=== PATIENT | female | born 1940 | race Caucasian/White ===

== ENCOUNTER 2016-11-25 20:07 | Inpatient (IN) ==
[2016-11-25 21:51] LABS: Eosinophils % 1.1 %; Hemoglobin 13.1 g/dL (11.5-15.4); Immature Granulocytes % 0.7 % (0-4); Lymphocytes % 12.1 %; Mean Corpuscular HGB Conc 33.6 g/dL (31.6-35.5); Mean Corpuscular Hemoglobin 29.4 pg (28.0-33.3); Mean Corpuscular Volume 87.4 fL (83.0-100.0); Mean Platelet Volume 9.1 fL (9.4-12.4); Monocytes % 9.8 %; Platelet Count 233 K/mcL (140-400); Red Blood Count 4.46 M/mcL (3.82-4.97); Red Cell Distribution Width 12.8 % (11.5-14.5); Segmented Neutrophils % 76.2 %
[2016-11-25 21:52] LABS: Basophils % 0.1 %; Eosinophils # 0.2 K/mcL (0.0-0.6); Lymphocytes # 1.7 K/mcL (0.6-4.6); Monocytes # 1.3 K/mcL (0.0-1.3); Neutrophils # 10.4 K/mcL (1.6-8.9)
[2016-11-25 22:08] LABS: Alanine Aminotransferase 9 Units/L (0-55); Albumin 3.2 g/dL (3.5-5.0); Albumin/Globulin Ratio 0.9 (1.1-2.2); Alkaline Phosphatase 96 Units/L (38-126); Aspartate Amino Transferase 18 Units/L (5-34); BUN/Creatinine Ratio 18 (6-26); Bilirubin,Total 0.4 mg/dL (0.2-1.2); Blood Urea Nitrogen 16 mg/dL (7-20); Calcium 10.3 mg/dL (8.6-10.8); Carbon Dioxide 27 mEq/L (19-29); Chloride 107 mEq/L (98-109); Globulin 3.6 g/dL (2.4-3.5); Glucose 58 mg/dL (70-99); Osmolality,Calculated 291 (280-300); Potassium 4.3 mEq/L (3.5-4.5); Sodium 141 mEq/L (136-145); Total Protein 6.8 g/dL (6.0-8.3); eGFR For African Americans > 60 (> 60); eGFR For Non-African Americans > 60 (> 60)
--- NOTE | 2016-11-25 22:39 | Emergency Department Note ---
Disposition Clinical Impression: Atypical chest pain, Hypoglycemia Disposition: Admitted As Inpatient Condition: Good General Adult HPI - General Chief complaint: ED Altered Mental Status Stated complaint: LOW GLUCOSE Time Seen by Provider: 11/25/16 20:11 Source: patient, EMS Mode of arrival: ambulatory Limitations: no limitations Nursing Notes Reviewed: Yes Vital Signs Reviewed: Yes - History of Present Illness HPI Narrative: 76-year-old female presents with concerns of low glucose. Patient states she took her insulin today but did not eat secondary to abdominal pain. Patient reports she has been evaluated multiple times in the past few months for abdominal pain with CTs that did not show surgical pathology. Patient denies associated fever, chills, palpitations, diarrhea, vomiting. Patient does report having chest pain earlier today however it is unclear whether this was associated with her hypoglycemia. Patient states she did become diaphoretic with her chest pain as well. Patient has a history of previous myocardial infarction however she had a negative stress test one year ago. Pain Scale: 0 - Related Data Home Medications Medication Instructions Recorded Confirmed Albuterol Neb [Proventil Neb] 2.5 mg IH TID 03/23/15 11/25/16 Donepezil [Aricept] 10 mg PO HS 03/23/15 11/25/16 Furosemide [Lasix] 40 mg PO DAILY 03/23/15 11/25/16 Levothyroxine [Synthroid] 75 mcg PO 0630 03/23/15 11/25/16 Potassium Chloride 20 meq PO BID 03/23/15 11/25/16 Pregabalin [Lyrica] 75 mg PO DAILY 03/23/15 11/25/16 Insulin Glargine [Lantus] 65 unit SQ HS 01/04/16 11/25/16 Insulin Regular, Human [Novolin R] 15 unit SQ TIDWM #0 01/04/16 11/25/16 Albuterol Sulfate [Ventolin Hfa] 2 puff IH Q4H PRN 11/25/16 11/25/16 Allopurinol [Zyloprim 100 MG] 100 mg PO DAILY 11/25/16 11/25/16 Colestipol HCl [Colestid] 1 gm PO BID 11/25/16 11/25/16 Dicyclomine [Bentyl] 20 mg PO QID PRN 11/25/16 11/25/16 Fluticasone Propionate Nasal 50 mcg NS DAILY PRN 11/25/16 11/25/16 [Flonase] Metoprolol [Lopressor] 50 mg PO BID 11/25/16 11/25/16 Omeprazole [PriLOSEC] 20 mg PO BIDAC 11/25/16 11/25/16 Ondansetron HCl [Zofran] 4 mg PO BID PRN 11/25/16 11/25/16 Oxycodone HCl/Acetaminophen 1 each PO Q8H PRN 11/25/16 11/25/16 [Percocet 5-325 mg Tablet] Sertraline [Zoloft] 100 mg PO DAILY 11/25/16 11/25/16 Valsartan [Diovan] 20 mg PO DAILY 11/25/16 11/25/16 Venlafaxine [Effexor] 75 mg PO DAILY 11/25/16 11/25/16 traZODone [TraZODone] 25 - 100 mg PO HS PRN 11/25/16 11/25/16 Allergies Allergy/AdvReac Type Severity Reaction Status Date / Time lisinopril Allergy Gastrointestinal Verified 10/28/16 10:34 Upset All systems ED: reviewed and negative except as stated. Review of Systems: As Per HPI Past Medical History - Past Medical History Attestation: Yes The following information was validated with the patient. Source: patient Medical history: Reports: asthma, CHF, coronary artery disease, diabetes, hyperlipidemia, hypertension, myocardial infarction, thyroid disease Surgical history: Reports: cholecystectomy Psychiatric history: Reports: no psych history - Social History Smoking Status: Never smoker Smokeless Tobacco Status: No Alcohol use: Reports: none Drug use: Reports: none Physical Exam General: Alert and in no acute distress Skin: Warm, dry, intact Head: Normocephalic and atraumatic Neck: Supple, trachea midline and no tenderness Cardiovascular: RRR, no murmur, normal perfusion Respiratory: CTAB, no wheezing, cough, or respiratory distress Musculoskeletal: Normal strength, no tenderness, swelling or deformity GI: Soft, tenderness to palpation of the epigastrium and left lower quadrant without evidence of rigidity, guarding, rebound. nondistended. Bowel sounds present Neuro: A&O to person, place, time and situation. No focal deficits noted on exam Psychiatric: cooperative and appropriate mood and affect. - General Limitations: no limitations General appearance: alert Course Vital Signs Temperature 99.1 F 11/25/16 20:10 Pulse Rate 70 11/25/16 20:10 Respiratory Rate 22 11/25/16 20:10 Blood Pressure 117/56 11/25/16 20:10 O2 Sat by Pulse Oximetry 95 11/25/16 20:10 Temperature 99.1 F 11/25/16 20:10 Pulse Rate 67 11/25/16 23:50 Respiratory Rate 18 11/25/16 23:55 Blood Pressure 124/58 11/25/16 23:55 O2 Sat by Pulse Oximetry 97 11/25/16 23:50 Oxygen Delivery Oxygen Delivery Room Air Medical Decision Making - MDM Narrative Medical decision making narrative: Patient has multiple risk factors for cardiac disease. Patient has initial negative troponin and EKG showed normal sinus rhythm with a rate of 68 without evidence of STEMI. Patient will be admitted to the hospital for further care and evaluation of her chest pain. - Medical Records Medical records reviewed: Yes I reviewed the patient's medical records. - Lab Data Lab results reviewed: Yes I reviewed the patient's lab results. Result diagrams: 11/25/16 21:42 11/25/16 21:42 Lab Results 11/25/16 11/25/16 11/25/16 Range/Units 21:42 21:42 21:42 WBC 13.6 H (4.3-11.1) K/mcL RBC 4.46 (3.82-4.97) M/mcL Hgb 13.1 (11.5-15.4) g/dL Hct 39.0 (35.3-44.9) % MCV 87.4 (83.0-100.0) fL MCH 29.4 (28.0-33.3) pg MCHC 33.6 (31.6-35.5) g/dL RDW 12.8 (11.5-14.5) % Plt Count 233 (140-400) K/mcL MPV 9.1 L (9.4-12.4) fL Immature Gran % 0.7 (0-4) % Seg Neutrophils % 76.2 % Lymphocytes % 12.1 % Monocytes % 9.8 % Eosinophils % 1.1 % Basophils % 0.1 % Neutrophils # 10.4 H (1.6-8.9) K/mcL Lymphocytes # 1.7 (0.6-4.6) K/mcL Monocytes # 1.3 (0.0-1.3) K/mcL Eosinophils # 0.2 (0.0-0.6) K/mcL Basophils # 0.0 (0.0-0.2) K/mcL Sodium 141 (136-145) mEq/L Potassium 4.3 (3.5-4.5) mEq/L Chloride 107 (98-109) mEq/L Carbon Dioxide 27 (19-29) mEq/L BUN 16 (7-20) mg/dL Creatinine 0.87 (0.57-1.11) mg/dL Est GFR ( Amer) > 60 (> 60) Est GFR (Non-Af Amer) > 60 (> 60) BUN/Creatinine Ratio 18 (6-26) Glucose 58 L (70-99) mg/dL Calculated Osmolality 291 (280-300) Calcium 10.3 (8.6-10.8) mg/dL Total Bilirubin 0.4 (0.2-1.2) mg/dL AST 18 (5-34) Units/L ALT 9 (0-55) Units/L Alkaline Phosphatase 96 (38-126) Units/L Troponin I 0.00 (0-0.03) ng/mL Serum Total Protein 6.8 (6.0-8.3) g/dL Albumin 3.2 L (3.5-5.0) g/dL Globulin 3.6 H (2.4-3.5) g/dL Albumin/Globulin Ratio 0.9 L (1.1-2.2) - Radiology Data Radiology results reviewed: Yes I reviewed the patient's radiology results. - EKG Data EKG #1 EKG attestation: Yes I reviewed and interpreted this EKG. EKG results narrative: ECG - interpreted by ED physician. Rate 68, normal sinus rhythm, no STEMI, MS, QT intervals, and QRS within normal limits
[2016-11-26] MEDS ORDERED: Naloxone 0.4 MG/ML INJ IVP PRN ×2 (01:14→01:21)
[2016-11-26] MEDS ORDERED: Ondansetron 4 MG/2 ML VIAL IVP PRN (01:14)
[2016-11-26 01:42] LABS: Basophils % 0.2 %; Eosinophils # 0.1 K/mcL (0.0-0.6); Hematocrit 39.2 % (35.3-44.9); Hemoglobin 12.9 g/dL (11.5-15.4); Immature Granulocytes % 0.5 % (0-4); Lymphocytes # 1.2 K/mcL (0.6-4.6); Lymphocytes % 13.7 %; Mean Corpuscular HGB Conc 32.9 g/dL (31.6-35.5); Mean Corpuscular Hemoglobin 29.2 pg (28.0-33.3); Mean Corpuscular Volume 88.7 fL (83.0-100.0); Mean Platelet Volume 9.1 fL (9.4-12.4); Monocytes # 0.8 K/mcL (0.0-1.3); Monocytes % 8.8 %; Neutrophils # 6.7 K/mcL (1.6-8.9); Platelet Count 239 K/mcL (140-400); Red Blood Count 4.42 M/mcL (3.82-4.97); Red Cell Distribution Width 12.7 % (11.5-14.5); Segmented Neutrophils % 75.8 %
[2016-11-26 01:55] LABS: BUN/Creatinine Ratio 17 (6-26); Blood Urea Nitrogen 16 mg/dL (7-20); Calcium 9.7 mg/dL (8.6-10.8); Carbon Dioxide 30 mEq/L (19-29); Chloride 104 mEq/L (98-109); Glucose 218 mg/dL (70-99); Osmolality,Calculated 296 (280-300); Potassium 4.3 mEq/L (3.5-4.5); Sodium 139 mEq/L (136-145); eGFR For African Americans > 60 (> 60); eGFR For Non-African Americans 59 (> 60)
--- NOTE | 2016-11-26 02:29 | Internal Med History&Physical ---
Date of Encounter: 11/26/16 Time of Encounter: 02:15 Assessment and Plan (1) Chest pain Current visit: No Status: Acute Acute atypical chest pain - rule out ACS Continue aspirin and statin EKG - normal sinus rhythm with no acute ST-T changes Troponin - negative Chest x-ray - no acute abnormality Trend troponin Stress test done in January 2016 - EF 70% and negative for ischemia or infarct Cardiac telemetry, labs in a.m. Qualifiers: Chest pain type: unspecified Qualified Code(s): R07.9 - Chest pain, unspecified (2) Diverticulitis large intestine Current visit: No Status: Chronic Patient does have history of diverticulosis of large intestine - status post partial colectomy as per patient She does have abdominal pain and left lower quadrant tenderness - possible mild flare of diverticulitis Qualifiers: Diverticulitis bleeding: without bleeding Diverticulitis complication: without perforation or abscess Qualified Code(s): K57.32 - Diverticulitis of large intestine without perforation or abscess without bleeding (3) Diabetes mellitus Current visit: No Status: Chronic Diabetes mellitus type 2, hyperglycemia, insulin-dependent Continue insulin sliding scale, Levemir, glucose checks Qualifiers: Diabetes mellitus type: type 2 Diabetes mellitus complication status: with kidney complications Diabetes mellitus complication detail: with chronic kidney disease Diabetes mellitus fci insulin use: with fci use Chronic kidney disease stage: stage 3 (moderate) Qualified Code(s): E11.22 - Type 2 diabetes mellitus with diabetic chronic kidney disease; N18.3 - Chronic kidney disease, stage 3 (moderate); Z79.4 - terminal gauger (current) use of insulin (4) Hypertension Current visit: No Status: Chronic Essential hypertension, controlled, continue home meds, monitor Qualifiers: Hypertension type: essential hypertension Qualified Code(s): I10 - Essential (primary) hypertension (5) Chronic kidney disease, stage III (moderate) Current visit: No Status: Chronic Creatinine and BUN and GFR at baseline (6) DVT prophylaxis Current visit: No Status: Acute Continue heparin subcutaneous Internal Medicine - H&P: HPI Chief complaint: Chest pain Admitted From: Emergency Dept Plans for Post Hospital Care: Home History of present illness: Ms. Ferro is a 76 year old female with past medical history of diabetes, hyperlipidemia, hypertension, hypothyroidism, asthma and chronic kidney disease stage III. Patient presents to the ED with complaints of chest pain and low blood glucose. On examination patient is awake and alert. Not in any distress. Able to provide history. Daughter is at bedside. Patient states she developed left- sided chest pain earlier today and became diaphoretic. Pain was radiating to her left arm. It was intermittent and felt like it was a chest pressure. Rates it 4 out of 10. Symptoms seem to have now resolved. Denies shortness of breath or palpitations or headache or dizziness. Patient did have a stress test about 1 year ago which was negative. Patient also complains of pain which she says is chronic. She also has chronic diarrhea apparently. Patient has been admitted in the past for chest pain and also for acute diverticulitis. EKG shows a normal sinus rhythm with no acute ST-T changes. Chest x-ray does not show any acute abnormality. Troponin is negative. CT of the abdomen and pelvis done about 4 weeks ago revealed colonic diverticulosis with no other acute findings. Patient and daughter are concerned about patient's chronic abdominal pain which is been going on for almost one year. Patient is being admitted for chest pain, rule out ACS. We will trend troponins. Patient will be on aspirin and statin. Patient and daughter explained about the condition and plan of care. Understood and agreed. No unanswered questions. CODE STATUS full code. Past Med Surg Social Fam HX - Past Medical History Medical history: asthma, CHF, coronary artery disease, diabetes, hyperlipidemia , hypertension, myocardial infarction, thyroid disease Psychiatric history: no psych history - Past Surgical History Surgical History: cholecystectomy, colectomy, other - Social History Smoking Status: Never smoker Smokeless Tobacco Status: No Alcohol use: none Drug use: none - Family History Mother Adopted: No Family Member Ethnicity: Non- Living Status: Hx Family Cardiac Disorders: Yes Hx Family Respiratory Disorders: No Hx Family Cancer: Yes Hx Family GI Disorders: No Hx Family Endocrine Disorder: No Hx Family Neuromuscular Disorders: No Hx Family Neurologic Disorders: No Hx Family HEENT Disorders: No Hx Family Autoimmune Disorders: No Father Living Status: Hx Family Cardiac Disorders: Yes Internal Medicine - H&P: Meds Albuterol Neb [Proventil Neb] 2.5 mg IH TID 03/23/15 [History] Donepezil [Aricept] 10 mg PO HS 03/23/15 [History] Furosemide [Lasix] 40 mg PO DAILY 03/23/15 [History] Levothyroxine [Synthroid] 75 mcg PO 0630 03/23/15 [History] Potassium Chloride 20 meq PO BID 03/23/15 [History] Pregabalin [Lyrica] 75 mg PO DAILY 03/23/15 [History] Insulin Glargine [Lantus] 65 unit SQ HS 01/04/16 [History] Insulin Regular, Human [Novolin R] 15 unit SQ TIDWM #0 01/04/16 [History] Albuterol Sulfate [Ventolin Hfa] 2 puff IH Q4H PRN 11/25/16 [History] Allopurinol [Zyloprim 100 MG] 100 mg PO DAILY 11/25/16 [History] Colestipol HCl [Colestid] 1 gm PO BID 11/25/16 [History] Dicyclomine [Bentyl] 20 mg PO QID PRN 11/25/16 [History] Fluticasone Propionate Nasal [Flonase] 50 mcg NS DAILY PRN 11/25/16 [History] Metoprolol [Lopressor] 50 mg PO BID 11/25/16 [History] Omeprazole [PriLOSEC] 20 mg PO BIDAC 11/25/16 [History] Ondansetron HCl [Zofran] 4 mg PO BID PRN 11/25/16 [History] Oxycodone HCl/Acetaminophen [Percocet 5-325 mg Tablet] 1 each PO Q8H PRN [History] Sertraline [Zoloft] 100 mg PO DAILY 11/25/16 [History] Valsartan [Diovan] 20 mg PO DAILY 11/25/16 [History] Venlafaxine [Effexor] 75 mg PO DAILY 11/25/16 [History] traZODone [TraZODone] 25 - 100 mg PO HS PRN 11/25/16 [History] Allergies lisinopril Allergy (Verified 10/28/16 10:34) Gastrointestinal Upset All Systems PM: A 10-system review of systems was performed and is negative for pertinent findings except as documented above in the HPI. - Constitutional Constitutional: fatigue, weakness, no fever(s) - EENT Eyes: no blurry vision - Cardiovascular Cardiovascular ROS IM: chest pain, no dyspnea, no dyspnea on exertion, no edema , no lightheadedness, no orthopnea, no syncope - Respiratory Respiratory: no cough, no dyspnea, no dyspnea on exertion, no wheezing, no chest congestion - Gastrointestinal Gastrointestinal: abdominal pain, bloating, diarrhea, no cramping, no hematochezia, no melena, no nausea, no vomiting - Genitourinary Genitourinary: no dysuria - Musculoskeletal Musculoskeletal ROS IM: back pain - Neurological Neurological ROS: no abnormal gait, no abnormal speech, no dizziness, no numbness, no tingling - Constitutional Vitals: Temp Pulse Resp BP Pulse Ox 98.0 F 71 16 118/59 94 11/26/16 01:13 11/26/16 01:13 11/26/16 01:13 11/26/16 01:13 11/26/16 01:13 General appearance: Present: A&O X 3, pleasant, no acute distress, answers questions appropriately - Head Head exam: Present: atraumatic - ENT ENT exam: Present: mucous membranes moist - Neck Neck exam general surgery: Present: supple - Respiratory Respiratory exam: Present: CTAB. Absent: rales, rhonchi, wheezes, tachypnea - Cardiovascular Cardiovascular exam: Present: RRR, +S1, +S2 - GI/Abdominal GI/Abdominal exam: Present: soft, tenderness (LLQ tenderness+). Absent: distended, firm, guarding, rigid - Extremities Exam Extremities exam: Present: radial pulses palpable and symetrical. Absent: cyanotic, pedal edema, tenderness - Neurological Exam Neurological exam: Present: alert, oriented X3, no focal deficits. Absent: facial droop, speech deficit Internal Med - H&P Results - Labs CBC & Chem 7: 11/26/16 01:30 11/26/16 01:30 Labs: Short CBC 11/26/16 Range/Units 01:30 WBC 8.9 (4.3-11.1) K/mcL Hgb 12.9 (11.5-15.4) g/dL Hct 39.2 (35.3-44.9) % Plt Count 239 (140-400) K/mcL Neutrophils # 6.7 (1.6-8.9) K/mcL BMP 11/26/16 01:30 Sodium 139 Potassium 4.3 Chloride 104 Carbon Dioxide 30 H BUN 16 Creatinine 0.93 Glucose 218 H Calcium 9.7 Cardiac Enzymes 11/26/16 Range/Units 01:30 Troponin I 0.00 (0-0.03) ng/mL
[2016-11-26] MEDS: Aspirin 81 MG TAB.CHEW PO SCH ×2 (03:20→08:34)
[2016-11-26] MEDS: *HR* Morphine 2 MG/ML SYRINGE IVP PRN ×2 (03:20→22:22)
[2016-11-26] MEDS: Albuterol 2.5 MG/3 ML NEBULIZER IH SCH ×3 (04:05→16:44)
[2016-11-26] MEDS: *HR* Heparin 5,000 UNIT/ML VIAL SQ SCH ×2 (04:50→17:54)
[2016-11-26] MEDS ORDERED: Famotidine 20 MG/2 ML VIAL IVP SCH (06:00)
[2016-11-26] MEDS: Insulin LISPRO 300 UNITS/3 ML VIAL SQ SCH ×4 (08:34→21:48)
[2016-11-26] MEDS: Furosemide 20 MG TABLET PO SCH (08:34)
[2016-11-26] MEDS: (Colestipol Hcl [Colestid] 1 GM) PO SCH ×2 (08:34→21:48)
[2016-11-26] MEDS: VALSARTAN 20 MG PO SCH (08:35)
[2016-11-26] MEDS ORDERED: Dextrose Gel 15 GM PO ONE (16:29)
[2016-11-26] MEDS ORDERED: D5% in Water 1,000 ML IVC PRN (16:31)
[2016-11-26] MEDS ORDERED: Dextrose Gel 15 GM PO PRN ×2 (16:31)
[2016-11-26] MEDS ORDERED: *HR* Dextrose 50 % in Water (Syg) 50 ML SYRINGE IVP PRN (16:31)
--- NOTE | 2016-11-26 18:57 | Event Note ---
Date of Encounter: 11/26/16 Time of Encounter: 13:30 Patient was seen and assessed about 1:30 PM. She currently denies chest pain. She states that the chest pain resolved spontaneously in the emergency department. Patient states she did not feel well when she woke up yesterday. Said she awakened with left chest pain that was sharp and constant without radiation. She had associated shortness of breath and diaphoresis, dizziness and nausea. It lasted approximately 3 hours. She denies any cardiac history in the past and does not have a pattern filer. She also reports constant abdominal pain, anorexia due to pain, and 3 admissions to the emergency department for the abdominal pain. Daughter verbalizes frustration over the fact that her mother cannot eat and it appears that no one is trying to help her. I explained to her that we do not have GI on the weekend and that he has been out of the country and will be back log when he gets back on Monday. I explained to her that someone is [employer] consultant but will only come in for acute GI bleed, which patient does not have. Daughter verbalized understanding and requested that another CAT scan be done. Patient is also waiting on an echocardiogram that has not been done yet today.Patient had a prior stress test in January, was negative for ischemia or infarct. Gated EF was greater than 70%. Prior echocardiogram from March,, showed LVEF of 60-65% with normal LV structure and function, mild diastolic dysfunction, normal RV structure and function no evidence of pulmonary hypertension, no significant valvular dysfunction, all wall segments showed normal motion. Patient's chest x -ray from this visit shows no acute abnormality. Troponins were negative 3. BNP is 25. Echocardiogram is still pending. CT abdomen and pelvis showed no acute abnormality with extensive diverticulosis , but without convincing CT evidence of diverticulitis. We will continue to treat her pain, since she also at times complains of epigastric pain and some reflux symptoms, I will add omeprazole. Patient denies nausea, vomiting, dizziness, blurred vision, diarrhea, chest pain , or shortness of breath. She does report left lower quadrant pain almost constant 8/10 and decreased appetite due to pain. He denies change in bowel movements and denies urinary symptoms. She denies weakness or extreme weight loss. Physical exam was unremarkable. Patient did seem a little slow to respond, but responded appropriately. She is alert and oriented 3, engaging, speech is clear. She has no anterior posterior cervical adenopathy. Lungs are clear anteriorly and posteriorly without rhonchi, wheezing, rales, respiratory distress. S1-S2 are heard with regular rate and rhythm. There are no murmurs, gallops, clicks. Her abdomen is soft and tender in left lower quadrant. Bowel sounds are present. Abdomen is rounded. Patient has +1 peripheral edema bilaterally lower extremities that is normal for her. Again, she denies chest pain. We will keep patient on telemetry tonight. We will continue her home medications. Will continue to monitor labs in the morning. We will continue sliding scale insulin, Accu-Cheks before meals and at bedtime for diabetes. We will draw an A1c in the morning. Will continue to monitor her vital signs. Heparin subcutaneously 3 times daily for DVT prophylaxis.
[2016-11-26 20:56] LABS: Bilirubin,Urine Negative (Negative); Blood,Urine Negative (Negative); Color,Urine Yellow (Yellow); Glucose,Urine (UA) 250 mg/dL (Normal); Ketones,Urine Negative (Negative); Leukocyte Esterase,Urine Moderate (Negative); Nitrite,Urine Negative (Negative); PH,Urine 5.5 pH Units (5.0-8.0); Protein,Urine Negative (Neg-Trace); Specific Gravity,Urine 1.023 (1.010-1.025); Urobilinogen,Urine Normal (Normal)
[2016-11-26 20:58] LABS: Hyaline Casts,Urine None Seen per lpf (None-Few); Squamous Epithelial Cell,Urine Many per lpf (None-Few); WBC,Urine 15-30 per hpf (0-3)
[2016-11-26] MEDS ORDERED: INSULIN GLARGINE SQ SCH (21:00)
[2016-11-26] MEDS ORDERED: Insulin DETEMIR 100 UNIT/ML X5UNITS SQ SCH (21:00)
[2016-11-26 21:01] LABS: Clarity,Urine Slightly Hazy (Clear)
[2016-11-26 21:17] LABS: Bacteria,Urine Few per hpf (None-Few)
[2016-11-26] MEDS: Insulin DETEMIR 100 UNIT/ML X5UNITS SQ SCH (23:21)
[2016-11-27] MEDS: Albuterol 2.5 MG/3 ML NEBULIZER IH SCH ×3 (03:45→16:53)
[2016-11-27 05:09] LABS: Basophils % 0.1 %; Eosinophils # 0.3 K/mcL (0.0-0.6); Eosinophils % 3.5 %; Hematocrit 39.8 % (35.3-44.9); Hemoglobin 12.8 g/dL (11.5-15.4); Immature Granulocytes % 0.6 % (0-4); Lymphocytes % 24.9 %; Mean Corpuscular HGB Conc 32.2 g/dL (31.6-35.5); Mean Corpuscular Hemoglobin 29.1 pg (28.0-33.3); Mean Corpuscular Volume 90.5 fL (83.0-100.0); Mean Platelet Volume 9.1 fL (9.4-12.4); Monocytes # 0.9 K/mcL (0.0-1.3); Monocytes % 11.3 %; Neutrophils # 4.9 K/mcL (1.6-8.9); Platelet Count 243 K/mcL (140-400); Segmented Neutrophils % 59.6 %
[2016-11-27 05:22] LABS: Hemoglobin A1C 7.4 %
[2016-11-27 05:30] LABS: BUN/Creatinine Ratio 16 (6-26); Blood Urea Nitrogen 16 mg/dL (7-20); Calcium 9.9 mg/dL (8.6-10.8); Carbon Dioxide 26 mEq/L (19-29); Chloride 104 mEq/L (98-109); Chol/HDL Ratio 8.7 (0-4.9); Cholesterol 305 mg/dL (< 200); Glucose 154 mg/dL (70-99); HDL Cholesterol 35 mg/dL (40-59); LDL Cholesterol,Calculated 226 mg/dL (0-99); Osmolality,Calculated 294 (280-300); Potassium 4.4 mEq/L (3.5-4.5); Sodium 140 mEq/L (136-145); Triglycerides 219 mg/dL (< 150); eGFR For African Americans > 60 (> 60); eGFR For Non-African Americans 52 (> 60)
[2016-11-27] MEDS: *HR* Heparin 5,000 UNIT/ML VIAL SQ SCH ×2 (06:15→17:40)
[2016-11-27] MEDS: Insulin LISPRO 300 UNITS/3 ML VIAL SQ SCH ×4 (09:43→22:09)
[2016-11-27] MEDS: VALSARTAN 20 MG PO SCH (09:44)
[2016-11-27] MEDS: (Colestipol Hcl [Colestid] 1 GM) PO SCH ×2 (09:44→22:09)
[2016-11-27] MEDS ORDERED: Perflutren Lipid Microsphere 1.3 ML in 0.9 % Sodium Chloride 8.7 ML IVP ONE (09:56)
[2016-11-27] MEDS: Furosemide 20 MG TABLET PO SCH (10:35)
[2016-11-27] MEDS: Aspirin 81 MG TAB.CHEW PO SCH (10:36)
[2016-11-27] MEDS: Famotidine 20 MG/2 ML VIAL IVP SCH (10:36)
--- NOTE | 2016-11-27 14:53 | Internal Med Progress Note ---
Date of Encounter: 11/27/16 Time of Encounter: 13:10 - Assessment and plan (1) Chest pain Current Visit: No Status: Acute Assessment and plan: Patient denies chest pain today. She says she has had none since yesterday. Echocardiogram was technically suboptimal and contrast was used. Normal LV systolic function with LVEF of 70%, mild diastolic dysfunction. Normal RV size and function all wall segments showed normal motion. Chest x-ray was negative. Troponins are negative 3. Lipids are elevated, patient takes Zocor daily. Continue aspirin, statin, beta abdoul. Continue tower cleaner labs and patient condition, vital signs. Qualifiers: Chest pain type: unspecified Qualified Code(s): R07.9 - Chest pain, unspecified (2) Hypertension Current Visit: Yes Status: Chronic Assessment and plan: Well-controlled. Chronic. Continue home medication. Qualifiers: Hypertension type: essential hypertension Qualified Code(s): I10 - Essential (primary) hypertension (3) Diabetes mellitus Current Visit: No Status: Chronic Assessment and plan: A1c is 7.4. Continue Accu-Cheks before meals at bedtime, diabetic diet, sliding scale insulin. Qualifiers: Diabetes mellitus type: type 2 Diabetes mellitus complication status: with kidney complications Diabetes mellitus complication detail: with chronic kidney disease Diabetes mellitus long term care administrator insulin use: with long term care administrator use Chronic kidney disease stage: stage 3 (moderate) Qualified Code(s): E11.22 - Type 2 diabetes mellitus with diabetic chronic kidney disease; N18.3 - Chronic kidney disease, stage 3 (moderate); Z79.4 - skilled nursing (current) use of insulin (4) Diverticulitis large intestine Current Visit: No Status: Chronic Assessment and plan: Per patient history. Patient was treated with antibiotics 6 months ago. She also reports that she finished antibiotics yesterday for abdominal pain. CAT scan done yesterday showed no acute abnormality and extensive diverticulosis but no convincing CT evidence of diverticulitis. Control pain. If no better consider GI consult tomorrow. Qualifiers: Diverticulitis bleeding: without bleeding Diverticulitis complication: without perforation or abscess Qualified Code(s): K57.32 - Diverticulitis of large intestine without perforation or abscess without bleeding (5) Chronic kidney disease, stage III (moderate) Current Visit: Yes Status: Chronic Assessment and plan: Creatinine is 1.03 within normal limits. GFR is 52. We will continue to monitor and avoid nephrotoxins. (6) DVT prophylaxis Current Visit: Yes Status: Acute Assessment and plan: Heparin subcutaneous daily. - Time Spent With Patient less than 15 minutes - Subjective Interval history: Patient is resting quietly in her bed. She is alert and oriented 3, sometimes slow to respond. He does seem to answer questions appropriately. She still complaining of intermittent sharp, stabbing right lower quadrant pain and umbilical pain. She states that she is able to ease small amounts of food. She denies nausea, vomiting, diarrhea. She reports anorexia due to pain, however denies any significant weight loss. She is able to keep fluids down. She has not had a colonoscopy or EGD. She says the pain gets worse with any eating or drinking. Onset one and half months ago. She also reports that about 6 months ago she was treated for diverticulitis with antibiotics and also states again she was treated with antibiotics for abdominal pain that she finished the day that she was admitted. Abdomen is very tender to palpation in left lower quadrant as well as periumbilical area. Patient has vertical incision from umbilicus to pubic bone , she states that she had a cholecystectomy. There are no palpable masses in the abdomen, no visible hernias. There is a fat-containing umbilical hernia, however is not evident with exam. - Constitutional Vitals: Temp Pulse Resp BP Pulse Ox 98.2 F 73 15 125/71 95 11/27/16 11:00 11/27/16 11:00 11/27/16 11:15 11/27/16 11:00 11/27/16 11:15 General appearance: Present: A&O X 3, pleasant, no acute distress, answers questions appropriately - Head Head exam: Present: normal inspection - Eye Eye exam: Present: normal appearance, conjuntiva pink. Absent: nystagmus - ENT ENT exam: Present: mucous membranes moist, normal exam, normal external ear exam - Respiratory Respiratory exam: Absent: chest wall tenderness, decreased breath sounds, rales , respiratory distress, rhonchi, wheezes - Cardiovascular Cardiovascular exam: Present: RRR, +S1, +S2. Absent: diastolic murmur, systolic murmur - GI/Abdominal GI/Abdominal exam: Present: distended, guarding, mass, normal bowel sounds, soft. Absent: hepatomegaly, tenderness - Extremities Exam Extremities exam: Present: warm, radial pulses palpable and symetrical. Absent : pedal edema, tenderness - Neurological Exam Neurological exam: Present: alert, oriented X3. Absent: facial droop, speech deficit Internal Medicine: Result - Labs CBC & Chem 7: 11/27/16 04:48 11/27/16 04:48 Labs: Short CBC 11/27/16 Range/Units 04:48 WBC 8.2 (4.3-11.1) K/mcL Hgb 12.8 (11.5-15.4) g/dL Hct 39.8 (35.3-44.9) % Plt Count 243 (140-400) K/mcL Neutrophils # 4.9 (1.6-8.9) K/mcL BMP 11/27/16 04:48 Sodium 140 Potassium 4.4 Chloride 104 Carbon Dioxide 26 BUN 16 Creatinine 1.03 Glucose 154 H Calcium 9.9 Urine 11/26/16 Range/Units 20:48 Urine Color Yellow (Yellow) Urine Clarity Slightly Hazy (Clear) Urine pH 5.5 (5.0-8.0) pH Units Ur Specific [place] 1.023 (1.010-1.025) Urine Protein Negative (Neg-Trace) mg/dL Urine Glucose (UA) 250 H (Normal) mg/dL - Impressions Impressions Abdomen/Pelvis CT 11/26/16 15:48 IMPRESSION: 1. No acute abnormality detected. 2. Extensive diverticulosis, but without convincing CT evidence of diverticulitis. D/ / Chris Perdomo MD / Chris Perdomo MD Interpreting Provider: Chris Perdomo MD Consult Discharge Plan - Plan Referrals: NO,PCP [Primary Care Provider] -
[2016-11-27] MEDS: *HR* Morphine 2 MG/ML SYRINGE IVP PRN (22:08)
[2016-11-27] MEDS: Insulin DETEMIR 100 UNIT/ML X5UNITS SQ SCH (22:08)
[2016-11-28] MEDS: Albuterol 2.5 MG/3 ML NEBULIZER IH SCH ×3 (03:08→16:29)
[2016-11-28] MEDS: *HR* Heparin 5,000 UNIT/ML VIAL SQ SCH ×2 (05:52→16:41)
[2016-11-28 05:57] LABS: Basophils % 0.4 %; Eosinophils # 0.3 K/mcL (0.0-0.6); Eosinophils % 4.1 %; Hematocrit 42.8 % (35.3-44.9); Hemoglobin 13.7 g/dL (11.5-15.4); Immature Granulocytes % 0.6 % (0-4); Lymphocytes # 1.6 K/mcL (0.6-4.6); Lymphocytes % 20.4 %; Mean Corpuscular Hemoglobin 29.1 pg (28.0-33.3); Mean Corpuscular Volume 90.9 fL (83.0-100.0); Mean Platelet Volume 9.5 fL (9.4-12.4); Monocytes # 1.1 K/mcL (0.0-1.3); Monocytes % 13.6 %; Neutrophils # 4.9 K/mcL (1.6-8.9); Platelet Count 270 K/mcL (140-400); Red Blood Count 4.71 M/mcL (3.82-4.97); Red Cell Distribution Width 13.1 % (11.5-14.5); Segmented Neutrophils % 60.9 %
[2016-11-28 06:18] LABS: BUN/Creatinine Ratio 17 (6-26); Blood Urea Nitrogen 18 mg/dL (7-20); Calcium 10.1 mg/dL (8.6-10.8); Carbon Dioxide 31 mEq/L (19-29); Chloride 103 mEq/L (98-109); Glucose 146 mg/dL (70-99); Osmolality,Calculated 297 (280-300); Potassium 4.2 mEq/L (3.5-4.5); Sodium 141 mEq/L (136-145); eGFR For African Americans > 60 (> 60); eGFR For Non-African Americans 50 (> 60)
[2016-11-28] MEDS: Insulin LISPRO 300 UNITS/3 ML VIAL SQ SCH ×4 (07:50→21:20)
[2016-11-28] MEDS: Furosemide 20 MG TABLET PO SCH (07:51)
[2016-11-28] MEDS: (Colestipol Hcl [Colestid] 1 GM) PO SCH ×2 (07:52→21:20)
[2016-11-28] MEDS: VALSARTAN 20 MG PO SCH (07:52)
[2016-11-28] MEDS: Famotidine 20 MG/2 ML VIAL IVP SCH (07:52)
[2016-11-28] MEDS: Aspirin 81 MG TAB.CHEW PO SCH (07:52)
--- NOTE | 2016-11-28 08:29 | Gastroenterology Consult Note ---
<Christine Mejia - Last Filed: 11/28/16 10:14> Date of Encounter: 11/28/16 Time of Encounter: 09:20 - Assessment and plan (1) Chronic abdominal pain Current Visit: Yes Status: Chronic (2) Anorexia Current Visit: Yes Status: Chronic (3) Diverticulosis Current Visit: Yes Status: Chronic Qualifiers: Diverticulosis site: diverticulosis of large intestine Qualified Code(s): K57.30 - Diverticulosis of large intestine without perforation or abscess without bleeding (4) History of colon resection Current Visit: Yes Status: Chronic - Time Spent With Patient Total time spent is greater than 50% in coordination of care (as documented) at patient's floor/unit and/or counseling patient: less than 15 minutes GI History of Present Illness - Data of Consult Patient: known to practice within the last 3 years Consult date: 11/28/16 Requesting Physician: Nidhi Fonseca CNP - Consult Narrative Reason for consult: chronic abd pain, anorexia History of present illness: Ms. Ferro is a 76 year old female with past medical history of diabetes, hyperlipidemia, hypertension, hypothyroidism, asthma and chronic kidney disease stage III. Patient presents to the ED with complaints of chest pain and low blood glucose. Patient states she developed left-sided chest pain earlier on the day of admission, she became diaphoretic per the medical chart. Pain was radiating to her left arm. It was intermittent and felt like it was a chest pressure. Rates it 4 out of 10. Symptoms seem to have resolved on presentation to ED. Patient did have a stress test in January, which was negative, EF wnl. Patient also complains of abdominal pain and diarrhea which she says is chronic. Patient has been admitted in the past for chest pain and also for acute diverticulitis. Chest x-ray did not show any acute abnormality. Troponin was negative. CT of the abdomen and pelvis done about 4 weeks ago revealed colonic diverticulosis with no other acute findings, CT was repeated during this admission with similar findings. Patient and daughter are concerned about patient's chronic abdominal pain which was reported as going on for almost one year. Patient was initially admitted for chest pain, rule out ACS. During her inpatient stay, daughter verbalized frustration over the fact that her mother cannot eat and it appears that no one was trying to help her. Patient was seen recently (11/14/16) in the GI clinic by Federico Jimenez CNP at which time he ordered EGD/Colonoscopy for evaluation of chronic abdominal pain, nausea without vomiting and diarrhea. Stool w/u was unremarkable. Her weight appears relatively stable from her clinic visit and current hospital admission. Patient states she moves bowel up to 4x daily, stools are loose, but almost as if she 'doesn't finish' during initial movements as they are close together. Nausea and abdominal pain with food ingestion. She has both epigastric abdominal pain and LLQ abdominal pain. Previous colon resection about 3-4 years ago for severe diverticulosis. Patient daughter has had colon cancer. Colonoscopy: [facility] 1 yr - 1 polyp per patient EGD: None Past Med Surg Social Fam HX - Past Medical History Medical history: asthma, CHF, coronary artery disease, diabetes, hyperlipidemia , hypertension, myocardial infarction, thyroid disease Psychiatric history: no psych history - Past Surgical History Surgical History: cholecystectomy, colectomy, other - Social History Smoking Status: Never smoker Smokeless Tobacco Status: No Alcohol use: none Drug use: none - Family History Mother Adopted: No Family Member Ethnicity: Non- Living Status: Hx Family Cardiac Disorders: Yes Hx Family Respiratory Disorders: No Hx Family Cancer: Yes Hx Family GI Disorders: No Hx Family Endocrine Disorder: No Hx Family Neuromuscular Disorders: No Hx Family Neurologic Disorders: No Hx Family HEENT Disorders: No Hx Family Autoimmune Disorders: No Father Living Status: Hx Family Cardiac Disorders: Yes - Gastrointestinal NSAID use: low dose asa Anticoagulation Use: Heparin during admit Number of BM Per Day: 4 Gastrointestinal: Present: abdominal pain, dyspepsia, nausea - Constitutional Constitutional: anorexia - EENT Eyes: as per HPI Ears: Present: as per HPI Nose, mouth and throat: Present: as per HPI - Cardiovascular Cardiovascular ROS: Present: chest pain - Respiratory Respiratory IM: Present: as per HPI - Neurological ROS Neurological GI: Present: as per HPI - Hematologic/Lymphatic Hematologic/Lymphatic pediatric: Present: as per HPI - Musculoskeletal Musculoskeletal ROS GI: Present: as per HPI - Integumentary Integumentary GI: Present: as per HPI - Psychiatric ROS Psychiatric GI: Present: as per HPI - Endocrine Endocrine IM: Present: as per HPI - Constitutional Vitals: Temp Pulse Resp BP Pulse Ox 98.0 F 67 14 126/83 94 11/28/16 06:56 11/28/16 06:56 11/28/16 06:56 11/28/16 06:56 11/28/16 06:56 General appearance: Present: cooperative, A&O X 3, no acute distress, answers questions appropriately - Head Head exam: Present: atraumatic, normocephalic - Eye Eye exam: Present: normal appearance, sclera anicteric - ENT ENT exam: Present: mucous membranes moist - Neck Neck exam general surgery: Present: normal inspection, trachea midline - Respiratory Respiratory exam: Present: CTAB - Cardiovascular Cardiovascular exam: Present: RRR, +S1, +S2 - GI/Abdominal GI/Abdominal exam: Present: normal bowel sounds, soft, tenderness, no peritoneal signs - Rectal Rectal exam: Present: deferred - Extremities Exam Extremities exam: Present: warm - Neurological Exam Neurological exam: Present: no focal deficits - Psychiatric Psychiatric exam: Present: normal affect, normal mood - Skin Skin exam: Present: dry, intact, normal color, warm Results - Labs CBC & Chem 7: 11/28/16 04:45 11/28/16 04:45 Labs: Last Result Calcium 10.1 mg/dL (8.6-10.8) 11/28/16 04:45 Troponin I 0.00 ng/mL (0-0.03) 11/26/16 13:55 Triglycerides 219 mg/dL (< 150) H 11/27/16 04:48 Entire Visit Hgb 13.7 g/dL (11.5-15.4) 11/28/16 04:45 Hct 42.8 % (35.3-44.9) 11/28/16 04:45 Total Bilirubin 0.4 mg/dL (0.2-1.2) 11/25/16 21:42 AST 18 Units/L (5-34) 11/25/16 21:42 ALT 9 Units/L (0-55) 11/25/16 21:42 Consult Discharge Plan - Plan Referrals: NO,PCP [Primary Care Provider] - <Hoa Duenas - Last Filed: 11/28/16 18:01> Date of Encounter: 11/28/16 Time of Encounter: 17:30 - Time Spent With Patient Total time spent is greater than 50% in coordination of care (as documented) at patient's floor/unit and/or counseling patient: GI History of Present Illness - Data of Consult Requesting Physician: Nidhi Fonseca CNP - Consult Narrative History of present illness: Ms. Ferro is a 76 year old female - Constitutional Vitals: Temp Pulse Resp BP Pulse Ox 98.2 F 67 14 130/67 94 11/28/16 15:43 11/28/16 15:43 11/28/16 15:43 11/28/16 15:43 11/28/16 15:43 Results - Labs CBC & Chem 7: 11/28/16 04:45 11/28/16 04:45 Labs: Last Result Calcium 10.1 mg/dL (8.6-10.8) 11/28/16 04:45 Troponin I 0.00 ng/mL (0-0.03) 11/26/16 13:55 Triglycerides 219 mg/dL (< 150) H 11/27/16 04:48 Entire Visit Hgb 13.7 g/dL (11.5-15.4) 11/28/16 04:45 Hct 42.8 % (35.3-44.9) 11/28/16 04:45 Total Bilirubin 0.4 mg/dL (0.2-1.2) 11/25/16 21:42 AST 18 Units/L (5-34) 11/25/16 21:42 ALT 9 Units/L (0-55) 11/25/16 21:42 - Impressions Impressions Abdomen/Pelvis CT 11/28/16 11:30 IMPRESSION: 1. Status post cholecystectomy with intrahepatic and extrahepatic biliary dilatation. The common bile duct measures 17 mm maximally. This compares to approximately 10 mm on 10/19/2016. Correlation with liver enzymes. Follow-up MRCP or ERCP recommended as indicated. 2. Otherwise stable CT of the abdomen and pelvis. Asymmetric left renal atrophy. Colonic diverticulosis with no acute features. D/ / 11/28/2016 12:18:01 Lucas Quiñones MD / toi Interpreting Provider: Lucas Quiñones MD - Attending Attestation I examined this patient and my medical decision-making was reviewed with the Resident Physician. I agree with the documented findings, disposition and treatment plan as described except to the extent set forth below. Patient with left lower quadrant pain for the last 6-8 week. Outpatient. Antibiotic with no relief of the pain. Since being in the hospital per patient' s and lower improvement her pain symptoms. CT scan negative for any acute diverticulitis. Does has increase in size of her CBD from 10-15 mm but the patient do not have any right upper quadrant pain. Recommendation: Patient to have an EGD and colonoscopy tomorrow and if negative then she will need an ERCP because of dilated CBD especially with increase in the size of recent origin.
[2016-11-28] MEDS: *HR* Morphine 2 MG/ML SYRINGE IVP PRN ×2 (08:38→15:20)
--- NOTE | 2016-11-28 09:44 | Internal Med Progress Note ---
<Lucas Bowden - Last Filed: 11/28/16 13:08> Date of Encounter: 11/28/16 Time of Encounter: 09:44 - Assessment and plan (1) Diverticulosis Current Visit: Yes Status: Chronic Assessment and plan: Diverticulosis and prior colon resection seen on CT abdomen and pelvis without contrast. Repeat CT abdomen and pelvis with contrast shows intrahepatic and extrahepatic biliary dilatation. The common bile duct measures 17 mm maximally. This compares to approximately 10 mm on 10/19/2016. No elevation in liver function enzymes. Elevated triglyceride and cholesterol levels. Follow-up MRCP or ERCP recommended if EGD/colonoscopy unremarkable. We will discontinue morphine if MRCP is indictated. GI following, anticipate EGD/colonoscopy tomorrow Qualifiers: Diverticulosis site: diverticulosis of large intestine Qualified Code(s): K57.30 - Diverticulosis of large intestine without perforation or abscess without bleeding (2) History of colon resection Current Visit: Yes Status: Chronic Assessment and plan: See above. (3) Diabetes mellitus type 2 in obese Current Visit: Yes Status: Acute Assessment and plan: Continue insulin regimen and blood glucose monitoring (4) Hyperlipidemia Current Visit: No Status: Chronic Assessment and plan: Elevated triglyceride and cholesterol levels. Zocor dose increased to 40 mg daily at bedtime Qualifiers: Hyperlipidemia type: unspecified Qualified Code(s): E78.5 - Hyperlipidemia , unspecified (5) Hypertension Current Visit: Yes Status: Chronic Assessment and plan: Well-controlled. Chronic. Continue home medication. Qualifiers: Hypertension type: essential hypertension Qualified Code(s): I10 - Essential (primary) hypertension (6) Chronic kidney disease, stage III (moderate) Current Visit: Yes Status: Chronic Assessment and plan: Creatinine is within normal limits. GFR is 50. We will continue to monitor and avoid nephrotoxins. (7) DVT prophylaxis Current Visit: Yes Status: Acute Assessment and plan: Heparin subcutaneous daily. Patient seen and examined, plan discussed with patient agreed upon with Dr. Middleton - Subjective Interval history: Patient resting comfortably in bed. She reports ongoing left upper quadrant abdominal pain. Patient denies vomiting. Last bowel movement was earlier this morning. Patient is scheduled for EGD/colonoscopy tomorrow - Constitutional Vitals: Temp Pulse Resp BP Pulse Ox 98.0 F 67 14 126/83 94 11/28/16 06:56 11/28/16 06:56 11/28/16 06:56 11/28/16 06:56 11/28/16 06:56 General appearance: Present: A&O X 3, pleasant, no acute distress, answers questions appropriately - Head Head exam: Present: atraumatic, normocephalic - Eye Eye exam: Present: PERRL, conjuntiva pink, sclera anicteric Pupils: Present: PERRL - ENT ENT exam: Present: mucous membranes moist, normal oropharynx - Neck Neck exam general surgery: Present: supple, trachea midline. Absent: lymphadenopathy - Respiratory Respiratory exam: Present: CTAB. Absent: accessory muscle use, rales, rhonchi, wheezes - Cardiovascular Cardiovascular exam: Present: RRR, +S1, +S2. Absent: diastolic murmur, gallop, rubs, systolic murmur - GI/Abdominal GI/Abdominal exam: Present: normal bowel sounds, soft, tenderness (Epigastric, left upper quadrant, left lower quadrant), no peritoneal signs. Absent: diminished bowel sounds, distended, guarding - Extremities Exam Extremities exam: Present: warm, radial pulses palpable and symetrical. Absent : calf tenderness, cyanotic, pedal edema - Neurological Exam Neurological exam: Present: CN II-XII intact, oriented X3, no focal deficits. Absent: pronater drift, facial droop, speech deficit - Skin Skin exam: Present: dry, intact, warm. Absent: pallor Internal Medicine: Result - Labs CBC & Chem 7: 11/28/16 04:45 11/28/16 04:45 Labs: Short CBC 11/28/16 Range/Units 04:45 WBC 8.0 (4.3-11.1) K/mcL Hgb 13.7 (11.5-15.4) g/dL Hct 42.8 (35.3-44.9) % Plt Count 270 (140-400) K/mcL Neutrophils # 4.9 (1.6-8.9) K/mcL BMP 11/28/16 04:45 Sodium 141 Potassium 4.2 Chloride 103 Carbon Dioxide 31 H BUN 18 Creatinine 1.07 Glucose 146 H Calcium 10.1 - Impressions Abdomen/Pelvis CT 11/26/16 15:48 IMPRESSION: 1. No acute abnormality detected. 2. Extensive diverticulosis, but without convincing CT evidence of diverticulitis. D/ / Chris Perdomo MD / Chris Perdomo MD Interpreting Provider: Chris Perdomo MD Abdomen/Pelvis CT 11/28/16 11:30 IMPRESSION: 1. Status post cholecystectomy with intrahepatic and extrahepatic biliary dilatation. The common bile duct measures 17 mm maximally. This compares to approximately 10 mm on 10/19/2016. Correlation with liver enzymes. Follow-up MRCP or ERCP recommended as indicated. 2. Otherwise stable CT of the abdomen and pelvis. Asymmetric left renal atrophy. Colonic diverticulosis with no acute features. D/ / 11/28/2016 12:18:01 Lucas Quiñones MD / toi Interpreting Provider: Lucas Quiñones MD Consult Discharge Plan - Plan Referrals: NO,PCP [Primary Care Provider] - <Hussain Middleton P - Last Filed: 11/28/16 17:53> Date of Encounter: 11/28/16 - Constitutional Vitals: Temp Pulse Resp BP Pulse Ox 98.2 F 67 14 130/67 94 11/28/16 15:43 11/28/16 15:43 11/28/16 15:43 11/28/16 15:43 11/28/16 15:43 Internal Medicine: Result - Labs CBC & Chem 7: 11/28/16 04:45 11/28/16 04:45 Labs: Short CBC 11/28/16 Range/Units 04:45 WBC 8.0 (4.3-11.1) K/mcL Hgb 13.7 (11.5-15.4) g/dL Hct 42.8 (35.3-44.9) % Plt Count 270 (140-400) K/mcL Neutrophils # 4.9 (1.6-8.9) K/mcL BMP 11/28/16 04:45 Sodium 141 Potassium 4.2 Chloride 103 Carbon Dioxide 31 H BUN 18 Creatinine 1.07 Glucose 146 H Calcium 10.1 - Impressions Impressions Abdomen/Pelvis CT 11/28/16 11:30 IMPRESSION: 1. Status post cholecystectomy with intrahepatic and extrahepatic biliary dilatation. The common bile duct measures 17 mm maximally. This compares to approximately 10 mm on 10/19/2016. Correlation with liver enzymes. Follow-up MRCP or ERCP recommended as indicated. 2. Otherwise stable CT of the abdomen and pelvis. Asymmetric left renal atrophy. Colonic diverticulosis with no acute features. D/ / 11/28/2016 12:18:01 Lucas Quiñones MD / toi Interpreting Provider: Lucas Quiñones MD - Attending Attestation I examined this patient and my medical decision-making was reviewed with the Resident Physician. I agree with the documented findings, disposition and treatment plan as described except to the extent set forth below.
--- NOTE | 2016-11-28 12:56 | Electrocardiograph Report ---
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
--- NOTE | 2016-11-28 13:01 | Electrocardiograph Report ---
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
[2016-11-28] MEDS ORDERED: Polyethylene Glycol 3350 255 GM POWDER PO ONE (17:00)
[2016-11-28] MEDS ORDERED: *HR* HYDROmorphone (PF) 1 MG/ML SYRINGE IVP PRN (18:18)
[2016-11-28] MEDS: Insulin DETEMIR 100 UNIT/ML X5UNITS SQ SCH (21:38)
[2016-11-28] MEDS: Acetaminophen 325 MG TABLET PO PRN (21:38)
[2016-11-29] MEDS: Albuterol 2.5 MG/3 ML NEBULIZER IH SCH ×3 (02:32→16:01)
--- NOTE | 2016-11-29 06:30 | Internal Med Progress Note ---
<Lucas Bowden - Last Filed: 11/29/16 17:46> Date of Encounter: 11/29/16 Time of Encounter: 06:28 - Assessment and plan (1) Common bile duct dilation Current Visit: Yes Status: Acute Assessment and plan: CT abdomen and pelvis with contrast shows intrahepatic and extrahepatic biliary dilatation. The common bile duct measures 17 mm maximally. This compares to approximately 10 mm on 10/19/2016. No elevation in liver function enzymes. Elevated triglyceride and cholesterol levels. In view after midnight GI will perform an ERCP tomorrow morning because of dilated CBD especially with increase in the size of recent origin. (2) Chronic abdominal pain Current Visit: Yes Status: Chronic Assessment and plan: See above. EEG biopsy results pending (3) Diverticulosis Current Visit: Yes Status: Chronic Assessment and plan: GI following, colonoscopy today revealed diverticulosis large intestine without perforation or abscess without bleedingPatient with left lower quadrant pain for the last 6-8 weeks EGD today reveal diaphragmatic hernia without obstruction or gangrene. Pathology: biopsy results pending . Qualifiers: Diverticulosis site: diverticulosis of large intestine Diverticulosis bleeding: diverticulosis without bleeding Qualified Code(s): K57.30 - Diverticulosis of large intestine without perforation or abscess without bleeding (4) History of colon resection Current Visit: Yes Status: Chronic Assessment and plan: Prior history of colon resection. See above. (5) Diabetes mellitus type 2 in obese Current Visit: Yes Status: Acute Assessment and plan: Continue insulin regimen and blood glucose monitoring (6) Hyperlipidemia Current Visit: No Status: Chronic Assessment and plan: Elevated triglyceride and cholesterol levels. Zocor 40 mg at bedtime Qualifiers: Hyperlipidemia type: unspecified Qualified Code(s): E78.5 - Hyperlipidemia , unspecified (7) Hypertension Current Visit: Yes Status: Chronic Assessment and plan: Well-controlled. Chronic. Continue home medication. Qualifiers: Hypertension type: essential hypertension Qualified Code(s): I10 - Essential (primary) hypertension (8) Chronic kidney disease, stage III (moderate) Current Visit: Yes Status: Chronic Assessment and plan: Creatinine is within normal limits. We will continue to monitor and avoid nephrotoxins. (9) DVT prophylaxis Current Visit: Yes Status: Acute Assessment and plan: Heparin subcutaneous daily. Patient seen and examined, plan discussed with patient agreed upon with Dr. Middleton - Subjective Interval history: Patient resting comfortably in bed. She is scheduled for EGD/colonoscopy today. Patient has been drinking bowel prep solution and denies any new c/o. Family is at bedside - Constitutional Vitals: Temp Pulse Resp BP Pulse Ox 98.0 F 58 12 125/74 93 11/29/16 03:08 11/29/16 03:08 11/29/16 03:08 11/29/16 03:08 11/29/16 03:08 General appearance: Present: cooperative, A&O X 3, pleasant, no acute distress, obese, answers questions appropriately - Head Head exam: Present: atraumatic, normocephalic - Eye Eye exam: Present: PERRL, conjuntiva pink, sclera anicteric Pupils: Present: PERRL - ENT ENT exam: Present: mucous membranes moist, normal oropharynx - Neck Neck exam general surgery: Present: supple, trachea midline. Absent: lymphadenopathy - Respiratory Respiratory exam: Present: CTAB. Absent: accessory muscle use, rales, rhonchi, wheezes - Cardiovascular Cardiovascular exam: Present: RRR, +S1, +S2. Absent: diastolic murmur, gallop, rubs, systolic murmur - GI/Abdominal GI/Abdominal exam: Present: hyperactive bowel sounds, soft, tenderness, no peritoneal signs. Absent: distended, guarding (LUQ, LLQ) - Extremities Exam Extremities exam: Present: warm, radial pulses palpable and symetrical. Absent : calf tenderness, cyanotic, pedal edema - Neurological Exam Neurological exam: Present: CN II-XII intact, oriented X3, no focal deficits. Absent: pronater drift, facial droop, speech deficit - Psychiatric Psychiatric exam: Present: normal affect, normal mood - Skin Skin exam: Present: dry, intact Internal Medicine: Result - Labs CBC & Chem 7: 11/29/16 06:52 11/29/16 06:52 Consult Discharge Plan - Plan Referrals: NO,PCP [Primary Care Provider] - <Hussain Middleton - Last Filed: 11/29/16 18:27> Date of Encounter: 11/29/16 - Constitutional Vitals: Temp Pulse Resp BP Pulse Ox 97.8 F 77 17 144/80 92 11/29/16 11:09 11/29/16 14:45 11/29/16 16:02 11/29/16 15:40 11/29/16 16:02 Internal Medicine: Result - Labs CBC & Chem 7: 11/29/16 06:52 11/29/16 06:52 Labs: Short CBC 11/29/16 Range/Units 06:52 WBC 7.6 (4.3-11.1) K/mcL Hgb 13.9 (11.5-15.4) g/dL Hct 42.7 (35.3-44.9) % Plt Count 261 (140-400) K/mcL Neutrophils # 5.0 (1.6-8.9) K/mcL BMP 11/29/16 06:52 Sodium 137 Potassium 4.0 Chloride 100 Carbon Dioxide 30 H BUN 15 Creatinine 0.99 Glucose 130 H Calcium 9.8 Liver Function 11/29/16 Range/Units 06:52 Total Bilirubin 0.5 (0.2-1.2) mg/dL AST 36 H (5-34) Units/L ALT 26 (0-55) Units/L Alkaline Phosphatase 138 H (38-126) Units/L Albumin 3.3 L (3.5-5.0) g/dL - ABG Interpretation ABG results: PT/INR, D-dimer PT 12.4 Seconds (9.4-12.1) H 11/29/16 06:52 - Attending Attestation I examined this patient and my medical decision-making was reviewed with the Resident Physician. I agree with the documented findings, disposition and treatment plan as described except to the extent set forth below. ERCP tomorrow NPO mid night and no Sub cut heparin
[2016-11-29 07:29] LABS: Basophils % 0.1 %; Eosinophils # 0.4 K/mcL (0.0-0.6); Eosinophils % 4.7 %; Hematocrit 42.7 % (35.3-44.9); Hemoglobin 13.9 g/dL (11.5-15.4); Immature Granulocytes % 0.5 % (0-4); Lymphocytes # 1.3 K/mcL (0.6-4.6); Lymphocytes % 17.4 %; Mean Corpuscular HGB Conc 32.6 g/dL (31.6-35.5); Mean Corpuscular Hemoglobin 29.1 pg (28.0-33.3); Mean Corpuscular Volume 89.3 fL (83.0-100.0); Mean Platelet Volume 9.1 fL (9.4-12.4); Monocytes # 0.9 K/mcL (0.0-1.3); Platelet Count 261 K/mcL (140-400); Red Blood Count 4.78 M/mcL (3.82-4.97); Segmented Neutrophils % 65.3 %
[2016-11-29 07:58] LABS: INR 1.1; Prothrombin Time 12.4 Seconds (9.4-12.1)
[2016-11-29] MEDS: Insulin LISPRO 300 UNITS/3 ML VIAL SQ SCH ×4 (07:58→21:50)
[2016-11-29 08:36] LABS: Alanine Aminotransferase 26 Units/L (0-55); Albumin 3.3 g/dL (3.5-5.0); Albumin/Globulin Ratio 0.9 (1.1-2.2); Alkaline Phosphatase 138 Units/L (38-126); Aspartate Amino Transferase 36 Units/L (5-34); BUN/Creatinine Ratio 15 (6-26); Blood Urea Nitrogen 15 mg/dL (7-20); Calcium 9.8 mg/dL (8.6-10.8); Carbon Dioxide 30 mEq/L (19-29); Chloride 100 mEq/L (98-109); Globulin 3.7 g/dL (2.4-3.5); Glucose 130 mg/dL (70-99); Osmolality,Calculated 287 (280-300); Sodium 137 mEq/L (136-145); eGFR For African Americans > 60 (> 60); eGFR For Non-African Americans 55 (> 60)
[2016-11-29 09:29] LABS: Bilirubin,Total 0.5 mg/dL (0.2-1.2)
[2016-11-29] MEDS: VALSARTAN 20 MG PO SCH (11:16)
[2016-11-29] MEDS: (Colestipol Hcl [Colestid] 1 GM) PO SCH ×2 (11:16→21:49)
--- NOTE | 2016-11-29 13:04 | Anesthesia Evaluation PreOp ---
Date of Encounter: 11/29/16 Time of Encounter: 13:02 - Past History Planned Operation: EGD/Colonoscopy Cardiac History: VT (medically managed - years ago; admitted for chest pain and VT was ruled out this admission), HTN, Hyperlipidemia Pulmonary History: Smoker, COPD, CHLOE Dx (uses CPAP) CUSTOMER SUCCESS SPECIALIST History: Denies Any Significant HX Other Medical History: Renal (stage 3 ckd), Bleeding (currently with GI bleed), Diabetes Type II (insulin dependent), Thyroid, Other (hx diverticulitis) Anesthesia History: No Prior Anesthetic Complications Alcohol Use: none Drug use: none Medications and Allergies Albuterol Neb [Proventil Neb] 2.5 mg IH TID 03/23/15 [History] Donepezil [Aricept] 10 mg PO HS 03/23/15 [History] Furosemide [Lasix] 40 mg PO DAILY 03/23/15 [History] Levothyroxine [Synthroid] 75 mcg PO 0630 03/23/15 [History] Potassium Chloride 20 meq PO BID 03/23/15 [History] Pregabalin [Lyrica] 75 mg PO DAILY 03/23/15 [History] Insulin Glargine [Lantus] 65 unit SQ HS 01/04/16 [History] Insulin Regular, Human [Novolin R] 15 unit SQ TIDWM #0 01/04/16 [History] Albuterol Sulfate [Ventolin Hfa] 2 puff IH Q4H PRN 11/25/16 [History] Allopurinol [Zyloprim 100 MG] 100 mg PO DAILY 11/25/16 [History] Colestipol HCl [Colestid] 1 gm PO BID 11/25/16 [History] Dicyclomine [Bentyl] 20 mg PO QID PRN 11/25/16 [History] Fluticasone Propionate Nasal [Flonase] 50 mcg NS DAILY PRN 11/25/16 [History] Metoprolol [Lopressor] 50 mg PO BID 11/25/16 [History] Omeprazole [PriLOSEC] 20 mg PO BIDAC 11/25/16 [History] Ondansetron HCl [Zofran] 4 mg PO BID PRN 11/25/16 [History] Oxycodone HCl/Acetaminophen [Percocet 5-325 mg Tablet] 1 each PO Q8H PRN [History] Sertraline [Zoloft] 100 mg PO DAILY 11/25/16 [History] Valsartan [Diovan] 20 mg PO DAILY 11/25/16 [History] Venlafaxine [Effexor] 75 mg PO DAILY 11/25/16 [History] traZODone [TraZODone] 25 - 100 mg PO HS PRN 11/25/16 [History] Allergies lisinopril Allergy (Verified 10/28/16 10:34) Gastrointestinal Upset - Meds/Allergy Pre-op Review Medications Reviewed: Yes Allergies Reviewed: Yes Beta Blockers on Current Med List: Yes If Beta Blockers taken, Date/Time (Last Dose taken): 11-28-16 metoprolol 21:20 Anesthesia Results - Labs 11/29/16 06:52 11/29/16 06:52 - Imaging EKG: report reviewed, image reviewed (SR) Additional studies: 11-27-16 TTE: LVEF 70% mild LV diastolic dysfunction no sign valvular dysfunction no evidence of pulm htn Anesthesia Exam Last Vital Signs Temp 97.8 F 11/29/16 11:09 Pulse 85 11/29/16 11:09 Resp 16 11/29/16 11:09 BP 134/80 11/29/16 11:09 Pulse Ox 95 11/29/16 11:09 Weight: 72 kg NPO (# of Hours): >> 8 hrs - HEENT Pupil (Motor): Pupils equal, EOMI Mallampati: III Teeth: Edentulous Denture Type: Upper: Complete Oral Opening: Greater than 3 - CUSTOMER SUCCESS SPECIALIST LOC: Oriented CUSTOMER SUCCESS SPECIALIST Motor: Normal RUE, Normal LUE, Normal RLE, Normal LLE, Normal Face - Cardiac Rhythm: Regular Murmur: None - Pulmonary Breath Sounds: bilateral Clear Respiratory Effort: Symmetrical Anesthesia Assess/Plan ASA Score: 3 Modified Glen Scale for Level of Consciousness: Cooperative, oriented, and tranquil Anesthetic Plan: MAC Monitoring Plan: Standard Monitors Recovery Plan: PACU
--- NOTE | 2016-11-29 13:56 | Anesthesia Evaluation Post Op ---
Date of Encounter: 11/29/16 Time of Encounter: 13:54 - Vital Signs Vital Signs: 3 Vital Signs Time 1354 BP 127/66 Pulse 86 Resp 13 O2 Sat 99 - Lungs Lungs: Clear Ascult./Percussion - Airway Airway: Non-obstructed - Cardiovascular Regular Rate - Mental Status Mental Status: Alert & Oriented, Answers Appropriately - Nausea Vomiting Nausea Vomiting: Not Present - Hydration Hydration: NPO, Has not voided - Discharge PostOp Status: Transfer Patient to floor
[2016-11-29] MEDS: Famotidine 20 MG/2 ML VIAL IVP SCH (16:25)
[2016-11-29] MEDS: Aspirin 81 MG TAB.CHEW PO SCH (16:25)
[2016-11-29] MEDS: Furosemide 20 MG TABLET PO SCH (16:25)
[2016-11-29] MEDS: *HR* Heparin 5,000 UNIT/ML VIAL SQ SCH (18:58)
[2016-11-29] MEDS: Insulin DETEMIR 100 UNIT/ML X5UNITS SQ SCH (21:50)
[2016-11-30] MEDS: Albuterol 2.5 MG/3 ML NEBULIZER IH SCH ×4 (02:41→23:31)
[2016-11-30 04:29] LABS: Basophils % 0.1 %; Eosinophils # 0.3 K/mcL (0.0-0.6); Eosinophils % 3.3 %; Hematocrit 42.3 % (35.3-44.9); Hemoglobin 14.1 g/dL (11.5-15.4); Lymphocytes # 1.3 K/mcL (0.6-4.6); Lymphocytes % 16.5 %; Mean Corpuscular HGB Conc 33.3 g/dL (31.6-35.5); Mean Corpuscular Hemoglobin 29.8 pg (28.0-33.3); Mean Corpuscular Volume 89.4 fL (83.0-100.0); Mean Platelet Volume 9.5 fL (9.4-12.4); Monocytes % 12.9 %; Neutrophils # 5.4 K/mcL (1.6-8.9); Platelet Count 247 K/mcL (140-400); Red Blood Count 4.73 M/mcL (3.82-4.97); Red Cell Distribution Width 13.1 % (11.5-14.5); Segmented Neutrophils % 66.2 %
[2016-11-30 04:44] LABS: Alanine Aminotransferase 20 Units/L (0-55); Albumin 3.3 g/dL (3.5-5.0); Albumin/Globulin Ratio 0.9 (1.1-2.2); Alkaline Phosphatase 137 Units/L (38-126); Aspartate Amino Transferase 23 Units/L (5-34); BUN/Creatinine Ratio 13 (6-26); Bilirubin,Total 0.5 mg/dL (0.2-1.2); Blood Urea Nitrogen 12 mg/dL (7-20); Calcium 9.9 mg/dL (8.6-10.8); Carbon Dioxide 30 mEq/L (19-29); Chloride 102 mEq/L (98-109); Globulin 3.8 g/dL (2.4-3.5); Glucose 174 mg/dL (70-99); Osmolality,Calculated 294 (280-300); Sodium 140 mEq/L (136-145); Total Protein 7.1 g/dL (6.0-8.3); eGFR For African Americans > 60 (> 60); eGFR For Non-African Americans 58 (> 60)
[2016-11-30] MEDS: *HR* Heparin 5,000 UNIT/ML VIAL SQ SCH (05:30)
[2016-11-30] MEDS: Insulin LISPRO 300 UNITS/3 ML VIAL SQ SCH ×4 (08:11→21:46)
--- NOTE | 2016-11-30 09:00 | Internal Med Progress Note ---
<Lucas Bowden - Last Filed: 11/30/16 08:58> Date of Encounter: 11/30/16 Time of Encounter: 08:58 - Assessment and plan (1) Common bile duct dilation Current Visit: Yes Status: Acute Assessment and plan: CT abdomen and pelvis with contrast shows intrahepatic and extrahepatic biliary dilatation. The common bile duct measures 17 mm maximally. This compares to approximately 10 mm on 10/19/2016. Nothing by mouth, hold subcutaneous heparin GI will perform an ERCP this afternoon because of dilated CBD especially with increase in the size of recent origin. (2) Chronic abdominal pain Current Visit: Yes Status: Chronic Assessment and plan: See above. Continue current pain regimen. EGD revealed diaphragmatic hernia without obstruction or gangrene. Pathology: Gastric biopsy results pending (3) Diverticulosis Current Visit: Yes Status: Chronic Assessment and plan: Patient with left lower quadrant pain for the last 6-8 weeks GI following, colonoscopy revealed diverticulosis of large intestine without perforation or abscess without bleeding. . Qualifiers: Diverticulosis site: diverticulosis of large intestine Diverticulosis bleeding: diverticulosis without bleeding Qualified Code(s): K57.30 - Diverticulosis of large intestine without perforation or abscess without bleeding (4) History of colon resection Current Visit: Yes Status: Chronic Assessment and plan: Prior history of colon resection. See above. (5) Diabetes mellitus type 2 in obese Current Visit: Yes Status: Acute Assessment and plan: Continue insulin regimen and blood glucose monitoring (6) Hyperlipidemia Current Visit: No Status: Chronic Assessment and plan: Elevated triglyceride and cholesterol levels. Zocor 40 mg at bedtime Qualifiers: Hyperlipidemia type: unspecified Qualified Code(s): E78.5 - Hyperlipidemia , unspecified (7) Hypertension Current Visit: Yes Status: Chronic Assessment and plan: Well-controlled. Chronic. Continue home medication. Qualifiers: Hypertension type: essential hypertension Qualified Code(s): I10 - Essential (primary) hypertension (8) Chronic kidney disease, stage III (moderate) Current Visit: Yes Status: Chronic Assessment and plan: Creatinine is within normal limits. We will continue to monitor and avoid nephrotoxins. (9) DVT prophylaxis Current Visit: Yes Status: Acute Assessment and plan: Hold Heparin , anticipate ERCP today. Patient seen and examined, plan discussed with patient agreed upon with Dr. Middleton - Subjective Interval history: Patient resting comfortably in bed. She is scheduled for ERCP this afternoon. Patient reports sharp LLQ abd pain this AM that is controlled on current pain regimen. - Constitutional Vitals: Temp Pulse Resp BP Pulse Ox 97.6 F 70 17 146/65 98 11/30/16 08:02 11/30/16 08:02 11/30/16 08:02 11/30/16 08:02 11/30/16 08:02 General appearance: Present: cooperative, A&O X 3, pleasant, no acute distress, obese, answers questions appropriately - Head Head exam: Present: atraumatic, normocephalic - Eye Eye exam: Present: PERRL, conjuntiva pink, sclera anicteric Pupils: Present: PERRL - ENT ENT exam: Present: mucous membranes dry, normal oropharynx - Neck Neck exam general surgery: Present: supple, trachea midline. Absent: lymphadenopathy - Respiratory Respiratory exam: Present: CTAB. Absent: accessory muscle use, rales, rhonchi, wheezes - Cardiovascular Cardiovascular exam: Present: RRR, +S1, +S2. Absent: diastolic murmur, gallop, rubs, systolic murmur - GI/Abdominal GI/Abdominal exam: Present: guarding (Voluntary), normal bowel sounds, soft, tenderness (Left lower quadrant tenderness to light and deep palpation), no peritoneal signs. Absent: distended - Extremities Exam Extremities exam: Present: warm, radial pulses palpable and symetrical. Absent : calf tenderness, cyanotic, pedal edema - Neurological Exam Neurological exam: Present: CN II-XII intact, oriented X3, no focal deficits. Absent: pronater drift, facial droop, speech deficit - Psychiatric Psychiatric exam: Present: normal affect, normal mood - Skin Skin exam: Present: dry, intact, warm. Absent: rash Internal Medicine: Result - Labs CBC & Chem 7: 11/30/16 04:00 11/30/16 04:00 Labs: Short CBC 11/30/16 Range/Units 04:00 WBC 8.1 (4.3-11.1) K/mcL Hgb 14.1 (11.5-15.4) g/dL Hct 42.3 (35.3-44.9) % Plt Count 247 (140-400) K/mcL Neutrophils # 5.4 (1.6-8.9) K/mcL BMP 11/30/16 04:00 Sodium 140 Potassium 4.0 Chloride 102 Carbon Dioxide 30 H BUN 12 Creatinine 0.94 Glucose 174 H Calcium 9.9 Liver Function 11/29/16 11/30/16 Range/Units 06:52 04:00 Total Bilirubin 0.5 0.5 (0.2-1.2) mg/dL AST 23 (5-34) Units/L ALT 20 (0-55) Units/L Alkaline Phosphatase 137 H (38-126) Units/L Albumin 3.3 L (3.5-5.0) g/dL - ABG Interpretation ABG results: PT/INR, D-dimer PT 12.4 Seconds (9.4-12.1) H 11/29/16 06:52 Consult Discharge Plan - Plan Referrals: NO,PCP [Primary Care Provider] - <Hussain Middleton - Last Filed: 11/30/16 18:51> Date of Encounter: 11/30/16 - Constitutional Vitals: Temp Pulse Resp BP Pulse Ox 97.7 F 72 16 146/80 96 11/30/16 16:26 11/30/16 17:59 11/30/16 17:59 11/30/16 17:59 11/30/16 17:59 Internal Medicine: Result - Labs CBC & Chem 7: 11/30/16 04:00 11/30/16 04:00 Labs: Short CBC 11/30/16 Range/Units 04:00 WBC 8.1 (4.3-11.1) K/mcL Hgb 14.1 (11.5-15.4) g/dL Hct 42.3 (35.3-44.9) % Plt Count 247 (140-400) K/mcL Neutrophils # 5.4 (1.6-8.9) K/mcL BMP 11/30/16 04:00 Sodium 140 Potassium 4.0 Chloride 102 Carbon Dioxide 30 H BUN 12 Creatinine 0.94 Glucose 174 H Calcium 9.9 Liver Function 11/30/16 Range/Units 04:00 Total Bilirubin 0.5 (0.2-1.2) mg/dL AST 23 (5-34) Units/L ALT 20 (0-55) Units/L Alkaline Phosphatase 137 H (38-126) Units/L Albumin 3.3 L (3.5-5.0) g/dL - ABG Interpretation ABG results: PT/INR, D-dimer PT 12.4 Seconds (9.4-12.1) H 11/29/16 06:52 - Attending Attestation I examined this patient and my medical decision-making was reviewed with the Resident Physician. I agree with the documented findings, disposition and treatment plan as described except to the extent set forth below. Dr Duenas called and informed that patient needs outpatient ERCP at tertiary care. His office will arrange the procedure. Home tomorrow
[2016-11-30] MEDS: VALSARTAN 20 MG PO SCH (09:35)
[2016-11-30] MEDS: (Colestipol Hcl [Colestid] 1 GM) PO SCH ×2 (09:35→21:47)
[2016-11-30] MEDS: Famotidine 20 MG/2 ML VIAL IVP SCH (09:43)
[2016-11-30] MEDS: Acetaminophen 325 MG TABLET PO PRN (10:31)
--- NOTE | 2016-11-30 11:24 | Anesthesia Evaluation PreOp ---
Date of Encounter: 11/30/16 Time of Encounter: 11:22 - Past History Planned Operation: ERCP Cardiac History: NM (Remote), HTN, Hyperlipidemia Pulmonary History: Smoker, COPD, CHLOE Dx (uses CPAP), Other (GI bleed) Other Medical History: Renal (Stage III), Diabetes Type II (Insulin Dependent), Thyroid (Hypothyroid) Anesthesia History: No Prior Anesthetic Complications Alcohol Use: none Drug use: none Medications and Allergies Albuterol Neb [Proventil Neb] 2.5 mg IH TID 03/23/15 [History] Donepezil [Aricept] 10 mg PO HS 03/23/15 [History] Furosemide [Lasix] 40 mg PO DAILY 03/23/15 [History] Levothyroxine [Synthroid] 75 mcg PO 0630 03/23/15 [History] Potassium Chloride 20 meq PO BID 03/23/15 [History] Pregabalin [Lyrica] 75 mg PO DAILY 03/23/15 [History] Insulin Glargine [Lantus] 65 unit SQ HS 01/04/16 [History] Insulin Regular, Human [Novolin R] 15 unit SQ TIDWM #0 01/04/16 [History] Albuterol Sulfate [Ventolin Hfa] 2 puff IH Q4H PRN 11/25/16 [History] Allopurinol [Zyloprim 100 MG] 100 mg PO DAILY 11/25/16 [History] Colestipol HCl [Colestid] 1 gm PO BID 11/25/16 [History] Dicyclomine [Bentyl] 20 mg PO QID PRN 11/25/16 [History] Fluticasone Propionate Nasal [Flonase] 50 mcg NS DAILY PRN 11/25/16 [History] Metoprolol [Lopressor] 50 mg PO BID 11/25/16 [History] Omeprazole [PriLOSEC] 20 mg PO BIDAC 11/25/16 [History] Ondansetron HCl [Zofran] 4 mg PO BID PRN 11/25/16 [History] Oxycodone HCl/Acetaminophen [Percocet 5-325 mg Tablet] 1 each PO Q8H PRN [History] Sertraline [Zoloft] 100 mg PO DAILY 11/25/16 [History] Valsartan [Diovan] 20 mg PO DAILY 11/25/16 [History] Venlafaxine [Effexor] 75 mg PO DAILY 11/25/16 [History] traZODone [TraZODone] 25 - 100 mg PO HS PRN 11/25/16 [History] Allergies lisinopril Allergy (Verified 10/28/16 10:34) Gastrointestinal Upset - Meds/Allergy Pre-op Review Medications Reviewed: Yes Allergies Reviewed: Yes Beta Blockers on Current Med List: Yes If Beta Blockers taken, Date/Time (Last Dose taken): 09:34 11/30/2016 Anesthesia Results - Labs 11/30/16 04:00 11/30/16 04:00 11-27-16 TTE: LVEF 70% mild LV diastolic dysfunction no sign valvular dysfunction no evidence of pulm htn - Imaging EKG: image reviewed (SR) Anesthesia Exam O2 Sat Weight 70.806 kg O2 Sat by Pulse Oximetry 98 O2 Sat by Pulse Oximetry 98 O2 Sat by Pulse Oximetry 93 O2 Sat by Pulse Oximetry 96 O2 Sat by Pulse Oximetry 92 O2 Sat by Pulse Oximetry 97 O2 Sat by Pulse Oximetry 92 O2 Sat by Pulse Oximetry 93 O2 Sat by Pulse Oximetry 91 O2 Sat by Pulse Oximetry 93 O2 Sat by Pulse Oximetry 96 Vital Signs Temp Pulse Resp BP Pulse Ox 99.1 F 70 22 117/56 95 11/25/16 20:10 11/25/16 20:10 11/25/16 20:10 11/25/16 20:10 11/25/16 20:10 Vital Signs/O2 Sat, Most Current Temp Pulse Resp BP Pulse Ox 97.6 F 70 17 146/65 98 11/30/16 08:02 11/30/16 08:02 11/30/16 08:02 11/30/16 08:02 11/30/16 08:02 Height: 4'11'' Weight: 156# NPO (# of Hours): > 8 hrs Pain Scale: 0 Pain Scale Used: Numeric (1 - 10) - HEENT Pupil (Motor): Pupils equal, EOMI Mallampati: III Teeth: Edentulous Denture Type: Upper: Complete, Lower: Complete Oral Opening: Greater than 3 - PRODUCT ARCHITECT LOC: Oriented PRODUCT ARCHITECT Motor: Normal RUE, Normal LUE, Normal RLE, Normal LLE, Normal Face PRODUCT ARCHITECT Sensory: Normal: RUE, LUE, RLE, LLE, Face - Cardiac Rhythm: Regular Murmur: None JVD: No Carotid Bruit: No - Pulmonary Breath Sounds: bilateral Clear Respiratory Effort: Symmetrical Anesthesia Assess/Plan ASA Score: 3 Modified Glen Scale for Level of Consciousness: Cooperative, oriented, and tranquil Anesthetic Plan: General Autologous Blood: Yes Monitoring Plan: Standard Monitors Recovery Plan: PACU
[2016-11-30] MEDS ORDERED: Indomethacin 50 MG SUPP.RECT RC ONE (13:49)
[2016-11-30] MEDS: Ringers Solution, Lactated 1,000 ML IVC SCH (13:51)
[2016-11-30] MEDS ORDERED: *HR* FentaNYL (PF) 100 MCG/2 ML VIAL ONE (14:06)
[2016-11-30] MEDS ORDERED: *HR* Morphine 2 MG/ML SYRINGE IVP PRN (15:47)
[2016-11-30] MEDS ORDERED: *HR* Labetalol 20 MG/4 ML SYRINGE IVP PRN (15:47)
[2016-11-30] MEDS ORDERED: Ondansetron 4 MG/2 ML VIAL IVP ONE (15:47)
[2016-11-30] MEDS ORDERED: *HR* Promethazine 25 MG/ML VIAL IVP PRN (15:47)
[2016-11-30] MEDS ORDERED: Ringers Solution, Lactated 1,000 ML IVC SCH (16:00)
--- NOTE | 2016-11-30 16:24 | Anesthesia Evaluation Post Op ---
Date of Encounter: 11/30/16 Time of Encounter: 16:21 - Vital Signs Vital Signs: Vital Signs/O2 Sat, Most Current Temp Pulse Resp BP Pulse Ox 97.8 F 68 12 144/66 95 11/30/16 15:56 11/30/16 16:16 11/30/16 16:16 11/30/16 16:16 11/30/16 16:16 - Lungs Lungs: Clear Ascult./Percussion - Airway Airway: Non-obstructed - Cardiovascular Regular Rate - Mental Status Mental Status: Alert & Oriented, Answers Appropriately - Pain Pain Scale: 0 Pain Scale used: Numeric (1 - 10) - Nausea Vomiting Nausea Vomiting: Not Present - Hydration Hydration: NPO, Has not voided - Discharge PostOp Status: Transfer Patient to floor
[2016-11-30] MEDS: Furosemide 20 MG TABLET PO SCH (17:21)
[2016-11-30] MEDS: Aspirin 81 MG TAB.CHEW PO SCH (17:21)
[2016-11-30] MEDS ORDERED: Benzonatate 100 MG CAPSULE PO PRN (21:31)
[2016-11-30] MEDS: Insulin DETEMIR 100 UNIT/ML X5UNITS SQ SCH (21:45)
[2016-12-01 05:51] LABS: Basophils % 0.2 %; Eosinophils # 0.2 K/mcL (0.0-0.6); Eosinophils % 2.4 %; Hematocrit 40.2 % (35.3-44.9); Hemoglobin 13.3 g/dL (11.5-15.4); Immature Granulocytes % 0.7 % (0-4); Lymphocytes # 1.4 K/mcL (0.6-4.6); Mean Corpuscular HGB Conc 33.1 g/dL (31.6-35.5); Mean Corpuscular Volume 90.5 fL (83.0-100.0); Mean Platelet Volume 9.7 fL (9.4-12.4); Monocytes # 1.2 K/mcL (0.0-1.3); Monocytes % 11.7 %; Neutrophils # 7.1 K/mcL (1.6-8.9); Platelet Count 270 K/mcL (140-400); Red Blood Count 4.44 M/mcL (3.82-4.97)
[2016-12-01 06:06] LABS: Albumin 3.2 g/dL (3.5-5.0); Albumin/Globulin Ratio 0.9 (1.1-2.2); Bilirubin,Total 0.4 mg/dL (0.2-1.2); Calcium 10.1 mg/dL (8.6-10.8); Globulin 3.7 g/dL (2.4-3.5); Potassium 3.8 mEq/L (3.5-4.5); Total Protein 6.9 g/dL (6.0-8.3)
[2016-12-01] MEDS ORDERED: Lidocaine -MPF 2% 5 ML VIAL INFILT ONE ×2 (07:15→13:55)
[2016-12-01] MEDS ORDERED: *HR* Propofol 500 MG/50 ML BOTTLE IVC ONE (07:15)
[2016-12-01] MEDS: Aspirin 81 MG TAB.CHEW PO SCH (08:04)
[2016-12-01] MEDS: Furosemide 20 MG TABLET PO SCH (08:04)
[2016-12-01] MEDS: VALSARTAN 20 MG PO SCH (08:05)
[2016-12-01] MEDS: Famotidine 20 MG/2 ML VIAL IVP SCH (08:05)
[2016-12-01] MEDS: (Colestipol Hcl [Colestid] 1 GM) PO SCH (08:05)
[2016-12-01] MEDS: Insulin LISPRO 300 UNITS/3 ML VIAL SQ SCH ×2 (08:06→12:13)
--- NOTE | 2016-12-01 09:16 | Discharge Summary ---
<Lucas Bowden - Last Filed: 12/01/16 13:42> Date of Encounter: 12/01/16 Time of Encounter: 09:15 - Discharge Diagnosis (1) Common bile duct dilation Priority: Primary Status: Acute (2) Chronic abdominal pain Priority: Primary Status: Chronic (3) Diverticulosis Priority: Secondary Status: Chronic Qualifiers: Diverticulosis site: diverticulosis of large intestine Diverticulosis bleeding: diverticulosis without bleeding Qualified Code(s): K57.30 - Diverticulosis of large intestine without perforation or abscess without bleeding (4) History of colon resection Priority: Secondary Status: Chronic (5) Diabetes mellitus type 2 in obese Priority: Secondary Status: Acute (6) Hyperlipidemia Priority: Primary Status: Chronic Qualifiers: Hyperlipidemia type: unspecified Qualified Code(s): E78.5 - Hyperlipidemia , unspecified (7) Hypertension Priority: Secondary Status: Chronic Qualifiers: Hypertension type: essential hypertension Qualified Code(s): I10 - Essential (primary) hypertension (8) Chronic kidney disease, stage III (moderate) Priority: Secondary Status: Chronic (9) DVT prophylaxis Priority: Primary Status: Acute - Discharge Medications Home Medications: Albuterol Neb [Proventil Neb] 2.5 mg IH TID 03/23/15 [History] Donepezil [Aricept] 10 mg PO HS 03/23/15 [History] Furosemide [Lasix] 40 mg PO DAILY 03/23/15 [History] Levothyroxine [Synthroid] 75 mcg PO 0630 03/23/15 [History] Potassium Chloride 20 meq PO BID 03/23/15 [History] Pregabalin [Lyrica] 75 mg PO DAILY 03/23/15 [History] Insulin Glargine [Lantus] 65 unit SQ HS 01/04/16 [History] Insulin Regular, Human [Novolin R] 15 unit SQ TIDWM #0 01/04/16 [History] Albuterol Sulfate [Ventolin Hfa] 2 puff IH Q4H PRN 11/25/16 [History] Allopurinol [Zyloprim 100 MG] 100 mg PO DAILY 11/25/16 [History] Colestipol HCl [Colestid] 1 gm PO BID 11/25/16 [History] Dicyclomine [Bentyl] 20 mg PO QID PRN 11/25/16 [History] Fluticasone Propionate Nasal [Flonase] 50 mcg NS DAILY PRN 11/25/16 [History] Metoprolol [Lopressor] 50 mg PO BID 11/25/16 [History] Omeprazole [PriLOSEC] 20 mg PO BIDAC 11/25/16 [History] Ondansetron HCl [Zofran] 4 mg PO BID PRN 11/25/16 [History] Oxycodone HCl/Acetaminophen [Percocet 5-325 mg Tablet] 1 each PO Q8H PRN [History] Sertraline [Zoloft] 100 mg PO DAILY 11/25/16 [History] Valsartan [Diovan] 20 mg PO DAILY 11/25/16 [History] Venlafaxine [Effexor] 75 mg PO DAILY 11/25/16 [History] traZODone [TraZODone] 25 - 100 mg PO HS PRN 11/25/16 [History] Acetaminophen [Tylenol] 650 mg PO Q6HR PRN tab 12/01/16 [Rx] Aspirin 81 mg PO DAILY 12/01/16 [Rx] Simvastatin [Zocor] 40 mg PO HS tab 12/01/16 [Rx] Allergies/Adverse Reactions: Allergies lisinopril Allergy (Verified 10/28/16 10:34) Gastrointestinal Upset Date of admission: 11/28/16 18:28 Primary care physician: PCP TIMOTHY Consults: Gastroenterology/ Dr. Duenas Discharging clinician: Hussain Middleton Anticipated date of discharge: 12/01/16 - Patient Status Disposition: Home, Self-Care Condition: Good Functional capacity at discharge: independent ambulation Overall status at discharge: patient is progressing back to baseline - Discharge Instructions Instructions: Diabetic Hypoglycemia (DC) Follow Up With: NO,PCP [Primary Care Provider] - Additional Instructions: Call Dr. Duenas's office to schedule outpatient ERCP at tertiary care Center in [place] Follow up with PCP in 1-2 weeks Repeat cholesterol panel in 1-2 months. - Diet and Activity Activity: increase activity as tolerated Diet: diabetic diet Hospital course: Ms. Ferro is a 76 year old female with past medical history of diverticulitis, diabetes, hyperlipidemia, hypertension, hypothyroidism, asthma and chronic kidney disease stage III that presented complaining of chest pain, abdominal pain and low blood glucose. Patient was initially admitted for chest pain, rule out ACS. Patient states she developed left-sided chest pain and became diaphoretic. Pain was radiating to her left arm. It was intermittent and felt like it was a chest pressure. She denied shortness of breath or palpitations or headache or dizziness. EKG shows a normal sinus rhythm with no acute ST-T changes. Chest x-ray did not show any acute abnormality. Serial Troponin were negative. Patient had a stress test about 1 year ago which was negative. During her inpatient stay, daughter verbalized frustration over the fact that her mother cannot eat and it appears that no one was trying to help her. Patient had colon resection about 3-4 years ago for severe diverticulosis. Patient and daughter were concerned about patient's chronic abdominal pain which is been going on for almost one year. She also reported chronic diarrhea. CT of the abdomen and pelvis done without contrast revealed colonic diverticulosis with no other acute findings. Repeat CT abdomen and pelvis with contrast shows intrahepatic and extrahepatic biliary dilatation. The common bile duct measures 17 mm maximally. This compares to approximately 10 mm on 10/19/2016. Labs revealed mild elevation in liver function enzymes, Elevated triglyceride and cholesterol levels. Gastroenterology was consulted performed EGD/colonoscopy/ERCP. EGD revealed diaphragmatic hernia without obstruction or gangrene and colonoscopy revealed diverticulosis of large intestine without perforation or abscess without bleeding. ERCP was aborted due to difficulty cannulating the common bile duct. Patient instructed to follow up with Dr. Duenas's office to schedule outpatient ERCP at tertiary care Center in [place]. Follow up with PCP in 1-2 weeks and repeat cholesterol panel in 1-2 months. - Time Spent with Patient Total time spent providing and/or coordinating discharge services: - Constitutional Vitals: Temp Pulse Resp BP Pulse Ox 98.2 F 66 16 116/66 91 12/01/16 07:08 12/01/16 07:08 12/01/16 07:08 12/01/16 07:08 12/01/16 07:08 General appearance: Present: cooperative, A&O X 3, pleasant, no acute distress, obese, answers questions appropriately - Head Head exam: Present: atraumatic, normocephalic - Eye Eye exam: Present: PERRL, conjuntiva pink, sclera anicteric Pupils: Present: PERRL - ENT ENT exam: Present: mucous membranes moist, normal oropharynx - Neck Neck exam general surgery: Present: supple, trachea midline. Absent: lymphadenopathy - Respiratory Respiratory exam: Present: CTAB. Absent: accessory muscle use, rales, rhonchi, wheezes - Cardiovascular Cardiovascular exam: Present: RRR, +S1, +S2. Absent: diastolic murmur, gallop, rubs, systolic murmur - GI/Abdominal GI/Abdominal exam: Present: normal bowel sounds, soft, tenderness (Diffuse), no peritoneal signs. Absent: distended, guarding - Extremities Exam Extremities exam: Present: warm, radial pulses palpable and symetrical. Absent : calf tenderness, cyanotic, pedal edema - Neurological Exam Neurological exam: Present: CN II-XII intact, oriented X3, no focal deficits. Absent: pronater drift, facial droop, speech deficit - Psychiatric Psychiatric exam: Present: normal affect, normal mood - Skin Skin exam: Present: dry, intact, warm <Emi,Hussain P - Last Filed: 12/01/16 18:41> Date of Encounter: 12/01/16 Date of admission: 11/28/16 18:28 Primary care physician: PCP NO Hospital course: Ms. Ferro is a 76 year old female - Time Spent with Patient Total time spent providing and/or coordinating discharge services: - Constitutional Vitals: Temp Pulse Resp BP Pulse Ox 98.1 F 66 18 116/74 92 12/01/16 11:28 12/01/16 11:28 12/01/16 11:28 12/01/16 11:28 12/01/16 11:28 - Attending Attestation I examined this patient and my medical decision-making was reviewed with the Resident Physician. I agree with the documented findings, disposition and treatment plan as described except to the extent set forth below.
[2016-12-01] MEDS: Albuterol 2.5 MG/3 ML NEBULIZER IH SCH (10:47)
[2016-12-01 11:33] VITALS: BP 116/74
[2016-12-01] MEDS: Ringers Solution, Lactated 1,000 ML IVC SCH (12:16)
[2016-12-01] MEDS ORDERED: *HR* Propofol 200 MG/20 ML VIAL IVP ONE (13:55)
[2016-12-01] MEDS ORDERED: *HR* Succinylcholine 200 MG/10 ML VIAL IVP ONE (13:55)
[2016-12-01] MEDS ORDERED: Ondansetron 4 MG/2 ML VIAL IVP ONE (13:55)
--- NOTE | 2016-12-01 15:14 | Physician Discharge Referral ---
<Lucas Bowden - Last Filed: 12/01/16 15:12> Home Health/Hosp Referral Info Transfer to: Home Health Attending Provider: jody middleton Provider in Charge Post Discharge: PCP - Diagnosis (1) Common bile duct dilation Priority: Primary Status: Acute (2) Chronic abdominal pain Priority: Primary Status: Chronic (3) Diverticulosis Priority: Primary Status: Chronic (4) History of colon resection Priority: Primary Status: Chronic (5) Diabetes mellitus type 2 in obese Priority: Primary Status: Acute (6) Hyperlipidemia Priority: Primary Status: Chronic (7) Hypertension Priority: Primary Status: Chronic (8) Chronic kidney disease, stage III (moderate) Priority: Primary Status: Chronic (9) DVT prophylaxis Priority: Primary Status: Acute - Respiratory Orders Smoking Cessation: Smoking cessation has been advised. For more information, call the [employer] Tobacco Quit Line at 0-830-ZBQT-NOW. - Diet/Nutrition Diet/Nutrition: List: Diabetic - Activity Activity Orders: Ambulate (Snf assessment) - Services Needed Following services are medically necessary services: Nursing - Transfer Medications Home Medications: Albuterol Neb [Proventil Neb] 2.5 mg IH TID 03/23/15 [History] Donepezil [Aricept] 10 mg PO HS 03/23/15 [History] Furosemide [Lasix] 40 mg PO DAILY 03/23/15 [History] Levothyroxine [Synthroid] 75 mcg PO 0630 03/23/15 [History] Potassium Chloride 20 meq PO BID 03/23/15 [History] Pregabalin [Lyrica] 75 mg PO DAILY 03/23/15 [History] Insulin Glargine [Lantus] 65 unit SQ HS 01/04/16 [History] Insulin Regular, Human [Novolin R] 15 unit SQ TIDWM #0 01/04/16 [History] Albuterol Sulfate [Ventolin Hfa] 2 puff IH Q4H PRN 11/25/16 [History] Allopurinol [Zyloprim 100 MG] 100 mg PO DAILY 11/25/16 [History] Colestipol HCl [Colestid] 1 gm PO BID 11/25/16 [History] Dicyclomine [Bentyl] 20 mg PO QID PRN 11/25/16 [History] Fluticasone Propionate Nasal [Flonase] 50 mcg NS DAILY PRN 11/25/16 [History] Metoprolol [Lopressor] 50 mg PO BID 11/25/16 [History] Omeprazole [PriLOSEC] 20 mg PO BIDAC 11/25/16 [History] Ondansetron HCl [Zofran] 4 mg PO BID PRN 11/25/16 [History] Oxycodone HCl/Acetaminophen [Percocet 5-325 mg Tablet] 1 each PO Q8H PRN [History] Sertraline [Zoloft] 100 mg PO DAILY 11/25/16 [History] Valsartan [Diovan] 20 mg PO DAILY 11/25/16 [History] Venlafaxine [Effexor] 75 mg PO DAILY 11/25/16 [History] traZODone [TraZODone] 25 - 100 mg PO HS PRN 11/25/16 [History] Acetaminophen [Tylenol] 650 mg PO Q6HR PRN tab 12/01/16 [Rx] Aspirin 81 mg PO DAILY 12/01/16 [Rx] Simvastatin [Zocor] 40 mg PO HS tab 12/01/16 [Rx] Allergies/Adverse Reactions: Allergies lisinopril Allergy (Verified 10/28/16 10:34) Gastrointestinal Upset Certification: Further, I certify that my clinical findings support that this patient is homebound (i.e. absences from home require considerable and taxing effort and are for medical reasons or faith services or infrequently or short duration when for other reasons) because: Homebound Reason: Leaving home requires considerable and taxing effort due to condition Attestation: My signature below is to certify that this patient is under my care and that I, or nurse practitioner, or a physician's occupational therapy assistant working with me, has a face-to -face encounter with this patient. <Jody Middleton - Last Filed: 12/01/16 18:41> - Respiratory Orders Smoking Cessation: Smoking cessation has been advised. For more information, call the [place] Tobacco Quit Line at 5-521-YEUQ-NOW. Certification: Further, I certify that my clinical findings support that this patient is homebound (i.e. absences from home require considerable and taxing effort and are for medical reasons or faith services or infrequently or short duration when for other reasons) because: Attestation: My signature below is to certify that this patient is under my care and that I, or nurse practitioner, or a physician's occupational therapy assistant working with me, has a face-to -face encounter with this patient.
== END 2016-12-01 13:56 | disposition home or self-care (01) | DRG 392 ==
LOC: EMEROO 20:07 → 3BNU 20:07 → SUATTDRO 11-28 18:28
PROVIDERS: ADMIT Family Medicine; ATTEND Internal Medicine
PROC: ENDOEBX (2016-11-29 13:00)

== ENCOUNTER 2017-05-07 15:31 | Inpatient (IN) ==
[2017-05-07 16:41] LABS: Bilirubin,Urine Negative (Negative); Blood,Urine Negative (Negative); Clarity,Urine Cloudy (Clear); Color,Urine Yellow (Yellow); Glucose,Urine (UA) Normal (Normal); Ketones,Urine Negative (Negative); Leukocyte Esterase,Urine Large (Negative); Nitrite,Urine Negative (Negative); Protein,Urine 30 mg/dL (Neg-Trace); Specific Gravity,Urine 1.022 (1.010-1.025); Urobilinogen,Urine Normal (Normal)
[2017-05-07 16:42] LABS: Bacteria,Urine Few per hpf (None-Few); Hyaline Casts,Urine None Seen per lpf (None-Few); Squamous Epithelial Cell,Urine Many per lpf (None-Few); WBC,Urine TNTC per hpf (0-3)
[2017-05-07 16:42] LABS: Basophils % 0.2 %; Eosinophils # 0.2 K/mcL (0.0-0.6); Hematocrit 42.1 % (35.3-44.9); Hemoglobin 14.3 g/dL (11.5-15.4); Immature Granulocytes % 0.6 % (0-4); Lymphocytes # 1.9 K/mcL (0.6-4.6); Lymphocytes % 16.1 %; Mean Corpuscular Hemoglobin 29.7 pg (28.0-33.3); Mean Corpuscular Volume 87.3 fL (83.0-100.0); Mean Platelet Volume 9.3 fL (9.4-12.4); Monocytes # 1.2 K/mcL (0.0-1.3); Monocytes % 9.9 %; Neutrophils # 8.4 K/mcL (1.6-8.9); Platelet Count 243 K/mcL (140-400); Red Blood Count 4.82 M/mcL (3.82-4.97); Red Cell Distribution Width 12.8 % (11.5-14.5); Segmented Neutrophils % 71.2 %
[2017-05-07 17:00] LABS: Alanine Aminotransferase 14 Units/L (7-52); Albumin 3.9 g/dL (3.5-5.7); Albumin/Globulin Ratio 1.1 (1.1-2.2); Alkaline Phosphatase 111 Units/L (34-104); Aspartate Amino Transferase 21 Units/L (13-39); BUN/Creatinine Ratio 17 (6-26); Bilirubin,Direct 0.1 mg/dL (0.0-0.2); Bilirubin,Indirect 0.2 mg/dL (0.0-1.2); Bilirubin,Total 0.3 mg/dL (0.3-1.0); Blood Urea Nitrogen 16 mg/dL (8-23); Calcium 9.9 mg/dL (8.6-10.3); Carbon Dioxide 25 mEq/L (23-29); Chloride 101 mEq/L (98-107); Globulin 3.4 g/dL (2.4-3.5); Glucose 199 mg/dL (70-105); Osmolality,Calculated 289 (280-300); Potassium 4.2 mEq/L (3.5-5.1); Sodium 136 mEq/L (136-145); Total Protein 7.3 g/dL (6.4-8.9); eGFR For African Americans > 60 (> 60); eGFR For Non-African Americans 58 (> 60)
[2017-05-07] MEDS ORDERED: 0.9 % Sodium Chloride 1,000 ML IVC ONE (17:37)
[2017-05-07] MEDS ORDERED: *HR* HYDROmorphone (PF) 1 MG/ML SYRINGE IVP ONE (17:38)
[2017-05-07] MEDS ORDERED: Ondansetron 4 MG/2 ML VIAL IVP ONE (17:38)
--- NOTE | 2017-05-07 17:58 | Emergency Department Note ---
Disposition Clinical Impression: UTI (urinary tract infection) Abdominal pain Qualifiers: Abdominal location: left lower quadrant Qualified Code(s): R10.32 - Left lower quadrant pain Disposition: Admitted As Inpatient Condition: Fair Abdominal Pain HPI - General Chief Complaint: ED Abdominal Pain Stated Complaint: Abd pain Time Seen by Provider: 05/07/17 15:49 Source: patient Mode of arrival: ambulatory Limitations: no limitations Nursing Notes Reviewed: Yes Vital Signs Reviewed: Yes - History of Present Illness HPI Narrative: Patient presents for evaluation of abdominal pain. Patient states that she has had abdominal pain for approximately 4 days. Patient describes it as left- sided abdominal pain that is similar to her diverticulitis in the past. Patient has had nausea and several episodes of loose stool. The patient has had chills but no fevers. The patient states that she has had burning with urination that has become worse in intensity. Patient has left-sided abdominal tenderness as well as mild right-sided abdominal tenderness. No specific Hill sign. No rebound tenderness at any site. No psoas sign. Pain Scale: 7 - Related Data Home Medications Medication Instructions Recorded Confirmed Albuterol Neb [Proventil Neb] 2.5 mg IH TID 03/23/15 11/25/16 Donepezil [Aricept] 10 mg PO HS 03/23/15 11/25/16 Furosemide [Lasix] 40 mg PO DAILY 03/23/15 11/25/16 Levothyroxine [Synthroid] 75 mcg PO 0630 03/23/15 11/25/16 Potassium Chloride 20 meq PO BID 03/23/15 11/25/16 Pregabalin [Lyrica] 75 mg PO DAILY 03/23/15 11/25/16 Insulin Glargine [Lantus] 65 unit SQ HS 01/04/16 11/25/16 Insulin Regular, Human [Novolin R] 15 unit SQ TIDWM #0 01/04/16 11/25/16 Albuterol Sulfate [Ventolin Hfa] 2 puff IH Q4H PRN 11/25/16 11/25/16 Allopurinol [Zyloprim 100 MG] 100 mg PO DAILY 11/25/16 11/25/16 Colestipol HCl [Colestid] 1 gm PO BID 11/25/16 11/25/16 Dicyclomine [Bentyl] 20 mg PO QID PRN 11/25/16 11/25/16 Fluticasone Propionate Nasal 50 mcg NS DAILY PRN 11/25/16 11/25/16 [Flonase] Metoprolol [Lopressor] 50 mg PO BID 11/25/16 11/25/16 Omeprazole [PriLOSEC] 20 mg PO BIDAC 11/25/16 11/25/16 Ondansetron HCl [Zofran] 4 mg PO BID PRN 11/25/16 11/25/16 Oxycodone HCl/Acetaminophen 1 each PO Q8H PRN 11/25/16 11/25/16 [Percocet 5-325 mg Tablet] Sertraline [Zoloft] 100 mg PO DAILY 11/25/16 11/25/16 Valsartan [Diovan] 20 mg PO DAILY 11/25/16 11/25/16 Venlafaxine [Effexor] 75 mg PO DAILY 11/25/16 11/25/16 traZODone [TraZODone] 25 - 100 mg PO HS PRN 11/25/16 11/25/16 Previous Rx's Medication Instructions Recorded Acetaminophen [Tylenol] 650 mg PO Q6HR PRN tab 12/01/16 Simvastatin [Zocor] 40 mg PO HS tab 12/01/16 Allergies Allergy/AdvReac Type Severity Reaction Status Date / Time lisinopril Allergy Gastrointestinal Verified 05/07/17 15:36 Upset All systems ED: reviewed and negative except as stated. Constitutional: Reports: chills. Denies: fever Cardiovascular: Denies: chest pain, palpitations, dyspnea on exertion Respiratory: Denies: cough, dyspnea Gastrointestinal: Reports: abdominal pain, nausea, vomiting, diarrhea Genitourinary: Reports: urgency, dysuria, frequency Musculoskeletal: Reports: back pain (Left flank) Integumentary: Denies: rash, abrasion Neurological: Denies: headache Endocrine: Reports: fatigue Abdominal Pain PMH - Past Medical History Medical history: Reports: asthma, CHF, coronary artery disease, diabetes, hyperlipidemia, hypertension, myocardial infarction, thyroid disease Female Surgical History: Reports: other DIRECTOR BUSINESS MANAGEMENT history: Reports: no DIRECTOR BUSINESS MANAGEMENT history Psychiatric history: Reports: no psych history - Social History Smoking status: Never smoker Alcohol use: Reports: none Drug use: Reports: none Physical Exam General: Well appearing, nontoxic, no acute distress Head: Normocephalic Atraumatic Eyes: PERRL, EOMI ENT: Airway patent, no stridor Neck: supple, no meningismus Chest: Lungs clear to auscultation bilateral Cardiac: Regular rate and rhythm, no murmurs, rubs or gallops Abdomen: Left mid umbilical tenderness without rebound or guarding. Mild right upper quadrant abdominal tenderness with negative Hill sign. No rebound or guarding. No CVA tenderness. Musculoskeletal: Calves symmetric, nontender, no palpable cord Skin: No rash, normal skin tone Neuro: Alert and Oriented to person, place, and time; No focal deficit, CN 2-12 symmetric and intact - General Limitations: no limitations General appearance: alert Course - Reevaluation(s) Reevaluation #1: Radiology is pending. Patient signed out to Dr. Ovalles. Vital Signs Temperature 98.7 F 05/07/17 15:36 Pulse Rate 115 05/07/17 15:36 Respiratory Rate 20 05/07/17 15:36 Blood Pressure 144/72 05/07/17 15:36 O2 Sat by Pulse Oximetry 95 05/07/17 15:36 Temperature 98.1 F 05/08/17 10:22 Pulse Rate 69 05/08/17 10:22 Respiratory Rate 16 05/08/17 10:22 Blood Pressure 131/89 05/08/17 10:22 O2 Sat by Pulse Oximetry 97 05/08/17 10:22 Oxygen Delivery Oxygen Delivery Nasal Cannula Abdominal Pain - Medical Records Medical records reviewed: Yes I reviewed the patient's medical records. - Lab Data Lab results reviewed: Yes I reviewed the patient's lab results. Result diagrams: 05/08/17 05:54 05/08/17 05:54 Lab Results 05/07/17 05/07/17 05/07/17 Range/Units 16:09 16:23 16:23 WBC 11.8 H (4.3-11.1) K/mcL RBC 4.82 (3.82-4.97) M/mcL Hgb 14.3 (11.5-15.4) g/dL Hct 42.1 (35.3-44.9) % MCV 87.3 (83.0-100.0) fL MCH 29.7 (28.0-33.3) pg MCHC 34.0 (31.6-35.5) g/dL RDW 12.8 (11.5-14.5) % Plt Count 243 (140-400) K/mcL MPV 9.3 L (9.4-12.4) fL Immature Gran % 0.6 (0-4) % Seg Neutrophils % 71.2 % Lymphocytes % 16.1 % Monocytes % 9.9 % Eosinophils % 2.0 % Basophils % 0.2 % Neutrophils # 8.4 (1.6-8.9) K/mcL Lymphocytes # 1.9 (0.6-4.6) K/mcL Monocytes # 1.2 (0.0-1.3) K/mcL Eosinophils # 0.2 (0.0-0.6) K/mcL Basophils # 0.0 (0.0-0.2) K/mcL Sodium 136 (136-145) mEq/L Potassium 4.2 (3.5-5.1) mEq/L Chloride 101 (98-107) mEq/L Carbon Dioxide 25 (23-29) mEq/L BUN 16 (8-23) mg/dL Creatinine 0.95 (0.60-1.20) mg/dL Est GFR ( Amer) > 60 (> 60) Est GFR (Non-Af Amer) 58 L (> 60) BUN/Creatinine Ratio 17 (6-26) Glucose 199 H (70-105) mg/dL Calculated Osmolality 289 (280-300) Lactic Acid (0.5-2.2) mmol/L Calcium 9.9 (8.6-10.3) mg/dL Total Bilirubin 0.3 (0.3-1.0) mg/dL Direct Bilirubin 0.1 (0.0-0.2) mg/dL Indirect Bilirubin 0.2 (0.0-1.2) mg/dL AST 21 (13-39) Units/L ALT 14 (7-52) Units/L Alkaline Phosphatase 111 H (34-104) Units/L Troponin I (< 0.04) ng/mL Serum Total Protein 7.3 (6.4-8.9) g/dL Albumin 3.9 (3.5-5.7) g/dL Globulin 3.4 (2.4-3.5) g/dL Albumin/Globulin Ratio 1.1 (1.1-2.2) Ur Specimen Adequacy See below A Urine Color Yellow (Yellow) Urine Clarity Cloudy A (Clear) Urine pH 7.0 (5.0-8.0) pH Units Ur Specific [place] 1.022 (1.010-1.025) Urine Protein 30 H (Neg-Trace) mg/dL Urine Glucose (UA) Normal (Normal) mg/dL Urine Ketones Negative (Negative) mg/dL Urine Blood Negative (Negative) Urine Nitrite Negative (Negative) Urine Bilirubin Negative (Negative) Urine Urobilinogen Normal (Normal) mg/dL Ur Leukocyte Esterase Large H (Negative) Urine Microscopic RBC 3-5 H (0-3) per hpf Urine Microscopic WBC TNTC H (0-3) per hpf Ur Squamous Epith Cells Many H (None-Few) per lpf Urine Bacteria Few (None-Few) per hpf Hyaline Casts None Seen (None-Few) per lpf Ur Culture Indicated? NO. (NO) 05/07/17 05/07/17 Range/Units 18:11 18:11 WBC (4.3-11.1) K/mcL RBC (3.82-4.97) M/mcL Hgb (11.5-15.4) g/dL Hct (35.3-44.9) % MCV (83.0-100.0) fL MCH (28.0-33.3) pg MCHC (31.6-35.5) g/dL RDW (11.5-14.5) % Plt Count (140-400) K/mcL MPV (9.4-12.4) fL Immature Gran % (0-4) % Seg Neutrophils % % Lymphocytes % % Monocytes % % Eosinophils % % Basophils % % Neutrophils # (1.6-8.9) K/mcL Lymphocytes # (0.6-4.6) K/mcL Monocytes # (0.0-1.3) K/mcL Eosinophils # (0.0-0.6) K/mcL Basophils # (0.0-0.2) K/mcL Sodium (136-145) mEq/L Potassium (3.5-5.1) mEq/L Chloride (98-107) mEq/L Carbon Dioxide (23-29) mEq/L BUN (8-23) mg/dL Creatinine (0.60-1.20) mg/dL Est GFR ( Amer) (> 60) Est GFR (Non-Af Amer) (> 60) BUN/Creatinine Ratio (6-26) Glucose (70-105) mg/dL Calculated Osmolality (280-300) Lactic Acid 1.7 (0.5-2.2) mmol/L Calcium (8.6-10.3) mg/dL Total Bilirubin (0.3-1.0) mg/dL Direct Bilirubin (0.0-0.2) mg/dL Indirect Bilirubin (0.0-1.2) mg/dL AST (13-39) Units/L ALT (7-52) Units/L Alkaline Phosphatase (34-104) Units/L Troponin I < 0.03 (< 0.04) ng/mL Serum Total Protein (6.4-8.9) g/dL Albumin (3.5-5.7) g/dL Globulin (2.4-3.5) g/dL Albumin/Globulin Ratio (1.1-2.2) Ur Specimen Adequacy Urine Color (Yellow) Urine Clarity (Clear) Urine pH (5.0-8.0) pH Units Ur Specific [place] (1.010-1.025) Urine Protein (Neg-Trace) mg/dL Urine Glucose (UA) (Normal) mg/dL Urine Ketones (Negative) mg/dL Urine Blood (Negative) Urine Nitrite (Negative) Urine Bilirubin (Negative) Urine Urobilinogen (Normal) mg/dL Ur Leukocyte Esterase (Negative) Urine Microscopic RBC (0-3) per hpf Urine Microscopic WBC (0-3) per hpf Ur Squamous Epith Cells (None-Few) per lpf Urine Bacteria (None-Few) per hpf Hyaline Casts (None-Few) per lpf Ur Culture Indicated? (NO) - EKG Data EKG attestation: Yes I reviewed and interpreted this EKG. EKG results narrative: EKG shows sinus rhythm with ventricular rate of 93. CT 160. QRS 98. QTC were 36. Patient has no significant ST elevations or depressions. Patient has no changes from previous EKG of 11/26/16. Attestation Statement - Attestation Attestation: I examined this patient and my medical decision-making was reviewed with the Resident Physician, Dr. Damon. I agree with the documented findings, disposition and treatment plan as described except to the extent set forth below. Patient is a 76-year-old white female who presents to the emergency department with a 4 day history of gradually worsening left-sided abdominal pain. This is been associated with some nausea and loose bowel movements with no blood. Patient also is complaining of some mild dysuria and urinary frequency but denies any hematuria and no flank pain. Patient has not had any fevers but has been complaining of some chills. Patient denies any chest pain pressure or heaviness, no shortness of breath, no diaphoresis, and no other associated symptoms. I agree with patient's physical exam findings as documented. Patient was tachycardic on arrival but blood pressure stable. Patient is improved following pain medicine administration vital signs have remained stable. Her lab evaluation shows just a very mild leukocytosis with a white count of 11, large leuks in her urine but otherwise no nitrates or blood. Lactate is normal. At this time we are awaiting CT results and final disposition of the patient. We are signing the patient out to Dr. Johnston and the banking supervisor team to follow up on CT findings and final disposition of patient.
--- NOTE | 2017-05-07 19:40 | Emergency Department Note ---
START Narrative - START START: I examined this patient and my medical decision-making was reviewed with the emergency medicine resident. I agree with the documented findings, disposition and treatment plan as described except to the extent set forth below. Patient seen with emergency medicine resident Dr. Yfn Ovalles, Please see a copy of his note for details of the H&P, ED evaluation, management and disposition. I have independently evaluated the patient and confirmed appropriate portions of the history and physical exam. Briefly: A 76-year-old diabetic presents with dysuria and abdominal discomfort. History of diverticulitis. ED workup shows a negative CT urinalysis too numerous to count WBCs. Patient and her daughter at bedside feel that she is really too ill and in too much pain and discomfort to go home. Awaiting callback for admission from hospitalist. Orders place. Patient disposition pending.
--- NOTE | 2017-05-07 20:02 | Emergency Department Note ---
Disposition Clinical Impression: Abdominal pain Qualifiers: Abdominal location: left lower quadrant Qualified Code(s): R10.32 - Left lower quadrant pain UTI (urinary tract infection) Qualifiers: Urinary tract infection type: acute cystitis Hematuria presence: without hematuria Qualified Code(s): N30.00 - Acute cystitis without hematuria Disposition: Admitted As Inpatient Condition: Fair Referrals: Shaji Vick DO [Primary Care Provider] - Forms: ED Satisfaction Letter, Work/School Release Time of Disposition: 20:02 Abdominal Pain HPI - General Chief Complaint: ED Abdominal Pain Stated Complaint: Abd pain Time Seen by Provider: 05/07/17 15:49 Source: patient Mode of arrival: ambulatory - History of Present Illness Pain Scale: 7 - Related Data Home Medications Medication Instructions Recorded Confirmed Albuterol Neb [Proventil Neb] 2.5 mg IH TID 03/23/15 11/25/16 Donepezil [Aricept] 10 mg PO HS 03/23/15 11/25/16 Furosemide [Lasix] 40 mg PO DAILY 03/23/15 11/25/16 Levothyroxine [Synthroid] 75 mcg PO 0630 03/23/15 11/25/16 Potassium Chloride 20 meq PO BID 03/23/15 11/25/16 Pregabalin [Lyrica] 75 mg PO DAILY 03/23/15 11/25/16 Insulin Glargine [Lantus] 65 unit SQ HS 01/04/16 11/25/16 Insulin Regular, Human [Novolin R] 15 unit SQ TIDWM #0 01/04/16 11/25/16 Albuterol Sulfate [Ventolin Hfa] 2 puff IH Q4H PRN 11/25/16 11/25/16 Allopurinol [Zyloprim 100 MG] 100 mg PO DAILY 11/25/16 11/25/16 Colestipol HCl [Colestid] 1 gm PO BID 11/25/16 11/25/16 Dicyclomine [Bentyl] 20 mg PO QID PRN 11/25/16 11/25/16 Fluticasone Propionate Nasal 50 mcg NS DAILY PRN 11/25/16 11/25/16 [Flonase] Metoprolol [Lopressor] 50 mg PO BID 11/25/16 11/25/16 Omeprazole [PriLOSEC] 20 mg PO BIDAC 11/25/16 11/25/16 Ondansetron HCl [Zofran] 4 mg PO BID PRN 11/25/16 11/25/16 Oxycodone HCl/Acetaminophen 1 each PO Q8H PRN 11/25/16 11/25/16 [Percocet 5-325 mg Tablet] Sertraline [Zoloft] 100 mg PO DAILY 11/25/16 11/25/16 Valsartan [Diovan] 20 mg PO DAILY 11/25/16 11/25/16 Venlafaxine [Effexor] 75 mg PO DAILY 11/25/16 11/25/16 traZODone [TraZODone] 25 - 100 mg PO HS PRN 11/25/16 11/25/16 Previous Rx's Medication Instructions Recorded Acetaminophen [Tylenol] 650 mg PO Q6HR PRN tab 12/01/16 Aspirin 81 mg PO DAILY 12/01/16 Simvastatin [Zocor] 40 mg PO HS tab 12/01/16 Allergies Allergy/AdvReac Type Severity Reaction Status Date / Time lisinopril Allergy Gastrointestinal Verified 05/07/17 15:36 Upset Constitutional: Reports: chills. Denies: fever Cardiovascular: Denies: chest pain, palpitations, dyspnea on exertion Respiratory: Denies: cough, dyspnea Gastrointestinal: Reports: abdominal pain, nausea, vomiting, diarrhea Genitourinary: Reports: urgency, dysuria, frequency Musculoskeletal: Reports: back pain (Left flank) Integumentary: Denies: rash, abrasion Neurological: Denies: headache Endocrine: Reports: fatigue Abdominal Pain PMH - Past Medical History Medical history: Reports: asthma, CHF, coronary artery disease, diabetes, hyperlipidemia, hypertension, myocardial infarction, thyroid disease Female Surgical History: Reports: 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 Damon see their documenttions, the patient 76-year-old female with multiple comorbidities including diabetes hypertension hypothyroidism electrolyte abnormalities presents complaining of left lower quadrant pain CT scan shows evidence of cystitis, urine shows too numerous to count white cells and is purulent quality we will treat with ceftriaxone IV plan is for admission inpatient doctor [facility] accepting for admission Time: 20:02 Vital Signs Temperature 98.7 F 05/07/17 15:36 Pulse Rate 115 05/07/17 15:36 Respiratory Rate 20 05/07/17 15:36 Blood Pressure 144/72 05/07/17 15:36 O2 Sat by Pulse Oximetry 95 05/07/17 15:36 Temperature 98.7 F 05/07/17 15:36 Pulse Rate 96 05/07/17 18:48 Respiratory Rate 14 05/07/17 18:48 Blood Pressure 184/88 05/07/17 18:48 O2 Sat by Pulse Oximetry 95 05/07/17 18:48 Oxygen Delivery Oxygen Delivery Nasal Cannula Abdominal Pain - Lab Data Lab results reviewed: Yes I reviewed the patient's lab results. Result diagrams: 05/07/17 16:23 05/07/17 16:23 Lab Results 05/07/17 05/07/17 05/07/17 Range/Units 16:09 16:23 16:23 WBC 11.8 H (4.3-11.1) K/mcL RBC 4.82 (3.82-4.97) M/mcL Hgb 14.3 (11.5-15.4) g/dL Hct 42.1 (35.3-44.9) % MCV 87.3 (83.0-100.0) fL MCH 29.7 (28.0-33.3) pg MCHC 34.0 (31.6-35.5) g/dL RDW 12.8 (11.5-14.5) % Plt Count 243 (140-400) K/mcL MPV 9.3 L (9.4-12.4) fL Immature Gran % 0.6 (0-4) % Seg Neutrophils % 71.2 % Lymphocytes % 16.1 % Monocytes % 9.9 % Eosinophils % 2.0 % Basophils % 0.2 % Neutrophils # 8.4 (1.6-8.9) K/mcL Lymphocytes # 1.9 (0.6-4.6) K/mcL Monocytes # 1.2 (0.0-1.3) K/mcL Eosinophils # 0.2 (0.0-0.6) K/mcL Basophils # 0.0 (0.0-0.2) K/mcL Sodium 136 (136-145) mEq/L Potassium 4.2 (3.5-5.1) mEq/L Chloride 101 (98-107) mEq/L Carbon Dioxide 25 (23-29) mEq/L BUN 16 (8-23) mg/dL Creatinine 0.95 (0.60-1.20) mg/dL Est GFR ( Amer) > 60 (> 60) Est GFR (Non-Af Amer) 58 L (> 60) BUN/Creatinine Ratio 17 (6-26) Glucose 199 H (70-105) mg/dL Calculated Osmolality 289 (280-300) Lactic Acid (0.5-2.2) mmol/L Calcium 9.9 (8.6-10.3) mg/dL Total Bilirubin 0.3 (0.3-1.0) mg/dL Direct Bilirubin 0.1 (0.0-0.2) mg/dL Indirect Bilirubin 0.2 (0.0-1.2) mg/dL AST 21 (13-39) Units/L ALT 14 (7-52) Units/L Alkaline Phosphatase 111 H (34-104) Units/L Troponin I (< 0.04) ng/mL Serum Total Protein 7.3 (6.4-8.9) g/dL Albumin 3.9 (3.5-5.7) g/dL Globulin 3.4 (2.4-3.5) g/dL Albumin/Globulin Ratio 1.1 (1.1-2.2) Ur Specimen Adequacy See below A Urine Color Yellow (Yellow) Urine Clarity Cloudy A (Clear) Urine pH 7.0 (5.0-8.0) pH Units Ur Specific [place] 1.022 (1.010-1.025) Urine Protein 30 H (Neg-Trace) mg/dL Urine Glucose (UA) Normal (Normal) mg/dL Urine Ketones Negative (Negative) mg/dL Urine Blood Negative (Negative) Urine Nitrite Negative (Negative) Urine Bilirubin Negative (Negative) Urine Urobilinogen Normal (Normal) mg/dL Ur Leukocyte Esterase Large H (Negative) Urine Microscopic RBC 3-5 H (0-3) per hpf Urine Microscopic WBC TNTC H (0-3) per hpf Ur Squamous Epith Cells Many H (None-Few) per lpf Urine Bacteria Few (None-Few) per hpf Hyaline Casts None Seen (None-Few) per lpf Ur Culture Indicated? NO. (NO) 05/07/17 05/07/17 Range/Units 18:11 18:11 WBC (4.3-11.1) K/mcL RBC (3.82-4.97) M/mcL Hgb (11.5-15.4) g/dL Hct (35.3-44.9) % MCV (83.0-100.0) fL MCH (28.0-33.3) pg MCHC (31.6-35.5) g/dL RDW (11.5-14.5) % Plt Count (140-400) K/mcL MPV (9.4-12.4) fL Immature Gran % (0-4) % Seg Neutrophils % % Lymphocytes % % Monocytes % % Eosinophils % % Basophils % % Neutrophils # (1.6-8.9) K/mcL Lymphocytes # (0.6-4.6) K/mcL Monocytes # (0.0-1.3) K/mcL Eosinophils # (0.0-0.6) K/mcL Basophils # (0.0-0.2) K/mcL Sodium (136-145) mEq/L Potassium (3.5-5.1) mEq/L Chloride (98-107) mEq/L Carbon Dioxide (23-29) mEq/L BUN (8-23) mg/dL Creatinine (0.60-1.20) mg/dL Est GFR ( Amer) (> 60) Est GFR (Non-Af Amer) (> 60) BUN/Creatinine Ratio (6-26) Glucose (70-105) mg/dL Calculated Osmolality (280-300) Lactic Acid 1.7 (0.5-2.2) mmol/L Calcium (8.6-10.3) mg/dL Total Bilirubin (0.3-1.0) mg/dL Direct Bilirubin (0.0-0.2) mg/dL Indirect Bilirubin (0.0-1.2) mg/dL AST (13-39) Units/L ALT (7-52) Units/L Alkaline Phosphatase (34-104) Units/L Troponin I < 0.03 (< 0.04) ng/mL Serum Total Protein (6.4-8.9) g/dL Albumin (3.5-5.7) g/dL Globulin (2.4-3.5) g/dL Albumin/Globulin Ratio (1.1-2.2) Ur Specimen Adequacy Urine Color (Yellow) Urine Clarity (Clear) Urine pH (5.0-8.0) pH Units Ur Specific [place] (1.010-1.025) Urine Protein (Neg-Trace) mg/dL Urine Glucose (UA) (Normal) mg/dL Urine Ketones (Negative) mg/dL Urine Blood (Negative) Urine Nitrite (Negative) Urine Bilirubin (Negative) Urine Urobilinogen (Normal) mg/dL Ur Leukocyte Esterase (Negative) Urine Microscopic RBC (0-3) per hpf Urine Microscopic WBC (0-3) per hpf Ur Squamous Epith Cells (None-Few) per lpf Urine Bacteria (None-Few) per hpf Hyaline Casts (None-Few) per lpf Ur Culture Indicated? (NO) - Radiology Data Radiology results reviewed: Yes I reviewed the patient's radiology results. Abdomen/Pelvis CT 05/07/17 17:36 IMPRESSION: Bladder wall appears mildly inflamed. Correlate with urinalysis to assess for cystitis. [place] colonic diverticulosis. No evidence of acute diverticulitis. 5.3 x 4.9 cm fatty lesion within the proximal right iliopsoas. This is incompletely evaluated but appears slightly increased since the previous exam. 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 Recommend follow-up with orthopedic surgical oncologist. D/ / Tiffany Estrella MD / Tiffany Estrella MD Interpreting Provider: Tiffany Estrella MD
[2017-05-07] MEDS ORDERED: cefTRIAXone 1,000 MG in Water for inj. (sterile) 10 ML IVP ONE (20:15)
[2017-05-07] MEDS ORDERED: Naloxone 0.4 MG/ML INJ IVP PRN (21:01)
[2017-05-07] MEDS ORDERED: Acetaminophen 325 MG TABLET PO PRN (21:07)
[2017-05-07] MEDS ORDERED: *HR* HYDROcodone/Acet 5/325 mg TABLET PO PRN (21:07)
--- NOTE | 2017-05-07 21:09 | Internal Med History&Physical ---
<Larry Mehta - Last Filed: 05/07/17 22:11> Date of Encounter: 05/07/17 Time of Encounter: 20:30 Assessment and Plan (1) UTI (urinary tract infection) Current visit: Yes Status: Acute 4 days of lower abdominal pain with burning on urination, subjective chills, loose stool, no fever. Suprapubic and R flank pain on exam. CT abd shows bladder wall inflammation, diverticulosis without diverticulitis. Rocephin 1g daily. Urine cultures pending. Qualifiers: Urinary tract infection type: acute cystitis Hematuria presence: without hematuria Qualified Code(s): N30.00 - Acute cystitis without hematuria (2) Intramuscular lipoma Current visit: Yes Status: Acute CT abdomen finding of 5.3 x 4.9 cm fatty lesion within the proximal right iliopsoas, having slightly increased since the previous exam. (3) Diabetes mellitus Current visit: No Status: Chronic On sliding scale insulin. Diabetic diet. 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 Qualifiers: Hyperlipidemia type: unspecified Qualified Code(s): E78.5 - Hyperlipidemia , unspecified (5) Hypothyroidism Current visit: No Status: Chronic Pt has taken her Synthroid today, will continue tomorrow. Will do a thyroid panel. Qualifiers: Hypothyroidism type: acquired Qualified Code(s): E03.9 - Hypothyroidism, unspecified (6) Hypertension Current visit: No Status: Chronic Continue home metoprolol 50mg BID. Mildly elevated bp w/o chest pain at admission. Qualifiers: Hypertension type: essential hypertension Qualified Code(s): I10 - Essential (primary) hypertension (7) Chronic kidney disease, stage III (moderate) Current visit: No Status: Chronic Continuing home valsartan. Managing blood pressure. (8) CAD (coronary artery disease) Current visit: Yes Status: Acute Reports PR without stenting over 10 years ago. Continue statin, bb, ASA. Qualifiers: Coronary Disease-Associated Artery/Lesion type: [place] artery [place] vs. transplanted heart: [place] heart Associated angina: without angina Qualified Code(s): I25.10 - Atherosclerotic heart disease of [place] coronary artery without angina pectoris (9) DVT prophylaxis Current visit: No Status: Acute SQ heparin 5000U q12h. Internal Medicine - H&P: HPI Admitted From: Emergency Dept Plans for Post Hospital Care: Home History of present illness: Ms. Ferro is a 76 year old female who presented to the ED with 4 days of lower abdominal pain, burning on urination, with PMH of diverticulitis, DM@, HLD, HN, hypothyroidsm, mild dementia on Aricept, and CKD-stage 3a. Pt also reports nausea, loose stool, chills. Denies fever, dyspnea, chest pain, or bloodly stool. CT abdomen shows bladder wall inflammation, diverticulosis in absence of diverticulitis, and an incidental 5.3x4.9 cm fatty lesion within the R iliopsoas. Past Med Surg Social Fam HX - Past Medical History Medical history: asthma, CHF, coronary artery disease, diabetes, hyperlipidemia , hypertension, myocardial infarction, thyroid disease Psychiatric history: no psych history - Past Surgical History Surgical History: cholecystectomy, colectomy, other - Social History Smoking Status: Never smoker Smokeless Tobacco Status: No Alcohol use: none Drug use: none - Family History Mother Adopted: No Family Member Ethnicity: Non- Living Status: Hx Family Cardiac Disorders: Yes Hx Family Respiratory Disorders: No Hx Family Cancer: Yes Hx Family GI Disorders: No Hx Family Endocrine Disorder: No Hx Family Neuromuscular Disorders: No Hx Family Neurologic Disorders: No Hx Family HEENT Disorders: No Hx Family Autoimmune Disorders: No Father Living Status: Hx Family Cardiac Disorders: Yes Internal Medicine - H&P: Meds Albuterol Neb [Proventil Neb] 2.5 mg IH TID 03/23/15 [History] Donepezil [Aricept] 10 mg PO HS 03/23/15 [History] Furosemide [Lasix] 40 mg PO DAILY 03/23/15 [History] Levothyroxine [Synthroid] 75 mcg PO 0630 03/23/15 [History] Potassium Chloride 20 meq PO BID 03/23/15 [History] Pregabalin [Lyrica] 75 mg PO DAILY 03/23/15 [History] Insulin Glargine [Lantus] 65 unit SQ HS 01/04/16 [History] Insulin Regular, Human [Novolin R] 15 unit SQ TIDWM #0 01/04/16 [History] Albuterol Sulfate [Ventolin Hfa] 2 puff IH Q4H PRN 11/25/16 [History] Allopurinol [Zyloprim 100 MG] 100 mg PO DAILY 11/25/16 [History] Colestipol HCl [Colestid] 1 gm PO BID 11/25/16 [History] Dicyclomine [Bentyl] 20 mg PO QID PRN 11/25/16 [History] Fluticasone Propionate Nasal [Flonase] 50 mcg NS DAILY PRN 11/25/16 [History] Metoprolol [Lopressor] 50 mg PO BID 11/25/16 [History] Omeprazole [PriLOSEC] 20 mg PO BIDAC 11/25/16 [History] Ondansetron HCl [Zofran] 4 mg PO BID PRN 11/25/16 [History] Oxycodone HCl/Acetaminophen [Percocet 5-325 mg Tablet] 1 each PO Q8H PRN [History] Sertraline [Zoloft] 100 mg PO DAILY 11/25/16 [History] Valsartan [Diovan] 20 mg PO DAILY 11/25/16 [History] Venlafaxine [Effexor] 75 mg PO DAILY 11/25/16 [History] traZODone [TraZODone] 25 - 100 mg PO HS PRN 11/25/16 [History] Acetaminophen [Tylenol] 650 mg PO Q6HR PRN tab 12/01/16 [Rx] Simvastatin [Zocor] 40 mg PO HS tab 12/01/16 [Rx] 3 Allergy/AdvReac Type Severity Reaction Status Date / Time lisinopril Allergy Gastrointestinal Verified 05/07/17 15:36 Upset All Systems PM: A 10-system review of systems was performed and is negative for pertinent findings except as documented above in the HPI. - Constitutional Vitals: Temp Pulse Resp BP Pulse Ox 98.7 F 96 14 184/88 95 05/07/17 15:36 05/07/17 18:48 05/07/17 18:48 05/07/17 18:48 05/07/17 18:48 General appearance: Present: A&O X 3, answers questions appropriately - Head Head exam: Present: atraumatic - Eye Eye exam: Present: EOMI. Absent: scleral icterus - Neck Neck exam general surgery: Present: full ROM - Respiratory Respiratory exam: Present: CTAB. Absent: wheezes, tachypnea - Cardiovascular Cardiovascular exam: Present: RRR, +S1, +S2. Absent: JVD, systolic murmur - Extremities Exam Extremities exam: Present: normal capillary refill, pedal edema (trace edema). Absent: calf tenderness - Skin Skin exam: Present: normal color Internal Med - H&P Results - Labs CBC & Chem 7: 05/07/17 16:23 05/07/17 16:23 <Jay Coe - Last Filed: 05/07/17 23:24> Date of Encounter: 05/07/17 Time of Encounter: 21:50 Internal Medicine - H&P: HPI History of present illness: Ms. Ferro is a 76 year old female All Systems PM: A 10-system review of systems was performed and is negative for pertinent findings except as documented above in the HPI. - Constitutional Vitals: Temp Pulse Resp BP Pulse Ox 98.4 F 118 14 142/74 96 05/07/17 23:08 05/07/17 23:08 05/07/17 23:08 05/07/17 23:08 05/07/17 23:08 Internal Med - H&P Results - Labs CBC & Chem 7: 05/07/17 16:23 05/07/17 16:23 - Attending Attestation I examined this patient and my medical decision-making was reviewed with the Resident Physician, Larry Mehta. I agree with the documented findings, disposition and treatment plan as described except to the extent set forth below. 76-year-old female patient with history of asthma, coronary artery disease, CHF , chronic kidney disease stage III, hypertension and hyperlipidemia presented to the ER with complaints of abdominal pain along with burning micturition. Patient describes the pain as in the mid to lower abdomen region that gets worse after she eats. She does not have constipation. She has been taking Advil for her pain for the past week. She says her pain has been going on for about 1 week now. She also has chronic back pain. On exam, patient has mild left-sided abdominal tenderness in the epigastric, umbilical and left lower quadrants. S1 and S2 are normal. Patient does have trace bilateral pitting edema. Breath sounds are normal. Labs show mild leukocytosis. Urinalysis shows large leukocyte esterase with numerous WBC. CT scan of the abdomen and pelvis shows diverticulosis, bladder wall thickening. There is also a fatty lesion within the right iliopsoas that has increased in size compared to her prior exam concerning for intramuscular lipoma or atypical lipomatous tumor. Acute cystitis: We will treat with IV antibiotics. Follow culture results. Abdominal pain: Could be related to gastritis as patient does have abdominal epigastric tenderness and has been taking Advil recently. Continue omeprazole. Possible intramuscular lipoma or lipomatous tumor in the right iliopsoas: Will discuss findings at surgery. Patient will need outpatient follow-up for further evaluation and management. Diabetes mellitus type 2: Monitor blood sugars. Sliding scale insulin. Chronic kidney disease stage III: Patient reports a history of chronic kidney disease likely related to diabetes. Her creatinine is normal. We will monitor renal function closely. Coronary artery disease: Continue home medications. No chest pain at this time. Impressions Abdomen/Pelvis CT 05/07/17 17:36 IMPRESSION: Bladder wall appears mildly inflamed. Correlate with urinalysis to assess for cystitis. [place] colonic diverticulosis. No evidence of acute diverticulitis. 5.3 x 4.9 cm fatty lesion within the proximal right iliopsoas. This is incompletely evaluated but appears slightly increased since the previous exam. 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 Recommend follow-up with orthopedic surgical oncologist. D/ / Tiffany Estrella MD / Tiffany Estrella MD Interpreting Provider: Tiffany Estrella MD
[2017-05-07] MEDS ORDERED: D5% in Water 1,000 ML IVC PRN (21:21)
[2017-05-07] MEDS ORDERED: Dextrose Gel 15 GM/37.5 ML TUBE PO PRN ×2 (21:21)
[2017-05-07] MEDS ORDERED: *HR* Dextrose 50 % in Water (Syg) 50 ML SYRINGE IVP PRN (21:21)
[2017-05-07] MEDS ORDERED: traZODone 50 MG TABLET PO PRN (21:40)
[2017-05-07] MEDS: Insulin LISPRO 300 UNITS/3 ML VIAL SQ SCH (21:47)
[2017-05-07] MEDS: 0.9 % Sodium Chloride 1,000 ML IVC SCH (23:59)
[2017-05-08] MEDS: *HR* Heparin 5,000 UNIT/ML VIAL SQ SCH ×3 (05:34→18:21)
[2017-05-08 06:11] LABS: Basophils % 0.1 %; Eosinophils # 0.3 K/mcL (0.0-0.6); Eosinophils % 3.6 %; Hematocrit 39.5 % (35.3-44.9); Hemoglobin 12.8 g/dL (11.5-15.4); Immature Granulocytes % 0.7 % (0-4); Lymphocytes # 1.7 K/mcL (0.6-4.6); Lymphocytes % 20.4 %; Mean Corpuscular HGB Conc 32.4 g/dL (31.6-35.5); Mean Corpuscular Hemoglobin 29.4 pg (28.0-33.3); Mean Corpuscular Volume 90.6 fL (83.0-100.0); Mean Platelet Volume 9.3 fL (9.4-12.4); Monocytes # 1.1 K/mcL (0.0-1.3); Monocytes % 12.7 %; Neutrophils # 5.3 K/mcL (1.6-8.9); Platelet Count 230 K/mcL (140-400); Red Blood Count 4.36 M/mcL (3.82-4.97); Red Cell Distribution Width 13.1 % (11.5-14.5); Segmented Neutrophils % 62.5 %
[2017-05-08 06:26] LABS: BUN/Creatinine Ratio 11 (6-26); Blood Urea Nitrogen 10 mg/dL (8-23); Calcium 8.8 mg/dL (8.6-10.3); Carbon Dioxide 30 mEq/L (23-29); Chloride 106 mEq/L (98-107); Glucose 84 mg/dL (70-105); Osmolality,Calculated 288 (280-300); Potassium 4.2 mEq/L (3.5-5.1); Sodium 140 mEq/L (136-145); eGFR For African Americans > 60 (> 60); eGFR For Non-African Americans > 60 (> 60)
[2017-05-08 06:36] LABS: Thyroid Stimulating Hormone 3.135 mcIU/mL (0.340-5.600)
[2017-05-08 06:38] LABS: Triiodothyronine (T3) Free 3.15 pg/mL (2.50-3.90)
[2017-05-08] MEDS: cefTRIAXone 1,000 MG in Water for inj. (sterile) 20 ML 10 ML IVP SCH (09:00)
[2017-05-08] MEDS: Valsartan 80 MG TABLET PO SCH (09:01)
[2017-05-08] MEDS: Pregabalin 75 MG CAPSULE PO SCH (09:01)
[2017-05-08] MEDS: *HR* OxyCODONE/APAP 5/325 TABLET PO PRN ×2 (09:02)
[2017-05-08] MEDS: Colestipol Hcl [Colestid] 1 GM PO SCH ×2 (09:16→21:40)
[2017-05-08] MEDS: 0.9 % Sodium Chloride 1,000 ML IVC SCH ×2 (10:39→20:20)
[2017-05-08] MEDS ORDERED: GI Cocktail 40 ML EACH PO ONE (12:27)
--- NOTE | 2017-05-08 12:32 | Internal Med Progress Note ---
Date of Encounter: 05/08/17 Time of Encounter: 12:28 - Assessment and plan (1) Acute cystitis Current Visit: Yes Status: Acute Assessment and plan: Treating with Rocephin, follow-up cultures. Will try pyridium and monitor for symptom relief, note this will change color of urine and may mimic appearance of hematuria. Qualifiers: Hematuria presence: without hematuria Qualified Code(s): N30.00 - Acute cystitis without hematuria (2) Abdominal pain Current Visit: Yes Status: Acute Assessment and plan: Ms. Ferro is a 76 year old female who presented to the ED with 4 days of lower abdominal pain, burning on urination, with PMH of diverticulitis, DM@, HLD, HN, hypothyroidsm, mild dementia on Aricept, and CKD-stage 3a. Pt also reports nausea, loose stool, chills. Denies fever, dyspnea, chest pain, or bloodly stool. CT abdomen shows bladder wall inflammation, diverticulosis in absence of diverticulitis, and an incidental 5.3x4.9 cm fatty lesion within the R iliopsoas. 4 days of lower abdominal pain with burning on urination, subjective chills, loose stool, no fever. Suprapubic and R flank pain on exam. CT abd shows bladder wall inflammation, diverticulosis without diverticulitis. Started on Rocephin 1g daily. Urine cultures pending. Could be cystitis vs gastritis vs fatty lesion though that is located in the iliopsoal region. Patient in distress from pain this AM. She is non-rigid, abdomen soft, but does have some voluntary guarding. If this is cystitis related, treatment of UTI will provide most pain control. Will try Pyridium and GI cocktail as well and monitor for improvement. Qualifiers: Abdominal location: left lower quadrant Qualified Code(s): R10.32 - Left lower quadrant pain (3) CAD (coronary artery disease) Current Visit: Yes Status: Acute Assessment and plan: Continue home medications Qualifiers: Coronary Disease-Associated Artery/Lesion type: [place] artery [place] vs. transplanted heart: [place] heart Associated angina: without angina Qualified Code(s): I25.10 - Atherosclerotic heart disease of [place] coronary artery without angina pectoris (4) Chronic kidney disease, stage III (moderate) Current Visit: No Status: Chronic Assessment and plan: Medications will be renally dosed. Patient did receive CT contrast Yesterday and may have some change in renal function. Pyridium will be dosed based on creatinine clearance of 64. 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 Patient will need outpatient follow-up for further evaluation and management. (7) UTI (urinary tract infection) Current Visit: Yes Status: Acute Qualifiers: Urinary tract infection type: acute cystitis Hematuria presence: without hematuria Qualified Code(s): N30.00 - Acute cystitis without hematuria - Subjective Interval history: Patient in distress from pain this AM. She is non-rigid, abdomen soft, but does have some voluntary guarding. If this is cystitis related, treatment of UTI will provide most pain control. Will try Pyridium and GI cocktail as well and monitor for improvement, follow-up Surgery consult recommendations are appreciated. - Constitutional Vitals: Temp Pulse Resp BP Pulse Ox 98.1 F 69 16 131/89 97 05/08/17 10:22 05/08/17 10:22 05/08/17 10:22 05/08/17 10:22 05/08/17 10:22 General appearance: Present: A&O X 3, answers questions appropriately Internal Medicine: Result - Labs CBC & Chem 7: 05/08/17 05:54 05/08/17 05:54 Labs: Short CBC 05/08/17 Range/Units 05:54 WBC 8.4 (4.3-11.1) K/mcL Hgb 12.8 D (11.5-15.4) g/dL Hct 39.5 (35.3-44.9) % Plt Count 230 (140-400) K/mcL Neutrophils # 5.3 (1.6-8.9) K/mcL BMP 05/08/17 05:54 Sodium 140 Potassium 4.2 Chloride 106 Carbon Dioxide 30 H BUN 10 Creatinine 0.88 Glucose 84 Calcium 8.8 Consult Discharge Plan - Plan Referrals: Shaji Vick DO [Primary Care Provider] -
[2017-05-08] MEDS: Insulin LISPRO 300 UNITS/3 ML VIAL SQ SCH ×4 (13:59→21:02)
[2017-05-08] MEDS: *HR* Morphine 2 MG/ML SYRINGE IVP PRN (18:06)
[2017-05-09] MEDS: *HR* OxyCODONE/APAP 5/325 TABLET PO PRN ×2 (03:42→15:17)
[2017-05-09 05:32] LABS: BUN/Creatinine Ratio 12 (6-26); Blood Urea Nitrogen 9 mg/dL (8-23); Calcium 8.5 mg/dL (8.6-10.3); Carbon Dioxide 24 mEq/L (23-29); Chloride 111 mEq/L (98-107); Glucose 237 mg/dL (70-105); Osmolality,Calculated 294 (280-300); Potassium 4.9 mEq/L (3.5-5.1); Sodium 139 mEq/L (136-145); eGFR For African Americans > 60 (> 60); eGFR For Non-African Americans > 60 (> 60)
[2017-05-09 05:40] LABS: Basophils % 0.1 %; Eosinophils # 0.3 K/mcL (0.0-0.6); Eosinophils % 4.5 %; Hemoglobin 11.3 g/dL (11.5-15.4); Immature Granulocytes % 0.5 % (0-4); Lymphocytes # 1.6 K/mcL (0.6-4.6); Lymphocytes % 20.5 %; Mean Corpuscular HGB Conc 32.3 g/dL (31.6-35.5); Mean Corpuscular Hemoglobin 29.4 pg (28.0-33.3); Mean Corpuscular Volume 91.1 fL (83.0-100.0); Mean Platelet Volume 9.7 fL (9.4-12.4); Monocytes # 0.7 K/mcL (0.0-1.3); Monocytes % 9.4 %; Neutrophils # 4.9 K/mcL (1.6-8.9); Platelet Count 181 K/mcL (140-400); Red Blood Count 3.84 M/mcL (3.82-4.97); Red Cell Distribution Width 13.2 % (11.5-14.5)
[2017-05-09] MEDS: 0.9 % Sodium Chloride 1,000 ML IVC SCH (06:19)
[2017-05-09] MEDS: *HR* Heparin 5,000 UNIT/ML VIAL SQ SCH ×2 (06:19→16:48)
[2017-05-09] MEDS: Valsartan 80 MG TABLET PO SCH (09:05)
[2017-05-09] MEDS: Pregabalin 75 MG CAPSULE PO SCH (09:05)
[2017-05-09] MEDS: Colestipol Hcl [Colestid] 1 GM PO SCH (09:06)
[2017-05-09] MEDS: cefTRIAXone 1,000 MG in Water for inj. (sterile) 20 ML 10 ML IVP SCH (09:06)
[2017-05-09] MEDS: Insulin LISPRO 300 UNITS/3 ML VIAL SQ SCH ×4 (09:10→22:01)
[2017-05-09] MEDS: *HR* Morphine 2 MG/ML SYRINGE IVP PRN (09:16)
--- NOTE | 2017-05-09 16:30 | Electrocardiograph Report ---
[address] [address] Test Date: 2017-05-07 Pat Name: Radha Ferro Department: 102 Room: 3A42 Gender: F Web Programmer: : 1940 Requested By: Lucas Damon Order Number: [id number] Reading MD: Mirza Holt Measurements Intervals [place] Rate: 93 P: 34 MO: 160 QRS: 11 QRSD: 98 T: 19 QT: 386 QTc: 436 Interpretive Statements SINUS RHYTHM Electronically Signed On 05-09-2017 16:28:29 EST by Mirza Holt
[2017-05-09] MEDS ORDERED: Insulin DETEMIR 100 UNIT/ML X5UNITS SQ SCH (21:00)
--- NOTE | 2017-05-09 22:42 | Internal Med Progress Note ---
Date of Encounter: 05/09/17 Time of Encounter: 13:40 - Assessment and plan (1) Acute cystitis Current Visit: Yes Status: Acute Assessment and plan: Treating with Rocephin, follow-up cultures. She is complaining of abdominal pain. If this is cystitis related, treatment of UTI will provide most pain control. She stated Pyridium helped some. Unsure if this is cystitis related pain her pain is localized to left side, also not tender in suprapubic region. Will consult Urology in the AM, recommendations on this appreciated.. Qualifiers: Hematuria presence: without hematuria Qualified Code(s): N30.00 - Acute cystitis without hematuria (2) Abdominal pain Current Visit: Yes Status: Acute Assessment and plan: Ms. Ferro is a 76 year old female who presented to the ED with 4 days of lower abdominal pain, burning on urination, with PMH of diverticulitis, DM@, HLD, HN, hypothyroidsm, mild dementia on Aricept, and CKD-stage 3a. Pt also reports nausea, loose stool, chills. Denies fever, dyspnea, chest pain, or bloodly stool. CT abdomen shows bladder wall inflammation, diverticulosis in absence of diverticulitis, and an incidental 5.3x4.9 cm fatty lesion within the R iliopsoas. 4 days of lower abdominal pain with burning on urination, subjective chills, loose stool, no fever. Suprapubic and R flank pain on exam. CT abd shows bladder wall inflammation, diverticulosis without diverticulitis. Started on Rocephin 1g daily. Urine cultures pending. Could be cystitis vs gastritis vs fatty lesion though that is located in the iliopsoal region. Patient in distress from pain this AM. She is non-rigid, abdomen soft, but does have some voluntary guarding. If this is cystitis related, treatment of UTI will provide most pain control. She stated Pyridium helped some. Unsure if this is cystitis related pain her pain is localized to left side, also not tender in suprapubic region. Will consult Urology in the AM, recommendations on this appreciated.. Qualifiers: Abdominal location: left lower quadrant Qualified Code(s): R10.32 - Left lower quadrant pain (3) CAD (coronary artery disease) Current Visit: Yes Status: Acute Assessment and plan: Continue home medications Qualifiers: Coronary Disease-Associated Artery/Lesion type: [place] artery [place] vs. transplanted heart: [place] heart Associated angina: without angina Qualified Code(s): I25.10 - Atherosclerotic heart disease of [place] coronary artery without angina pectoris (4) Chronic kidney disease, stage III (moderate) Current Visit: No Status: Chronic Assessment and plan: Medications will be renally dosed. Patient did receive CT contrast Yesterday and may have some change in renal function. Pyridium will be dosed based on creatinine clearance of 64. 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 (7) UTI (urinary tract infection) Current Visit: Yes Status: Acute Qualifiers: Urinary tract infection type: acute cystitis Hematuria presence: without hematuria Qualified Code(s): N30.00 - Acute cystitis without hematuria - Subjective Interval history: Patient in distress from pain this AM. She is non-rigid, abdomen soft, but does have some voluntary guarding. If this is cystitis related, treatment of UTI will provide most pain control. 05/08/17 Pyridium was tried and patient stated that it helped a little but pain still present, she rates 8/10. - Constitutional Vitals: Temp Pulse Resp BP Pulse Ox 100.3 F H 90 15 133/65 96 05/09/17 19:08 05/09/17 19:08 05/09/17 19:08 05/09/17 19:08 05/09/17 19:08 General appearance: Present: A&O X 3, answers questions appropriately - Head Head exam: Present: atraumatic, normocephalic - Eye Eye exam: Present: PERRL, conjuntiva pink, sclera anicteric Pupils: Present: PERRL - Neck Neck exam general surgery: Present: supple, trachea midline. Absent: lymphadenopathy - Respiratory Respiratory exam: Present: CTAB. Absent: accessory muscle use, rales, rhonchi, wheezes - Cardiovascular Cardiovascular exam: Present: RRR, +S1, +S2. Absent: diastolic murmur, gallop, rubs, systolic murmur - GI/Abdominal GI/Abdominal exam: Present: normal bowel sounds, soft, tenderness, no peritoneal signs. Absent: distended Additional comments: left lower quadrant and left upper quadrant. - Extremities Exam Extremities exam: Present: warm, radial pulses palpable and symmetrical. Absent : calf tenderness, cyanotic, pedal edema - Neurological Exam Neurological exam: Present: CN II-XII intact, oriented X3, no focal deficits. Absent: pronater drift, facial droop, speech deficit - Skin Skin exam: Present: dry, intact Internal Medicine: Result - Labs CBC & Chem 7: 05/09/17 05:06 05/09/17 05:06 Labs: Short CBC 05/09/17 Range/Units 05:06 WBC 7.6 (4.3-11.1) K/mcL Hgb 11.3 L D (11.5-15.4) g/dL Hct 35.0 L (35.3-44.9) % Plt Count 181 (140-400) K/mcL Neutrophils # 4.9 (1.6-8.9) K/mcL BMP 05/09/17 05:06 Sodium 139 Potassium 4.9 Chloride 111 H Carbon Dioxide 24 BUN 9 Creatinine 0.74 Glucose 237 H Calcium 8.5 L Consult Discharge Plan - Plan Referrals: Shaji Vick DO [Primary Care Provider] -
[2017-05-10] MEDS: *HR* OxyCODONE/APAP 5/325 TABLET PO PRN ×2 (00:25→08:12)
[2017-05-10] MEDS: *HR* Heparin 5,000 UNIT/ML VIAL SQ SCH (05:52)
[2017-05-10 07:30] LABS: Basophils % 0.2 %; Eosinophils # 0.3 K/mcL (0.0-0.6); Eosinophils % 4.2 %; Hematocrit 34.5 % (35.3-44.9); Hemoglobin 11.3 g/dL (11.5-15.4); Immature Granulocytes % 0.6 % (0-4); Lymphocytes # 1.4 K/mcL (0.6-4.6); Mean Corpuscular HGB Conc 32.8 g/dL (31.6-35.5); Mean Corpuscular Hemoglobin 29.8 pg (28.0-33.3); Mean Platelet Volume 9.5 fL (9.4-12.4); Monocytes # 0.7 K/mcL (0.0-1.3); Monocytes % 10.1 %; Neutrophils # 4.2 K/mcL (1.6-8.9); Platelet Count 180 K/mcL (140-400); Red Blood Count 3.79 M/mcL (3.82-4.97); Red Cell Distribution Width 13.1 % (11.5-14.5); Segmented Neutrophils % 63.9 %
[2017-05-10] MEDS: Insulin LISPRO 300 UNITS/3 ML VIAL SQ SCH ×2 (07:48→12:35)
[2017-05-10] MEDS: Pregabalin 75 MG CAPSULE PO SCH (08:07)
[2017-05-10] MEDS: Valsartan 80 MG TABLET PO SCH (08:07)
[2017-05-10 08:09] LABS: BUN/Creatinine Ratio 12 (6-26); Blood Urea Nitrogen 8 mg/dL (8-23); Calcium 8.9 mg/dL (8.6-10.3); Carbon Dioxide 27 mEq/L (23-29); Chloride 107 mEq/L (98-107); Glucose 155 mg/dL (70-105); Osmolality,Calculated 285 (280-300); Potassium 3.8 mEq/L (3.5-5.1); Sodium 137 mEq/L (136-145); eGFR For African Americans > 60 (> 60); eGFR For Non-African Americans > 60 (> 60)
[2017-05-10] MEDS: cefTRIAXone 1,000 MG in Water for inj. (sterile) 20 ML 10 ML IVP SCH (08:09)
[2017-05-10] MEDS ORDERED: *HR* Morphine 2 MG/ML SYRINGE IVP PRN (09:05)
--- NOTE | 2017-05-10 10:50 | Urology - Consult Note ---
Date of Encounter: 05/10/17 Time of Encounter: 10:48 - Assessment and Plan (1) Left lower quadrant pain Current Visit: Yes Status: Acute Assessment and plan: I do not believe that the patients pain is related to her bladder. Her urine culture was negative. Patient has had prior surgery in this area. (2) Acute cystitis Current Visit: Yes Status: Acute Assessment and plan: Very mild on CT scan on personal review. Do not believe the patient has bladder infection. No urologic reason for pain. Call with questions. Qualifiers: Hematuria presence: without hematuria Qualified Code(s): N30.00 - Acute cystitis without hematuria Urology CN:HPI Consult date: 05/10/17 Reason for consult Urology: Other (cystitis) Requesting physician: Daisy Garrison History of present illness: Radha is a 76-year-old female who was admitted to the hospital secondary to left lower quadrant abdominal pain. CT scan was done which showed possible mild cystitis. Patient's urine culture was negative from this admission. She denies any voiding problems. Her pain is mostly located in her left lower quadrant which is an 8 out of 10 sharp in nature. No radiation. Past Med Surg Social Fam HX - Past Medical History Medical history: asthma, CHF, coronary artery disease, diabetes, hyperlipidemia , hypertension, myocardial infarction, thyroid disease Psychiatric history: no psych history - Past Surgical History Surgical History: cholecystectomy, colectomy, other - Social History Smoking Status: Never smoker Smokeless Tobacco Status: No Alcohol use: none Drug use: none - Family History Mother Adopted: No Family Member Ethnicity: Non- Living Status: Hx Family Cardiac Disorders: Yes Hx Family Respiratory Disorders: No Hx Family Cancer: Yes Hx Family GI Disorders: No Hx Family Endocrine Disorder: No Hx Family Neuromuscular Disorders: No Hx Family Neurologic Disorders: No Hx Family HEENT Disorders: No Hx Family Autoimmune Disorders: No Father Living Status: Hx Family Cardiac Disorders: Yes Medications and Allergies Albuterol Neb [Proventil Neb] 2.5 mg IH TID 03/23/15 [History] Donepezil [Aricept] 10 mg PO HS 03/23/15 [History] Furosemide [Lasix] 40 mg PO DAILY 03/23/15 [History] Levothyroxine [Synthroid] 75 mcg PO DAILY 03/23/15 [History] Potassium Chloride 20 meq PO BID 03/23/15 [History] Pregabalin [Lyrica] 75 mg PO DAILY 03/23/15 [History] Insulin Glargine [Lantus] 65 unit SQ HS 01/04/16 [History] Insulin Regular, Human [Novolin R] 15 unit SQ TIDWM #0 01/04/16 [History] Albuterol Sulfate [Ventolin Hfa] 2 puff IH Q4H PRN 11/25/16 [History] Allopurinol [Zyloprim 100 MG] 100 mg PO DAILY 11/25/16 [History] Dicyclomine [Bentyl] 20 mg PO QID PRN 11/25/16 [History] Fluticasone Propionate Nasal [Flonase] 50 mcg NS DAILY PRN 11/25/16 [History] Metoprolol [Lopressor] 50 mg PO BID 11/25/16 [History] Omeprazole [PriLOSEC] 20 mg PO BIDAC 11/25/16 [History] Ondansetron HCl [Zofran] 4 mg PO BID PRN 11/25/16 [History] Oxycodone HCl/Acetaminophen [Percocet 5-325 mg Tablet] 1 tab PO Q8H PRN [History] Sertraline [Zoloft] 100 mg PO DAILY 11/25/16 [History] Valsartan [Diovan] 20 mg PO DAILY 11/25/16 [History] Venlafaxine [Effexor] 75 mg PO DAILY 11/25/16 [History] traZODone [TraZODone] 100 mg PO HS PRN 11/25/16 [History] Acetaminophen [Tylenol] 650 mg PO Q6HR PRN tab 12/01/16 [Rx] Simvastatin [Zocor] 40 mg PO HS tab 12/01/16 [Rx] 3 Allergy/AdvReac Type Severity Reaction Status Date / Time lisinopril Allergy Gastrointestinal Verified 05/07/17 15:36 Upset Review of Systems - Constitutional no chills - EENT Nose, mouth and throat: no dizziness - Cardiovascular no chest pain - Respiratory no cough - Gastrointestinal abdominal pain - Genitourinary Genitourinary: as per HPI - Musculoskeletal no back pain - Integumentary no erythema - Neurological no confusion Exam Initial Vital Signs Temp Pulse Resp BP Pulse Ox 98.7 F 115 20 144/72 95 05/07/17 15:36 05/07/17 15:36 05/07/17 15:36 05/07/17 15:36 05/07/17 15:36 - General physical appearance Present: well developed - Eyes Present: PERRL - Respiratory Present: normal respiratory effort - Cardiovascular Cardiovascular exam IM: RRR - Abdomen Abdomen: Present: soft (Pain on deep palpation of left lower quadrant) Urology Results - Labs 05/10/17 06:50 05/10/17 06:50 Abnormal lab results RBC 3.79 M/mcL (3.82-4.97) L 05/10/17 06:50 Hgb 11.3 g/dL (11.5-15.4) L 05/10/17 06:50 Hct 34.5 % (35.3-44.9) L 05/10/17 06:50 Glucose 155 mg/dL (70-105) H 05/10/17 06:50 POC Glucose 126 (58-89) H 05/10/17 07:29 Alkaline Phosphatase 111 Units/L (34-104) H 05/07/17 16:23 Ur Specimen Adequacy See below A 05/07/17 16:09 Urine Clarity Cloudy (Clear) A 05/07/17 16:09 Urine Protein 30 mg/dL (Neg-Trace) H 05/07/17 16:09 Ur Leukocyte Esterase Large (Negative) H 05/07/17 16:09 Urine Microscopic RBC 3-5 per hpf (0-3) H 05/07/17 16:09 Urine Microscopic WBC TNTC per hpf (0-3) H 05/07/17 16:09 Ur Squamous Epith Cells Many per lpf (None-Few) H 05/07/17 16:09 Diabetes panel 05/10/17 Range/Units 06:50 Sodium 137 (136-145) mEq/L Potassium 3.8 (3.5-5.1) mEq/L Chloride 107 (98-107) mEq/L Carbon Dioxide 27 (23-29) mEq/L BUN 8 (8-23) mg/dL Creatinine 0.69 (0.60-1.20) mg/dL Glucose 155 H (70-105) mg/dL Calcium 8.9 (8.6-10.3) mg/dL Calcium panel 05/10/17 Range/Units 06:50 Calcium 8.9 (8.6-10.3) mg/dL Pituitary panel 05/10/17 Range/Units 06:50 Sodium 137 (136-145) mEq/L Potassium 3.8 (3.5-5.1) mEq/L Chloride 107 (98-107) mEq/L Carbon Dioxide 27 (23-29) mEq/L BUN 8 (8-23) mg/dL Creatinine 0.69 (0.60-1.20) mg/dL Glucose 155 H (70-105) mg/dL Calcium 8.9 (8.6-10.3) mg/dL Adrenal panel 05/10/17 Range/Units 06:50 Sodium 137 (136-145) mEq/L Potassium 3.8 (3.5-5.1) mEq/L Chloride 107 (98-107) mEq/L Carbon Dioxide 27 (23-29) mEq/L BUN 8 (8-23) mg/dL Creatinine 0.69 (0.60-1.20) mg/dL Glucose 155 H (70-105) mg/dL Calcium 8.9 (8.6-10.3) mg/dL All other labs normal. - Imaging CT scan - abdomen: image reviewed CT scan - pelvis: image reviewed Consult Discharge Plan - Plan Referrals: Shaji Vick DO [Primary Care Provider] -
[2017-05-10 11:26] VITALS: BP 129/71
--- NOTE | 2017-05-10 12:40 | Discharge Summary ---
Date of Encounter: 05/10/17 Time of Encounter: 12:38 - Discharge Diagnosis (1) Abdominal pain Priority: Primary Status: Resolved Qualifiers: Abdominal location: left lower quadrant Qualified Code(s): R10.32 - Left lower quadrant pain (2) Acute cystitis Priority: Secondary Status: Acute Qualifiers: Hematuria presence: without hematuria Qualified Code(s): N30.00 - Acute cystitis without hematuria (3) CAD (coronary artery disease) Priority: Secondary Status: Acute Qualifiers: Coronary Disease-Associated Artery/Lesion type: [place] artery [place] vs. 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 Qualified Code(s): E11.9 - Type 2 diabetes mellitus without complications ; Z79.4 - equipment operator intermodal yard (current) use of insulin (6) Intramuscular lipoma Priority: Secondary Status: Acute (7) UTI (urinary tract infection) Priority: Secondary Status: Acute Qualifiers: Urinary tract infection type: acute cystitis Hematuria presence: without hematuria Qualified Code(s): N30.00 - Acute cystitis without hematuria - Discharge Medications Prescriptions: Phenazopyridine [Pyridium] 100 mg PO TID PRN #12 tablet PRN Reason: Mild To Moderate Pain Home Medications: Albuterol Neb [Proventil Neb] 2.5 mg IH TID 03/23/15 [History] Donepezil [Aricept] 10 mg PO HS 03/23/15 [History] Furosemide [Lasix] 40 mg PO DAILY 03/23/15 [History] Levothyroxine [Synthroid] 75 mcg PO DAILY 03/23/15 [History] Potassium Chloride 20 meq PO BID 03/23/15 [History] Pregabalin [Lyrica] 75 mg PO DAILY 03/23/15 [History] Insulin Glargine [Lantus] 65 unit SQ HS 01/04/16 [History] Insulin Regular, Human [Novolin R] 15 unit SQ TIDWM #0 01/04/16 [History] Albuterol Sulfate [Ventolin Hfa] 2 puff IH Q4H PRN 11/25/16 [History] Allopurinol [Zyloprim 100 MG] 100 mg PO DAILY 11/25/16 [History] Dicyclomine [Bentyl] 20 mg PO QID PRN 11/25/16 [History] Fluticasone Propionate Nasal [Flonase] 50 mcg NS DAILY PRN 11/25/16 [History] Metoprolol [Lopressor] 50 mg PO BID 11/25/16 [History] Omeprazole [PriLOSEC] 20 mg PO BIDAC 11/25/16 [History] Ondansetron HCl [Zofran] 4 mg PO BID PRN 11/25/16 [History] Oxycodone HCl/Acetaminophen [Percocet 5-325 mg Tablet] 1 tab PO Q8H PRN [History] Sertraline [Zoloft] 100 mg PO DAILY 11/25/16 [History] Valsartan [Diovan] 20 mg PO DAILY 11/25/16 [History] Venlafaxine [Effexor] 75 mg PO DAILY 11/25/16 [History] traZODone [TraZODone] 100 mg PO HS PRN 11/25/16 [History] Acetaminophen [Tylenol] 650 mg PO Q6HR PRN tab 12/01/16 [Rx] Simvastatin [Zocor] 40 mg PO HS tab 12/01/16 [Rx] Cephalexin [Keflex] 500 mg PO TID #15 capsule 05/10/17 [Rx] Phenazopyridine [Pyridium] 100 mg PO TID PRN #12 tablet 05/10/17 [Rx] Allergies/Adverse Reactions: 3 Allergy/AdvReac Type Severity Reaction Status Date / Time lisinopril Allergy Gastrointestinal Verified 05/07/17 15:36 Upset Date of admission: 05/07/17 21:06 Primary care physician: Chris Ling Consults: 05/10/17 09:01 Consult to Urology [CONS] Routine Consulting Provider: Jaimey Marilin Reason for Consult: Cystitis seen on CT Call Completed: Yes 05/07/17 22:10 Consult to Pastoral Services [CONS] Routine Comment: Discharging clinician: Daisy Garrison - Patient Status Disposition: Home, Self-Care Condition: Fair Functional capacity at discharge: independent ambulation Overall status at discharge: patient is back to baseline - Discharge Instructions Follow Up With: Shaji Vick DO [Primary Care Provider] - - Diet and Activity Activity: increase activity as tolerated (d) Hospital course: Ms. Ferro is a 76 year old female who presented to the ED with 4 days of lower abdominal pain, burning on urination, with PMH of diverticulitis, DM, HLD, HN, hypothyroidsm, mild dementia on Aricept, and CKD. Pt also reports nausea, loose stool, chills. Denies fever, dyspnea, chest pain, or bloodly stool. CT abdomen shows bladder wall inflammation, negative for diverticulitis, and an incidental 5.3x4.9 cm fatty lesion within the R iliopsoas. Urinalysis showed WBCs too numerous to count however did have epithelial cells present. She was admitted for further observation. She was tried on pyridium which provided mild relief. She was started on Rocephin. Her pain did gradually resolve. Urology was consulted in case cystitis was cause of abdominal pain but it did seem less likely. Patient did have prior surgery in the left quadrant region, but there were no abnormal findings on CT, negative for diverticulitis or SBO. Pain resolved, she was discharged home in stable condition with prescription for pyridium and keflex. Patient was scheduled for an outpatient follow-up for an iliopsoal lesion that is slightly increased since a previous exam. She agrees to this follow-up appointment. - Time Spent with Patient Total time spent providing and/or coordinating discharge services: - Constitutional Vitals: Temp Pulse Resp BP Pulse Ox 98.2 F 60 18 129/71 96 05/10/17 11:20 05/10/17 11:20 05/10/17 11:20 05/10/17 11:20 05/10/17 11:20 General appearance: Present: A&O X 3, answers questions appropriately - Head Head exam: Present: atraumatic, normocephalic - Eye Eye exam: Present: PERRL, conjuntiva pink, sclera anicteric Pupils: Present: PERRL - Neck Neck exam general surgery: Present: supple, trachea midline. Absent: lymphadenopathy - Respiratory Respiratory exam: Present: CTAB. Absent: accessory muscle use, rales, rhonchi, wheezes - Cardiovascular Cardiovascular exam: Present: RRR, +S1, +S2. Absent: diastolic murmur, gallop, rubs, systolic murmur - GI/Abdominal GI/Abdominal exam: Present: normal bowel sounds, soft, no peritoneal signs. Absent: distended, tenderness Additional comments: No longer guarding, non-tender. - Extremities Exam Extremities exam: Present: warm, radial pulses palpable and symmetrical. Absent : calf tenderness, cyanotic, pedal edema - Neurological Exam Neurological exam: Present: CN II-XII intact, oriented X3, no focal deficits. Absent: pronater drift, facial droop, speech deficit - Skin Skin exam: Present: dry, intact
== END 2017-05-10 14:42 | disposition home or self-care (01) | DRG 392 ==
LOC: 3ANU 15:31 → EMEROO 15:31 → 3ANU 21:20
PROVIDERS: ADMIT Internal Medicine; ATTEND Student in an Organized Health Care Education/Training Program

== ENCOUNTER 2017-06-17 13:50 | Inpatient (IN) ==
[2017-06-17] MEDS ORDERED: 0.9 % Sodium Chloride 1,000 ML IVC ONE (14:15)
[2017-06-17] MEDS ORDERED: Ipratropium/Albuterol Neb 3 ML IH ONE (14:16)
[2017-06-17] MEDS ORDERED: Hyoscyamine 0.5 MG/ML MLS IVP ONE (14:18)
--- NOTE | 2017-06-17 14:19 | Emergency Department Note ---
Disposition Clinical Impression: ESAU (acute kidney injury), Pulmonary nodule Diarrhea Qualifiers: Diarrhea type: unspecified type Qualified Code(s): R19.7 - Diarrhea, unspecified Diverticulosis Qualifiers: Diverticulosis site: unspecified location Diverticulosis bleeding: diverticulosis without bleeding Qualified Code(s): K57.90 - Diverticulosis of intestine, part unspecified, without perforation or abscess without bleeding Disposition: Admitted As Inpatient Condition: Fair Referrals: Shaji Vick DO [Primary Care Provider] - Forms: ED Satisfaction Letter, Work/School Release Time of Disposition: 16:03 General Adult HPI - General Chief complaint: ED General Medical Stated complaint: diarrhea,burning with urination Time Seen by Provider: 06/17/17 14:00 Source: patient, family Mode of arrival: ambulatory Limitations: no limitations Nursing Notes Reviewed: Yes Vital Signs Reviewed: Yes - History of Present Illness HPI Narrative: 76-year-old female patient for evaluation of multiple complaints. Patient states he be having a cough for the past 6 days. Noted to be nonproductive. Patient also notes secondary complaints of lower abdominal discomfort for the past 2 months with associated nonbloody diarrheal illness over the past 6 days. Patient notes a fever yesterday. Denies any episodes of emesis. States that she was recently hospitalized proximally 6 weeks ago for urinary tract infection was on several antibiotics at that time. Patient denies any current antibiotics. Patient also notes difficulty urinating and feels like she does have a UTI. Pain Scale: 0 - Related Data Home Medications Medication Instructions Recorded Confirmed Donepezil [Aricept] 10 mg PO HS 03/23/15 06/17/17 Furosemide [Lasix] 40 mg PO DAILY 03/23/15 06/17/17 Levothyroxine [Synthroid] 125 mcg PO DAILY 03/23/15 06/17/17 Potassium Chloride 20 meq PO BID 03/23/15 06/17/17 Pregabalin [Lyrica] 75 mg PO DAILY 03/23/15 06/17/17 Allopurinol [Zyloprim 100 MG] 100 mg PO DAILY 11/25/16 06/17/17 Dicyclomine [Bentyl] 20 mg PO QID PRN 11/25/16 06/17/17 Metoprolol [Lopressor] 50 mg PO BID 11/25/16 06/17/17 Omeprazole [PriLOSEC] 20 mg PO BIDAC 11/25/16 06/17/17 Oxycodone HCl/Acetaminophen 1 tab PO Q8H PRN 11/25/16 06/17/17 [Percocet 5-325 mg Tablet] Sertraline [Zoloft] 100 mg PO DAILY 11/25/16 06/17/17 Valsartan [Diovan] 20 mg PO DAILY 11/25/16 06/17/17 Venlafaxine [Effexor] 75 mg PO DAILY 11/25/16 06/17/17 traZODone [TraZODone] 100 mg PO HS PRN 11/25/16 06/17/17 Hyoscyamine SL [Levsin SL] 0.125 mg SL TID 06/17/17 06/17/17 Insulin ASPART [NovoLOG] 10 unit SQ TIDWM 06/17/17 06/17/17 Insulin Glargine,Hum.rec.anlog 45 unit SQ BID 06/17/17 06/17/17 [Basaglar Kwikpen U-100] Previous Rx's Medication Instructions Recorded Simvastatin [Zocor] 40 mg PO HS tab 12/01/16 Allergies Allergy/AdvReac Type Severity Reaction Status Date / Time lisinopril Allergy Gastrointestinal Verified 05/07/17 15:36 Upset All systems ED: reviewed and negative except as stated. Constitutional: Reports: fever Cardiovascular: Denies: chest pain Respiratory: Reports: cough. Denies: dyspnea Gastrointestinal: Reports: abdominal pain. Denies: vomiting, diarrhea Genitourinary: Reports: dysuria Past Medical History - Past Medical History Source: patient Medical history: Reports: asthma, CHF, coronary artery disease, diabetes, hyperlipidemia, hypertension, myocardial infarction, thyroid disease Surgical history: Reports: cholecystectomy, colectomy, other Psychiatric history: Reports: no psych history [employer] DIRECTOR history: Reports: no [employer] DIRECTOR history - Social History Smoking Status: Never smoker Smokeless Tobacco Status: No Alcohol use: Reports: none Drug use: Reports: none Physical Exam - General Limitations: no limitations General appearance: alert, in no apparent distress - Head Head exam: atraumatic, normocephalic, normal inspection - Eye Eye exam: Present: normal appearance, PERRL, EOMI - ENT ENT exam: normal exam, mucous membranes moist - Neck Neck exam: Present: normal inspection, trachea midline - Chest Chest inspection: Present: normal inspection, symmetric chest wall rise - Respiratory Respiratory exam: Present: prolonged expiratory phase. Absent: respiratory distress, wheezes - Cardiovascular Cardiovascular exam: Present: regular rate, normal rhythm - Abdominal Exam Abdominal exam: Present: soft, tenderness (Left lower quadrant). Absent: distention, guarding, rebound - Extremities Exam Extremities exam: Present: normal inspection. Absent: pedal edema - Expanded Lower Extremity Exam Neurovascular/Tendon exam: Present: normal capillary refill - Neurological Exam Neurological exam: Present: alert, oriented X3 - Skin Skin exam: Present: warm, dry, intact, normal color Course Course Narrative: Patient seen and examined. Patient appears to be in no acute distress. Patient has a nonsurgical abdomen. Given the patient's multiple complaints patient will get a chest x-ray as well as aerosols. Patient will also get basic lab work given the degree duration of diarrheal illness. Patient also get a C. difficile if she can provide a sample given her recent hospital stay she was antibiotics. Disposition pending. - Reevaluation(s) Reevaluation #1: Patient's updated on plan of care. Time: 16:37 Vital Signs Temperature 99 F 06/17/17 13:54 Pulse Rate 102 06/17/17 13:54 Respiratory Rate 18 06/17/17 13:54 Blood Pressure 103/57 06/17/17 13:54 O2 Sat by Pulse Oximetry 98 06/17/17 13:54 Temperature 99 F 06/17/17 13:54 Pulse Rate 102 06/17/17 13:54 Respiratory Rate 18 06/17/17 15:00 Blood Pressure 103/57 06/17/17 13:54 O2 Sat by Pulse Oximetry 98 06/17/17 15:00 Oxygen Delivery Oxygen Delivery Room Air Medical Decision Making - [facility] Narrative Medical decision making narrative: Patient presents with diarrhea-like illness. Patient's basic lab work reveals she does have acute kidney injury evidence from most recent labs. Patient's likely prerenal given GI losses. Patient does have a history of diverticulosis. Patient's CAT scan revealed diverticulosis. Also reviewed a pulmonary nodule. Patient's chest x-ray shows no acute abnormalities. Patient be admitted hospital for management of electrolytes and kidney function. - Lab Data Lab results reviewed: Yes I reviewed the patient's lab results. Result diagrams: 06/17/17 14:50 06/17/17 14:50 Lab Results 06/17/17 06/17/17 06/17/17 Range/Units 14:50 14:50 14:50 WBC 10.8 (4.3-11.1) K/mcL RBC 4.74 (3.82-4.97) M/mcL Hgb 13.8 (11.5-15.4) g/dL Hct 41.9 (35.3-44.9) % MCV 88.4 (83.0-100.0) fL MCH 29.1 (28.0-33.3) pg MCHC 32.9 (31.6-35.5) g/dL RDW 13.1 (11.5-14.5) % Plt Count 246 (140-400) K/mcL MPV 8.9 L (9.4-12.4) fL Immature Gran % 1.1 (0-4) % Seg Neutrophils % 63.1 % Lymphocytes % 19.0 % Monocytes % 16.2 % Eosinophils % 0.4 % Basophils % 0.2 % Neutrophils # 6.8 (1.6-8.9) K/mcL Lymphocytes # 2.1 (0.6-4.6) K/mcL Monocytes # 1.8 H (0.0-1.3) K/mcL Eosinophils # 0.0 (0.0-0.6) K/mcL Basophils # 0.0 (0.0-0.2) K/mcL Sodium 130 L (136-145) mEq/L Potassium 4.1 (3.5-5.1) mEq/L Chloride 95 L (98-107) mEq/L Carbon Dioxide 23 (23-29) mEq/L BUN 28 H (8-23) mg/dL Creatinine 1.88 H (0.60-1.20) mg/dL Est GFR ( Amer) 32 L (> 60) Est GFR (Non-Af Amer) 26 L (> 60) BUN/Creatinine Ratio 15 (6-26) Glucose 212 H (70-105) mg/dL Calculated Osmolality 282 (280-300) Calcium 9.6 (8.6-10.3) mg/dL Magnesium (1.6-2.6) mg/dL Total Bilirubin 0.5 (0.3-1.0) mg/dL Direct Bilirubin 0.1 (0.0-0.2) mg/dL Indirect Bilirubin 0.4 (0.0-1.2) mg/dL AST 37 (13-39) Units/L ALT 23 (7-52) Units/L Alkaline Phosphatase 115 H (34-104) Units/L Serum Total Protein 7.8 (6.4-8.9) g/dL Albumin 3.9 (3.5-5.7) g/dL Globulin 3.9 H (2.4-3.5) g/dL Albumin/Globulin Ratio 1.0 L (1.1-2.2) Lipase 20 (11-82) Units/L Urine Color Yellow (Yellow) Urine Clarity Clear (Clear) Urine pH 5.5 (5.0-8.0) pH Units Ur Specific [place] 1.010 (1.010-1.025) Urine Protein Negative (Neg-Trace) mg/dL Urine Glucose (UA) Normal (Normal) mg/dL Urine Ketones Negative (Negative) mg/dL Urine Blood Negative (Negative) Urine Nitrite Negative (Negative) Urine Bilirubin Negative (Negative) Urine Urobilinogen Normal (Normal) mg/dL Ur Leukocyte Esterase Negative (Negative) Ur Culture Indicated? NO (NO) 06/17/17 Range/Units 14:50 WBC (4.3-11.1) K/mcL RBC (3.82-4.97) M/mcL Hgb (11.5-15.4) g/dL Hct (35.3-44.9) % MCV (83.0-100.0) fL MCH (28.0-33.3) pg MCHC (31.6-35.5) g/dL RDW (11.5-14.5) % Plt Count (140-400) K/mcL MPV (9.4-12.4) fL Immature Gran % (0-4) % Seg Neutrophils % % Lymphocytes % % Monocytes % % Eosinophils % % Basophils % % Neutrophils # (1.6-8.9) K/mcL Lymphocytes # (0.6-4.6) K/mcL Monocytes # (0.0-1.3) K/mcL Eosinophils # (0.0-0.6) K/mcL Basophils # (0.0-0.2) K/mcL Sodium (136-145) mEq/L Potassium (3.5-5.1) mEq/L Chloride (98-107) mEq/L Carbon Dioxide (23-29) mEq/L BUN (8-23) mg/dL Creatinine (0.60-1.20) mg/dL Est GFR ( Amer) (> 60) Est GFR (Non-Af Amer) (> 60) BUN/Creatinine Ratio (6-26) Glucose (70-105) mg/dL Calculated Osmolality (280-300) Calcium (8.6-10.3) mg/dL Magnesium 1.8 (1.6-2.6) mg/dL Total Bilirubin (0.3-1.0) mg/dL Direct Bilirubin (0.0-0.2) mg/dL Indirect Bilirubin (0.0-1.2) mg/dL AST (13-39) Units/L ALT (7-52) Units/L Alkaline Phosphatase (34-104) Units/L Serum Total Protein (6.4-8.9) g/dL Albumin (3.5-5.7) g/dL Globulin (2.4-3.5) g/dL Albumin/Globulin Ratio (1.1-2.2) Lipase (11-82) Units/L Urine Color (Yellow) Urine Clarity (Clear) Urine pH (5.0-8.0) pH Units Ur Specific [place] (1.010-1.025) Urine Protein (Neg-Trace) mg/dL Urine Glucose (UA) (Normal) mg/dL Urine Ketones (Negative) mg/dL Urine Blood (Negative) Urine Nitrite (Negative) Urine Bilirubin (Negative) Urine Urobilinogen (Normal) mg/dL Ur Leukocyte Esterase (Negative) Ur Culture Indicated? (NO) - Radiology Data Radiology results reviewed: Yes I reviewed the patient's radiology results. Abdomen/Pelvis CT 06/17/17 14:15 IMPRESSION: 1. No acute intra- abdominal or intrapelvic process. 2. Colonic diverticulosis, though no evidence of diverticulitis. 3. Stable small fat containing periumbilical hernia. 4. Patient status post cholecystectomy. 5. New nonspecific 8 mm ground-glass nodular opacity within the right lower lobe. While this likely reflects either a small focus of atelectasis or infectious or inflammatory nodule, given patient's history of lung cancer, suggest a short-term follow-up chest CT after an appropriate clinical course of therapy to evaluate for resolution of this nodule. D/ / Negrito Saab MD / Negrtio Saab MD Interpreting Provider: Negrito Saab MD Chest X-Ray 06/17/17 14:16 IMPRESSION: No acute cardiopulmonary process D/ / Lucas Mckinney MD / Lucas Mckinney MD Interpreting Provider: Lucas Mckinney MD - EKG Data EKG #1 EKG attestation: Yes I reviewed and interpreted this EKG. EKG shows normal: sinus rhythm Rate: normal Rhythm: NSR Isabella/QRS: normal Q waves: III When compared to previous EKG there are: no significant changes Interpretation: unchanged when compared to prior tracing (date) [place] Situation: Demographics Background: Presenting Complaint Assessment: Vital Signs, Course and respsone to treatment, Patient/Family Expectation Recommendation: Barrier(s) to disposition, Recommendation based on pending studies, treatments, or consults S.B.Elke Report Given to: Dr. Ray Gracia Repor Time: 16:14 Attestation Statement - Attestation Attestation: I examined this patient and my medical decision-making was reviewed with the Resident Physician. I agree with the documented findings, disposition and treatment plan as described except to the extent set forth below. Diarrhea, acute kidney injury, IV fluids, Will admit for further management of dehydration and ongoing fluid resuc.
[2017-06-17 14:57] LABS: Basophils % 0.2 %; Eosinophils % 0.4 %; Hematocrit 41.9 % (35.3-44.9); Hemoglobin 13.8 g/dL (11.5-15.4); Immature Granulocytes % 1.1 % (0-4); Lymphocytes # 2.1 K/mcL (0.6-4.6); Mean Corpuscular HGB Conc 32.9 g/dL (31.6-35.5); Mean Corpuscular Hemoglobin 29.1 pg (28.0-33.3); Mean Corpuscular Volume 88.4 fL (83.0-100.0); Mean Platelet Volume 8.9 fL (9.4-12.4); Monocytes # 1.8 K/mcL (0.0-1.3); Monocytes % 16.2 %; Neutrophils # 6.8 K/mcL (1.6-8.9); Platelet Count 246 K/mcL (140-400); Red Blood Count 4.74 M/mcL (3.82-4.97); Red Cell Distribution Width 13.1 % (11.5-14.5); Segmented Neutrophils % 63.1 %
[2017-06-17 15:12] LABS: Bilirubin,Urine Negative (Negative); Blood,Urine Negative (Negative); Clarity,Urine Clear (Clear); Color,Urine Yellow (Yellow); Glucose,Urine (UA) Normal (Normal); Ketones,Urine Negative (Negative); Leukocyte Esterase,Urine Negative (Negative); Nitrite,Urine Negative (Negative); PH,Urine 5.5 pH Units (5.0-8.0); Protein,Urine Negative (Neg-Trace); Urobilinogen,Urine Normal (Normal)
[2017-06-17 15:13] LABS: Albumin 3.9 g/dL (3.5-5.7); Bilirubin,Direct 0.1 mg/dL (0.0-0.2); Bilirubin,Indirect 0.4 mg/dL (0.0-1.2); Bilirubin,Total 0.5 mg/dL (0.3-1.0); Calcium 9.6 mg/dL (8.6-10.3); Globulin 3.9 g/dL (2.4-3.5); Potassium 4.1 mEq/L (3.5-5.1); Total Protein 7.8 g/dL (6.4-8.9)
--- NOTE | 2017-06-17 17:16 | Internal Med History&Physical ---
Date of Encounter: 06/17/17 Time of Encounter: 17:13 Assessment and Plan (1) ESAU (acute kidney injury) Current visit: Yes Status: Acute Acute kidney injury probably due to diarrhea patient also on Lasix 40 Lasix and start IV hydration (2) Diarrhea Current visit: Yes Status: Acute diarrhea CT of the abdomen is unremarkable was sent for C. difficile no diverticulitis Qualifiers: Diarrhea type: presumed infectious Qualified Code(s): R19.7 - Diarrhea, unspecified (3) Hyperlipidemia Current visit: No Status: Chronic Chronic recheck in a.m. Qualifiers: Hyperlipidemia type: pure hypercholesterolemia Qualified Code(s): E78.00 - Pure hypercholesterolemia, unspecified; E78.0 - Pure hypercholesterolemia (4) Hypothyroidism Current visit: No Status: Chronic Chronic continue home medication Qualifiers: Hypothyroidism type: acquired Qualified Code(s): E03.9 - Hypothyroidism, unspecified (5) Hypertension Current visit: No Status: Chronic Chronic and well controlled Qualifiers: Hypertension type: essential hypertension Qualified Code(s): I10 - Essential (primary) hypertension (6) Diabetes mellitus Current visit: No Status: Chronic Chronic resume home medication and place on sliding scale Qualifiers: Diabetes mellitus type: type 2 Diabetes mellitus complication status: with kidney complications Diabetes mellitus complication detail: with chronic kidney disease Diabetes mellitus shelter insulin use: with termite control service representative use Chronic kidney disease stage: stage 3 (moderate) Qualified Code(s): E11.22 - Type 2 diabetes mellitus with diabetic chronic kidney disease; N18.3 - Chronic kidney disease, stage 3 (moderate); N18.3 - Chronic kidney disease, stage 3 ( moderate); Z79.4 - prison (current) use of insulin; Z79.4 - assistant terminal manager ( current) use of insulin; Z79.4 - prison (current) use of insulin; Z79.4 - assistant terminal manager (current) use of insulin (7) Chronic abdominal pain Current visit: No Status: Chronic Chronic abdominal pain CT of the abdomen is unremarkable no acute process exam is benign (8) CAD (coronary artery disease) Current visit: No Status: Chronic Chronic no chest pain Qualifiers: Coronary Disease-Associated Artery/Lesion type: [place] artery [place] vs. transplanted heart: [place] heart Associated angina: without angina Qualified Code(s): I25.10 - Atherosclerotic heart disease of [place] coronary artery without angina pectoris Internal Medicine - H&P: HPI Chief complaint: diarrhea abd pain Admitted From: Emergency Dept Plans for Post Hospital Care: Home History of present illness: Ms. Ferro is a 76 year old female Patient with history of diverticulosis, diabetes, obesity, high cholesterol, hypothyroidism, hypertension, Ckd, CAD, mild dementia and asthma patient presents to emergency room with multiple complaints she had cough which is nonproductive for about 6 days also lower abdominal pain for several weeks especially with diarrhea for the last 6 days some subjective fever. Emergency room CT of of the abdomen showed diverticulosis but no diverticulitis. Of concern creatinine is 1.8 which is significantly increased from baseline. C. difficile is pending which will resent again on the admission orders denies any nausea or vomiting exam is unremarkable abdomen is benign Past Med Surg Social Fam HX - Past Medical History Medical history: asthma, CHF, coronary artery disease, diabetes, hyperlipidemia , hypertension, myocardial infarction, thyroid disease Psychiatric history: no psych history - Past Surgical History Surgical History: cholecystectomy, colectomy, other - Social History Smoking Status: Never smoker Smokeless Tobacco Status: No Alcohol use: none Drug use: none - Family History Mother Adopted: No Family Member Ethnicity: Non- Living Status: Hx Family Cardiac Disorders: Yes Hx Family Respiratory Disorders: No Hx Family Cancer: Yes Hx Family GI Disorders: No Hx Family Endocrine Disorder: No Hx Family Neuromuscular Disorders: No Hx Family Neurologic Disorders: No Hx Family HEENT Disorders: No Hx Family Autoimmune Disorders: No Father Living Status: Hx Family Cardiac Disorders: Yes Internal Medicine - H&P: Meds Donepezil [Aricept] 10 mg PO HS 03/23/15 [History] Furosemide [Lasix] 40 mg PO DAILY 03/23/15 [History] Levothyroxine [Synthroid] 125 mcg PO DAILY 03/23/15 [History] Potassium Chloride 20 meq PO BID 03/23/15 [History] Pregabalin [Lyrica] 75 mg PO DAILY 03/23/15 [History] Allopurinol [Zyloprim 100 MG] 100 mg PO DAILY 11/25/16 [History] Dicyclomine [Bentyl] 20 mg PO QID PRN 11/25/16 [History] Metoprolol [Lopressor] 50 mg PO BID 11/25/16 [History] Omeprazole [PriLOSEC] 20 mg PO BIDAC 11/25/16 [History] Oxycodone HCl/Acetaminophen [Percocet 5-325 mg Tablet] 1 tab PO Q8H PRN [History] Sertraline [Zoloft] 100 mg PO DAILY 11/25/16 [History] Valsartan [Diovan] 20 mg PO DAILY 11/25/16 [History] Venlafaxine [Effexor] 75 mg PO DAILY 11/25/16 [History] traZODone [TraZODone] 100 mg PO HS PRN 11/25/16 [History] Simvastatin [Zocor] 40 mg PO HS tab 12/01/16 [Rx] Hyoscyamine SL [Levsin SL] 0.125 mg SL TID 06/17/17 [History] Insulin ASPART [NovoLOG] 10 unit SQ TIDWM 06/17/17 [History] Insulin Glargine,Hum.rec.anlog [Basaglar Kwikpen U-100] 45 unit SQ BID 06/17/17 [History] 3 Allergy/AdvReac Type Severity Reaction Status Date / Time lisinopril Allergy Gastrointestinal Verified 05/07/17 15:36 Upset All Systems PM: A 10-system review of systems was performed and is negative for pertinent findings except as documented above in the HPI. - Constitutional Constitutional: fatigue - EENT Eyes: no change in vision, no discharge, no pain, no photophobia Ears: no ear discharge, no ear pain, no tinnitus Nose, mouth and throat: no dysphagia, no nasal discharge, no neck pain, no sore throat - Cardiovascular Cardiovascular ROS IM: no chest pain, no diaphoresis, no dyspnea, no lightheadedness, no palpitations, no syncope - Respiratory Respiratory: cough - Gastrointestinal Gastrointestinal: abdominal pain, diarrhea - Genitourinary Genitourinary: no change in urinary stream, no dysuria, no flank pain, no hematuria - Musculoskeletal Musculoskeletal ROS IM: no numbness, no tingling - Integumentary Integumentary IM: no rash, no unusual bruising - Constitutional Vitals: Temp Pulse Resp BP Pulse Ox 99 F 102 18 103/57 98 06/17/17 13:54 06/17/17 13:54 06/17/17 15:00 06/17/17 13:54 06/17/17 15:00 General appearance: Present: A&O X 3 - Eye Eye exam: Present: PERRL, conjuntiva pink, sclera anicteric Pupils: Present: PERRL - Neck Neck exam general surgery: Present: supple, trachea midline. Absent: lymphadenopathy - Respiratory Respiratory exam: Present: CTAB. Absent: accessory muscle use, rales, rhonchi, wheezes - Cardiovascular Cardiovascular exam: Present: RRR, +S1, +S2. Absent: diastolic murmur, gallop, rubs, systolic murmur - GI/Abdominal GI/Abdominal exam: Present: normal bowel sounds, soft, no peritoneal signs. Absent: distended, tenderness Internal Med - H&P Results - Labs CBC & Chem 7: 06/17/17 14:50 06/17/17 14:50
[2017-06-17] MEDS ORDERED: Ondansetron 4 MG/2 ML VIAL IVP PRN (17:25)
[2017-06-17] MEDS ORDERED: MOM Conc 10 ML UD.LIQ PO PRN (17:25)
[2017-06-17] MEDS ORDERED: Naloxone 0.4 MG/ML INJ IVP PRN (17:25)
[2017-06-17] MEDS ORDERED: *HR* Dextrose 50 % in Water (Syg) 50 ML SYRINGE IVP PRN (17:27)
[2017-06-17] MEDS ORDERED: D5% in Water 1,000 ML IVC PRN (17:27)
[2017-06-17] MEDS ORDERED: Dextrose Gel 15 GM/37.5 ML TUBE PO PRN ×2 (17:27)
[2017-06-17] MEDS ORDERED: traZODone 50 MG TABLET PO PRN (17:28)
[2017-06-17] MEDS: 0.9 % Sodium Chloride 1,000 ML IVC SCH (18:42)
[2017-06-17] MEDS: Insulin DETEMIR 100 UNIT/ML X5UNITS SQ SCH (21:15)
[2017-06-17] MEDS: Insulin LISPRO 300 UNITS/3 ML VIAL SQ SCH (21:15)
[2017-06-17] MEDS: Hyoscyamine SL 0.125 MG TAB.SUBL SL SCH (21:16)
[2017-06-17] MEDS: cefTRIAXone 1,000 MG in Water for inj. (sterile) 20 ML 10 ML IVP SCH (22:31)
[2017-06-18 02:03] LABS: Calcium 8.7 mg/dL (8.6-10.3); Potassium 4.3 mEq/L (3.5-5.1)
[2017-06-18] MEDS: *HR* Enoxaparin 30 MG/0.3 ML SYRINGE SQ SCH (05:43)
[2017-06-18] MEDS ORDERED: metroNIDAZOLE 500 MG TABLET PO SCH (06:00)
[2017-06-18] MEDS: Insulin LISPRO 300 UNITS/3 ML VIAL SQ SCH ×4 (09:52→20:47)
[2017-06-18] MEDS: 0.9 % Sodium Chloride 1,000 ML IVC SCH (09:59)
[2017-06-18] MEDS: Pregabalin 75 MG CAPSULE PO SCH (09:59)
[2017-06-18] MEDS: Hyoscyamine SL 0.125 MG TAB.SUBL SL SCH ×3 (09:59→20:46)
[2017-06-18] MEDS: Insulin DETEMIR 100 UNIT/ML X5UNITS SQ SCH ×2 (10:00→23:21)
[2017-06-18] MEDS ORDERED: GuaiFENesin Liq 200 MG/10 ML UDC PO PRN (14:32)
--- NOTE | 2017-06-18 14:35 | Internal Med Progress Note ---
Date of Encounter: 06/18/17 Time of Encounter: 14:33 - Assessment and plan (1) Acute kidney injury superimposed on CKD Current Visit: No Status: Acute Assessment and plan: Improving continue IV fluids continue to avoid nephrotoxic agents continue to closely monitor renal function (2) Abdominal pain Current Visit: No Status: Acute Assessment and plan: Improved from previous day tolerating more PO intake however still not at baseline CT abd negative for any acute etiology reports of diarrhea however no witnessed episodes, still awaiting stool sample for C-diff studies no clinical signs of infectious etiology present, therefore will monitor off abx at this time continue supportive care Qualifiers: Abdominal location: left lower quadrant Qualified Code(s): R10.32 - Left lower quadrant pain (3) Diarrhea Current Visit: Yes Status: Acute Assessment and plan: Pt reports of having diarrhea however no witnessed episodes since hospitalization plan as listed above Qualifiers: Diarrhea type: unspecified type Qualified Code(s): R19.7 - Diarrhea, unspecified (4) Diabetes mellitus type 2 in obese Current Visit: No Status: Chronic Assessment and plan: sliding scale insulin algorithm monitor FS and BG ADA diet (5) Hyperlipidemia Current Visit: No Status: Chronic Assessment and plan: continue statin therapy Qualifiers: Hyperlipidemia type: pure hypercholesterolemia Qualified Code(s): E78.00 - Pure hypercholesterolemia, unspecified; E78.0 - Pure hypercholesterolemia (6) Hypertension Current Visit: No Status: Chronic Assessment and plan: BP within acceptable range continue home meds Qualifiers: Hypertension type: essential hypertension Qualified Code(s): I10 - Essential (primary) hypertension (7) Hypothyroidism Current Visit: No Status: Chronic Assessment and plan: continue home dose of levothyroxine Qualifiers: Hypothyroidism type: acquired Qualified Code(s): E03.9 - Hypothyroidism, unspecified (8) DVT prophylaxis Current Visit: No Status: Acute Assessment and plan: Lovenox SQ (9) Cough Current Visit: Yes Status: Acute Assessment and plan: supportive care guaifenesin prn - Subjective Interval history: Pt seen and examined at bedside. Reports of feeling better compared to previous day. States she is still having diarrhea but improved Awaiting stool sample noted to have a wet cough, states the cough has been there for the last five days. States she does not want to eat her diet but is ok with soft consistency food at this time. - Constitutional Vitals: Temp Pulse Resp BP Pulse Ox 98.0 F 77 16 114/58 93 06/18/17 12:03 06/18/17 12:03 06/18/17 12:03 06/18/17 12:03 06/18/17 12:03 General appearance: Present: disheveled, A&O X 3, no acute distress, obese - Head Head exam: Present: atraumatic, normocephalic - Eye Eye exam: Present: conjuntiva pink, sclera anicteric - Respiratory Respiratory exam: Present: CTAB. Absent: respiratory distress, wheezes - Cardiovascular Cardiovascular exam: Present: RRR, +S1, +S2. Absent: diastolic murmur, gallop, rubs, systolic murmur - GI/Abdominal GI/Abdominal exam: Present: normal bowel sounds, soft, no peritoneal signs. Absent: distended, tenderness - Extremities Exam Extremities exam: Present: warm, radial pulses palpable and symmetrical. Absent : calf tenderness, pedal edema - Neurological Exam Neurological exam: Present: alert, oriented X3 Internal Medicine: Result - Labs CBC & Chem 7: 06/17/17 14:50 06/18/17 00:58 Labs: BMP 06/18/17 00:58 Sodium 139 D Potassium 4.3 Chloride 108 H Carbon Dioxide 23 BUN 28 H Creatinine 1.31 H Glucose 104 Calcium 8.7 Cardiac Enzymes 06/17/17 06/18/17 06/18/17 Range/Units 18:42 00:58 01:57 Troponin I < 0.03 < 0.03 < 0.03 (< 0.04) ng/mL 06/18/17 Range/Units 05:42 Troponin I < 0.03 (< 0.04) ng/mL Consult Discharge Plan - Plan Referrals: Shaji Vick DO [Primary Care Provider] -
[2017-06-18] MEDS: *HR* OxyCODONE/APAP 5/325 TABLET PO PRN (20:44)
[2017-06-18] MEDS: MetroNIDAZOLE 500 MG/100 ML 500 MG/100 ML BAG IVPB SCH (20:47)
[2017-06-18] MEDS: cefTRIAXone 1,000 MG in Water for inj. (sterile) 20 ML 10 ML IVP SCH (23:26)
[2017-06-19] MEDS ORDERED: MetroNIDAZOLE 500 MG/100 ML 500 MG/100 ML BAG IVPB SCH
[2017-06-19] MEDS: MetroNIDAZOLE 500 MG/100 ML 500 MG/100 ML BAG IVPB SCH ×3 (05:33→20:41)
[2017-06-19] MEDS: 0.9 % Sodium Chloride 1,000 ML IVC SCH (05:34)
[2017-06-19] MEDS: *HR* Enoxaparin 30 MG/0.3 ML SYRINGE SQ SCH (05:39)
[2017-06-19 07:06] LABS: Basophils % 0.5 %; Eosinophils # 0.1 K/mcL (0.0-0.6); Eosinophils % 1.4 %; Hematocrit 36.4 % (35.3-44.9); Immature Granulocytes % 1.9 % (0-4); Lymphocytes # 1.7 K/mcL (0.6-4.6); Lymphocytes % 39.7 %; Mean Corpuscular HGB Conc 32.1 g/dL (31.6-35.5); Mean Corpuscular Hemoglobin 29.3 pg (28.0-33.3); Mean Corpuscular Volume 91.2 fL (83.0-100.0); Mean Platelet Volume 9.2 fL (9.4-12.4); Monocytes # 0.7 K/mcL (0.0-1.3); Monocytes % 16.8 %; Neutrophils # 1.7 K/mcL (1.6-8.9); Platelet Count 175 K/mcL (140-400); Red Blood Count 3.99 M/mcL (3.82-4.97); Red Cell Distribution Width 13.2 % (11.5-14.5); Segmented Neutrophils % 39.7 %
[2017-06-19 07:15] LABS: Hemoglobin 11.7 g/dL (11.5-15.4)
[2017-06-19 07:22] LABS: BUN/Creatinine Ratio 21 (6-26); Blood Urea Nitrogen 15 mg/dL (8-23); Calcium 8.6 mg/dL (8.6-10.3); Carbon Dioxide 22 mEq/L (23-29); Chloride 113 mEq/L (98-107); Glucose 112 mg/dL (70-105); Magnesium 1.7 mg/dL (1.6-2.6); Osmolality,Calculated 292 (280-300); Phosphorous 2.5 mg/dL (2.7-4.5); Potassium 4.4 mEq/L (3.5-5.1); Sodium 140 mEq/L (136-145); eGFR For African Americans > 60 (> 60); eGFR For Non-African Americans > 60 (> 60)
--- NOTE | 2017-06-19 07:41 | Electrocardiograph Report ---
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
[2017-06-19] MEDS: Pregabalin 75 MG CAPSULE PO SCH (08:20)
[2017-06-19] MEDS: Hyoscyamine SL 0.125 MG TAB.SUBL SL SCH ×3 (08:20→20:41)
[2017-06-19] MEDS: Insulin DETEMIR 100 UNIT/ML X5UNITS SQ SCH ×2 (08:21→20:42)
[2017-06-19] MEDS: Insulin LISPRO 300 UNITS/3 ML VIAL SQ SCH ×4 (08:24→20:42)
--- NOTE | 2017-06-19 13:23 | Internal Med Progress Note ---
Date of Encounter: 06/19/17 Time of Encounter: 13:21 - Assessment and plan (1) Abdominal pain Current Visit: No Status: Acute Assessment and plan: Secondary to C-dff colitis Improved from previous day tolerating more PO intake however still not at baseline continue Flagyl IV CT abd negative for any acute etiology Qualifiers: Abdominal location: left lower quadrant Qualified Code(s): R10.32 - Left lower quadrant pain (2) Colitis, Clostridium difficile Current Visit: Yes Status: Acute Assessment and plan: as listed above (3) Acute kidney injury superimposed on CKD Current Visit: No Status: Acute Assessment and plan: Resolved Renal function back to baseline will d/c IV fluids continue to monitor renal function (4) Diarrhea Current Visit: Yes Status: Acute Assessment and plan: improved secondary to C-diff colitis will continue IV flagyl Qualifiers: Diarrhea type: unspecified type Qualified Code(s): R19.7 - Diarrhea, unspecified (5) Diabetes mellitus type 2 in obese Current Visit: No Status: Chronic Assessment and plan: sliding scale insulin algorithm monitor FS and BG ADA diet (6) Hyperlipidemia Current Visit: No Status: Chronic Assessment and plan: continue statin therapy (7) Hypertension Current Visit: No Status: Chronic Assessment and plan: BP within acceptable range continue home meds Qualifiers: Hypertension type: essential hypertension Qualified Code(s): I10 - Essential (primary) hypertension (8) Hypothyroidism Current Visit: No Status: Chronic Assessment and plan: continue home dose of levothyroxine Qualifiers: Hypothyroidism type: acquired Qualified Code(s): E03.9 - Hypothyroidism, unspecified (9) DVT prophylaxis Current Visit: No Status: Acute Assessment and plan: Lovenox SQ (10) Cough Current Visit: Yes Status: Acute Assessment and plan: supportive care guaifenesin prn - Subjective Interval history: Pt seen and examined at bedside. Reports of feeling better compared to previous day. States her abd pain is better and had one formed BM this morning. noted to have C-diff positive yesterday evening and was started on Flagyl IV. - Constitutional Vitals: Temp Pulse Resp BP Pulse Ox 98.1 F 80 14 126/75 95 06/19/17 11:03 06/19/17 11:03 06/19/17 11:03 06/19/17 11:03 06/19/17 11:03 General appearance: Present: disheveled, A&O X 3, no acute distress, obese - Head Head exam: Present: atraumatic, normocephalic - Eye Eye exam: Present: conjuntiva pink, sclera anicteric - Respiratory Respiratory exam: Present: CTAB. Absent: accessory muscle use, rales, rhonchi, wheezes - Cardiovascular Cardiovascular exam: Present: RRR, +S1, +S2. Absent: diastolic murmur, gallop, rubs, systolic murmur - GI/Abdominal GI/Abdominal exam: Present: normal bowel sounds, soft, no peritoneal signs. Absent: distended, tenderness - Extremities Exam Extremities exam: Present: warm, radial pulses palpable and symmetrical. Absent : calf tenderness, pedal edema - Neurological Exam Neurological exam: Present: alert, oriented X3 - Psychiatric Psychiatric exam: Present: normal affect, normal mood Internal Medicine: Result - Labs CBC & Chem 7: 06/19/17 06:52 06/19/17 06:52 Labs: Short CBC 06/19/17 Range/Units 06:52 WBC 4.2 L D (4.3-11.1) K/mcL Hgb 11.7 D (11.5-15.4) g/dL Hct 36.4 (35.3-44.9) % Plt Count 175 (140-400) K/mcL Neutrophils # 1.7 (1.6-8.9) K/mcL BMP 06/19/17 06:52 Sodium 140 Potassium 4.4 Chloride 113 H Carbon Dioxide 22 L BUN 15 Creatinine 0.70 Glucose 112 H Calcium 8.6 Consult Discharge Plan - Plan Referrals: Shaji Vick DO [Primary Care Provider] - (web request sent on 06/19/17)
[2017-06-19] MEDS: *HR* OxyCODONE/APAP 5/325 TABLET PO PRN (20:48)
[2017-06-19] MEDS: cefTRIAXone 1,000 MG in Water for inj. (sterile) 20 ML 10 ML IVP SCH (22:29)
[2017-06-20] MEDS ORDERED: 0.9 % Sodium Chloride 250 ML ONE (00:24)
[2017-06-20 03:48] LABS: Basophils % 0.2 %; Eosinophils % 0.9 %; Hematocrit 34.2 % (35.3-44.9); Hemoglobin 11.1 g/dL (11.5-15.4); Immature Granulocytes % 1.6 % (0-4); Lymphocytes # 1.8 K/mcL (0.6-4.6); Mean Corpuscular HGB Conc 32.5 g/dL (31.6-35.5); Mean Corpuscular Hemoglobin 29.2 pg (28.0-33.3); Mean Platelet Volume 9.3 fL (9.4-12.4); Monocytes # 0.7 K/mcL (0.0-1.3); Monocytes % 14.4 %; Platelet Count 162 K/mcL (140-400); Red Cell Distribution Width 13.2 % (11.5-14.5); Segmented Neutrophils % 43.9 %
[2017-06-20 04:12] LABS: BUN/Creatinine Ratio 16 (6-26); Blood Urea Nitrogen 11 mg/dL (8-23); Calcium 8.6 mg/dL (8.6-10.3); Carbon Dioxide 22 mEq/L (23-29); Chloride 115 mEq/L (98-107); Glucose 43 mg/dL (70-105); Magnesium 1.7 mg/dL (1.6-2.6); Osmolality,Calculated 292 (280-300); Phosphorous 3.3 mg/dL (2.7-4.5); Potassium 3.9 mEq/L (3.5-5.1); Sodium 143 mEq/L (136-145); eGFR For African Americans > 60 (> 60); eGFR For Non-African Americans > 60 (> 60)
[2017-06-20] MEDS: *HR* Enoxaparin 40 MG/0.4 ML SYRINGE SQ SCH (05:11)
[2017-06-20] MEDS: MetroNIDAZOLE 500 MG/100 ML 500 MG/100 ML BAG IVPB SCH ×3 (05:12→22:25)
[2017-06-20] MEDS: Insulin LISPRO 300 UNITS/3 ML VIAL SQ SCH ×4 (08:01→22:27)
[2017-06-20] MEDS: Hyoscyamine SL 0.125 MG TAB.SUBL SL SCH ×3 (08:02→22:25)
[2017-06-20] MEDS: Pregabalin 75 MG CAPSULE PO SCH (08:02)
[2017-06-20] MEDS: Insulin DETEMIR 100 UNIT/ML X5UNITS SQ SCH ×2 (08:03→22:27)
--- NOTE | 2017-06-20 14:19 | Internal Med Progress Note ---
Date of Encounter: 06/20/17 Time of Encounter: 14:17 - Assessment and plan (1) Abdominal pain Current Visit: No Status: Acute Assessment and plan: Secondary to C-dff colitis Improved from previous day tolerating more PO intake however still not at baseline continue Flagyl IV CT abd negative for any acute etiology Qualifiers: Abdominal location: left lower quadrant Qualified Code(s): R10.32 - Left lower quadrant pain (2) Colitis, Clostridium difficile Current Visit: Yes Status: Acute Assessment and plan: as listed above (3) Acute kidney injury superimposed on CKD Current Visit: No Status: Resolved Assessment and plan: Resolved Renal function back to baseline continue to monitor renal function (4) Diarrhea Current Visit: Yes Status: Acute Assessment and plan: improved secondary to C-diff colitis will continue IV flagyl Qualifiers: Diarrhea type: unspecified type Qualified Code(s): R19.7 - Diarrhea, unspecified (5) Diabetes mellitus type 2 in obese Current Visit: No Status: Chronic Assessment and plan: sliding scale insulin algorithm monitor FS and BG ADA diet (6) Hyperlipidemia Current Visit: No Status: Chronic Assessment and plan: continue statin therapy (7) Hypertension Current Visit: No Status: Chronic Assessment and plan: BP within acceptable range continue home meds Qualifiers: Hypertension type: essential hypertension Qualified Code(s): I10 - Essential (primary) hypertension (8) Hypothyroidism Current Visit: No Status: Chronic Assessment and plan: continue home dose of levothyroxine Qualifiers: Hypothyroidism type: acquired Qualified Code(s): E03.9 - Hypothyroidism, unspecified (9) DVT prophylaxis Current Visit: No Status: Acute Assessment and plan: Lovenox SQ (10) Cough Current Visit: Yes Status: Acute Assessment and plan: supportive care guaifenesin prn - Subjective Interval history: Pt seen and examined at bedside. Reports of feeling better compared to previous day. Reports of tolerating more of PO intake and is ambulating around the room. Will continue IV abx for another day and tentative d/c in am depending on clinical status - Constitutional Vitals: Temp Pulse Resp BP Pulse Ox 98 F 69 16 111/69 93 06/20/17 11:56 06/20/17 11:56 06/20/17 11:56 06/20/17 11:56 06/20/17 11:56 General appearance: Present: cooperative, A&O X 3, pleasant, no acute distress, obese - Head Head exam: Present: atraumatic, normocephalic - Eye Eye exam: Present: conjuntiva pink, sclera anicteric - Respiratory Respiratory exam: Present: CTAB. Absent: respiratory distress, wheezes - Cardiovascular Cardiovascular exam: Present: RRR, +S1, +S2. Absent: diastolic murmur, gallop, rubs, systolic murmur - GI/Abdominal GI/Abdominal exam: Present: normal bowel sounds, soft, no peritoneal signs. Absent: distended, tenderness - Extremities Exam Extremities exam: Present: warm, radial pulses palpable and symmetrical. Absent : calf tenderness - Neurological Exam Neurological exam: Present: alert, oriented X3 - Psychiatric Psychiatric exam: Present: normal affect, normal mood Internal Medicine: Result - Labs CBC & Chem 7: 06/20/17 03:20 06/20/17 03:20 Labs: Short CBC 06/20/17 Range/Units 03:20 WBC 4.5 (4.3-11.1) K/mcL Hgb 11.1 L (11.5-15.4) g/dL Hct 34.2 L (35.3-44.9) % Plt Count 162 (140-400) K/mcL Neutrophils # 2.0 (1.6-8.9) K/mcL BMP 06/20/17 03:20 Sodium 143 Potassium 3.9 Chloride 115 H Carbon Dioxide 22 L BUN 11 Creatinine 0.68 Glucose 43 L Calcium 8.6 Consult Discharge Plan - Plan Referrals: Shaji Vick DO [Primary Care Provider] - (web request sent on 06/19/17)
[2017-06-21 05:05] LABS: Basophils % 0.2 %; Eosinophils # 0.1 K/mcL (0.0-0.6); Eosinophils % 2.8 %; Immature Granulocytes % 1.2 % (0-4); Lymphocytes # 1.9 K/mcL (0.6-4.6); Lymphocytes % 44.7 %; Mean Corpuscular HGB Conc 33.3 g/dL (31.6-35.5); Mean Corpuscular Hemoglobin 29.5 pg (28.0-33.3); Mean Corpuscular Volume 88.5 fL (83.0-100.0); Mean Platelet Volume 9.4 fL (9.4-12.4); Monocytes # 0.6 K/mcL (0.0-1.3); Monocytes % 13.2 %; Neutrophils # 1.6 K/mcL (1.6-8.9); Platelet Count 169 K/mcL (140-400); Red Blood Count 3.73 M/mcL (3.82-4.97); Red Cell Distribution Width 13.2 % (11.5-14.5); Segmented Neutrophils % 37.9 %
[2017-06-21 05:18] LABS: BUN/Creatinine Ratio 12 (6-26); Blood Urea Nitrogen 7 mg/dL (8-23); Calcium 8.8 mg/dL (8.6-10.3); Carbon Dioxide 24 mEq/L (23-29); Chloride 113 mEq/L (98-107); Glucose 51 mg/dL (70-105); Magnesium 1.5 mg/dL (1.6-2.6); Osmolality,Calculated 289 (280-300); Phosphorous 2.9 mg/dL (2.7-4.5); Potassium 3.9 mEq/L (3.5-5.1); Sodium 142 mEq/L (136-145); eGFR For African Americans > 60 (> 60); eGFR For Non-African Americans > 60 (> 60)
[2017-06-21 05:39] LABS: Platelet Estimate Normal (Normal)
[2017-06-21 05:40] LABS: Reactive Lymphocytes Present (Not Present)
[2017-06-21] MEDS: *HR* Enoxaparin 40 MG/0.4 ML SYRINGE SQ SCH (05:51)
[2017-06-21] MEDS: MetroNIDAZOLE 500 MG/100 ML 500 MG/100 ML BAG IVPB SCH (05:51)
[2017-06-21] MEDS: Pregabalin 75 MG CAPSULE PO SCH (08:33)
[2017-06-21] MEDS: Hyoscyamine SL 0.125 MG TAB.SUBL SL SCH ×3 (08:33→22:20)
[2017-06-21] MEDS: Insulin LISPRO 300 UNITS/3 ML VIAL SQ SCH ×4 (08:37→23:32)
[2017-06-21] MEDS: Insulin DETEMIR 100 UNIT/ML X5UNITS SQ SCH ×2 (09:42→22:19)
[2017-06-21] MEDS ORDERED: Magnesium Sulfate 2 GM in D5% in Water 100 ML IVPB ONE (10:58)
[2017-06-21] MEDS ORDERED: metroNIDAZOLE 500 MG TABLET PO SCH (12:00)
[2017-06-21] MEDS: metroNIDAZOLE 500 MG TABLET PO SCH ×3 (13:27→22:20)
--- NOTE | 2017-06-21 14:49 | Discharge Summary ---
Date of Encounter: 06/21/17 Time of Encounter: 14:47 - Discharge Diagnosis (1) Colitis, Clostridium difficile Priority: Primary Status: Acute Comments: recurrent. Patient reports initial episode 4 years ago, had recurrence 8 months ago and now; recently treated with ATB therapy for URI. Sx's improved with PO Flagyl. Discharge home on 14 day course of flagyl (2) Diabetes mellitus Priority: Primary Status: Chronic Comments: per hx. Morning blood sugars have been in 40s-50s. Decrease home long acting insulin. Monitor blood sugar. Hgb A1c pending Qualifiers: Diabetes mellitus type: type 2 Diabetes mellitus complication status: with kidney complications Diabetes mellitus complication detail: with chronic kidney disease Diabetes mellitus music autographer insulin use: with [facility] use Chronic kidney disease stage: stage 3 (moderate) Qualified Code(s): E11.22 - Type 2 diabetes mellitus with diabetic chronic kidney disease; N18.3 - Chronic kidney disease, stage 3 (moderate); N18.3 - Chronic kidney disease, stage 3 ( moderate); Z79.4 - respiratory care assistant (current) use of insulin; Z79.4 - respiratory care assistant ( current) use of insulin; Z79.4 - respiratory care assistant (current) use of insulin; Z79.4 - respiratory care assistant (current) use of insulin (3) Hypertension Priority: Secondary Status: Chronic Comments: per hx. BP controlled. Cont home BP medications. Monitor BP and titrate PRN Qualifiers: Hypertension type: essential hypertension Qualified Code(s): I10 - Essential (primary) hypertension (4) Hypothyroidism Priority: Secondary Status: Chronic Comments: per hx. Cont home levothyroxine Qualifiers: Hypothyroidism type: acquired Qualified Code(s): E03.9 - Hypothyroidism, unspecified (5) Acute kidney injury superimposed on CKD Priority: Primary Status: Resolved Comments: secondary to excessive GI losses. Renal function normalized with IV fluids - Discharge Medications Home Medications: Donepezil [Aricept] 10 mg PO HS 03/23/15 [History] Furosemide [Lasix] 40 mg PO DAILY 03/23/15 [History] Levothyroxine [Synthroid] 125 mcg PO DAILY 03/23/15 [History] Potassium Chloride 20 meq PO BID 03/23/15 [History] Pregabalin [Lyrica] 75 mg PO DAILY 03/23/15 [History] Allopurinol [Zyloprim 100 MG] 100 mg PO DAILY 11/25/16 [History] Dicyclomine [Bentyl] 20 mg PO QID PRN 11/25/16 [History] Metoprolol [Lopressor] 50 mg PO BID 11/25/16 [History] Omeprazole [PriLOSEC] 20 mg PO BIDAC 11/25/16 [History] Oxycodone HCl/Acetaminophen [Percocet 5-325 mg Tablet] 1 tab PO Q8H PRN [History] Sertraline [Zoloft] 100 mg PO DAILY 11/25/16 [History] Valsartan [Diovan] 20 mg PO DAILY 11/25/16 [History] Venlafaxine [Effexor] 75 mg PO DAILY 11/25/16 [History] traZODone [TraZODone] 100 mg PO HS PRN 11/25/16 [History] Simvastatin [Zocor] 40 mg PO HS tab 12/01/16 [Rx] Hyoscyamine SL [Levsin SL] 0.125 mg SL TID 06/17/17 [History] Insulin ASPART [NovoLOG] 10 unit SQ TIDWM 06/17/17 [History] Insulin Glargine,Hum.rec.anlog [Basaglar Kwikpen U-100] 45 unit SQ BID 06/17/17 [History] Allergies/Adverse Reactions: 3 Allergy/AdvReac Type Severity Reaction Status Date / Time lisinopril Allergy Gastrointestinal Verified 05/07/17 15:36 Upset Date of admission: 06/17/17 17:25 Primary care physician: Chris Ling Consults: 06/18/17 15:20 Consult to Physical Therapy [CONS] Routine Comment: Evaluate, develop and implement POC Reason for Consult: evaluation for disposition Discharging clinician: Belén Bellamy Anticipated date of discharge: 06/21/17 - Patient Status Disposition: Home, Self-Care Condition: Fair - Discharge Instructions Follow Up With: Shaji Vick DO [Primary Care Provider] - (web request sent on 06/19/17) Interval History: Seen and examined at bedside; patient is new to me. Information obtained from chart review and patient report. Patient says she feels better. Number and freq of stools decreasing. No ABD pain Hospital course: See assessment and plan for hospital course - Time Spent with Patient Total time spent providing and/or coordinating discharge services: - Constitutional Vitals: Temp Pulse Resp BP Pulse Ox 97.9 F 67 16 120/76 96 06/21/17 11:44 06/21/17 11:44 06/21/17 11:44 06/21/17 11:44 06/21/17 11:44 General appearance: Present: cooperative, A&O X 3, pleasant, no acute distress, obese
[2017-06-22 04:48] LABS: Hemoglobin A1C 9.2 %
[2017-06-22] MEDS: *HR* Enoxaparin 40 MG/0.4 ML SYRINGE SQ SCH (06:27)
[2017-06-22] MEDS: Pregabalin 75 MG CAPSULE PO SCH (08:21)
[2017-06-22] MEDS: metroNIDAZOLE 500 MG TABLET PO SCH ×4 (08:21→22:01)
[2017-06-22] MEDS: Hyoscyamine SL 0.125 MG TAB.SUBL SL SCH ×3 (08:21→22:01)
[2017-06-22] MEDS: Insulin LISPRO 300 UNITS/3 ML VIAL SQ SCH ×4 (08:21→22:01)
[2017-06-22] MEDS: Insulin DETEMIR 100 UNIT/ML X5UNITS SQ SCH (08:43)
[2017-06-22 10:26] LABS: Hematocrit 36.2 % (35.3-44.9); Hemoglobin 11.4 g/dL (11.5-15.4); Mean Corpuscular HGB Conc 31.5 g/dL (31.6-35.5); Mean Corpuscular Hemoglobin 28.9 pg (28.0-33.3); Mean Corpuscular Volume 91.9 fL (83.0-100.0); Mean Platelet Volume 9.3 fL (9.4-12.4); Platelet Count 203 K/mcL (140-400); Red Blood Count 3.94 M/mcL (3.82-4.97); Red Cell Distribution Width 13.2 % (11.5-14.5)
[2017-06-22 10:37] LABS: BUN/Creatinine Ratio 12 (6-26); Blood Urea Nitrogen 8 mg/dL (8-23); Calcium 9.2 mg/dL (8.6-10.3); Carbon Dioxide 23 mEq/L (23-29); Chloride 111 mEq/L (98-107); Glucose 151 mg/dL (70-105); Osmolality,Calculated 293 (280-300); Potassium 4.2 mEq/L (3.5-5.1); Sodium 141 mEq/L (136-145); eGFR For African Americans > 60 (> 60); eGFR For Non-African Americans > 60 (> 60)
--- NOTE | 2017-06-22 15:52 | Discharge Summary ---
Date of Encounter: 06/22/17 Time of Encounter: 15:51 - Discharge Diagnosis (1) Colitis, Clostridium difficile Priority: Primary Status: Acute Comments: recurrent. Patient reports initial episode 4 years ago, had recurrence 8 months ago and now; recently treated with ATB therapy for URI. Sx's improved with PO Flagyl. Discharge home on 14 day course of flagyl (2) Diabetes mellitus Priority: Primary Status: Acute Comments: per hx. Hgb A1c 9.2%. Morning blood sugars have been in 40s-50s. Patient reports long acting insulin recently increased and morning blood sugars have been low at home. Stop evening dose of long-acting insulin and decrease a.m. dose. Defer further titration to PCP. Qualifiers: Diabetes mellitus type: type 2 Diabetes mellitus complication status: with kidney complications Diabetes mellitus complication detail: with chronic kidney disease Diabetes mellitus alf insulin use: with administrative assistant data entry use Chronic kidney disease stage: stage 3 (moderate) Qualified Code(s): E11.22 - Type 2 diabetes mellitus with diabetic chronic kidney disease; N18.3 - Chronic kidney disease, stage 3 (moderate); N18.3 - Chronic kidney disease, stage 3 ( moderate); Z79.4 - medical diagnostic radiographer (current) use of insulin; Z79.4 - medical diagnostic radiographer ( current) use of insulin; Z79.4 - medical diagnostic radiographer (current) use of insulin; Z79.4 - [facility] (current) use of insulin (3) Hypertension Priority: Primary Status: Chronic Comments: per hx. BP controlled. Cont home BP medication Qualifiers: Hypertension type: essential hypertension Qualified Code(s): I10 - Essential (primary) hypertension (4) Hypothyroidism Priority: Secondary Status: Chronic Comments: per hx. Cont home levothyroxine Qualifiers: Hypothyroidism type: acquired Qualified Code(s): E03.9 - Hypothyroidism, unspecified (5) Acute kidney injury superimposed on CKD Priority: Primary Status: Resolved Comments: secondary to excessive GI losses. Renal function normalized with IV fluids and as lose stools decreased. - Discharge Medications Prescriptions: Insulin DETEMIR [Levemir] 20 unit SQ DAILY #1 [id number] metroNIDAZOLE [Flagyl] 500 mg PO QID #56 tablet Home Medications: Donepezil [Aricept] 10 mg PO HS 03/23/15 [History] Furosemide [Lasix] 40 mg PO DAILY 03/23/15 [History] Levothyroxine [Synthroid] 125 mcg PO DAILY 03/23/15 [History] Potassium Chloride 20 meq PO BID 03/23/15 [History] Pregabalin [Lyrica] 75 mg PO DAILY 03/23/15 [History] Allopurinol [Zyloprim 100 MG] 100 mg PO DAILY 11/25/16 [History] Dicyclomine [Bentyl] 20 mg PO QID PRN 11/25/16 [History] Metoprolol [Lopressor] 50 mg PO BID 11/25/16 [History] Omeprazole [PriLOSEC] 20 mg PO BIDAC 11/25/16 [History] Oxycodone HCl/Acetaminophen [Percocet 5-325 mg Tablet] 1 tab PO Q8H PRN [History] Sertraline [Zoloft] 100 mg PO DAILY 11/25/16 [History] Valsartan [Diovan] 20 mg PO DAILY 11/25/16 [History] Venlafaxine [Effexor] 75 mg PO DAILY 11/25/16 [History] traZODone [TraZODone] 100 mg PO HS PRN 11/25/16 [History] Simvastatin [Zocor] 40 mg PO HS tab 12/01/16 [Rx] Hyoscyamine SL [Levsin Sl] 0.125 mg SL TID 06/17/17 [History] Insulin DETEMIR [Levemir] 20 unit SQ DAILY #1 [id number] 06/22/17 [Rx] metroNIDAZOLE [Flagyl] 500 mg PO QID #56 tablet 06/22/17 [Rx] Allergies/Adverse Reactions: 3 Allergy/AdvReac Type Severity Reaction Status Date / Time lisinopril Allergy Gastrointestinal Verified 05/07/17 15:36 Upset Date of admission: 06/17/17 17:25 Primary care physician: Chris Ling Consults: 06/18/17 15:20 Consult to Physical Therapy [CONS] Routine Comment: Evaluate, develop and implement POC Reason for Consult: evaluation for disposition Discharging clinician: Belén Bellamy Anticipated date of discharge: 06/22/17 - Patient Status Disposition: Home, Self-Care Condition: Good Functional capacity at discharge: independent ambulation Overall status at discharge: patient is progressing back to baseline - Discharge Instructions Instructions: Clostridium Difficile Infection (DC), Metronidazole (By mouth) Follow Up With: Shaji Vick DO [Primary Care Provider] - (web request sent on 06/19/17) - Diet and Activity Activity: increase activity as tolerated Diet: advance to your usual diet Interval History: Seen and examined at bedside, blood sugar was low again this morning. Patient reports her home long-acting insulin was recently increased per PCP and blood sugars have been low in the morning. Still with loose stool but numbers and frequency are decreasing. She would like to go home today. No CP, no SOB Hospital course: See assessment and plan for hospital course - Time Spent with Patient Total time spent providing and/or coordinating discharge services: - Constitutional Vitals: Temp Pulse Resp BP Pulse Ox 97.8 F 78 18 127/64 94 06/22/17 11:52 06/22/17 11:52 06/22/17 11:52 06/22/17 11:52 06/22/17 11:52 General appearance: Present: cooperative, A&O X 3, pleasant, no acute distress, obese - Head Head exam: Present: atraumatic, normocephalic - Eye Eye exam: Present: PERRL, conjuntiva pink, sclera anicteric Pupils: Present: PERRL - Neck Neck exam general surgery: Present: supple, trachea midline. Absent: lymphadenopathy - Respiratory Respiratory exam: Present: CTAB. Absent: accessory muscle use, rales, rhonchi, wheezes - Cardiovascular Cardiovascular exam: Present: RRR, +S1, +S2. Absent: diastolic murmur, gallop, rubs, systolic murmur - GI/Abdominal GI/Abdominal exam: Present: normal bowel sounds, soft, no peritoneal signs. Absent: distended, tenderness - Extremities Exam Extremities exam: Present: warm, radial pulses palpable and symmetrical. Absent : calf tenderness, cyanotic, pedal edema - Neurological Exam Neurological exam: Present: CN II-XII intact, oriented X3, no focal deficits. Absent: pronater drift, facial droop, speech deficit - Skin Skin exam: Present: dry, intact
[2017-06-23] MEDS: *HR* Enoxaparin 40 MG/0.4 ML SYRINGE SQ SCH (05:45)
[2017-06-23] MEDS: metroNIDAZOLE 500 MG TABLET PO SCH ×4 (08:42→21:22)
[2017-06-23] MEDS: Hyoscyamine SL 0.125 MG TAB.SUBL SL SCH ×3 (08:42→21:23)
[2017-06-23] MEDS: Pregabalin 75 MG CAPSULE PO SCH (08:43)
[2017-06-23] MEDS: Insulin LISPRO 300 UNITS/3 ML VIAL SQ SCH ×5 (08:46→16:37)
[2017-06-23] MEDS ORDERED: Insulin DETEMIR 100 UNIT/ML X5UNITS SQ SCH (09:00)
[2017-06-23] MEDS: Insulin DETEMIR 100 UNIT/ML X5UNITS SQ SCH ×2 (15:08→21:23)
--- NOTE | 2017-06-23 19:27 | Internal Med Progress Note ---
Date of Encounter: 06/24/17 Time of Encounter: 11:00 - Assessment and plan (1) Colitis, Clostridium difficile Current Visit: Yes Status: Acute Assessment and plan: Continue Flagyl (2) Diabetes mellitus type 2 in obese Current Visit: No Status: Chronic Assessment and plan: Patient has been hypoglycemic therefore will adjust dose of basal insulin and reevaluate on 06/24/17 (3) Major depressive disorder Current Visit: No Status: Acute Assessment and plan: Continue SSRI Qualifiers: Major depression recurrence: recurrent Active/Remission status: currently active Major depression episode severity: moderate Qualified Code(s): F33.1 - Major depressive disorder, recurrent, moderate (4) Hyperlipidemia Current Visit: No Status: Chronic Assessment and plan: Continue statin Qualifiers: Hyperlipidemia type: pure hypercholesterolemia Qualified Code(s): E78.00 - Pure hypercholesterolemia, unspecified; E78.0 - Pure hypercholesterolemia (5) Hypertension Current Visit: No Status: Chronic Assessment and plan: Continue beta abdoul Qualifiers: Hypertension type: essential hypertension Qualified Code(s): I10 - Essential (primary) hypertension (6) Hypothyroidism Current Visit: No Status: Chronic Assessment and plan: Continue levothyroxine Qualifiers: Hypothyroidism type: acquired Qualified Code(s): E03.9 - Hypothyroidism, unspecified - Subjective Interval history: Will monitor patient overnight due to persistent hypoglycemia on basal insulin Basal insulin dose adjusted and will reevaluate in the morning - Constitutional Vitals: Temp Pulse Resp BP Pulse Ox 98.1 F 70 16 136/68 95 06/23/17 18:45 06/23/17 18:45 06/23/17 18:45 06/23/17 18:45 06/23/17 18:45 General appearance: Present: cooperative, A&O X 3, pleasant, no acute distress, obese Internal Medicine: Result - Labs CBC & Chem 7: 06/24/17 11:09 06/24/17 11:09 Consult Discharge Plan - Plan Instructions: Metronidazole (By mouth), Insulin Detemir (Injection), Clostridium Difficile Infection (DC) Referrals: Shaji Vick DO [Primary Care Provider] - (web request sent on 06/19/17) Prescriptions: metroNIDAZOLE [Flagyl] 500 mg PO QID #56 tablet
[2017-06-23] MEDS ORDERED: Insulin LISPRO 300 UNITS/3 ML VIAL SQ SCH (21:00)
[2017-06-24] MEDS: *HR* Enoxaparin 40 MG/0.4 ML SYRINGE SQ SCH (05:20)
[2017-06-24] MEDS: Insulin LISPRO 300 UNITS/3 ML VIAL SQ SCH ×4 (08:00→12:38)
[2017-06-24 08:29] VITALS: BP 135/92
[2017-06-24] MEDS: metroNIDAZOLE 500 MG TABLET PO SCH (10:47)
[2017-06-24] MEDS: Insulin DETEMIR 100 UNIT/ML X5UNITS SQ SCH (10:47)
[2017-06-24] MEDS: Pregabalin 75 MG CAPSULE PO SCH (10:47)
[2017-06-24] MEDS: Hyoscyamine SL 0.125 MG TAB.SUBL SL SCH (10:47)
[2017-06-24 11:27] LABS: Basophils % 0.3 %; Eosinophils # 0.1 K/mcL (0.0-0.6); Eosinophils % 0.8 %; Hematocrit 34.6 % (35.3-44.9); Hemoglobin 11.4 g/dL (11.5-15.4); Immature Granulocytes % 1.4 % (0-4); Lymphocytes # 1.5 K/mcL (0.6-4.6); Mean Corpuscular HGB Conc 32.9 g/dL (31.6-35.5); Mean Corpuscular Hemoglobin 29.2 pg (28.0-33.3); Mean Corpuscular Volume 88.5 fL (83.0-100.0); Mean Platelet Volume 8.9 fL (9.4-12.4); Monocytes # 1.1 K/mcL (0.0-1.3); Monocytes % 13.3 %; Neutrophils # 5.2 K/mcL (1.6-8.9); Platelet Count 234 K/mcL (140-400); Red Blood Count 3.91 M/mcL (3.82-4.97); Red Cell Distribution Width 12.9 % (11.5-14.5); Segmented Neutrophils % 65.2 %
[2017-06-24 11:50] LABS: BUN/Creatinine Ratio 15 (6-26); Blood Urea Nitrogen 9 mg/dL (8-23); Calcium 9.1 mg/dL (8.6-10.3); Carbon Dioxide 21 mEq/L (23-29); Chloride 108 mEq/L (98-107); Glucose 277 mg/dL (70-105); Osmolality,Calculated 293 (280-300); Potassium 4.2 mEq/L (3.5-5.1); Sodium 137 mEq/L (136-145); eGFR For African Americans > 60 (> 60); eGFR For Non-African Americans > 60 (> 60)
--- NOTE | 2017-06-24 13:24 | Physician Discharge Referral ---
Home Health/Hosp Referral Info Transfer to: Home Health - Diagnosis (1) Colitis, Clostridium difficile Priority: Primary Status: Acute (2) Diabetes mellitus type 2 in obese Priority: Secondary Status: Chronic - Respiratory Orders Smoking Cessation: Smoking cessation has been advised. For more information, call the [place] Tobacco Quit Line at 8-473-RITD-NOW. - Services Needed Following services are medically necessary services: Nursing - Transfer Medications Prescriptions: metroNIDAZOLE [Flagyl] 500 mg PO QID #56 tablet Home Medications: Donepezil [Aricept] 10 mg PO HS 03/23/15 [History] Furosemide [Lasix] 40 mg PO DAILY 03/23/15 [History] Levothyroxine [Synthroid] 125 mcg PO DAILY 03/23/15 [History] Potassium Chloride 20 meq PO BID 03/23/15 [History] Pregabalin [Lyrica] 75 mg PO DAILY 03/23/15 [History] Allopurinol [Zyloprim 100 MG] 100 mg PO DAILY 11/25/16 [History] Dicyclomine [Bentyl] 20 mg PO QID PRN 11/25/16 [History] Metoprolol [Lopressor] 50 mg PO BID 11/25/16 [History] Omeprazole [PriLOSEC] 20 mg PO BIDAC 11/25/16 [History] Oxycodone HCl/Acetaminophen [Percocet 5-325 mg Tablet] 1 tab PO Q8H PRN [History] Sertraline [Zoloft] 100 mg PO DAILY 11/25/16 [History] Valsartan [Diovan] 20 mg PO DAILY 11/25/16 [History] Venlafaxine [Effexor] 75 mg PO DAILY 11/25/16 [History] traZODone [TraZODone] 100 mg PO HS PRN 11/25/16 [History] Simvastatin [Zocor] 40 mg PO HS tab 12/01/16 [Rx] Hyoscyamine SL [Levsin Sl] 0.125 mg SL TID 06/17/17 [History] metroNIDAZOLE [Flagyl] 500 mg PO QID #56 tablet 06/22/17 [Rx] Insulin DETEMIR [Levemir] 15 unit SQ BID [id number] 06/24/17 [Rx] Allergies/Adverse Reactions: 3 Allergy/AdvReac Type Severity Reaction Status Date / Time lisinopril Allergy Gastrointestinal Verified 05/07/17 15:36 Upset Certification: Further, I certify that my clinical findings support that this patient is homebound (i.e. absences from home require considerable and taxing effort and are for medical reasons or islam services or infrequently or short duration when for other reasons) because: Homebound Reason: Leaving home requires considerable and taxing effort due to condition Attestation: My signature below is to certify that this patient is under my care and that I, or nurse practitioner, or a physician's assistant head cashier working with me, has a face-to -face encounter with this patient.
--- NOTE | 2017-06-24 13:40 | Event Note ---
Date of Encounter: 06/24/17 Time of Encounter: 11:00 Patient's blood sugars have improved after adjusting Levemir dose Patient will be discharged to take Levemir 50 mg twice daily and continue her prior NovoLog regimen She is to follow-up with endocrinology Patient is also to complete her 14 day course of Flagyl for C. difficile
== END 2017-06-24 14:43 | disposition home or self-care (01) | DRG 372 ==
LOC: EMEROO 13:50 → 2ANU 13:50 → SUATTDRO 17:25 → 2ANU 17:55
PROVIDERS: ADMIT Internal Medicine Cardiovascular Disease; ATTEND Hospitalist

== ENCOUNTER 2017-10-19 19:34 | Observation (INO) ==
[2017-10-19] MEDS ORDERED: Aspirin 81 MG TAB.CHEW PO ONE (19:50)
[2017-10-19] MEDS ORDERED: *HR* LORazepam 2 MG/ML VIAL IVP ONE (19:50)
[2017-10-19] MEDS ORDERED: 0.9 % Sodium Chloride 500 ML IVC ONE (19:50)
[2017-10-19] MEDS: Nitroglycerin 0.4 MG TAB.SUBL SL ONE ×2 (20:02→20:07)
[2017-10-19 20:11] LABS: Basophils % 0.1 %; Eosinophils # 0.5 K/mcL (0.0-0.6); Eosinophils % 5.2 %; Hematocrit 40.6 % (35.3-44.9); Immature Granulocytes % 0.9 % (0-4); Lymphocytes # 1.6 K/mcL (0.6-4.6); Mean Corpuscular HGB Conc 34.5 g/dL (31.6-35.5); Mean Corpuscular Hemoglobin 29.6 pg (28.0-33.3); Mean Corpuscular Volume 85.8 fL (83.0-100.0); Mean Platelet Volume 9.1 fL (9.4-12.4); Monocytes # 0.9 K/mcL (0.0-1.3); Monocytes % 9.7 %; Neutrophils # 6.2 K/mcL (1.6-8.9); Platelet Count 223 K/mcL (140-400); Red Blood Count 4.73 M/mcL (3.82-4.97); Red Cell Distribution Width 13.4 % (11.5-14.5); Segmented Neutrophils % 67.1 %
[2017-10-19 20:18] LABS: Prothrombin Time 10.5 Seconds (9.4-12.1)
[2017-10-19] MEDS ORDERED: *HR* Morphine 2 MG/ML SYRINGE IVP ONE ×2 (20:20→21:13)
--- NOTE | 2017-10-19 20:20 | Emergency Department Note ---
Disposition Clinical Impression: Anxiety Chest pain Qualifiers: Chest pain type: unspecified Qualified Code(s): R07.9 - Chest pain, unspecified Hypothyroidism Qualifiers: Hypothyroidism type: unspecified Qualified Code(s): E03.9 - Hypothyroidism, unspecified Disposition: Admitted As Inpatient Condition: Fair Referrals: Shaji Vick DO [Primary Care Provider] - Forms: ED Satisfaction Letter Time of Disposition: 22:04 General Adult HPI - General Chief complaint: ED Chest Pain Stated complaint: "CP/Right Leg Edema" Time Seen by Provider: 10/19/17 19:39 Source: patient Mode of arrival: ambulatory Limitations: no limitations Nursing Notes Reviewed: Yes Vital Signs Reviewed: Yes - History of Present Illness HPI Narrative: Patient presents emergency room by personal vehicle for evaluation of chest tightness and discomfort. She is up visiting her daughter at a facility where she is being treated for terminal cancer. The daughter is currently dying. The patient started to have the onset of chest discomfort and pain while their family is concerned because she does have a cardiac history and brought her here for evaluation. Patient also has anxiety related issues. Currently she is denying shortness of breath headache vision changes nausea vomiting or diarrhea. Denies any recent fevers or chills. Denies any falls or injuries. Her main complaint is chest discomfort and shaking Onset (ago): Just RN PALLIATIVE Location: chest Radiation: non-radiation Pain Severity: moderate Pain Scale: 6 Quality: aching, constant Consistency: constant Improves with: nothing Worsens with: nothing Associated symptoms: Reports: chest pain Treatments Prior to Arrival: none - Related Data Home Medications Medication Instructions Recorded Confirmed Donepezil [Aricept] 10 mg PO HS 03/23/15 06/17/17 Furosemide [Lasix] 40 mg PO DAILY 03/23/15 06/17/17 Levothyroxine [Synthroid] 125 mcg PO DAILY 03/23/15 06/17/17 Potassium Chloride 20 meq PO BID 03/23/15 06/17/17 Pregabalin [Lyrica] 75 mg PO DAILY 03/23/15 06/17/17 Allopurinol [Zyloprim 100 MG] 100 mg PO DAILY 11/25/16 06/17/17 Dicyclomine [Bentyl] 20 mg PO QID PRN 11/25/16 06/17/17 Metoprolol [Lopressor] 50 mg PO BID 11/25/16 06/17/17 Omeprazole [PriLOSEC] 20 mg PO BIDAC 11/25/16 06/17/17 Oxycodone HCl/Acetaminophen 1 tab PO Q8H PRN 11/25/16 06/17/17 [Percocet 5-325 mg Tablet] Sertraline [Zoloft] 100 mg PO DAILY 11/25/16 06/17/17 Valsartan [Diovan] 20 mg PO DAILY 11/25/16 06/17/17 Venlafaxine [Effexor] 75 mg PO DAILY 11/25/16 06/17/17 traZODone [TraZODone] 100 mg PO HS PRN 11/25/16 06/17/17 Hyoscyamine SL [Levsin Sl] 0.125 mg SL TID 06/17/17 06/17/17 Previous Rx's Medication Instructions Recorded Simvastatin [Zocor] 40 mg PO HS tab 12/01/16 Insulin DETEMIR [Levemir] 15 unit SQ BID [id number] 06/24/17 Allergies Allergy/AdvReac Type Severity Reaction Status Date / Time lisinopril Allergy Gastrointestinal Verified 10/19/17 19:38 Upset All systems ED: reviewed and negative except as stated. Review of Systems: As Per HPI Constitutional: Denies: fever, chills, weakness ENT ED: Denies: throat pain, congestion Cardiovascular: Reports: chest pain, palpitations. Denies: dyspnea on exertion , orthopnea, edema Respiratory: Denies: cough, dyspnea, wheezes, hemoptysis Gastrointestinal: Denies: abdominal pain, nausea, vomiting, diarrhea, constipation Genitourinary: Denies: urgency, dysuria Musculoskeletal: Denies: back pain, neck pain Integumentary: Denies: rash Neurological: Denies: headache, weakness, numbness Psychiatric: Reports: depression. Denies: anxiety Endocrine: Denies: fatigue Past Medical History - Past Medical History Attestation: Yes The following information was validated with the patient. Source: patient Medical history: Reports: asthma, CHF, coronary artery disease, diabetes, hyperlipidemia, hypertension, myocardial infarction, thyroid disease Surgical history: Reports: cholecystectomy, colectomy, other Psychiatric history: Reports: no psych history CLOTHING CUTTER history: Reports: no CLOTHING CUTTER history - Social History Smoking Status: Never smoker Smokeless Tobacco Status: No Alcohol use: Reports: none Drug use: Reports: none Physical Exam - General Limitations: no limitations General appearance: alert, in no apparent distress - Head Head exam: atraumatic, normocephalic, normal inspection - Eye Eye exam: Present: normal appearance, PERRL, EOMI - ENT ENT exam: normal exam, normal oropharynx, mucous membranes moist - Neck Neck exam: Present: normal inspection, full ROM, trachea midline - Chest Chest inspection: Present: normal inspection, symmetric chest wall rise. Absent : tenderness - Respiratory Respiratory exam: Present: normal lung sounds bilaterally. Absent: respiratory distress, accessory muscle use - Cardiovascular Cardiovascular exam: Present: regular rate, normal rhythm, normal heart sounds - Abdominal Exam Abdominal exam: Present: soft, Non-Tender, normal bowel sounds. Absent: tenderness, distention, guarding, rebound, rigidity, trauma, Hill's sign, Rovsing's sign, tenderness at McBurney's Point - Extremities Exam Extremities exam: Present: normal inspection, full ROM, normal capillary refill , pedal edema. Absent: tenderness - Back Exam Back exam: Present: normal inspection, full ROM. Absent: tenderness - Neurological Exam Neurological exam: Present: alert, oriented X3, CN II-XII intact, normal gait - Psychiatric Psychiatric exam: Present: depressed - Skin Skin exam: Present: warm, dry, intact, normal color Course Course Narrative: Patient seen and examined the time of arrival. See history of present illness. 77-year-old is here with acute onset of chest pain that started 2 hours ago. It happened while the patient was with her daughter who is currently dying of cancer. She does have a history of anxiety and panic attacks. She does have a cardiac history in the past with no cardiac catheterization stenting. Patient did have a heart attack several years ago. It happened while she was having an endoscopy completed. Currently she is denying shortness of breath headache vision changes nausea vomiting or diarrhea. Denies any fevers or chills. She has left-sided substernal chest pain that radiates into her back. Patient describes it as being similar to the symptoms she had after she woke up from her heart attack as well as when she has anxiety attacks. Based on the presentation the symptoms are is concern for cardiac related issue considering she does have a new acute life stressor as well as anxiety and panic related illness. Patient will have EKG chest x-ray CBC chemistry troponin and BNP along with urinalysis thyroid function testing completed here at this time. Nitroglycerin fluids nausea medication is single dose of Ativan will be utilized as well. Patient is describing the symptoms as 6 out of 10 pain at this point. Disposition will be determined workup and treatment course are established. Physical exam is otherwise unremarkable. Ends are clear heart is regular abdomen is soft she has no pulsatile masses or lesions. She does have asymmetry of the lower extremity with right lower extremities being larger than the left. The leg appears to be normal in presentation with no redness swelling or irritation otherwise. Doppler study will be ordered as well. Disposition pending the full workup and treatment course. Patient shows no acute neurologic deficits she is alert she is oriented she follows commands. - Reevaluation(s) Reevaluation #1: Patient also was given nitroglycerin trial did not do anything to the pain. Patient's blood pressure continued to diminish. At that point pain medication was ordered by 4 mg of morphine. The Ativan has helped. Patient's symptoms went from a 6 to a 5 with no other significant relief. Repeat EKG was collected with no acute changes. Patient will have the completion of the workup here in the emergency room and then discuss disposition. Patient is requesting not to be admitted secondary to the daughter dying at this time and she wants to be with her. We will get the remainder of the workup completed here to discuss disposition of this time. Ativan helped with the shaking and anxiousness but did not help with the pain. Time: 20:47 Reevaluation #2: Patient's labs and repeat EKG are unremarkable. Single dose of morphine was given initially and the nurse documented the patient's pain scale is down to 3. Patient seemed to be much more comfortable in the bed at this time. When I went in to be evaluated the patient said now her pain was a 5 again. There is some discrepancy based on the patient's presentation as well as what she is responding to the nurse as well as myself. Second dose of morphine will be given with the idea anginal symptomatic treatment is best with morphine derivatives. Admission process will be completed once ultrasound of the right lower quadrant is completed and CT imaging the head is established secondary to the patient's new complaint of a headache for the last 2 days. She did not disclose an initial evaluation. Time: 21:17 Reevaluation #3: Doppler study is negative. CT of the head is pending. Patient will be admitted at this time for cardiac evaluation. Patient was discussed with the hospitalist Dr. Hester. We reviewed the presentation symptoms medical intervention and the pending CT scan. Patient will be admitted at this time for ACS rule out. No other recommendations issues noted. Aspirin was given. Patient has been down trending. CT imaging will be completed prior to the patient going to the floor. Time: 21:46 Additional Reevaluation(s): Patient has negative CT scan for acute intracranial pathology. Her pain is continuing to de-escalate during the treatment course despite not completely going away. Patient will be admitted for further cardiac evaluation and symptomatic control. Low clinical suspicion for cardiac etiology at this point because of the patient's medical history and presentation we will address it as such. Patient is otherwise clinically stable admission process to be completed patient will be continued with the narcotic pain medication of the symptom control. She had no response to the nitroglycerin trial completed here in the emergency room. Vital Signs Temperature 98 F 10/19/17 19:37 Pulse Rate 81 10/19/17 19:37 Respiratory Rate 20 10/19/17 19:37 Blood Pressure 180/87 10/19/17 19:37 O2 Sat by Pulse Oximetry 96 10/19/17 19:37 Temperature 98 F 10/19/17 21:44 Pulse Rate 72 10/19/17 21:44 Respiratory Rate 15 10/19/17 21:44 Blood Pressure 136/74 10/19/17 21:44 O2 Sat by Pulse Oximetry 97 10/19/17 21:44 Oxygen Delivery Oxygen Delivery Room Air Medical Decision Making - [facility] Narrative Medical decision making narrative: Chest pain, anxiety, significant life stressor - Medical Records Medical records reviewed: Yes I reviewed the patient's medical records. - Lab Data Lab results reviewed: Yes I reviewed the patient's lab results. Result diagrams: 10/19/17 19:57 10/19/17 19:57 Lab Results 10/19/17 10/19/17 10/19/17 Range/Units 19:57 19:57 19:57 WBC 9.3 (4.3-11.1) K/mcL RBC 4.73 (3.82-4.97) M/mcL Hgb 14.0 (11.5-15.4) g/dL Hct 40.6 (35.3-44.9) % MCV 85.8 (83.0-100.0) fL MCH 29.6 (28.0-33.3) pg MCHC 34.5 (31.6-35.5) g/dL RDW 13.4 (11.5-14.5) % Plt Count 223 (140-400) K/mcL MPV 9.1 L (9.4-12.4) fL Immature Gran % 0.9 (0-4) % Seg Neutrophils % 67.1 % Lymphocytes % 17.0 % Monocytes % 9.7 % Eosinophils % 5.2 % Basophils % 0.1 % Neutrophils # 6.2 (1.6-8.9) K/mcL Lymphocytes # 1.6 (0.6-4.6) K/mcL Monocytes # 0.9 (0.0-1.3) K/mcL Eosinophils # 0.5 (0.0-0.6) K/mcL Basophils # 0.0 (0.0-0.2) K/mcL PT 10.5 (9.4-12.1) Seconds INR 1.0 APTT 30.4 (26.0-36.0) Seconds Sodium (136-145) mEq/L Potassium (3.5-5.1) mEq/L Chloride (98-107) mEq/L Carbon Dioxide (23-29) mEq/L BUN (8-23) mg/dL Creatinine (0.60-1.20) mg/dL Est GFR ( Amer) (> 60) Est GFR (Non-Af Amer) (> 60) BUN/Creatinine Ratio (6-26) Glucose (70-105) mg/dL Calculated Osmolality (280-300) Calcium (8.6-10.3) mg/dL Total Bilirubin (0.3-1.0) mg/dL Direct Bilirubin (0.0-0.2) mg/dL Indirect Bilirubin (0.0-1.2) mg/dL AST (13-39) Units/L ALT (7-52) Units/L Alkaline Phosphatase (34-104) Units/L Troponin I (< 0.04) ng/mL B-Natriuretic Peptide 30 (Less than 100) pg/mL Serum Total Protein (6.4-8.9) g/dL Albumin (3.5-5.7) g/dL Globulin (2.4-3.5) g/dL Albumin/Globulin Ratio (1.1-2.2) Lipase (11-82) Units/L TSH (0.340-5.600) mcIU/mL Urine Color (Yellow) Urine Clarity (Clear) Urine pH (5.0-8.0) pH Units Ur Specific [place] (1.010-1.025) Urine Protein (Neg-Trace) mg/dL Urine Glucose (UA) (Normal) mg/dL Urine Ketones (Negative) mg/dL Urine Blood (Negative) Urine Nitrite (Negative) Urine Bilirubin (Negative) Urine Urobilinogen (Normal) mg/dL Ur Leukocyte Esterase (Negative) Urine Microscopic RBC (0-3) per hpf Urine Microscopic WBC (0-3) per hpf Ur Squamous Epith Cells (None-Few) per lpf Urine Bacteria (None-Few) per hpf Hyaline Casts (None-Few) per lpf Ur Culture Indicated? (NO) 10/19/17 10/19/17 Range/Units 19:57 21:00 WBC (4.3-11.1) K/mcL RBC (3.82-4.97) M/mcL Hgb (11.5-15.4) g/dL Hct (35.3-44.9) % MCV (83.0-100.0) fL MCH (28.0-33.3) pg MCHC (31.6-35.5) g/dL RDW (11.5-14.5) % Plt Count (140-400) K/mcL MPV (9.4-12.4) fL Immature Gran % (0-4) % Seg Neutrophils % % Lymphocytes % % Monocytes % % Eosinophils % % Basophils % % Neutrophils # (1.6-8.9) K/mcL Lymphocytes # (0.6-4.6) K/mcL Monocytes # (0.0-1.3) K/mcL Eosinophils # (0.0-0.6) K/mcL Basophils # (0.0-0.2) K/mcL PT (9.4-12.1) Seconds INR APTT (26.0-36.0) Seconds Sodium 136 (136-145) mEq/L Potassium 3.9 (3.5-5.1) mEq/L Chloride 103 (98-107) mEq/L Carbon Dioxide 24 (23-29) mEq/L BUN 17 (8-23) mg/dL Creatinine 0.91 (0.60-1.20) mg/dL Est GFR ( Amer) > 60 (> 60) Est GFR (Non-Af Amer) > 60 (> 60) BUN/Creatinine Ratio 19 (6-26) Glucose 306 H (70-105) mg/dL Calculated Osmolality 295 (280-300) Calcium 9.7 (8.6-10.3) mg/dL Total Bilirubin 0.4 (0.3-1.0) mg/dL Direct Bilirubin 0.1 (0.0-0.2) mg/dL Indirect Bilirubin 0.3 (0.0-1.2) mg/dL AST 18 (13-39) Units/L ALT 12 (7-52) Units/L Alkaline Phosphatase 94 (34-104) Units/L Troponin I < 0.03 (< 0.04) ng/mL B-Natriuretic Peptide (Less than 100) pg/mL Serum Total Protein 7.0 (6.4-8.9) g/dL Albumin 4.0 (3.5-5.7) g/dL Globulin 3.0 (2.4-3.5) g/dL Albumin/Globulin Ratio 1.3 (1.1-2.2) Lipase 38 (11-82) Units/L TSH 9.491 H (0.340-5.600) mcIU/mL Urine Color Yellow (Yellow) Urine Clarity Clear (Clear) Urine pH 6.0 (5.0-8.0) pH Units Ur Specific [place] 1.022 (1.010-1.025) Urine Protein Trace (Neg-Trace) mg/dL Urine Glucose (UA) 500 H (Normal) mg/dL Urine Ketones Negative (Negative) mg/dL Urine Blood Negative (Negative) Urine Nitrite Negative (Negative) Urine Bilirubin Negative (Negative) Urine Urobilinogen Normal (Normal) mg/dL Ur Leukocyte Esterase Moderate H (Negative) Urine Microscopic RBC 0-3 (0-3) per hpf Urine Microscopic WBC 5-15 H (0-3) per hpf Ur Squamous Epith Cells Many H (None-Few) per lpf Urine Bacteria None Seen (None-Few) per hpf Hyaline Casts None Seen (None-Few) per lpf Ur Culture Indicated? NO. A (NO) - Radiology Data Radiology results reviewed: Yes I reviewed the patient's radiology results. Chest x-ray and CT the head are unremarkable for acute pathology. - EKG Data EKG #1 EKG attestation: Yes I reviewed and interpreted this EKG. EKG results narrative: EKG shows sinus rhythm. Ventricular rate of 80. NM interval what appears to be 110. QRS duration 94. QTc of 427. [place] appears to be normal. No acute signs of WPW or Brugada syndrome. EKG is reviewed and compared to an EKG completed on 06/17/17 with no acute morphology changes or signs of myocardial infarction. EKG #2 EKG attestation: Yes I reviewed and interpreted this EKG. EKG results narrative: EKG April 08. Ventricular rate of 70. Sinus rhythm noted. NM interval 169. QRS duration of 90. QTC of 423. [place] is normal. No acute signs of ST segment elevation or abnormality. No acute signs of WPW or Brugada. No changes from previous EKG collected 40 minutes ago or from the previous greater than 4 months ago.
[2017-10-19 20:21] LABS: Activated Partial Thrombo Time 30.4 Seconds (26.0-36.0)
[2017-10-19 20:34] LABS: Troponin I < 0.03 ng/mL (< 0.04)
[2017-10-19 20:54] LABS: Alanine Aminotransferase 12 Units/L (7-52); Albumin/Globulin Ratio 1.3 (1.1-2.2); Alkaline Phosphatase 94 Units/L (34-104); Aspartate Amino Transferase 18 Units/L (13-39); BUN/Creatinine Ratio 19 (6-26); Bilirubin,Direct 0.1 mg/dL (0.0-0.2); Bilirubin,Indirect 0.3 mg/dL (0.0-1.2); Bilirubin,Total 0.4 mg/dL (0.3-1.0); Blood Urea Nitrogen 17 mg/dL (8-23); Calcium 9.7 mg/dL (8.6-10.3); Carbon Dioxide 24 mEq/L (23-29); Chloride 103 mEq/L (98-107); Glucose 306 mg/dL (70-105); Lipase 38 Units/L (11-82); Osmolality,Calculated 295 (280-300); Potassium 3.9 mEq/L (3.5-5.1); Sodium 136 mEq/L (136-145); eGFR For African Americans > 60 (> 60); eGFR For Non-African Americans > 60 (> 60)
[2017-10-19 21:15] LABS: Thyroid Stimulating Hormone 9.491 mcIU/mL (0.340-5.600)
[2017-10-19 21:15] LABS: Bilirubin,Urine Negative (Negative); Blood,Urine Negative (Negative); Clarity,Urine Clear (Clear); Color,Urine Yellow (Yellow); Glucose,Urine (UA) 500 mg/dL (Normal); Ketones,Urine Negative (Negative); Leukocyte Esterase,Urine Moderate (Negative); Nitrite,Urine Negative (Negative); Protein,Urine Trace mg/dL (Neg-Trace); Specific Gravity,Urine 1.022 (1.010-1.025); Urobilinogen,Urine Normal (Normal)
[2017-10-19 21:17] LABS: Bacteria,Urine None Seen per hpf (None-Few); Hyaline Casts,Urine None Seen per lpf (None-Few); RBC,Urine 0-3 per hpf (0-3); Squamous Epithelial Cell,Urine Many per lpf (None-Few)
--- NOTE | 2017-10-20 00:22 | Internal Med History&Physical ---
Date of Encounter: 10/20/17 Time of Encounter: 23:58 Internal Medicine - H&P: HPI Admitted From: Emergency Dept Plans for Post Hospital Care: Home History of present illness: Ms. Ferro is a 77 year old female ACS, HLD, Hypothyroidism, DM-II, CAD, CKD, and HTN. Pt states she was visiting with her daughter who is terminally ill. Reports that her daughter is reaching the finals stages of her illness. She developed acute subternal chest discomfort, non-radiating, associated with SOB and diaphoresis. According to ED physician, CP eased up but persisted after getting 2 nitro glycerine so morphine was given. In ED CBC reviewed and wnl normal limits. PT 10.5, INR 1.0. AST 18, ALT 12, Alk phos 94. Na 136, K 3.9, BUN 17, Cr 0.91. TSH 9.491 Urine shows moderate leuks, WBC 5-15 neg nitrite, many squamous cells. Past Med Surg Social Fam HX - Past Medical History Medical history: asthma, CHF, coronary artery disease, diabetes, hyperlipidemia , hypertension, myocardial infarction, thyroid disease Additional medical history: Stage 3 renal disease. Psychiatric history: no psych history - Past Surgical History Surgical History: cholecystectomy, colectomy, other Additional surgical history: Tubal, cyst removed from back. - Social History Smoking Status: Never smoker Smokeless Tobacco Status: No Alcohol use: none Drug use: none - Family History Mother Adopted: No Family Member Ethnicity: Non- Living Status: Hx Family Cardiac Disorders: Yes Hx Family Respiratory Disorders: No Hx Family Cancer: Yes Hx Family GI Disorders: No Hx Family Endocrine Disorder: No Hx Family Neuromuscular Disorders: No Hx Family Neurologic Disorders: No Hx Family HEENT Disorders: No Hx Family Autoimmune Disorders: No Father Living Status: Hx Family Cardiac Disorders: Yes ([place]) Internal Medicine - H&P: Meds Donepezil [Aricept] 10 mg PO HS 03/23/15 [History] Furosemide [Lasix] 40 mg PO DAILY 03/23/15 [History] Levothyroxine [Synthroid] 125 mcg PO DAILY 03/23/15 [History] Potassium Chloride 20 meq PO BID 03/23/15 [History] Pregabalin [Lyrica] 75 mg PO DAILY 03/23/15 [History] Allopurinol [Zyloprim 100 MG] 100 mg PO DAILY 11/25/16 [History] Dicyclomine [Bentyl] 20 mg PO QID PRN 11/25/16 [History] Metoprolol [Lopressor] 50 mg PO BID 11/25/16 [History] Omeprazole [PriLOSEC] 20 mg PO BIDAC 11/25/16 [History] Oxycodone HCl/Acetaminophen [Percocet 5-325 mg Tablet] 1 tab PO Q8H PRN [History] Sertraline [Zoloft] 100 mg PO DAILY 11/25/16 [History] Valsartan [Diovan] 20 mg PO DAILY 11/25/16 [History] Venlafaxine [Effexor] 75 mg PO DAILY 11/25/16 [History] traZODone [TraZODone] 100 mg PO HS PRN 11/25/16 [History] Simvastatin [Zocor] 40 mg PO HS tab 12/01/16 [Rx] Hyoscyamine SL [Levsin Sl] 0.125 mg SL TID 06/17/17 [History] Insulin DETEMIR [Levemir] 15 unit SQ BID [id number] 06/24/17 [Rx] 3 Allergy/AdvReac Type Severity Reaction Status Date / Time lisinopril Allergy Gastrointestinal Verified 10/19/17 19:38 Upset All Systems PM: A 10-system review of systems was performed and is negative for pertinent findings except as documented above in the HPI. - Constitutional Vitals: Temp Pulse Resp BP Pulse Ox 98 F 72 16 146/72 97 10/19/17 21:44 10/19/17 21:44 10/19/17 22:41 10/19/17 22:41 10/19/17 21:44 General appearance: Present: A&O X 3, no acute distress - Head Head exam: Present: atraumatic, normocephalic - Eye Eye exam: Present: PERRL, conjuntiva pink, sclera anicteric Pupils: Present: PERRL - Neck Neck exam general surgery: Present: supple, trachea midline. Absent: lymphadenopathy - Respiratory Respiratory exam: Present: CTAB. Absent: accessory muscle use, rales, rhonchi, wheezes - Cardiovascular Cardiovascular exam: Present: RRR, +S1, +S2. Absent: diastolic murmur, gallop, rubs, systolic murmur - GI/Abdominal GI/Abdominal exam: Present: normal bowel sounds, soft, no peritoneal signs. Absent: distended, tenderness - Extremities Exam Extremities exam: Present: warm, radial pulses palpable and symmetrical. Absent : calf tenderness, cyanotic, pedal edema - Neurological Exam Neurological exam: Present: CN II-XII intact, oriented X3, no focal deficits. Absent: pronater drift, facial droop, speech deficit - Psychiatric Psychiatric exam: Present: flat affect - Skin Skin exam: Present: dry, intact Internal Med - H&P Results - Labs CBC & Chem 7: 10/19/17 19:57 10/19/17 19:57 - Assessment and plan (1) Chest pain Current Visit: No Status: Acute Assessment and plan: Will give aspirin daily and nitro SL prn. Will cycle troponin. Will monitor on telemetry Qualifiers: Chest pain type: unspecified Qualified Code(s): R07.9 - Chest pain, unspecified (2) Hyperlipidemia Current Visit: No Status: Chronic Assessment and plan: Pt on zocor Qualifiers: Hyperlipidemia type: pure hypercholesterolemia Qualified Code(s): E78.00 - Pure hypercholesterolemia, unspecified; E78.0 - Pure hypercholesterolemia (3) Hypertension Current Visit: No Status: Chronic Assessment and plan: Resuming Metoprolol and Diovan (dose needs clarified), Qualifiers: Hypertension type: essential hypertension Qualified Code(s): I10 - Essential (primary) hypertension (4) Diabetes mellitus Current Visit: No Status: Acute Assessment and plan: Levemir, adding SSI, and monitoring glucose. Qualifiers: Diabetes mellitus type: type 2 Diabetes mellitus rat exterminator insulin use: with rat exterminator use Diabetes mellitus complication status: with kidney complications Diabetes mellitus complication detail: with chronic kidney disease Chronic kidney disease stage: stage 3 (moderate) Qualified Code(s): E11.22 - Type 2 diabetes mellitus with diabetic chronic kidney disease; N18.3 - Chronic kidney disease, stage 3 (moderate); Z79.4 - terminal block assembler (current) use of insulin (5) CAD (coronary artery disease) Current Visit: No Status: Chronic Assessment and plan: ASA and Zocor Qualifiers: Coronary Disease-Associated Artery/Lesion type: [place] artery [place] vs. transplanted heart: [place] heart Associated angina: without angina Qualified Code(s): I25.10 - Atherosclerotic heart disease of [place] coronary artery without angina pectoris (6) Anxiety Current Visit: Yes Status: Acute Assessment and plan: Exacerbated by daughter's recent worsening illness. Medication reconciliation showing both Zoloft and Effexor. Will need medication clarified. Zoloft. Pt states she took all her meds due 10/19/2017 - Time Spent With Patient Total time spent is greater than 50% in coordination of care (as documented) at patient's floor/unit and/or counseling patient: 25 - 35 minutes
[2017-10-20] MEDS ORDERED: Acetaminophen 325 MG TABLET PO PRN (00:52)
[2017-10-20] MEDS ORDERED: Naloxone 0.4 MG/ML INJ IVP PRN (00:52)
[2017-10-20] MEDS ORDERED: *HR* OxyCODONE/APAP 5/325 TABLET PO PRN (01:22)
[2017-10-20] MEDS ORDERED: *HR* Dextrose 50 % in Water (Syg) 50 ML SYRINGE IVP PRN (01:31)
[2017-10-20] MEDS ORDERED: Dextrose Gel 15 GM/37.5 ML TUBE PO PRN ×2 (01:31)
[2017-10-20] MEDS ORDERED: D5% in Water 1,000 ML IVC PRN (01:31)
[2017-10-20 04:29] LABS: Basophils % 0.1 %; Eosinophils # 0.5 K/mcL (0.0-0.6); Eosinophils % 6.9 %; Hematocrit 38.3 % (35.3-44.9); Hemoglobin 12.6 g/dL (11.5-15.4); Immature Granulocytes % 0.5 % (0-4); Lymphocytes # 1.6 K/mcL (0.6-4.6); Lymphocytes % 20.8 %; Mean Corpuscular HGB Conc 32.9 g/dL (31.6-35.5); Mean Platelet Volume 8.9 fL (9.4-12.4); Monocytes # 0.9 K/mcL (0.0-1.3); Monocytes % 11.8 %; Neutrophils # 4.5 K/mcL (1.6-8.9); Platelet Count 188 K/mcL (140-400); Red Blood Count 4.35 M/mcL (3.82-4.97); Red Cell Distribution Width 13.3 % (11.5-14.5); Segmented Neutrophils % 59.9 %
[2017-10-20 04:38] LABS: Prothrombin Time 11.1 Seconds (9.4-12.1)
[2017-10-20 04:43] LABS: Alanine Aminotransferase 11 Units/L (7-52); Albumin 3.4 g/dL (3.5-5.7); Albumin/Globulin Ratio 1.3 (1.1-2.2); Alkaline Phosphatase 79 Units/L (34-104); Aspartate Amino Transferase 18 Units/L (13-39); BUN/Creatinine Ratio 20 (6-26); Bilirubin,Total 0.4 mg/dL (0.3-1.0); Blood Urea Nitrogen 15 mg/dL (8-23); Carbon Dioxide 23 mEq/L (23-29); Chloride 108 mEq/L (98-107); Globulin 2.7 g/dL (2.4-3.5); Glucose 202 mg/dL (70-105); Magnesium 1.8 mg/dL (1.6-2.6); Osmolality,Calculated 295 (280-300); Potassium 3.4 mEq/L (3.5-5.1); Sodium 139 mEq/L (136-145); Total Protein 6.1 g/dL (6.4-8.9); eGFR For African Americans > 60 (> 60); eGFR For Non-African Americans > 60 (> 60)
[2017-10-20] MEDS ORDERED: *HR* Heparin 5,000 UNIT/ML VIAL SQ SCH (06:00)
[2017-10-20] MEDS ORDERED: Insulin DETEMIR 100 UNIT/ML X5UNITS SQ SCH (09:00)
[2017-10-20] MEDS ORDERED: Furosemide 40 MG TABLET PO SCH (09:00)
[2017-10-20] MEDS ORDERED: Pregabalin 75 MG CAPSULE PO SCH (09:00)
[2017-10-20] MEDS: Insulin LISPRO 300 UNITS/3 ML VIAL SQ SCH ×2 (09:13→15:02)
[2017-10-20 10:35] LABS: Troponin I < 0.03 ng/mL (< 0.04)
--- NOTE | 2017-10-20 12:21 | Internal Med Progress Note ---
Date of Encounter: 10/20/17 Time of Encounter: 12:20 - Assessment and plan (1) Chest pain Current Visit: Yes Status: Acute Assessment and plan: Atypical chest pain. History of CAD, ACS rule out workup initiated Troponins negative X3, ECG without any changes concerning for ischemia per my review Patient continued to have left-sided chest pain, worsens with palpation, and left upper extremity use. Appears to be musculoskeletal However also has a history of anxiety and is currently dealing with a terminal illness of her daughter reports she has been under a lot of stress She denies any nausea/vomiting/diaphoresis or shortness of breath at this time Has remained hemodynamically stable Patient is adamant about discharging to be with her daughter Qualifiers: Chest pain type: unspecified Qualified Code(s): R07.9 - Chest pain, unspecified (2) Anxiety Current Visit: Yes Status: Acute Assessment and plan: Resuming Celexa (3) Hypothyroidism Current Visit: Yes Status: Chronic Assessment and plan: Resume Synthroid, TSH elevated throughout the stay at 9.491 Qualifiers: Hypothyroidism type: unspecified Qualified Code(s): E03.9 - Hypothyroidism , unspecified (4) CAD (coronary artery disease) Current Visit: No Status: Chronic Assessment and plan: History of CAD. Patient on aspirin, statin, beta abdoul and arb, continue Admitted with chest pain however appears to be more of a musculoskeletal cause than cardiac causes Chest pain is atypical, left-sided and worse with palpation and movement of left upper extremity Denies any shortness of breath, diaphoresis or nausea Troponin negative 3 Qualifiers: Coronary Disease-Associated Artery/Lesion type: [place] artery [place] vs. transplanted heart: [place] heart Associated angina: without angina Qualified Code(s): I25.10 - Atherosclerotic heart disease of [place] coronary artery without angina pectoris (5) Diabetes mellitus type 2 in obese Current Visit: No Status: Chronic Assessment and plan: h/ o DM, BG stable, continue diabetic medications (6) Hyperlipidemia Current Visit: No Status: Chronic Assessment and plan: Continue statin at ar Qualifiers: Hyperlipidemia type: pure hypercholesterolemia Qualified Code(s): E78.00 - Pure hypercholesterolemia, unspecified; E78.0 - Pure hypercholesterolemia (7) Hypertension Current Visit: No Status: Chronic Assessment and plan: History of HTN, BP elevated, patients anti-HTN medications were not resumed upon admission. This is likely the cause of today's HTN. Patient advised that she would benefit from staying for further BP monitoring but reports that her daughter is terminally ill and wishes to discharge so she can see her. She has been advised to return to the ED should CP return for worsen or should HTN worsen Qualifiers: Hypertension type: essential hypertension Qualified Code(s): I10 - Essential (primary) hypertension (8) DVT prophylaxis Current Visit: No Status: Acute Assessment and plan: SQ heparin - Time Spent With Patient Total time spent is greater than 50% in coordination of care (as documented) at patient's floor/unit and/or counseling patient: 25 - 35 minutes - Subjective Interval history: Patient seen and examined at bedside today. No acute changes overnight. Continued to report left-sided chest pain, worse with palpation and movement of left upper extremity. Does not appear to be cardiac cause. Denies any shortness of breath, diaphoresis or nausea - Constitutional Vitals: Temp Pulse Resp BP Pulse Ox 99.7 F H 81 16 171/71 96 10/20/17 11:19 10/20/17 11:19 10/20/17 11:19 10/20/17 11:19 10/20/17 11:19 General appearance: Present: A&O X 3, no acute distress - Head Head exam: Present: atraumatic, normocephalic - Eye Eye exam: Present: EOMI, PERRL, conjuntiva pink, sclera anicteric Pupils: Present: PERRL - Neck Neck exam general surgery: Present: supple, trachea midline. Absent: lymphadenopathy - Respiratory Respiratory exam: Present: chest wall tenderness, CTAB. Absent: accessory muscle use, rales, respiratory distress, rhonchi, wheezes, tachypnea - Cardiovascular Cardiovascular exam: Present: RRR, +S1, +S2. Absent: diastolic murmur, gallop, rubs, systolic murmur - GI/Abdominal GI/Abdominal exam: Present: normal bowel sounds, soft, no peritoneal signs. Absent: distended, tenderness - Extremities Exam Extremities exam: Present: normal capillary refill, warm, radial pulses palpable and symmetrical. Absent: calf tenderness, cyanotic, normal inspection , pedal edema, tenderness Additional comments: RLE swelling, Doppler studies negative for DVT - Neurological Exam Neurological exam: Present: CN II-XII intact, oriented X3, no focal deficits. Absent: pronater drift, facial droop, speech deficit - Skin Skin exam: Present: dry, intact Internal Medicine: Result - Labs CBC & Chem 7: 10/20/17 04:08 10/20/17 04:08 Labs: Short CBC 10/20/17 Range/Units 04:08 WBC 7.6 (4.3-11.1) K/mcL Hgb 12.6 (11.5-15.4) g/dL Hct 38.3 (35.3-44.9) % Plt Count 188 (140-400) K/mcL Neutrophils # 4.5 (1.6-8.9) K/mcL BMP 10/20/17 04:08 Sodium 139 Potassium 3.4 L Chloride 108 H Carbon Dioxide 23 BUN 15 Creatinine 0.76 Glucose 202 H Calcium 9.0 Cardiac Enzymes 10/20/17 10/20/17 Range/Units 04:08 09:44 Troponin I < 0.03 < 0.03 (< 0.04) ng/mL Liver Function 10/20/17 Range/Units 04:08 Total Bilirubin 0.4 (0.3-1.0) mg/dL AST 18 (13-39) Units/L ALT 11 (7-52) Units/L Alkaline Phosphatase 79 (34-104) Units/L Albumin 3.4 L (3.5-5.7) g/dL - ABG Interpretation ABG results: PT/INR, D-dimer PT 11.1 Seconds (9.4-12.1) 10/20/17 04:08 Consult Discharge Plan - Plan Referrals: Shaji Vick DO [Primary Care Provider] -
[2017-10-20] MEDS ORDERED: Aspirin 81 MG TAB.CHEW PO SCH (13:30)
--- NOTE | 2017-10-20 13:42 | Discharge Summary ---
- NOTES TO OUTPATIENT PROVIDER Notes to Outpatient Provider: Admitted with chest pain atypical in nature-ACS rule out. Troponin is negative 3. Continued to have chest pain but appears mostly skeletal in origin with left-sided chest pain worse to palpation and worse with movement of left upper extremity. Patient offered further workup and evaluation was adamant about discharge to be with her ill daughter. Instructed to follow-up with PCP within 1 week of discharge for further workup and evaluation of chest pain. Orders not resulted at time of discharge: Pending orders 10/20/17 09:44 Thyroxine (T4) Free Routine Troponin I Q6H 10/20/17 11:53 EV echocardiogram Routine 10/20/17 16:00 Troponin I Q6H 10/21/17 04:00 Basic Metabolic Panel AM 0400 Complete Blood Count [HEME] AM 0400 Lipid Panel AM 0400 10/22/17 04:00 Basic Metabolic Panel AM 0400 Complete Blood Count [HEME] AM 0400 10/23/17 04:00 Basic Metabolic Panel AM 0400 Complete Blood Count [HEME] AM 0400 Date of Encounter: 10/20/17 Time of Encounter: 13:40 - Discharge Diagnosis (1) Chest pain Priority: Primary Status: Acute Assessment and Plan: Atypical chest pain. History of CAD, ACS rule out workup initiated Troponins negative X3, ECG without any changes concerning for ischemia per my review Patient continued to have left-sided chest pain, worsens with palpation, and left upper extremity use. Appears to be musculoskeletal However also has a history of anxiety and is currently dealing with a terminal illness of her daughter reports she has been under a lot of stress She denies any nausea/vomiting/diaphoresis or shortness of breath at this time Has remained hemodynamically stable Patient is adamant about discharging to be with her daughter D/W patient need for further workup and evaluation, however patient does not wish to complete at this time during an inpatient stay D/W patient need for workup and evaluation in outpatient setting. Instructed to follow-up with PCP within 1 week of discharge. Additionally, instructed to return to the ED should chest pain return and/or worsen or should hypertension worsen. Patient verbalizes understanding, denies any further questions Qualifiers: Chest pain type: unspecified Qualified Code(s): R07.9 - Chest pain, unspecified (2) Anxiety Priority: Secondary Status: Acute Assessment and Plan: Resuming Celexa (3) Hypothyroidism Priority: Secondary Status: Chronic Assessment and Plan: Resume Synthroid, TSH elevated throughout the stay at 9.491 Patient instructed to follow-up with PCP regarding thyroid function Verbalized understanding, denies any further questions Qualifiers: Hypothyroidism type: unspecified Qualified Code(s): E03.9 - Hypothyroidism , unspecified (4) CAD (coronary artery disease) Priority: Secondary Status: Chronic Assessment and Plan: History of CAD. Patient on aspirin, statin, beta abdoul and arb, continue Admitted with chest pain however appears to be more of a musculoskeletal cause than cardiac causes Chest pain is atypical, left-sided and worse with palpation and movement of left upper extremity Denies any shortness of breath, diaphoresis or nausea Troponin negative 3 Qualifiers: Coronary Disease-Associated Artery/Lesion type: [place] artery [place] vs. transplanted heart: [place] heart Associated angina: without angina Qualified Code(s): I25.10 - Atherosclerotic heart disease of [place] coronary artery without angina pectoris (5) Diabetes mellitus type 2 in obese Priority: Secondary Status: Chronic Assessment and Plan: h/ o DM, BG stable, continue diabetic medications (6) Hyperlipidemia Priority: Secondary Status: Chronic Assessment and Plan: Continue statin at dc Qualifiers: Hyperlipidemia type: pure hypercholesterolemia Qualified Code(s): E78.00 - Pure hypercholesterolemia, unspecified; E78.0 - Pure hypercholesterolemia (7) Hypertension Priority: Secondary Status: Chronic Assessment and Plan: History of HTN, BP elevated, patients anti-HTN medications were not resumed upon admission. This is likely the cause of today's HTN. Patient advised that she would benefit from staying for further BP monitoring but reports that her daughter is terminally ill and wishes to discharge so she can see her. She has been advised to return to the ED should CP return for worsen or should HTN worsen Qualifiers: Hypertension type: essential hypertension Qualified Code(s): I10 - Essential (primary) hypertension (8) DVT prophylaxis Priority: Secondary Status: Acute Assessment and Plan: SQ heparin Hospital course: Ms. Ferro is a 77 year old female Please see assessment and plan for hospital course Discharge discussed with: patient, nurse - Time Spent with Patient Total time spent providing and/or coordinating discharge services: Less than 30 minutes - Discharge Medications Home Medications: Donepezil [Aricept] 10 mg PO HS 03/23/15 [History] Furosemide [Lasix] 40 mg PO DAILY 03/23/15 [History] Levothyroxine [Synthroid] 125 mcg PO DAILY 03/23/15 [History] Potassium Chloride 20 meq PO BID 03/23/15 [History] Pregabalin [Lyrica] 75 mg PO DAILY 03/23/15 [History] Allopurinol [Zyloprim 100 MG] 100 mg PO DAILY 11/25/16 [History] Dicyclomine [Bentyl] 20 mg PO QID PRN 11/25/16 [History] Metoprolol [Lopressor] 50 mg PO BID 11/25/16 [History] Omeprazole [PriLOSEC] 20 mg PO BIDAC 11/25/16 [History] Oxycodone HCl/Acetaminophen [Percocet 5-325 mg Tablet] 1 tab PO Q8H PRN [History] Sertraline [Zoloft] 100 mg PO DAILY 11/25/16 [History] Valsartan [Diovan] 20 mg PO DAILY 11/25/16 [History] Venlafaxine [Effexor] 75 mg PO DAILY 11/25/16 [History] traZODone [TraZODone] 100 mg PO HS PRN 11/25/16 [History] Simvastatin [Zocor] 40 mg PO HS tab 12/01/16 [Rx] Hyoscyamine SL [Levsin Sl] 0.125 mg SL TID 06/17/17 [History] Insulin ASPART [NovoLOG] 0 unit SQ TIDWM PRN 10/20/17 [History] Insulin Glargine,Hum.rec.anlog [Basaglar Kwikpen U-100] 45 unit SQ BID 10/20/17 [History] Allergies/Adverse Reactions: 3 Allergy/AdvReac Type Severity Reaction Status Date / Time lisinopril Allergy Gastrointestinal Verified 10/19/17 19:38 Upset Date of admission: 10/19/17 22:15 Primary care physician: Chris Ling Discharging clinician: Jamie Rosado Anticipated date of discharge: 10/20/17 - Constitutional Vitals: Temp Pulse Resp BP Pulse Ox 99.7 F H 81 16 171/71 96 10/20/17 11:19 10/20/17 11:19 10/20/17 11:19 10/20/17 11:19 10/20/17 11:19 General appearance: Present: A&O X 3, no acute distress - Head Head exam: Present: atraumatic, normocephalic - Eye Eye exam: Present: EOMI, PERRL, conjuntiva pink, sclera anicteric Pupils: Present: PERRL - Neck Neck exam general surgery: Present: supple, trachea midline. Absent: lymphadenopathy - Respiratory Respiratory exam: Present: CTAB. Absent: accessory muscle use, rales, rhonchi, wheezes - Cardiovascular Cardiovascular exam: Present: RRR, +S1, +S2. Absent: diastolic murmur, gallop, rubs, systolic murmur - GI/Abdominal GI/Abdominal exam: Present: normal bowel sounds, soft, no peritoneal signs. Absent: distended, tenderness - Extremities Exam Extremities exam: Present: warm, radial pulses palpable and symmetrical. Absent : calf tenderness, cyanotic, pedal edema - Neurological Exam Neurological exam: Present: CN II-XII intact, oriented X3, no focal deficits. Absent: pronater drift, facial droop, speech deficit - Skin Skin exam: Present: dry, intact - Patient Status Disposition: Home, Self-Care Condition: Fair Functional capacity at discharge: independent ambulation Overall status at discharge: patient is back to baseline - Discharge Instructions Instructions: Anxiety (DC), Chest Pain (DC), Hypothyroidism (DC) Follow Up With: Shaji Vick DO [Primary Care Provider] - - Diet and Activity Activity: ambulate only with your walker, increase activity as tolerated, resume usual activities as tolerated Diet: diabetic diet, low fat, low cholesterol
[2017-10-20] MEDS ORDERED: Valsartan 80 MG TABLET PO SCH (14:35)
--- NOTE | 2017-10-20 15:40 | Physician Discharge Referral ---
Home Health/Hosp Referral Info Transfer to: Home Health Provider in Charge Post Discharge: PCP - Diagnosis (1) Chest pain Priority: Primary Status: Acute (2) Anxiety Priority: Secondary Status: Acute (3) Hypothyroidism Priority: Secondary Status: Chronic (4) CAD (coronary artery disease) Priority: Secondary Status: Chronic (5) Diabetes mellitus type 2 in obese Priority: Secondary Status: Chronic (6) Hyperlipidemia Priority: Secondary Status: Chronic (7) Hypertension Priority: Secondary Status: Chronic (8) DVT prophylaxis Priority: Secondary Status: Acute - Respiratory Orders Smoking Cessation: Smoking cessation has been advised. For more information, call the [place] Tobacco Quit Line at 2-558-ZUNJ-NOW. - Diet/Nutrition Diet/Nutrition Orders: Cardiac - Activity Activity Orders: Ambulate (with DME) - Services Needed Following services are medically necessary services: Home Health Aide - Transfer Medications Home Medications: Donepezil [Aricept] 10 mg PO HS 03/23/15 [History] Furosemide [Lasix] 40 mg PO DAILY 03/23/15 [History] Levothyroxine [Synthroid] 125 mcg PO DAILY 03/23/15 [History] Potassium Chloride 20 meq PO BID 03/23/15 [History] Pregabalin [Lyrica] 75 mg PO DAILY 03/23/15 [History] Allopurinol [Zyloprim 100 MG] 100 mg PO DAILY 11/25/16 [History] Dicyclomine [Bentyl] 20 mg PO QID PRN 11/25/16 [History] Metoprolol [Lopressor] 50 mg PO BID 11/25/16 [History] Omeprazole [PriLOSEC] 20 mg PO BIDAC 11/25/16 [History] Oxycodone HCl/Acetaminophen [Percocet 5-325 mg Tablet] 1 tab PO Q8H PRN [History] Sertraline [Zoloft] 100 mg PO DAILY 11/25/16 [History] Valsartan [Diovan] 20 mg PO DAILY 11/25/16 [History] Venlafaxine [Effexor] 75 mg PO DAILY 11/25/16 [History] traZODone [TraZODone] 100 mg PO HS PRN 11/25/16 [History] Simvastatin [Zocor] 40 mg PO HS tab 12/01/16 [Rx] Hyoscyamine SL [Levsin Sl] 0.125 mg SL TID 06/17/17 [History] Insulin ASPART [NovoLOG] 0 unit SQ TIDWM PRN 10/20/17 [History] Insulin Glargine,Hum.rec.anlog [Basaglar Kwikpen U-100] 45 unit SQ BID 10/20/17 [History] Allergies/Adverse Reactions: 3 Allergy/AdvReac Type Severity Reaction Status Date / Time lisinopril Allergy Gastrointestinal Verified 10/19/17 19:38 Upset Certification: Further, I certify that my clinical findings support that this patient is homebound (i.e. absences from home require considerable and taxing effort and are for medical reasons or [facility] or infrequently or short duration when for other reasons) because: Homebound Reason: Patient requires assistance of a person or device to safely leave home Attestation: My signature below is to certify that this patient is under my care and that I, or nurse practitioner, or a physician's events and promotions assistant working with me, has a face-to -face encounter with this patient.
[2017-10-20 16:22] VITALS: BP 145/85
[2017-10-21] MEDS ORDERED: Valsartan 80 MG TABLET PO SCH ×2 (09:00→13:55)
--- NOTE | 2017-10-23 06:38 | Electrocardiograph Report ---
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
--- NOTE | 2017-10-23 06:42 | Electrocardiograph Report ---
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
== END 2017-10-20 16:31 | disposition home or self-care (01) ==
LOC: EMEROO 19:34 → 3BNU 19:34
PROVIDERS: ADMIT Internal Medicine; ATTEND Internal Medicine

== ENCOUNTER 2018-03-25 22:44 | Inpatient (IN) ==
[2018-03-25] MEDS ORDERED: *HR* FentaNYL (PF) 100 MCG/2 ML VIAL ONE (23:00)
[2018-03-25] MEDS ORDERED: *HR* FentaNYL (PF) 100 MCG/2 ML VIAL IVP ONE (23:03)
--- NOTE | 2018-03-25 23:31 | Emergency Department Note ---
Disposition Clinical Impression: Fracture dislocation of ankle Qualifiers: Encounter type: initial encounter Fracture type: closed Laterality: left Qualified Code(s): S82.892A - Other fracture of left lower leg, initial encounter for closed fracture Ankle fracture, left Qualifiers: Encounter type: initial encounter Fracture type: closed Qualified Code(s): S82.892A - Other fracture of left lower leg, initial encounter for closed fracture Fibula fracture Qualifiers: Encounter type: initial encounter Fibula location: shaft Fracture type: closed Fracture morphology: oblique Fracture alignment: displaced Laterality: left Qualified Code(s): S82.432A - Displaced oblique fracture of shaft of left fibula, initial encounter for closed fracture Disposition: Admitted As Inpatient Condition: Good Referrals: Shaji Vick DO [Primary Care Provider] - Forms: ED Satisfaction Letter Fall HPI - General Chief Complaint: ED Extremity Injury, Lower Stated Complaint: fall Time Seen by Provider: 03/25/18 22:56 Source: patient Nursing Notes Reviewed: Yes Vital Signs Reviewed: Yes - History of Present Illness Pt Subjective Complaint: 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 Fall From: standing Fall Witnessed: no Place Fall Occurred: home Loss of Consciousness: none Prolonged Down Time?: no Symptoms Prior to Fall: lightheadedness (just got out of bed) Context: other (light headed and also cat ran in front of her) Location of injury - extremities: Left: lower leg, ankle Associated symptoms (after fall): Reports: other (LLE pain) - Related Data Home Medications Medication Instructions Recorded Confirmed Donepezil [Aricept] 10 mg PO HS 03/23/15 10/20/17 Furosemide [Lasix] 40 mg PO DAILY 03/23/15 10/20/17 Levothyroxine [Synthroid] 125 mcg PO DAILY 03/23/15 10/20/17 Potassium Chloride 20 meq PO BID 03/23/15 10/20/17 Pregabalin [Lyrica] 75 mg PO DAILY 03/23/15 10/20/17 Allopurinol [Zyloprim 100 MG] 100 mg PO DAILY 11/25/16 10/20/17 Dicyclomine [Bentyl] 20 mg PO QID PRN 11/25/16 10/20/17 Metoprolol [Lopressor] 50 mg PO BID 11/25/16 10/20/17 Omeprazole [PriLOSEC] 20 mg PO BIDAC 11/25/16 10/20/17 Oxycodone HCl/Acetaminophen 1 tab PO Q8H PRN 11/25/16 10/20/17 [Percocet 5-325 mg Tablet] Sertraline [Zoloft] 100 mg PO DAILY 11/25/16 10/20/17 Valsartan [Diovan] 20 mg PO DAILY 11/25/16 10/20/17 Venlafaxine [Effexor] 75 mg PO DAILY 11/25/16 10/20/17 traZODone [TraZODone] 100 mg PO HS PRN 11/25/16 10/20/17 Hyoscyamine SL [Levsin Sl] 0.125 mg SL TID 06/17/17 10/20/17 Insulin ASPART [NovoLOG] 0 unit SQ TIDWM PRN 10/20/17 10/20/17 Insulin Glargine,Hum.rec.anlog 45 unit SQ BID 10/20/17 10/20/17 [Basaglar Kwikpen U-100] Previous Rx's Medication Instructions Recorded Simvastatin [Zocor] 40 mg PO HS tab 12/01/16 Allergies Allergy/AdvReac Type Severity Reaction Status Date / Time lisinopril Allergy Gastrointestinal Verified 10/19/17 19:38 Upset All systems ED: reviewed and negative except as stated. Review of Systems: As Per HPI Constitutional: Denies: fever, chills, weakness Eyes: Denies: vision change ENT ED: Denies: throat pain Cardiovascular: Denies: chest pain, palpitations, dyspnea on exertion Respiratory: Reports: dyspnea (chronic). Denies: wheezes, hemoptysis Gastrointestinal: Denies: nausea, vomiting Genitourinary: Denies: dysuria Musculoskeletal: Denies: back pain, neck pain, joint swelling Integumentary: Denies: rash Neurological: Denies: headache, weakness, numbness, paresthesias Endocrine: Denies: fatigue Hematological/Lymphatic: Denies: easy bleeding Allergic/Immunologic: Denies: facial swelling Fall PMH - Past Medical History Medical history: Reports: asthma, CHF, coronary artery disease, diabetes, hyperlipidemia, hypertension, myocardial infarction, thyroid disease Surgical history: Reports: cholecystectomy, colectomy, other Psychiatric history: Reports: no psych history FISH 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 Absent: symmetric chest wall rise - Respiratory Respiratory exam: Absent: respiratory distress - Cardiovascular Cardiovascular exam: Present: regular rate, normal rhythm - Abdominal Exam Abdominal exam: Present: soft, Non-Tender, scar - Expanded Lower Extremity Exam Hip/Pelvis exam: Present: full ROM, pelvis stable. Absent: tenderness Knee exam: Present: tenderness (left) Lower leg exam: Present: tenderness Ankle exam: Present: deformity (left) Foot/toe exam: Present: tenderness Neurovascular/Tendon exam: Present: normal capillary refill. Absent: pulse deficit, motor deficit, sensory deficit, tendon deficit, extremity cold to touch - Back Exam Back exam: Present: full ROM - Neurological Exam Neurological exam: Present: alert - Psychiatric Psychiatric exam: Present: normal affect, normal mood - Skin Skin exam: Present: warm, dry, intact, normal color. Absent: rash, cyanosis, diaphoresis Course Course Narrative: 77-year-old female arrives via squad with injury to her left lower extremity after a fall in her bed room just prior to arrival. She is accompanied by family members who assist with history. Apparently patient just got out of bed and was on her way to the bathroom. She mentions that she had felt lightheaded, and also was distracted when the household cat ran in front of her, and she describes falling injuring her left ankle. She was unable to get to her feet. Family members feel that she might of hit her head on the way down. However, they do not feel there was any loc, and they describe she is acting at her baseline. Patient does mention that she has felt lightheaded like this in the past that is nothing new. She has had shortness of breath, and headaches in the past and the symptoms are similar. Otherwise pt denies recent illness. No reported loss of consciousness, vomiting, vertigo, confusion or prolonged downtime. Patient seen and examined. Vitals appeared within normal limits. Patient has a splint applied by EMS, but with apparent deformity of her left lower ankle. Dorsalis pedis pulse strong. Patient can move her toes. No noted injury to right lower extremity, upper extremities. Head appears atraumatic. No cervical tenderness. Patient alert and oriented 3. No abdominal tenderness. No acute respiratory distress. Squad reports a Accu-Chek of [phone]. Imaging ordered. Analgesics ordered. - Reevaluation(s) Reevaluation #1: X-rays reviewed. Chest x-ray AP pelvis x-ray unremarkable. There does appear to be a fracture of the lateral malleolus, as well as ankle dislocation, a f racture fragment between the lateral malleolus in the distal tibial shaft. Discussed with Dr. Damon also had face time with patient. We will plan for reduction, and likely admission for pain control, ankle fracture, and near syncope. Time: 00:28 Reevaluation #2: Patient's pain controlled with fentanyl. Discussed with Dr. Damon, we will p katt for conscious sedation, reduction, afterward CT head and CT neck, and post reduction xrays. Basics labs ordered. Troponin for pre-syncopal work up. PT/INR if possible surgery. Time: 01:09 Reevaluation #3: Post ankle reduction x-rays showed improved alignment. Radiologist reads trimethoprim fracture. CT head and neck unremarkable. Vital stable. Dr. Damon did discuss patient with oncall podiatry who agreed to see patient in the morning. We will attempt to control patient's pain, and page hospitalist for admission. Time: 02:24 Vital Signs Temperature 98.1 F 03/25/18 22:48 Pulse Rate 71 03/25/18 22:48 Respiratory Rate 16 03/25/18 22:48 Blood Pressure 148/74 03/25/18 22:48 O2 Sat by Pulse Oximetry 97 03/25/18 22:48 Temperature 98.1 F 03/25/18 22:48 Pulse Rate 77 03/26/18 01:20 Respiratory Rate 16 03/26/18 01:20 Blood Pressure 121/63 03/26/18 01:20 O2 Sat by Pulse Oximetry 97 03/26/18 01:19 Oxygen Delivery Oxygen Delivery [] Nasal Cannula Oxygen Delivery [] Nasal Cannula Oxygen Delivery [] Nasal Cannula Oxygen Delivery [] Nasal Cannula Oxygen Delivery [] Nasal Cannula Oxygen Delivery Room Air Procedures - Orthopedic Fracture Reduction Fracture #1 Consent Obtained: written consent Time Out Performed: Yes Side: left Fracture Reduction Location: tibia ASA Classification: CLASS III-Severe systemic disease Analgesia: procedural sedation Technique: direct manipulation, traction/counter-traction Post Reduction X-rays Demonstrate: anatomical reduction Post-reduction neuro exam: intact Post-reduction vascular exam: intact Splint Applied: Yes Patient Tolerated Procedure: well Additional Comments: Procedure performed by Dr. Dionisio Huynh - Procedural Sedation Indication: fracture/dislocation reduction Dietary Status: unknown H&P (including ROS) documented in medical record: Yes Previous reaction to sedatives/anesthetics: No Airway Assessment: Patient can open mouth completely, TMJ function normal Possible difficult airway: No ASA Classification: CLASS III-Severe systemic disease Plan of Care: Risks/benefits of procedure/sedation discussed w/ patient/family, If not NPO; Risk of intake outweiged by necessity to perform procedure IV Propofol Dose (mgs): 35 Patient Tolerated Procedure: well Complications: none Interventions: oxygen applied Additional Comments: Procedure performed by Dr. Damon. Fall - MDM Narrative Medical decision making narrative: Patient presented with a fall in her home and arrives via squad with an apparent injury to her left ankle. Mechanism injury included Which ran out in front of her, however patient had also mentioned that she is beginning shortness of breath and lightheadedness which also apparently contributed to the fall. Patient has told me that her shortness of breath and lightheadedness have been constant no worse tonight, and she has had this for some time and had discussions with her doctors in the past. Due to the pain and treatment of her ankle she was unable to provide much details of her previous work up for near syncope. On examination her head and face appear atraumatic, and she denied any cervical tenderness. There is no reported loss of consciousness or prolonged downtime. However family was concerned that the patient had hit her head. Head CT and cervical CT were unremarkable. Chest x-ray had no acute findings. Scarlett de leonin was added for presyncopal workup. This was unremarkable. Lab work was unremarkable. Radiographs of her lower extremity did show a dislocation and no apparent fracture of the left ankle. Patient was discussed with Dr. Damon she also takes have patient. Written Consent for procedural sedation and joint reduction was obtained. Reduction was performed by resident physician Dr. Huynh, and conscious sedation performed by Dr. Damon. Postreduction films radiologist impression included a fibular fracture as well as a dry mouth fracture with improved alignment of the reduction. He is a closed fractures. No neurovascular deficits. No concerning signs for infectious cause. Patient denies any chest pain, worsening shortness breath, recent illness. Her pain was controlled in the department. Her vitals remained stable here. She tolerated procedures well. Dr. Damon did discuss with the on-call podiatry who agreed to see patient tomorrow, as well as hospitalist Dr. Cates who had accepted patient. Patient was seen inconjunction with Dr. Damon. Please see his documentation for additional details. Foot X-Ray 03/25/18 22:56 IMPRESSION: Fracture-dislocation of the ankle joint. No acute abnormality left foot. D/ / Josef Bustos MD / Josef Bustos MD Interpreting Provider: Josef Bustos MD Knee X-Ray 03/25/18 22:56 IMPRESSION: No acute osseous abnormality identified. D/ / Amado Aragon / Amado Aragon Interpreting Provider: Amado Aragon Tibia/Fibula X-Ray 03/25/18 22:56 IMPRESSION: No additional fracture in the tibia or fibula above the ankle joint D/ / Josef Bustos MD / Josef Bustos MD Interpreting Provider: Josef Bustos MD Chest X-Ray 03/25/18 22:57 IMPRESSION: No acute findings in the chest. D/ / Su Watters MD / Su Watters MD Interpreting Provider: Su Watters MD Pelvis X-Ray 03/25/18 22:57 IMPRESSION: No acute osseous abnormality identified. If there remains concern for occult fracture, further evaluation may be warranted with CT or MRI. D/ / Amado Aragon / Amado Aragon Interpreting Provider: Amado Aragon Ankle X-Ray 03/26/18 01:34 IMPRESSION: Interval improved alignment and splinting of the trimalleolar fracture dislocation. D/ / Amado Aragon / Amado Aragon Interpreting Provider: Amado Aragon Cervical Spine CT 03/26/18 01:36 IMPRESSION: No acute abnormality of the cervical spine. D/ / Amado Aragon / Amado Aragon Interpreting Provider: Amado Aragon Head CT 03/26/18 01:36 IMPRESSION: Unchanged appearance of the brain without acute CT abnormality identified. D/ / Amado Aragon / Amado Aragon Interpreting Provider: Amado Aragon - Lab Data Lab results reviewed: Yes I reviewed the patient's lab results. Result diagrams: 03/25/18 23:00 03/25/18 23:00 Lab Results 03/25/18 03/25/18 03/25/18 Range/Units 23:00 23:00 23:00 WBC 7.9 (4.3-11.1) K/mcL RBC 3.97 (3.82-4.97) M/mcL Hgb 12.1 (11.5-15.4) g/dL Hct 35.9 (35.3-44.9) % MCV 90.4 (83.0-100.0) fL MCH 30.5 (28.0-33.3) pg MCHC 33.7 (31.6-35.5) g/dL RDW 12.8 (11.5-14.5) % Plt Count 239 (140-400) K/mcL MPV 9.7 (9.4-12.4) fL Immature Gran % 0.6 (0-4) % Seg Neutrophils % 58.1 % Lymphocytes % 25.8 % Monocytes % 11.8 % Eosinophils % 3.6 % Basophils % 0.1 % Neutrophils # 4.6 (1.6-8.9) K/mcL Lymphocytes # 2.0 (0.6-4.6) K/mcL Monocytes # 0.9 (0.0-1.3) K/mcL Eosinophils # 0.3 (0.0-0.6) K/mcL Basophils # 0.0 (0.0-0.2) K/mcL PT 11.5 (9.4-12.1) Seconds INR 1.0 APTT 26.8 (26.0-36.0) Seconds Sodium 138 (136-145) mEq/L Potassium 4.0 (3.5-5.1) mEq/L Chloride 104 (98-107) mEq/L Carbon Dioxide 24 (23-29) mEq/L BUN 23 (8-23) mg/dL Creatinine 1.29 H (0.60-1.20) mg/dL Est GFR ( Amer) 49 L (> 60) Est GFR (Non-Af Amer) 40 L (> 60) BUN/Creatinine Ratio 18 (6-26) Glucose 195 H (70-105) mg/dL Calculated Osmolality 295 (280-300) Calcium 9.4 (8.6-10.3) mg/dL Total Bilirubin 0.4 (0.3-1.0) mg/dL AST 33 (13-39) Units/L ALT 15 (7-52) Units/L Alkaline Phosphatase 86 (34-104) Units/L Troponin I < 0.03 (< 0.04) ng/mL Serum Total Protein 6.6 (6.4-8.9) g/dL Albumin 3.9 (3.5-5.7) g/dL Globulin 2.7 (2.4-3.5) g/dL Albumin/Globulin Ratio 1.4 (1.1-2.2) - Radiology Data Radiology results reviewed: Yes I reviewed the patient's radiology results. - EKG Data EKG attestation: Yes I reviewed and interpreted this EKG. EKG shows normal: sinus rhythm Rate: normal [place]/QRS: normal When compared to previous EKG there are: no significant changes Interpretation: no acute changes
[2018-03-26] MEDS ORDERED: 0.9 % Sodium Chloride 1,000 ML IVC ONE (00:32)
[2018-03-26] MEDS ORDERED: *HR* FentaNYL (PF) 100 MCG/2 ML VIAL IVP ONE ×2 (00:32→02:12)
[2018-03-26] MEDS ORDERED: *HR* Propofol 500 MG/50 ML BOTTLE IVP ONE (00:47)
[2018-03-26 01:04] LABS: Basophils % 0.1 %; Eosinophils # 0.3 K/mcL (0.0-0.6); Eosinophils % 3.6 %; Hematocrit 35.9 % (35.3-44.9); Hemoglobin 12.1 g/dL (11.5-15.4); Immature Granulocytes % 0.6 % (0-4); Lymphocytes % 25.8 %; Mean Corpuscular HGB Conc 33.7 g/dL (31.6-35.5); Mean Corpuscular Hemoglobin 30.5 pg (28.0-33.3); Mean Corpuscular Volume 90.4 fL (83.0-100.0); Mean Platelet Volume 9.7 fL (9.4-12.4); Monocytes # 0.9 K/mcL (0.0-1.3); Monocytes % 11.8 %; Neutrophils # 4.6 K/mcL (1.6-8.9); Platelet Count 239 K/mcL (140-400); Red Blood Count 3.97 M/mcL (3.82-4.97); Red Cell Distribution Width 12.8 % (11.5-14.5); Segmented Neutrophils % 58.1 %
[2018-03-26 01:12] LABS: Alanine Aminotransferase 15 Units/L (7-52); Albumin 3.9 g/dL (3.5-5.7); Albumin/Globulin Ratio 1.4 (1.1-2.2); Alkaline Phosphatase 86 Units/L (34-104); Aspartate Amino Transferase 33 Units/L (13-39); BUN/Creatinine Ratio 18 (6-26); Bilirubin,Total 0.4 mg/dL (0.3-1.0); Blood Urea Nitrogen 23 mg/dL (8-23); Calcium 9.4 mg/dL (8.6-10.3); Carbon Dioxide 24 mEq/L (23-29); Chloride 104 mEq/L (98-107); Globulin 2.7 g/dL (2.4-3.5); Glucose 195 mg/dL (70-105); Osmolality,Calculated 295 (280-300); Sodium 138 mEq/L (136-145); Total Protein 6.6 g/dL (6.4-8.9); eGFR For Non-African Americans 40 (> 60)
[2018-03-26 01:14] LABS: Troponin I < 0.03 ng/mL (< 0.04)
[2018-03-26 01:33] LABS: Prothrombin Time 11.5 Seconds (9.4-12.1)
[2018-03-26 01:35] LABS: Activated Partial Thrombo Time 26.8 Seconds (26.0-36.0)
--- NOTE | 2018-03-26 01:48 | Emergency Department Note ---
Disposition Clinical Impression: Ankle fracture, left, Fibula fracture Fracture dislocation of ankle Qualifiers: Encounter type: initial encounter Fracture type: closed Laterality: left Qualified Code(s): S82.892A - Other fracture of left lower leg, initial encounter for closed fracture Disposition: Admitted As Inpatient Condition: Good Time of Disposition: 01:54 General Adult HPI - General Chief complaint: ED Extremity Injury, Lower Stated complaint: fall Time Seen by Provider: 03/25/18 22:56 Source: patient Limitations: no limitations - History of Present Illness Pain Scale: 4 - Related Data Home Medications Medication Instructions Recorded Confirmed RX: Donepezil [Aricept] 10 mg PO HS 03/23/15 10/20/17 RX: Furosemide [Lasix] 40 mg PO DAILY 03/23/15 10/20/17 RX: Levothyroxine [Synthroid] 125 mcg PO DAILY 03/23/15 10/20/17 RX: Potassium Chloride 20 meq PO BID 03/23/15 10/20/17 RX: Pregabalin [Lyrica] 75 mg PO DAILY 03/23/15 10/20/17 RX: Allopurinol [Zyloprim 100 MG] 100 mg PO DAILY 11/25/16 10/20/17 RX: Dicyclomine [Bentyl] 20 mg PO QID PRN 11/25/16 10/20/17 RX: Metoprolol [Lopressor] 50 mg PO BID 11/25/16 10/20/17 RX: Omeprazole [PriLOSEC] 20 mg PO BIDAC 11/25/16 10/20/17 RX: Oxycodone HCl/Acetaminophen 1 tab PO Q8H PRN 11/25/16 10/20/17 [Percocet 5-325 mg Tablet] RX: Sertraline [Zoloft] 100 mg PO DAILY 11/25/16 10/20/17 RX: Valsartan [Diovan] 20 mg PO DAILY 11/25/16 10/20/17 RX: Venlafaxine [Effexor] 75 mg PO DAILY 11/25/16 10/20/17 RX: traZODone [TraZODone] 100 mg PO HS PRN 11/25/16 10/20/17 RX: Hyoscyamine SL [Levsin Sl] 0.125 mg SL TID 06/17/17 10/20/17 RX: Insulin ASPART [NovoLOG] 0 unit SQ TIDWM PRN 10/20/17 10/20/17 RX: Insulin Glargine,Hum.rec.anlog 45 unit SQ BID 10/20/17 10/20/17 [Basaglar Kwikpen U-100] Previous Rx's Medication Instructions Recorded RX: Simvastatin [Zocor] 40 mg PO HS tab 12/01/16 Allergies Allergy/AdvReac Type Severity Reaction Status Date / Time lisinopril Allergy Gastrointestinal Verified 10/19/17 19:38 Upset Constitutional: Denies: fever, chills, weakness Eyes: Denies: vision change ENT ED: Denies: throat pain Cardiovascular: Denies: chest pain, palpitations, dyspnea on exertion Respiratory: Reports: dyspnea (chronic). Denies: wheezes, hemoptysis Gastrointestinal: Denies: nausea, vomiting Genitourinary: Denies: dysuria Musculoskeletal: Denies: back pain, neck pain, joint swelling Integumentary: Denies: rash Neurological: Denies: headache, weakness, numbness, paresthesias Endocrine: Denies: fatigue Hematological/Lymphatic: Denies: easy bleeding Allergic/Immunologic: Denies: facial swelling Past Medical History - Past Medical History Medical history: Reports: asthma, CHF, coronary artery disease, diabetes, hy perlipidemia, hypertension, myocardial infarction, thyroid disease Surgical history: Reports: cholecystectomy, colectomy, other Psychiatric history: Reports: no psych history 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 Otherwise, refer to Dr. Damon or Stiven Almaraz's note for additional detail. Vital Signs Temperature 98.1 F 03/25/18 22:48 Pulse Rate 71 03/25/18 22:48 Respiratory Rate 16 03/25/18 22:48 Blood Pressure 148/74 03/25/18 22:48 O2 Sat by Pulse Oximetry 97 03/25/18 22:48 Temperature 98.1 F 03/25/18 22:48 Pulse Rate 77 03/26/18 01:20 Respiratory Rate 16 03/26/18 01:20 Blood Pressure 121/63 03/26/18 01:20 O2 Sat by Pulse Oximetry 97 03/26/18 01:19 Oxygen Delivery Oxygen Delivery [0140] Nasal Cannula Oxygen Delivery [0135] Nasal Cannula Oxygen Delivery [0130] Nasal Cannula Oxygen Delivery [0125] Nasal Cannula Oxygen Delivery [0120] Nasal Cannula Oxygen Delivery Room Air Procedures - Orthopedic Fracture Reduction Fracture #1 Consent Obtained: written consent Time Out Performed: Yes Side: left Fracture Reduction Location: other (left ankle) ASA Classification: CLASS III-Severe systemic disease Analgesia: procedural sedation Technique: direct manipulation Post Reduction X-rays Demonstrate: anatomical reduction Post-reduction neuro exam: intact Post-reduction vascular exam: intact Splint Applied: Yes Patient Tolerated Procedure: well Additional Comments: Fracture dislocation performed by myself under supervision of Dr. Lucas Damon. Dr. Lucas Damon performed procedural sedation with propfol. Patient was neurovascularly intact pre-and post procedure and post splinting. Medical Decision Making - Lab Data Result diagrams: 03/25/18 23:00 03/25/18 23:00 Lab Results 03/25/18 03/25/18 03/25/18 Range/Units 23:00 23:00 23:00 WBC 7.9 (4.3-11.1) K/mcL RBC 3.97 (3.82-4.97) M/mcL Hgb 12.1 (11.5-15.4) g/dL Hct 35.9 (35.3-44.9) % MCV 90.4 (83.0-100.0) fL MCH 30.5 (28.0-33.3) pg MCHC 33.7 (31.6-35.5) g/dL RDW 12.8 (11.5-14.5) % Plt Count 239 (140-400) K/mcL MPV 9.7 (9.4-12.4) fL Immature Gran % 0.6 (0-4) % Seg Neutrophils % 58.1 % Lymphocytes % 25.8 % Monocytes % 11.8 % Eosinophils % 3.6 % Basophils % 0.1 % Neutrophils # 4.6 (1.6-8.9) K/mcL Lymphocytes # 2.0 (0.6-4.6) K/mcL Monocytes # 0.9 (0.0-1.3) K/mcL Eosinophils # 0.3 (0.0-0.6) K/mcL Basophils # 0.0 (0.0-0.2) K/mcL PT 11.5 (9.4-12.1) Seconds INR 1.0 APTT 26.8 (26.0-36.0) Seconds Sodium 138 (136-145) mEq/L Potassium 4.0 (3.5-5.1) mEq/L Chloride 104 (98-107) mEq/L Carbon Dioxide 24 (23-29) mEq/L BUN 23 (8-23) mg/dL Creatinine 1.29 H (0.60-1.20) mg/dL Est GFR ( Amer) 49 L (> 60) Est GFR (Non-Af Amer) 40 L (> 60) BUN/Creatinine Ratio 18 (6-26) Glucose 195 H (70-105) mg/dL Calculated Osmolality 295 (280-300) Calcium 9.4 (8.6-10.3) mg/dL Total Bilirubin 0.4 (0.3-1.0) mg/dL AST 33 (13-39) Units/L ALT 15 (7-52) Units/L Alkaline Phosphatase 86 (34-104) Units/L Troponin I < 0.03 (< 0.04) ng/mL Serum Total Protein 6.6 (6.4-8.9) g/dL Albumin 3.9 (3.5-5.7) g/dL Globulin 2.7 (2.4-3.5) g/dL Albumin/Globulin Ratio 1.4 (1.1-2.2) Attestation Statement - Attestation Attestation: Resident Attestation: I examined this patient and my medical decision making was reviewed with the Resident Physician. I agree with the documented findings, disposition and treatment plan as described except to the extent set forth below . We independently had [id number] contact with the patient. I was present during the resident's procedure. Please see my other note for further notes on procedural sedation and mid-level attestation.
--- NOTE | 2018-03-26 03:03 | Emergency Department Note ---
Disposition Clinical Impression: Fracture dislocation of ankle Qualifiers: Encounter type: initial encounter Fracture type: closed Laterality: left Qualified Code(s): S82.892A - Other fracture of left lower leg, initial encounter for closed fracture Ankle fracture, left Qualifiers: Encounter type: initial encounter Fracture type: closed Qualified Code(s): S82.892A - Other fracture of left lower leg, initial encounter for closed fracture Fibula fracture Qualifiers: Encounter type: initial encounter Fibula location: shaft Fracture type: closed Fracture morphology: oblique Fracture alignment: displaced Laterality: left Qualified Code(s): S82.432A - Displaced oblique fracture of shaft of left fibula, initial encounter for closed fracture Disposition: Admitted As Inpatient Condition: Good Referrals: Shaji Vick DO [Primary Care Provider] - Forms: ED Satisfaction Letter General Adult HPI - General Chief complaint: ED Extremity Injury, Lower Stated complaint: fall Time Seen by Provider: 03/25/18 22:56 Source: patient Limitations: no limitations - History of Present Illness Pain Scale: 4 - Related Data Home Medications Medication Instructions Recorded Confirmed RX: Donepezil [Aricept] 10 mg PO HS 03/23/15 10/20/17 RX: Furosemide [Lasix] 40 mg PO DAILY 03/23/15 10/20/17 RX: Levothyroxine [Synthroid] 125 mcg PO DAILY 03/23/15 10/20/17 RX: Potassium Chloride 20 meq PO BID 03/23/15 10/20/17 RX: Pregabalin [Lyrica] 75 mg PO DAILY 03/23/15 10/20/17 RX: Allopurinol [Zyloprim 100 MG] 100 mg PO DAILY 11/25/16 10/20/17 RX: Dicyclomine [Bentyl] 20 mg PO QID PRN 11/25/16 10/20/17 RX: Metoprolol [Lopressor] 50 mg PO BID 11/25/16 10/20/17 RX: Omeprazole [PriLOSEC] 20 mg PO BIDAC 11/25/16 10/20/17 RX: Oxycodone HCl/Acetaminophen 1 tab PO Q8H PRN 11/25/16 10/20/17 [Percocet 5-325 mg Tablet] RX: Sertraline [Zoloft] 100 mg PO DAILY 11/25/16 10/20/17 RX: Valsartan [Diovan] 20 mg PO DAILY 11/25/16 10/20/17 RX: Venlafaxine [Effexor] 75 mg PO DAILY 11/25/16 10/20/17 RX: traZODone [TraZODone] 100 mg PO HS PRN 11/25/16 10/20/17 RX: Hyoscyamine SL [Levsin Sl] 0.125 mg SL TID 06/17/17 10/20/17 RX: Insulin ASPART [NovoLOG] 0 unit SQ TIDWM PRN 10/20/17 10/20/17 RX: Insulin Glargine,Hum.rec.anlog 45 unit SQ BID 10/20/17 10/20/17 [Basaglar Kwikpen U-100] Previous Rx's Medication Instructions Recorded RX: Simvastatin [Zocor] 40 mg PO HS tab 12/01/16 Allergies Allergy/AdvReac Type Severity Reaction Status Date / Time lisinopril Allergy Gastrointestinal Verified 10/19/17 19:38 Upset Constitutional: Denies: fever, chills, weakness Eyes: Denies: vision change ENT ED: Denies: throat pain Cardiovascular: Denies: chest pain, palpitations, dyspnea on exertion Respiratory: Reports: dyspnea (chronic). Denies: wheezes, hemoptysis Gastrointestinal: Denies: nausea, vomiting Genitourinary: Denies: dysuria Musculoskeletal: Denies: back pain, neck pain, joint swelling Integumentary: Denies: rash Neurological: Denies: headache, weakness, numbness, paresthesias Endocrine: Denies: fatigue Hematological/Lymphatic: Denies: easy bleeding Allergic/Immunologic: Denies: facial swelling Past Medical History - Past Medical History Medical history: Reports: asthma, CHF, coronary artery disease, diabetes, hyperlipidemia, hypertension, myocardial infarction, thyroid disease Surgical history: Reports: cholecystectomy, colectomy, other Psychiatric history: Reports: no psych history 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 - Social History Smoking Status: Never smoker Smokeless Tobacco Status: No Alcohol use: Reports: none Drug use: Reports: none Physical Exam - General Limitations: no limitations General appearance: alert, in no apparent distress Course Vital Signs Temperature 98.1 F 03/25/18 22:48 Pulse Rate 71 03/25/18 22:48 Respiratory Rate 16 03/25/18 22:48 Blood Pressure 148/74 03/25/18 22:48 O2 Sat by Pulse Oximetry 97 03/25/18 22:48 Temperature 98.1 F 03/25/18 22:48 Pulse Rate 77 03/26/18 01:20 Respiratory Rate 16 03/26/18 01:20 Blood Pressure 121/63 03/26/18 01:20 O2 Sat by Pulse Oximetry 97 03/26/18 01:19 Oxygen Delivery Oxygen Delivery [0140] Nasal Cannula Oxygen Delivery [0135] Nasal Cannula Oxygen Delivery [0130] Nasal Cannula Oxygen Delivery [0125] Nasal Cannula Oxygen Delivery [0120] Nasal Cannula Oxygen Delivery Room Air Procedures - Orthopedic Joint Reduction Joint #1 Consent Obtained: written consent Time Out Performed: Yes Side: left Joint Reduction Location: ankle ASA Classification: CLASS III-Severe systemic disease Analgesia: procedural sedation Technique used: direct manipulation Post-reduction neuro exam: intact Post-reduction vascular: intact Post Reduction X-Ray Obtained: Yes Post Reduction X-Ray Results: other (Improved but not completely reduced. Ankle is unstable. No further attempts will be performed.) Splint Applied: Yes Patient Tolerated Procedure: other (Mild pain with procedure as well has mild misalignment secondary to patient's unstable fracture. The foot did undergo multiple attempts during initial reduction and was held while splint was placed.) Medical Decision Making - Lab Data Result diagrams: 03/25/18 23:00 03/25/18 23:00 Lab Results 03/25/18 03/25/18 03/25/18 Range/Units 23:00 23:00 23:00 WBC 7.9 (4.3-11.1) K/mcL RBC 3.97 (3.82-4.97) M/mcL Hgb 12.1 (11.5-15.4) g/dL Hct 35.9 (35.3-44.9) % MCV 90.4 (83.0-100.0) fL MCH 30.5 (28.0-33.3) pg MCHC 33.7 (31.6-35.5) g/dL RDW 12.8 (11.5-14.5) % Plt Count 239 (140-400) K/mcL MPV 9.7 (9.4-12.4) fL Immature Gran % 0.6 (0-4) % Seg Neutrophils % 58.1 % Lymphocytes % 25.8 % Monocytes % 11.8 % Eosinophils % 3.6 % Basophils % 0.1 % Neutrophils # 4.6 (1.6-8.9) K/mcL Lymphocytes # 2.0 (0.6-4.6) K/mcL Monocytes # 0.9 (0.0-1.3) K/mcL Eosinophils # 0.3 (0.0-0.6) K/mcL Basophils # 0.0 (0.0-0.2) K/mcL PT 11.5 (9.4-12.1) Seconds INR 1.0 APTT 26.8 (26.0-36.0) Seconds Sodium 138 (136-145) mEq/L Potassium 4.0 (3.5-5.1) mEq/L Chloride 104 (98-107) mEq/L Carbon Dioxide 24 (23-29) mEq/L BUN 23 (8-23) mg/dL Creatinine 1.29 H (0.60-1.20) mg/dL Est GFR ( Amer) 49 L (> 60) Est GFR (Non-Af Amer) 40 L (> 60) BUN/Creatinine Ratio 18 (6-26) Glucose 195 H (70-105) mg/dL Calculated Osmolality 295 (280-300) Calcium 9.4 (8.6-10.3) mg/dL Total Bilirubin 0.4 (0.3-1.0) mg/dL AST 33 (13-39) Units/L ALT 15 (7-52) Units/L Alkaline Phosphatase 86 (34-104) Units/L Troponin I < 0.03 (< 0.04) ng/mL Serum Total Protein 6.6 (6.4-8.9) g/dL Albumin 3.9 (3.5-5.7) g/dL Globulin 2.7 (2.4-3.5) g/dL Albumin/Globulin Ratio 1.4 (1.1-2.2) Attestation Statement - Attestation Attestation: Medical screening examination/treatment/procedure(s) were conducted as a shared visit with non-physician practitioner(s) and myself. I personally evaluated the patient during the encounter. Patient was seen and evaluated after fall. Patient was dizzy and off-balance the cat caused her to complete her fall. Obvious deformity to the left ankle. Patient will undergo CAT scans and x-rays. X-rays showing dislocation and fracture. Ankle is unstable. The patient will undergo procedural sedation and fracture/joint reduction. The patient received 35 of propofol with falling asleep and muscle relaxation. The patient under went reduction with mild pain response. Patient did not have any complications with her airway. Pulses were intact prior to the procedure. Sensation was intact. Post procedure the pulses remained intact and patient continues to have full sensation into her foot. Given her potential near-syncopal event as well as the need for likely surgery. Labs EKG have been obtained. No significant abnormalities. The case was discussed with podiatry. Patient will be evaluated tomorrow. Patient discussed with hospitalist. Hospitalist accepted for admission.
[2018-03-26] MEDS ORDERED: Naloxone 0.4 MG/ML INJ IVP PRN (04:10)
[2018-03-26] MEDS ORDERED: Acetaminophen 325 MG TABLET PO PRN (04:10)
[2018-03-26] MEDS ORDERED: D5% in Water 1,000 ML IVC PRN (04:16)
[2018-03-26] MEDS ORDERED: Dextrose Gel 15 GM/37.5 ML TUBE PO PRN ×2 (04:16)
[2018-03-26] MEDS ORDERED: *HR* Dextrose 50 % in Water (Syg) 50 ML SYRINGE IVP PRN (04:16)
--- NOTE | 2018-03-26 05:00 | Internal Med History&Physical ---
Date of Encounter: 03/26/18 Time of Encounter: 04:00 Internal Medicine - H&P: HPI Chief complaint: s/p fall; ankle fracture; near syncope Admitted From: Emergency Dept Plans for Post Hospital Care: Home History of present illness: Ms. Ferro is a 77 year old female who presents with complaints of left ankle pain after climbing out of bed to go to the bathroom tonight. As she was walking to the bathroom, she became lightheaded and dizzy and fell sustaining a mechanical fall and fracture. She did not pass out. However, she felt as though she was passing out. She denies any chest pain, shortness of breath, palpitations, or true syncope. She came to the ER for evaluation where she was found to have a dislocated fracture of the ankle. She had her fracture reduced in the ER, and she was admitted to the hospitalist service with podiatry consultation. Upon my assessment of the patient, she confirms the above history. She denies frequent falling, but she has had frequent dizzy spells. She did have recent E CHO, which was negative. She also has a history of dementia, but she is fairly high functioning and appears to be alert and oriented 3. There are no family members present at this time. She is diabetic, but she denies any periods of hypoglycemia recently. Past Med Surg Social Fam HX - Past Medical History Attestation: Yes The following information was validated with the patient. Source: patient, old records reviewed Medical history: asthma, CHF, coronary artery disease, diabetes, hyperlipidemia, hypertension, myocardial infarction, thyroid disease Additional medical history: DDD Psychiatric history: no psych history - Past Surgical History Surgical History: cholecystectomy, colectomy, other Additional surgical history: Tubal, cyst removed from back. - Social History Smoking Status: Never smoker Smokeless Tobacco Status: No Alcohol use: none Drug use: none Current living situation: Home, With Family Activity Level: Independent ambulation Recent Out of Country Travel Within the Last 8 Weeks: No - Family History Mother Adopted: No Family Member Ethnicity: Non- Living Status: Hx Family Cardiac Disorders: Yes Hx Family Respiratory Disorders: No Hx Family Cancer: Yes Hx Family GI Disorders: No Hx Family Endocrine Disorder: No Hx Family Neuromuscular Disorders: No Hx Family Neurologic Disorders: No Hx Family HEENT Disorders: No Hx Family Autoimmune Disorders: No Father Living Status: Hx Family Cardiac Disorders: Yes ([place]) Internal Medicine - H&P: Meds Donepezil [Aricept] 10 mg PO HS 03/23/15 [History] Furosemide [Lasix] 40 mg PO DAILY 03/23/15 [History] Levothyroxine [Synthroid] 125 mcg PO DAILY 03/23/15 [History] Potassium Chloride 20 meq PO BID 03/23/15 [History] Pregabalin [Lyrica] 75 mg PO DAILY 03/23/15 [History] Allopurinol [Zyloprim 100 MG] 100 mg PO DAILY 11/25/16 [History] Dicyclomine [Bentyl] 20 mg PO QID PRN 11/25/16 [History] Metoprolol [Lopressor] 50 mg PO BID 11/25/16 [History] Omeprazole [PriLOSEC] 20 mg PO BIDAC 11/25/16 [History] Oxycodone HCl/Acetaminophen [Percocet 5-325 mg Tablet] 1 tab PO Q8H PRN 11/25/16 [History] Sertraline [Zoloft] 100 mg PO DAILY 11/25/16 [History] Valsartan [Diovan] 20 mg PO DAILY 11/25/16 [History] Venlafaxine [Effexor] 75 mg PO DAILY 11/25/16 [History] traZODone [TraZODone] 100 mg PO HS PRN 11/25/16 [History] Simvastatin [Zocor] 40 mg PO HS tab 12/01/16 [Rx] Hyoscyamine SL [Levsin Sl] 0.125 mg SL TID 06/17/17 [History] Insulin ASPART [NovoLOG] 0 unit SQ TIDWM PRN 10/20/17 [History] Insulin Glargine,Hum.rec.anlog [Basaglar Kwikpen U-100] 45 unit SQ BID 10/20/17 [History] Allergy/AdvReac Type Severity Reaction Status Date / Time lisinopril Allergy Gastrointestinal Verified 10/19/17 19:38 Upset - Constitutional Constitutional: no chills, no fever(s) - EENT Eyes: no blurry vision, no change in vision Ears: no ear pain, no tinnitus Nose, mouth and throat: no nasal congestion, no sinus pressure, no sore throat - Cardiovascular Cardiovascular ROS IM: lightheadedness, no chest pain, no dyspnea, no dyspnea on exertion, no irregular heart rhythm, no palpitations, no paroxysmal nocturnal dyspnea, no syncope - Respiratory Respiratory: no cough, no dyspnea, no hemoptysis, no chest congestion, no excessive phlegm production - Gastrointestinal Gastrointestinal: no abdominal pain, no diarrhea, no hematemesis, no hematochezia, no melena, no nausea, no vomiting - Genitourinary Genitourinary: no dysuria, no flank pain, no hematuria - Musculoskeletal Musculoskeletal ROS IM: arthralgias, no back pain - Integumentary Integumentary IM: no rash, no jaundice - Neurological Neurological ROS: dizziness, no disequilibrium, no focal weakness, no frequent falls, no headache(s), no paresthesias - Psychiatric Psychiatric: no anxiety, no depression - Endocrine Endocrine IM: no polydipsia, no polyuria - Constitutional Vitals: Temp Pulse Resp BP Pulse Ox 98.7 F 70 16 146/68 97 03/26/18 04:22 03/26/18 04:22 03/26/18 04:22 03/26/18 04:22 03/26/18 04:22 General appearance: Present: cooperative, mild distress, A&O X 3, pleasant, answ ers questions appropriately Exam: see below - Head Head exam: Present: atraumatic, normal inspection - Eye Eye exam: Present: EOMI, PERRL. Absent: scleral icterus Pupils: Present: normal accommodation - ENT ENT exam: Present: mucous membranes dry, normal exam, normal oropharynx - Neck Neck exam general surgery: Present: full ROM, supple. Absent: tenderness, nuchal rigidity, thyromegaly - Respiratory Respiratory exam: Present: CTAB. Absent: chest wall tenderness, rales, rhonchi, wheezes - Cardiovascular Cardiovascular exam: Present: distant heart sounds, RRR, +S1, +S2. Absent: diastolic murmur, systolic murmur - GI/Abdominal GI/Abdominal exam: Present: normal bowel sounds, soft. Absent: guarding, hepatomegaly, mass, rebound, splenomegaly, tenderness - Extremities Exam Extremities exam: Present: normal capillary refill, tenderness (left ankle -- immobilized and splinted), warm, radial pulses palpable and symmetrical. Absent: calf tenderness, pedal edema - Back Exam Back exam: Present: normal inspection. Absent: CVA tenderness (L), CVA tenderness (R) - Neurological Exam Neurological exam: Present: alert, CN II-XII intact, oriented X3, no focal deficits - Psychiatric Psychiatric exam: Present: normal affect, normal mood - Skin Skin exam: Present: dry, intact, warm Internal Med - H&P Results - Labs CBC & Chem 7: 03/25/18 23:00 03/25/18 23:00 Labs: Short CBC 03/25/18 Range/Units 23:00 WBC 7.9 (4.3-11.1) K/mcL Hgb 12.1 (11.5-15.4) g/dL Hct 35.9 (35.3-44.9) % Plt Count 239 (140-400) K/mcL Neutrophils # 4.6 (1.6-8.9) K/mcL BMP 03/25/18 23:00 Sodium 138 Potassium 4.0 Chloride 104 Carbon Dioxide 24 BUN 23 Creatinine 1.29 H Glucose 195 H Calcium 9.4 Cardiac Enzymes 03/25/18 Range/Units 23:00 Troponin I < 0.03 (< 0.04) ng/mL Liver Function 03/25/18 Range/Units 23:00 Total Bilirubin 0.4 (0.3-1.0) mg/dL AST 33 (13-39) Units/L ALT 15 (7-52) Units/L Alkaline Phosphatase 86 (34-104) Units/L Albumin 3.9 (3.5-5.7) g/dL - Impressions ITS Impressions Ankle X-Ray 03/25/18 22:56 IMPRESSION: Fracture-dislocation of the ankle joint. No acute abnormality left foot. D/ / Josef Bustos MD / Josef Bustos MD Interpreting Provider: Josef Bustos MD Foot X-Ray 03/25/18 22:56 IMPRESSION: Fracture-dislocation of the ankle joint. No acute abnormality left foot. D/ / Josef Bustos MD / Josef Bustos MD Interpreting Provider: Josef Bustos MD Knee X-Ray 03/25/18 22:56 IMPRESSION: No acute osseous abnormality identified. D/ / Amado Aragon / Amado Aragon Interpreting Provider: Amado Aragon Tibia/Fibula X-Ray 03/25/18 22:56 IMPRESSION: No additional fracture in the tibia or fibula above the ankle joint D/ / Josef Bustos MD / Josef Bustos MD Interpreting Provider: Josef Bustos MD Chest X-Ray 03/25/18 22:57 IMPRESSION: No acute findings in the chest. D/ / Su Watters MD / Su Watters MD Interpreting Provider: Su Watters MD Pelvis X-Ray 03/25/18 22:57 IMPRESSION: No acute osseous abnormality identified. If there remains concern for occult fracture, further evaluation may be warranted with CT or MRI. D/ / Amado Aragon / Amado Aragon Interpreting Provider: Amado Aragon Ankle X-Ray 03/26/18 01:34 IMPRESSION: Interval improved alignment and splinting of the trimalleolar fracture dislocation. D/ / Amado Aragon / Amado Aragon Interpreting Provider: Amado Aragon Cervical Spine CT 03/26/18 01:36 IMPRESSION: No acute abnormality of the cervical spine. D/ / Amado Aragon / Amado Aragon Interpreting Provider: Amado Aragon Head CT 03/26/18 01:36 IMPRESSION: Unchanged appearance of the brain without acute CT abnormality identified. D/ / Amado Aragon / Amado Aragon Interpreting Provider: Amado Aragon - Diagnostic Studies Chest x-ray Status: image reviewed by me (negative) - Assessment and plan (1) Near syncope Current Visit: Yes Status: Acute Assessment and plan: 1. Will monitor glucose closely for hypoglycemia. 2. Will order carotid Dopplers. 3. Will monitor on telemetry. 4. Recent ECHO reviewed. (2) Ankle fracture, left Current Visit: Yes Status: Acute Assessment and plan: 1. S/P reduction in ER. 2. Pain control. 3. Consult podiatry for surgical intervention. Qualifiers: Encounter type: initial encounter Fracture type: closed Qualified Code(s): S82.892A - Other fracture of left lower leg, initial encounter for closed fracture (3) ESAU (acute kidney injury) Current Visit: Yes Status: Acute Assessment and plan: 1. Hold diuretics. 2. IVF hydration. 3. Monitor renal function and consult nephrology if renal function does not improve. (4) IDDM (insulin dependent diabetes mellitus) Current Visit: Yes Status: Chronic Assessment and plan: 1. Will place on SSI and monitor glucose closely. 2. Resume home basal insulin once medication list verified. (5) DVT prophylaxis Current Visit: Yes Status: Acute Assessment and plan: 1. Heparin SQ.
[2018-03-26] MEDS: *HR* FentaNYL (PF) 100 MCG/2 ML VIAL IVP PRN ×2 (05:36→18:42)
[2018-03-26] MEDS: 0.9 % Sodium Chloride 1,000 ML IVC SCH ×2 (05:36→15:58)
[2018-03-26] MEDS: *HR* HYDROcodone/Acet 5/325 mg TABLET PO PRN ×2 (07:38→15:54)
[2018-03-26] MEDS: Insulin LISPRO 300 UNITS/3 ML VIAL SQ SCH ×3 (07:38→16:54)
[2018-03-26] MEDS ORDERED: *HR* HYDROmorphone (PF) 1 MG/ML SYRINGE IM ONE (13:12)
--- NOTE | 2018-03-26 13:33 | Podiatry Consult Note ---
Addendum entered and electronically signed by Erick Lomeli DPM 03/26/18 17:55: agree with the below. I had a thorough review with the patient regarding her injury/condition, my findings, and recommendations for treatment. We discussed the left ankle fracture dislocation. We discussed surgical intervention including ORIF of the left ankle fracture/discloation using plates, screws, pins or other fixation. We discussed the typical course of recovery and she would need to be nonweightbearing for 8-12 weeks following the procedure. It was explained to the patient that she will have arthritis of her ankle joint due to the nature of her injury and could need future surgery for the ankle arthritis. Nature of the procedure, risks versus benefits potential complications consequences of surgery and her injury discussed at length including but not limited to infection, bleeding, swelling, numbness, tingling, nerve damage, loss of functionality, lack of procedure to produce desired outcome, wound healing problems, liver damage, kidney damage, delayed or non-healing of bone fracture, loss of leg, heart attack, blood clot, , pulmonary embolism, reaction to hardware, need for hardware removal, need for further surgery etc. no guarantees were made as to the outcome of any procedure. Did discuss her postoperative course of recovery and would recommend that she consider going to a nursing facility although she refuses. All of her questions have been answered and the informed consent was signed. art professor to OR. Remain NPO. Original Note: Date of Encounter: 03/26/18 Time of Encounter: 13:00 Assessment and Plan (1) Ankle fracture, left Current visit: Yes Status: Acute Assessment complete at bedside Dressing and posterior splint removed for assessment No fracture blisters or clinical signs of compartment syndrome are noted Pulses are palpable and blood flow appears adequate There are no open lesions or rashes noted There is ecchymosis noted along medial malleolus Plan for ORIF of the left ankle this afternoon with patient NPO after breakfast Cast padding, posterior splint and SHARA wrap replaced to left ankle, comfort noted Patient states she is in severe pain related to dressing change Ok to give 0.5mg dilaudid x1 only- nursing staff at bedside to place order Do not give [place] within 1 hour of administration of dilaudid. Call with any further issues or concerns Elevate and NWB to LLE. All pertinent imaging listed below WBC 7.9 and patient without any clinical evidence of infection Foot X-Ray 03/25/18 22:56 IMPRESSION: Fracture-dislocation of the ankle joint. No acute abnormality left foot. D/ / Josef Bustos MD / Josef Bustos MD Interpreting Provider: Josef Bustos MD Tibia/Fibula X-Ray 03/25/18 22:56 IMPRESSION: No additional fracture in the tibia or fibula above the ankle joint D/ / Josef Bustos MD / Josef Bustos MD Interpreting Provider: Josef Bustos MD Ankle X-Ray 03/26/18 01:34 IMPRESSION: Interval improved alignment and splinting of the trimalleolar fracture dislocation. D/ / Amado Aragon / Amado Aragon Interpreting Provider: Amado Aragon Ankle CT 03/26/18 05:34 IMPRESSION: 1. Acute posttraumatic grade 3 posterolateral tibiotalar subluxation. 2. Comminuted intraarticular distal tibial medial and posterior malleolar fracture with lateral displacement of the malleolar fragments. 3. Comminuted fracture of the distal fibular metadiaphysis which demonstrates posterolateral displacement and apex medial angulation with distal metaphyseal fragment impaction on the talar dome. 4. 1 mm depressed intraarticular impaction fracture of the plantar talar head. D/ / 03/26/2018 07:42:50 Leighton Resendez MD / jaimie Interpreting Provider: Leighton Resendez MD Qualifiers: Encounter type: initial encounter Fracture type: closed Qualified Code(s): S82.892A - Other fracture of left lower leg, initial encounter for closed fracture History of Present Illness HPI: Ms. Ferro is a 77 year old female with a PMH sig for asthma, CHF, coronary artery disease, diabetes, hyperlipidemia, hypertension, myocardial infarction, thyroid disease- Patients daughter at bedside, patient does has hx of dementia but appears to be high functioning. Daughter states that [place] occurred during anesthesia for a colonscopy years ago. Reports that she was told they were not sure if it was related to anesthesia or not, states she did not have any intervention. was admitted to [facility] for management of a left ankle fracture which was reduced in the ED. Patient reports she was at her house, she stood up, became dizzy and the cat ran in front of her which she tripped over. She was then bro ught to [facility]. Fall occured on 03/25/19 Patient denies any recent illness, fevers, chills, n/v or fls Patient reports severe pain 01/15 at this time, nurse reports she is due for CartiCure in 20 min- Patient denies smoking Denies any chest pain or SOB Ankle is wrapped with posterior splint and compression with SHARA Past Med Surg Social Fam HX - Past Medical History Medical history: asthma, CHF, coronary artery disease, diabetes, hyperlipidemia, hypertension, myocardial infarction, thyroid disease Additional medical history: DDD Psychiatric history: no psych history - Past Surgical History Surgical History: cholecystectomy, colectomy, other Additional surgical history: Tubal, cyst removed from back. - Social History Smoking Status: Never smoker Smokeless Tobacco Status: No Alcohol use: none Drug use: none - Family History Mother Adopted: No Family Member Ethnicity: Non- Living Status: Hx Family Cardiac Disorders: Yes Hx Family Respiratory Disorders: No Hx Family Cancer: Yes Hx Family GI Disorders: No Hx Family Endocrine Disorder: No Hx Family Neuromuscular Disorders: No Hx Family Neurologic Disorders: No Hx Family HEENT Disorders: No Hx Family Autoimmune Disorders: No Father Living Status: Hx Family Cardiac Disorders: Yes ([place]) Medications and Allergies Donepezil [Aricept] 10 mg PO HS 03/23/15 [History] Furosemide [Lasix] 40 mg PO DAILY 03/23/15 [History] Levothyroxine [Synthroid] 125 mcg PO DAILY 03/23/15 [History] Potassium Chloride 20 meq PO BID 03/23/15 [History] Pregabalin [Lyrica] 75 mg PO DAILY 03/23/15 [History] Allopurinol [Zyloprim 100 MG] 100 mg PO DAILY 11/25/16 [History] Dicyclomine [Bentyl] 20 mg PO QID PRN 11/25/16 [History] Metoprolol [Lopressor] 50 mg PO BID 11/25/16 [History] Omeprazole [PriLOSEC] 20 mg PO BIDAC 11/25/16 [History] Oxycodone HCl/Acetaminophen [Percocet 5-325 mg Tablet] 1 tab PO Q8H PRN 11/25/16 [History] Sertraline [Zoloft] 100 mg PO DAILY 11/25/16 [History] Valsartan [Diovan] 20 mg PO DAILY 11/25/16 [History] Venlafaxine [Effexor] 75 mg PO DAILY 11/25/16 [History] traZODone [TraZODone] 100 mg PO HS PRN 11/25/16 [History] Simvastatin [Zocor] 40 mg PO HS tab 12/01/16 [Rx] Hyoscyamine SL [Levsin Sl] 0.125 mg SL TID 06/17/17 [History] Insulin ASPART [NovoLOG] 0 unit SQ TIDWM PRN 10/20/17 [History] Insulin Glargine,Hum.rec.anlog [Basaglar Kwikpen U-100] 45 unit SQ BID 10/20/17 [History] Allergy/AdvReac Type Severity Reaction Status Date / Time lisinopril Allergy Gastrointestinal Verified 10/19/17 19:38 Upset All Systems Reviewed: as per HPI Physical Exam - Constitutional Vitals: Temp Pulse Resp BP Pulse Ox 98.3 F 66 18 141/84 97 03/26/18 06:44 03/26/18 06:44 03/26/18 06:44 03/26/18 06:44 03/26/18 06:44 Exam: awake alert and oriented Pulses palpable DP/PT warm toes to tibia edema to foot and left ankle, non pitting Sensation intact to light touch Patient unable to perform any ROM to left ankle. Reports severe pain with light touch. Minimal movement of toes related to pain. There is edema surrounding ankle and entire left foot without any erythema or warmth. no clinical indication of infection noted There is no rash, open lesions or lacerations noted to foot no areas of fluctuance noted to suggest any abscess formation There is ecchymosis noted surrounding the medial malleolus. There is obvious malaligment of the foot and ankle with lateral shift of the foot and medial shift of the ankle. Results - Labs Result Diagrams: 03/25/18 23:00 03/25/18 23:00 Labs: Abnormal lab results Creatinine 1.29 mg/dL (0.60-1.20) H 03/25/18 23:00 Est GFR ( Amer) 49 (> 60) L 03/25/18 23:00 Est GFR (Non-Af Amer) 40 (> 60) L 03/25/18 23:00 Glucose 195 mg/dL (70-105) H 03/25/18 23:00 H & H 03/25/18 Range/Units 23:00 Hgb 12.1 (11.5-15.4) g/dL Hct 35.9 (35.3-44.9) % All other labs normal. Consult Discharge Plan - Plan Referrals: Shaji Vick DO [Primary Care Provider] -
--- NOTE | 2018-03-26 19:24 | Anesthesia Evaluation PreOp ---
Date of Encounter: 03/27/18 Time of Encounter: 19:22 - Past History Planned Operation: L ankle ORIF Cardiac History: MS, HTN, Hyperlipidemia Pulmonary History: Smoker, COPD, CHLOE Dx (on cpap) NEWS REPORTER History: Denies Any Significant HX Other Medical History: Diabetes Type II, Thyroid (hypo), Other (GI bleed) Anesthesia History: No Prior Anesthetic Complications, Past Anesthesia (ERCP) Alcohol Use: none Drug use: none Medications and Allergies Donepezil [Aricept] 10 mg PO HS 03/23/15 [History] Furosemide [Lasix] 40 mg PO DAILY 03/23/15 [History] Levothyroxine [Synthroid] 125 mcg PO DAILY 03/23/15 [History] Potassium Chloride 20 meq PO BID 03/23/15 [History] Pregabalin [Lyrica] 75 mg PO DAILY 03/23/15 [History] Allopurinol [Zyloprim 100 MG] 100 mg PO DAILY 11/25/16 [History] Dicyclomine [Bentyl] 20 mg PO QID PRN 11/25/16 [History] Metoprolol [Lopressor] 50 mg PO BID 11/25/16 [History] Omeprazole [PriLOSEC] 20 mg PO BIDAC 11/25/16 [History] Oxycodone HCl/Acetaminophen [Percocet 5-325 mg Tablet] 1 tab PO Q8H PRN 11/25/16 [History] Sertraline [Zoloft] 100 mg PO DAILY 11/25/16 [History] Valsartan [Diovan] 20 mg PO DAILY 11/25/16 [History] Venlafaxine [Effexor] 75 mg PO DAILY 11/25/16 [History] traZODone [TraZODone] 100 mg PO HS PRN 11/25/16 [History] Simvastatin [Zocor] 40 mg PO HS tab 12/01/16 [Rx] Hyoscyamine SL [Levsin Sl] 0.125 mg SL TID 06/17/17 [History] Insulin ASPART [NovoLOG] 0 unit SQ TIDWM PRN 10/20/17 [History] Insulin Glargine,Hum.rec.anlog [Basaglar Kwikpen U-100] 45 unit SQ BID 10/20/17 [History] Allergy/AdvReac Type Severity Reaction Status Date / Time lisinopril Allergy Gastrointestinal Verified 10/19/17 19:38 Upset - Meds/Allergy Pre-op Review Medications Reviewed: Yes Allergies Reviewed: Yes Beta Blockers on Current Med List: Yes If Beta Blockers taken, Date/Time (Last Dose taken): 1653 03/26/18 Anesthesia Results - Labs 03/25/18 23:00 03/25/18 23:00 - Imaging EKG: report reviewed (SINUS RHYTHM Electronically Signed On 10-23-2017 6:40:38 EDT by Rosas Rodriguez) Additional studies: 10/2017 Impressions: LVEF 60-65%. Mild left ventricular diastolic dysfunction. Normal right ventricular structure and function. Mild-moderate pulmonic regurgitation. No pulmonary hypertension. Anesthesia Exam Vital Signs/O2 Sat, Most Current Temp Pulse Resp BP Pulse Ox 99.1 F 79 15 111/43 94 03/26/18 19:05 03/26/18 19:05 03/26/18 19:05 03/26/18 19:05 03/26/18 19:05 Weight: 71kg - HEENT Pupil (Motor): Pupils equal, EOMI Mallampati: II Teeth: Edentulous Oral Opening: Greater than 3 - NEWS REPORTER LOC: Oriented NEWS REPORTER Motor: Normal RUE, Normal LUE, Normal RLE, Normal LLE, Normal Face NEWS REPORTER Sensory: Normal: RUE, LUE, RLE, LLE, Face - Cardiac Rhythm: Regular - Pulmonary Breath Sounds: bilateral Clear Respiratory Effort: Symmetrical Anesthesia Assess/Plan ASA Score: 3 Level of consciousness: Cooperative Anesthetic Plan: General, Regional Nerve Block Regional Nerve Block Plan: Adductor canal (L), Popliteal (L) Monitoring Plan: Standard Monitors Recovery Plan: PACU
[2018-03-26] MEDS ORDERED: *HR* OxyCODONE Immed Rel 5 MG TABLET PO PRN (22:44)
[2018-03-26] MEDS ORDERED: Ondansetron 4 MG/2 ML VIAL IVP ONE (22:44)
[2018-03-26] MEDS ORDERED: *HR* Meperidine 25 MG/ML SYRINGE IVP PRN (22:44)
[2018-03-26] MEDS ORDERED: *HR* FentaNYL (PF) 100 MCG/2 ML VIAL IVP PRN (22:44)
[2018-03-26] MEDS ORDERED: Ringers Solution, Lactated 1,000 ML IVC SCH (22:45)
[2018-03-26] MEDS ORDERED: Lidocaine -MPF 2% 2 ML VIAL ONE (22:50)
[2018-03-26] MEDS ORDERED: *HR* FentaNYL (PF) 100 MCG/2 ML VIAL ONE (22:50)
[2018-03-26] MEDS ORDERED: *HR* Propofol 200 MG/20 ML VIAL IVP ONE (22:51)
[2018-03-26] MEDS ORDERED: ROPIVACAINE HCL/PF 0.5% 30 ML VIAL ONE (22:55)
[2018-03-26] MEDS ORDERED: Dexamethasone 4 MG/ML VIAL ONE ×2 (22:57→23:56)
[2018-03-26] MEDS ORDERED: Bupivacaine/Clonidine Syringe 1 EACH SYRINGE ONE (23:10)
[2018-03-26] MEDS ORDERED: Bupivacaine/EPI 1:200k 0.25%PF 10 ML VIAL INFILT ONE (23:22)
[2018-03-26] MEDS ORDERED: Ondansetron 4 MG/2 ML VIAL ONE (23:56)
--- NOTE | 2018-03-27 00:11 | Anesthesia Procedures ---
Date of Encounter: 03/27/18 Time of Encounter: 23:30 Procedures: Anesthesia - Nerve Block Procedure Date: 03/26/18 Time: 23:30 Allergies/Adv Reactions: Allergies Allergy/AdvReac Type Severity Reaction Status Date / Time lisinopril Allergy Gastrointestinal Verified 10/19/17 19:38 Upset Pre-op Diagnosis: L ankle fx Surgical Procedure: L ankle ORIF Checklist: Correct Patient Identifier, Correct procedure, History checked Correct side: Left Monitor Applied: EKG, BP, Pulse Oximetry Supplemental Oxygen via Nasal Cannula (L/min): 2 Sedation: Fentanyl (mcg): 100 Indication: Post Op Analgesia Block Type: Popliteal, Other (adductor) Catheter placed: No Sterile Technique: Yes Ultrasound used: Yes Anatomy identified: Yes Visual spread of Local: Yes Neuro Stimulation: Yes Nerve Stimulator Range: 0.2 - 0.4 mA Blood on Needle Aspiration: No Smooth Injection of Local: Yes Pain with Injection of Local: No Prep: Chlorhexadine Needle: 22 x 50 mm Stimuplex, 21 x 100 mm Stimuplex Local: 0.25% Bupivicaine w/Clonidine 20 mcg/cc (20ml for adductor), Ropivacaine (25ml for popliteal) Complications: None/effective block
[2018-03-27] MEDS ORDERED: *HR* OxyCODONE/APAP 5/325 TABLET PO PRN (01:32)
--- NOTE | 2018-03-27 01:45 | Operative Note ---
Date of procedure: 03/27/18 Pre-op diagnosis: left trimalleolar ankle fracture/dislocation Post-op diagnosis: same Procedure: ORIF left trimalleolar ankle fracture Implants: [id number] plate and 2.7 and 3.5 locking and non-locking screws, 3.0mm partially threaded co-lag screws Complications: none Anesthesia: GETA Local Anesthetics: 0.25% Sensorcaine HCL with Epinephrine 1:200,000 SubQ (cc), 1% Lidocaine HCL SubQ (cc) Surgeon: Erick Lomeli Was there an purchasing assistant present: No Estimated blood loss (cc): 15 Tourniquet Time (Minutes): 59 Specimen: none Condition: stable Disposition: PACU Procedure in Detail: Indications: 77-year-old female who sustained a left trimalleolar ankle fracture dislocation which was unable to sufficiently be reduced in the ER, subsequently admitted and being brought to the operating room for ORIF of the trimalleolar ankle fracture. Nature of the procedure, risks versus benefits potential complications consequences of her condition and surgery discussed at length. Patient understood that she will have arthritis due to the nature of her injury. No guarantees were made as to the outcome of any procedure. All of her questions have been answered and the informed consent was signed. Patient was given a popliteal block by anesthesia taken from the preoperative holding area and operating room placed on the operating room table in the supine position. The left lower extremity was scrubbed prepped and draped in the usual sterile fashion. Thigh tourniquet was inflated to 300 mmHg and the following procedure began. ORIF of left trimalleolar ankle fracture. Attention was directed to the lateral aspect of the patient's left ankle were #15 blade was used to make a skin incision approximately 7 cm in length. Skin incision was deepened through blunt dissection all traversing veins were divided and ligated using the Bovie or Vicryl ties as deemed appropriate. Care was taken to avoid neurovascular tendon structures. The periosteal layer was incised and freed from the fibula exposing the fracture zone of the lateral malleolus which was comminuted.. Hematoma was evacuated from the fracture zone. Bone loss was present at the level of the fracture zone. The ankle was held in a reduced position with the talus under the tibia and well aligned and the ankle mortise. C-arm was utilized to confirm reduction of the talus and the ankle mortise and that the fibula was out to length. Reduction clamps were used to stabilize the fracture zone as well as k- wires. Using standard technique an [id number] locking plate was applied using 2.7mm and 3.5 mm locking and nonlocking screws to the lateral aspect of the fibula bridging the fracture zone. The fibula was out to length. The site was flushed with saline irrigation. Stability of the fracture zone was assessed and the fracture zone had good apposition and the ankle was noted to be in good position and alignment on the C-arm. Attention was then directed medially where a #15 blade was used to make a skin incision approximately 4 cm in length over the medial malleolus. Skin incision was deepened through blunt dissection care was taken to avoid neurovascular tendinous structures. Hematoma was evacuated from the fracture zone and periosteum removed from the fracture zone. The medial malleolar fracture fragment was then reduced with a reduction clamp and pinned temporarily. C-arm was utilized to confirm position and alignment of the k-wires traversing the fracture zone. Fracture was noted to be reduced and two 3.0mm partially threaded cannulated [id number] screws were thrown across the fracture zone. No increase in medial clear space was noted and good tib-fib overlap was present. Reduction of the fracture zones of both the medial and lateral malleolus were noted. Attention was then directed laterally where the cotton hook test was performed and no instability was felt to be present at the syndesmosis. The posterior malleolar fragment was small and the decision was made not to fixate the fragment. C-arm was utilized to confirm position and alignment of the fracture zones. There was no increased and medial clear space there was good tib-fib overlap and the talus was aligned in the ankle mortise and the fibula was out to length. Periosteal layers were closed with 2-0 Vicryl subcutaneous tissues were closed with 2-0 Vicryl and the skin was reapproximated with bakari. Postoperative bandaging included Xeroform, 4 x 4 gauze, Kerlix and an adequately padded posterior splint. The patient tolerated the anesthesia and the procedure well and was escorted to the recovery room with vital signs stable and vascular status intact to the left foot noted by instant capillary refill time to all digits of the left foot. Ice and elevation. Strict instructions given for non-weightbearing to the left lower extremity. Patient will return to the floor.
--- NOTE | 2018-03-27 01:48 | Anesthesia Evaluation Post Op ---
Date of Encounter: 03/27/18 Time of Encounter: 01:47 - Vital Signs Vital Signs: Vital Signs/O2 Sat, Most Current Temp Pulse Resp BP Pulse Ox 98.2 F 71 16 134/62 97 03/27/18 01:28 03/27/18 01:38 03/27/18 01:38 03/27/18 01:38 03/27/18 01:38 - Lungs Lungs: Clear Ascult./Percussion - Airway Airway: Non-obstructed - Cardiovascular Regular Rate - Mental Status Mental Status: Asleep with brisk response to light stimulation - Pain Pain Scale: 0 Pain Scale used: Numeric (1 - 10) - Nausea Vomiting Nausea Vomiting: Not Present - Hydration Hydration: NPO - Discharge PostOp Status: Transfer Patient to floor
[2018-03-27] MEDS ORDERED: Acetaminophen 325 MG TABLET PO PRN (02:09)
[2018-03-27] MEDS ORDERED: Naloxone 0.4 MG/ML INJ IVP PRN (02:09)
[2018-03-27] MEDS ORDERED: *HR* Dextrose 50 % in Water (Syg) 50 ML SYRINGE IVP PRN (02:09)
[2018-03-27] MEDS ORDERED: D5% in Water 1,000 ML IVC PRN (02:09)
[2018-03-27] MEDS ORDERED: Ringers Solution, Lactated 1,000 ML IVC SCH (02:09)
[2018-03-27] MEDS ORDERED: Dextrose Gel 15 GM/37.5 ML TUBE PO PRN ×2 (02:09)
[2018-03-27] MEDS ORDERED: Ondansetron 4 MG/2 ML VIAL IVP ONE (02:09)
[2018-03-27 05:50] LABS: Eosinophils % 0.1 %; Hematocrit 34.9 % (35.3-44.9); Hemoglobin 11.2 g/dL (11.5-15.4); Immature Granulocytes % 0.6 % (0-4); Lymphocytes # 0.7 K/mcL (0.6-4.6); Lymphocytes % 10.7 %; Mean Corpuscular HGB Conc 32.1 g/dL (31.6-35.5); Mean Corpuscular Hemoglobin 30.4 pg (28.0-33.3); Mean Corpuscular Volume 94.8 fL (83.0-100.0); Mean Platelet Volume 9.4 fL (9.4-12.4); Monocytes # 0.2 K/mcL (0.0-1.3); Monocytes % 3.5 %; Neutrophils # 5.9 K/mcL (1.6-8.9); Platelet Count 181 K/mcL (140-400); Red Blood Count 3.68 M/mcL (3.82-4.97); Red Cell Distribution Width 12.5 % (11.5-14.5); Segmented Neutrophils % 85.1 %
[2018-03-27 06:15] LABS: Alanine Aminotransferase 26 Units/L (7-52); Albumin 3.3 g/dL (3.5-5.7); Albumin/Globulin Ratio 1.3 (1.1-2.2); Alkaline Phosphatase 100 Units/L (34-104); Aspartate Amino Transferase 51 Units/L (13-39); BUN/Creatinine Ratio 15 (6-26); Bilirubin,Total 0.3 mg/dL (0.3-1.0); Blood Urea Nitrogen 12 mg/dL (8-23); Calcium 8.4 mg/dL (8.6-10.3); Carbon Dioxide 22 mEq/L (23-29); Chloride 108 mEq/L (98-107); Globulin 2.5 g/dL (2.4-3.5); Glucose 246 mg/dL (70-105); Magnesium 1.8 mg/dL (1.6-2.6); Osmolality,Calculated 294 (280-300); Potassium 4.1 mEq/L (3.5-5.1); Sodium 138 mEq/L (136-145); Total Protein 5.8 g/dL (6.4-8.9); eGFR For Non-African Americans > 60 (> 60)
[2018-03-27] MEDS: Insulin LISPRO 300 UNITS/3 ML VIAL SQ SCH ×3 (08:27→17:00)
--- NOTE | 2018-03-27 09:56 | Internal Med Progress Note ---
Hospitalist Progress Note - Encounter Date of Encounter: 03/27/18 Time of Encounter: 09:54 - Subjective Interval History: Pt seen and examined in the room. She just had a surgery earlier this morning. She has no pain, numbness, cold sensation on the left foot. She has no fever, chills, or night sweats. - Exam Vitals: Temp Pulse Resp BP Pulse Ox 98.1 F 73 16 126/72 92 03/27/18 07:24 03/27/18 07:24 03/27/18 07:24 03/27/18 07:24 03/27/18 07:24 Exam: PHYSICAL EXAMINATION: GENERAL APPEARANCE: The patient is alert, oriented and in no acute distress. HEENT: Head is normocephalic. The sinuses are nontender. Pupils are equal and reactive. The nares are patent. Oropharynx clear without lesions. NECK: Supple without lymphadenopathy. HEART: Regular rate and rhythm. LUNGS: No crackles or wheezes are heard. ABDOMEN: Soft, nontender, nondistended with good bowel sounds heard. Inguinal area is normal. EXTREMITIES: left foot toes pink and warm. NEUROLOGICAL: Gross nonfocal. SKIN: Warm and dry without any rash. - Assessment and Plan (1) Ankle fracture, left Current Visit: Yes Status: Acute Assessment and Plan: 77 year old female suffered a fall at home resulting in a left trimalleolar ankle fracture/dislocation, reported lightheadedness prior to fall. she underwent ORIF on 03/27 morning. - Left foot warm and pink, good circulation and neurological function. - Pain control. PT/OT. - Tele monitoring, EKG no acute abnormalities, troponin was negative. Likely cause of lightheadedness is dehydration, ESAU has resolved. - Podiatry following, appreciate help. (2) ESAU (acute kidney injury) Current Visit: Yes Status: Resolved (3) Near syncope Current Visit: Yes Status: Acute Assessment and Plan: She had TTE in October which showed EF 65%, mild LVDD, mod pulm valve regurgitation troponin was normal on serial sets. blood glucose level was normal. EKG was free of acute ST-T changes. likely etiology is dehydration, ESAU resolved. (4) DVT prophylaxis Current Visit: Yes Status: Acute Assessment and Plan: 1. Heparin SQ. (5) IDDM (insulin dependent diabetes mellitus) Current Visit: Yes Status: Chronic Assessment and Plan: 1.SSI and monitor glucose closely. - Time Spent with Patient Total time spent is greater than 50% in coordination of care (as documented) at patient's floor/unit and/or counseling patient: Greater than 35 minutes Plan of Care Discussed with: patient Internal Medicine: Result - Labs CBC & Chem 7: 03/27/18 05:20 03/27/18 05:20 Labs: Short CBC 03/27/18 Range/Units 05:20 WBC 6.9 (4.3-11.1) K/mcL Hgb 11.2 L (11.5-15.4) g/dL Hct 34.9 L (35.3-44.9) % Plt Count 181 (140-400) K/mcL Neutrophils # 5.9 (1.6-8.9) K/mcL BMP 03/27/18 05:20 Sodium 138 Potassium 4.1 Chloride 108 H Carbon Dioxide 22 L BUN 12 Creatinine 0.79 Glucose 246 H Calcium 8.4 L Cardiac Enzymes 03/26/18 Range/Units 10:48 Troponin I < 0.03 (< 0.04) ng/mL Liver Function 03/27/18 Range/Units 05:20 Total Bilirubin 0.3 (0.3-1.0) mg/dL AST 51 H (13-39) Units/L ALT 26 (7-52) Units/L Alkaline Phosphatase 100 (34-104) Units/L Albumin 3.3 L (3.5-5.7) g/dL - ABG Interpretation ABG results: PT/INR, D-dimer PT 11.5 Seconds (9.4-12.1) 03/25/18 23:00 - Impressions Impressions Ankle CT 03/26/18 05:34 IMPRESSION: 1. Acute posttraumatic grade 3 posterolateral tibiotalar subluxation. 2. Comminuted intraarticular distal tibial medial and posterior malleolar fracture with lateral displacement of the malleolar fragments. 3. Comminuted fracture of the distal fibular metadiaphysis which demonstrates posterolateral displacement and apex medial angulation with distal metaphyseal fragment impaction on the talar dome. 4. 1 mm depressed intraarticular impaction fracture of the plantar talar head. D/ / 03/26/2018 07:42:50 Leighton Resendez MD / jaimie Interpreting Provider: Leighton Resendez MD Fluoroscopy 03/27/18 00:00 IMPRESSION: Intraoperative images of the left ankle. Please see operative report for details. D/ / Zach Paula MD / Zach Paula MD Interpreting Provider: Zach Paula MD Consult Discharge Plan - Plan Referrals: Shaji Vick DO [Primary Care Provider] - (1) Ankle fracture, left Qualifiers: Encounter type: initial encounter Fracture type: closed Qualified Code(s): S82.892A - Other fracture of left lower leg, initial encounter for closed fracture
[2018-03-27] MEDS: *HR* OxyCODONE/APAP 5/325 TABLET PO PRN ×3 (10:29→23:18)
--- NOTE | 2018-03-27 12:55 | Podiatry Progress Note ---
Date of Encounter: 03/27/18 Time of Encounter: 08:15 - Assessment and Plan (1) Ankle fracture, left Current Visit: Yes Status: Acute Assessment: S/P left ankle ORIF 03/27/18. Splint in [address]. No strike through noted. Able to wiggle toes. CFT <3 seconds WBC 6.9 HGB 11.2 PLT 181 Plan: Patient to remain NWB LLE. Elevate LLE and may use ice packs to help reduce edema, inflammation, and pain. Follow up with Dr. Lomeli outpatient 1 week from D/C. Qualifiers: Encounter type: initial encounter Fracture type: closed Qualified Code(s): S82.892A - Other fracture of left lower leg, initial encounter for closed fracture Subjective Interval history: Patient sitting in bed eating breakfast. Denies any pain. States feels better overall from last night. Alert and oriented x 3. Objective - Vital Signs Vital Signs: Vital Signs Temp Pulse Resp BP Pulse Ox 03/27/18 10:55 98.2 F 67 17 145/70 93 03/27/18 07:24 98.1 F 73 16 126/72 92 03/27/18 05:36 97.8 F 76 15 119/66 95 03/27/18 04:15 98.0 F 75 16 117/57 95 03/27/18 03:10 98.5 F 71 16 131/48 94 03/27/18 02:35 98.5 F 69 15 129/60 94 03/27/18 02:14 98.1 F 69 16 131/62 95 03/27/18 01:58 68 16 130/64 98 03/27/18 01:48 73 16 123/71 98 03/27/18 01:38 71 16 134/62 97 03/27/18 01:28 98.2 F 71 16 148/77 96 03/26/18 19:05 99.1 F 79 15 111/43 94 03/26/18 16:03 98.0 F 84 18 146/74 94 03/26/18 14:57 98.8 F 73 18 135/73 93 Intake and Output 03/26/18 03/27/18 03/27/18 23:59 07:59 15:59 Intake Total 75 / 75 220 / 220 Output Total 265 / 265 150 / 150 Balance 75 / 75 -265 / -265 70 / 70 Intake: IV Fluids 75 / 75 100 / 100 0.9 % Sodium Chloride 1,000 ML 75 / 75 @ 100 mls/hr IVC .Q10H LISA Rx#: [id number] Ancef 2,000 MG In 0.9 % Sodium 100 / 100 Chloride 100 ML @ 200 mls/hr IVPB Q8HR LISA Rx#:[id number] Oral 0 / 0 120 / 120 Output: Urine 250 / 250 150 / 150 Estimated Blood Loss Other: Meal Breakfast Percent of Meal Consumed 5% Blood Glucose* 123 237 234 - Exam Exam: Constitiutional: Alert and oriented x 3. Vascular: Splint in place left foot, CFT <3 sec to all digits left foot, warm toes left foot, no pain with calf squeeze Neurologic: Denies sensation to touch, absent position sense Dermatologic: Splint in place, no strikethrough noted, no edema noted Musculoskeletal: Able to wiggle toes without difficulty. - Lab Result Diagrams: 03/27/18 05:20 03/27/18 05:20 Labs: Abnormal lab results RBC 3.68 M/mcL (3.82-4.97) L 03/27/18 05:20 Hgb 11.2 g/dL (11.5-15.4) L 03/27/18 05:20 Hct 34.9 % (35.3-44.9) L 03/27/18 05:20 Chloride 108 mEq/L (98-107) H 03/27/18 05:20 Carbon Dioxide 22 mEq/L (23-29) L 03/27/18 05:20 Glucose 246 mg/dL (70-105) H 03/27/18 05:20 POC Glucose 179 mg/dL (70-99) H 03/26/18 07:16 Calcium 8.4 mg/dL (8.6-10.3) L 03/27/18 05:20 AST 51 Units/L (13-39) H 03/27/18 05:20 Serum Total Protein 5.8 g/dL (6.4-8.9) L 03/27/18 05:20 Albumin 3.3 g/dL (3.5-5.7) L 03/27/18 05:20 Consult Discharge Plan - Plan Additional Instructions: Follow up outpatient with Dr. Lomeli 1 week after d/c. Please call and make appointment prior to D/C. Referrals: Shaji Vick DO [Primary Care Provider] - Erick Lomeli DPM [Partnered Physician] -
[2018-03-27] MEDS: *HR* FentaNYL (PF) 100 MCG/2 ML VIAL IVP PRN (18:39)
[2018-03-27] MEDS: Insulin DETEMIR 100 UNIT/ML X5UNITS SQ SCH (23:18)
[2018-03-28 04:59] LABS: Basophils % 0.1 %; Eosinophils # 0.1 K/mcL (0.0-0.6); Eosinophils % 0.5 %; Hematocrit 30.6 % (35.3-44.9); Hemoglobin 10.1 g/dL (11.5-15.4); Immature Granulocytes % 0.6 % (0-4); Lymphocytes # 1.2 K/mcL (0.6-4.6); Lymphocytes % 13.3 %; Mean Corpuscular Hemoglobin 30.3 pg (28.0-33.3); Mean Corpuscular Volume 91.9 fL (83.0-100.0); Monocytes # 1.2 K/mcL (0.0-1.3); Monocytes % 12.5 %; Neutrophils # 6.8 K/mcL (1.6-8.9); Platelet Count 163 K/mcL (140-400); Red Blood Count 3.33 M/mcL (3.82-4.97); Red Cell Distribution Width 12.6 % (11.5-14.5)
[2018-03-28 05:20] LABS: BUN/Creatinine Ratio 17 (6-26); Blood Urea Nitrogen 14 mg/dL (8-23); Calcium 9.1 mg/dL (8.6-10.3); Carbon Dioxide 22 mEq/L (23-29); Chloride 111 mEq/L (98-107); Glucose 211 mg/dL (70-105); Osmolality,Calculated 297 (280-300); Potassium 4.9 mEq/L (3.5-5.1); Sodium 140 mEq/L (136-145); eGFR For Non-African Americans > 60 (> 60)
[2018-03-28 05:27] LABS: Platelet Estimate Normal (Normal)
[2018-03-28] MEDS: (Colestipol Hcl [Colestid] 1 GM) PO SCH ×2 (05:38→09:44)
[2018-03-28] MEDS: Insulin LISPRO 300 UNITS/3 ML VIAL SQ SCH ×3 (08:30→17:05)
[2018-03-28] MEDS: *HR* OxyCODONE/APAP 5/325 TABLET PO PRN ×2 (09:39→14:49)
[2018-03-28] MEDS: Pregabalin 75 MG CAPSULE PO SCH (09:40)
--- NOTE | 2018-03-28 11:04 | Podiatry Progress Note ---
Date of Encounter: 03/28/18 Time of Encounter: 10:30 - Assessment and Plan (1) Ankle fracture, left Current Visit: Yes Status: Acute POD #2 s/p left ORIF per Assessment complete at bedside Dressing to LLE CDI and left intact Healing without complication May be discharged when medically cleared Will be NWB to LLE- Elevate and ice as needed for pain control Dressing to stay in place until seen next week Will need follow up appointment in podiatry office in 1 week. Call sooner for uncontrolled pain, fevers, chills, n/v fls, calf pain or trauma. Patient will need discharged on appropriate pain medication to control pain, states she is already on percocet 5mg/325 for back pain at home, consider additional dosing for breakthrough pain or added medication to allow for 1-2 tablets for a total of 10mg as needed for pain for 5 days. Also recommend xarelto 10mg once daily 14 days for VTE prophylaxis PT/OT eval prior to discharge for possible ECF placement Foot X-Ray 03/25/18 22:56 IMPRESSION: Fracture-dislocation of the ankle joint. No acute abnormality left foot. D/ / Josef Bustos MD / Josef Bustos MD Interpreting Provider: Josef Bustos MD Tibia/Fibula X-Ray 03/25/18 22:56 IMPRESSION: No additional fracture in the tibia or fibula above the ankle joint D/ / Josef Bustos MD / Josef Bustos MD Interpreting Provider: Josef Bustos MD Ankle X-Ray 03/26/18 01:34 IMPRESSION: Interval improved alignment and splinting of the trimalleolar fracture dislocation. D/ / Amado Aragon / Amado Aragon Interpreting Provider: Amado Aragon Ankle CT 03/26/18 05:34 IMPRESSION: 1. Acute posttraumatic grade 3 posterolateral tibiotalar subluxation. 2. Comminuted intraarticular distal tibial medial and posterior malleolar fracture with lateral displacement of the malleolar fragments. 3. Comminuted fracture of the distal fibular metadiaphysis which demonstrates posterolateral displacement and apex medial angulation with distal metaphyseal fragment impaction on the talar dome. 4. 1 mm depressed intraarticular impaction fracture of the plantar talar head. D/ / 03/26/2018 07:42:50 Leighton Resendez MD / jaimie Interpreting Provider: Leighton Resendez MD Qualifiers: Encounter type: initial encounter Fracture type: closed Qualified Code( s): S82.892A - Other fracture of left lower leg, initial encounter for closed fracture Subjective Interval history: Patient POD #2 ORIF of the left ankle per strorts. Patient sleeping on arrival- states she recently took a norco. Denies any pain. States feels better overall. Alert and oriented x 3. Dressing to LLE CDI. Patient denies any fevers, chills, n/v or fls. Patient denies any calf pain or SOB Objective - Vital Signs Vital Signs: Vital Signs Temp Pulse Resp BP Pulse Ox 03/28/18 06:38 98.1 F 65 16 96/68 97 03/28/18 04:02 98.6 F 66 16 95/52 97 03/27/18 19:01 99.9 F H 81 16 119/73 95 03/27/18 18:28 99.8 F H 83 20 131/72 96 03/27/18 15:03 98.2 F 71 17 124/64 93 Intake and Output 03/27/18 03/28/18 03/28/18 23:59 07:59 15:59 Intake Total 0 / 0 240 / 240 Output Total 150 / 150 300 / 300 Balance -150 / -150 -300 / -300 240 / 240 Intake: Oral 0 / 0 240 / 240 Output: Urine 150 / 150 300 / 300 Other: Meal Breakfast Percent of Meal Consumed 80% Weight 74.9 kg Blood Glucose* 238 188 Patient Weight 03/28/18 23:59 Weight 74.9 kg - Exam Exam: Awake, alert and oriented Dressing to LLE left intact No calf pain or warmth with manual compression Toes warm to touch, cap refill <3 seconds Movement of toes intact Sensation intact with light touch. - Lab Result Diagrams: 03/28/18 04:29 03/28/18 04:29 Labs: Abnormal lab results RBC 3.33 M/mcL (3.82-4.97) L 03/28/18 04:29 Hgb 10.1 g/dL (11.5-15.4) L 03/28/18 04:29 Hct 30.6 % (35.3-44.9) L 03/28/18 04:29 Chloride 111 mEq/L (98-107) H 03/28/18 04:29 Carbon Dioxide 22 mEq/L (23-29) L 03/28/18 04:29 Glucose 211 mg/dL (70-105) H 03/28/18 04:29 POC Glucose 238 mg/dL (70-99) H 03/27/18 21:28 AST 51 Units/L (13-39) H 03/27/18 05:20 Serum Total Protein 5.8 g/dL (6.4-8.9) L 03/27/18 05:20 Albumin 3.3 g/dL (3.5-5.7) L 03/27/18 05:20 Consult Discharge Plan - Plan Additional Instructions: Follow up outpatient with Dr. Lomeli 1 week after d/c. Please call and make appointment prior to D/C. Referrals: Erick Lomeli DPM [Partnered Physician] - Shaji Vick DO [Primary Care Provider] -
[2018-03-28] MEDS: *HR* FentaNYL (PF) 100 MCG/2 ML VIAL IVP PRN (12:03)
--- NOTE | 2018-03-28 12:03 | Internal Med Progress Note ---
Hospitalist Progress Note - Encounter Date of Encounter: 03/28/18 Time of Encounter: 12:01 - Subjective Interval History: Patient had ORIF yesterday morning, she experienced severe left foot pain last night. Pain medication was prescribed, patient currently has no pain. PT/OT has been working with patient this morning. - Exam Vitals: Temp Pulse Resp BP Pulse Ox 98.2 F 69 15 114/69 96 03/28/18 11:39 03/28/18 11:39 03/28/18 11:39 03/28/18 11:39 03/28/18 11:39 Exam: PHYSICAL EXAMINATION: GENERAL APPEARANCE: The patient is alert, oriented and in no acute distress. HEENT: Head is normocephalic. The sinuses are nontender. Pupils are equal and reactive. The nares are patent. Oropharynx clear without lesions. NECK: Supple without lymphadenopathy. HEART: Regular rate and rhythm. LUNGS: No crackles or wheezes are heard. ABDOMEN: Soft, nontender, nondistended with good bowel sounds heard. Inguinal area is normal. EXTREMITIES: left foot toes pink and warm. NEUROLOGICAL: Gross nonfocal. SKIN: Warm and dry without any rash. - Assessment and Plan (1) Ankle fracture, left Current Visit: Yes Status: Acute Assessment and Plan: 77 year old female suffered a fall at home resulting in a left trimalleolar ankle fracture/dislocation, reported lightheadedness prior to fall. she underwent ORIF on 03/27 morning. - Left foot warm and pink, good circulation and neurological function. - Pain control. PT/OT. - Tele monitoring, EKG no acute abnormalities, troponin was negative. Likely cause of lightheadedness is dehydration, ESAU has resolved. - Podiatry following, appreciate help. - PT/OT recommended rehabilitation, but patient wanted to go home with home health and PT/OT, we will arrange, plan to discharge in the morning. (2) ESAU (acute kidney injury) Current Visit: Yes Status: Resolved (3) Near syncope Current Visit: Yes Status: Acute Assessment and Plan: She had TTE in October which showed EF 65%, mild LVDD, mod pulm valve regurgitation troponin was normal on serial sets. blood glucose level was normal. EKG was free of acute ST-T changes. likely etiology is dehydration, ESAU resolved. (4) DVT prophylaxis Current Visit: Yes Status: Acute Assessment and Plan: 1. Heparin SQ. (5) IDDM (insulin dependent diabetes mellitus) Current Visit: Yes Status: Chronic Assessment and Plan: 1.SSI and monitor glucose closely. - Time Spent with Patient Total time spent is greater than 50% in coordination of care (as documented) at patient's floor/unit and/or counseling patient: Greater than 35 minutes Plan of Care Discussed with: patient Internal Medicine: Result - Labs CBC & Chem 7: 03/28/18 04:29 03/28/18 04:29 Labs: Short CBC 03/28/18 Range/Units 04:29 WBC 9.3 (4.3-11.1) K/mcL Hgb 10.1 L (11.5-15.4) g/dL Hct 30.6 L (35.3-44.9) % Plt Count 163 (140-400) K/mcL Neutrophils # 6.8 (1.6-8.9) K/mcL BMP 03/28/18 04:29 Sodium 140 Potassium 4.9 Chloride 111 H Carbon Dioxide 22 L BUN 14 Creatinine 0.83 Glucose 211 H Calcium 9.1 - ABG Interpretation ABG results: PT/INR, D-dimer PT 11.5 Seconds (9.4-12.1) 03/25/18 23:00 Consult Discharge Plan - Plan Additional Instructions: Follow up outpatient with Dr. Lomeli 1 week after d/c. Please call and make appointment prior to D/C. Referrals: Erick Lomeli DPM [Partnered Physician] - Shaji Vick DO [Primary Care Provider] - (1) Ankle fracture, left Qualifiers: Encounter type: initial encounter Fracture type: closed Qualified Code(s): S82.892A - Other fracture of left lower leg, initial encounter for closed fracture
--- NOTE | 2018-03-28 13:46 | Physician Discharge Referral ---
Home Health/Hosp Referral Info Transfer to: Home Health Provider in Charge Post Discharge: PCP - Diagnosis (1) Ankle fracture, left Priority: Primary Status: Acute (2) ESAU (acute kidney injury) Priority: Primary Status: Resolved (3) Near syncope Priority: Primary Status: Acute (4) DVT prophylaxis Priority: Primary Status: Acute (5) IDDM (insulin dependent diabetes mellitus) Priority: Secondary Status: Chronic - Respiratory Orders Smoking Cessation: Smoking cessation has been advised. For more information, call the [place] Tobacco Quit Line at 7-268-SDPQ-NOW. - Services Needed Following services are medically necessary services: Nursing, Physical Therapy - Transfer Medications Home Medications: Pregabalin [Lyrica] 75 mg PO DAILY 03/23/15 [History] Allopurinol [Zyloprim 100 MG] 100 mg PO DAILY 11/25/16 [History] Metoprolol [Lopressor] 50 mg PO BID 11/25/16 [History] Omeprazole [PriLOSEC] 20 mg PO BIDAC 11/25/16 [History] Oxycodone HCl/Acetaminophen [Percocet 5-325 mg Tablet] 1 tab PO Q6H PRN 11/25/16 [History] Venlafaxine [Effexor] 75 mg PO DAILY 11/25/16 [History] Simvastatin [Zocor] 40 mg PO HS tab 12/01/16 [Rx] Insulin ASPART [NovoLOG] 0 unit SQ TIDWM PRN 10/20/17 [History] Insulin Glargine,Hum.rec.anlog [Basaglar Kwikpen U-100] 50 unit SQ BID 10/20/17 [History] Albuterol Sulfate [Proair Hfa] 2 puff IH Q4H PRN 03/27/18 [History] Colestipol HCl [Colestid] 1 gm PO BID 03/27/18 [History] Donepezil HCl [Aricept] 10 mg PO HS 03/27/18 [History] Furosemide [Lasix] 40 mg PO DAILY 03/27/18 [History] Olmesartan Medoxomil [Benicar] 5 mg PO DAILY 03/27/18 [History] Potassium Chloride 40 meq PO BID 03/27/18 [History] Sertraline [Zoloft] 150 mg PO DAILY 03/27/18 [History] traZODone [TraZODone] 150 mg PO HS 03/27/18 [History] Allergies/Adverse Reactions: Allergy/AdvReac Type Severity Reaction Status Date / Time lisinopril Allergy Gastrointestinal Verified 10/19/17 19:38 Upset Certification: Further, I certify that my clinical findings support that this patient is homebound (i.e. absences from home require considerable and taxing effort and are for medical reasons or evangelical services or infrequently or short duration when for other reasons) because: Homebound Reason: Patient requires assistance of a person or device to safely leave home Attestation: My signature below is to certify that this patient is under my care and that I, or nurse practitioner, or a physician's hospital medical assistant working with me, has a [id number] encounter with this patient.
[2018-03-28] MEDS: OXYCODONE Oral CONC 10 MG/0.5 ML ORAL.SYG SL PRN ×2 (16:04→20:31)
[2018-03-28] MEDS: Insulin DETEMIR 100 UNIT/ML X5UNITS SQ SCH (20:31)
[2018-03-29] MEDS: OXYCODONE Oral CONC 10 MG/0.5 ML ORAL.SYG SL PRN ×3 (03:53→16:14)
[2018-03-29 05:00] LABS: Basophils % 0.1 %; Eosinophils # 0.2 K/mcL (0.0-0.6); Eosinophils % 2.1 %; Hematocrit 31.6 % (35.3-44.9); Hemoglobin 10.1 g/dL (11.5-15.4); Immature Granulocytes % 0.5 % (0-4); Lymphocytes # 1.2 K/mcL (0.6-4.6); Lymphocytes % 15.6 %; Mean Corpuscular Hemoglobin 30.1 pg (28.0-33.3); Mean Platelet Volume 9.3 fL (9.4-12.4); Monocytes % 13.7 %; Neutrophils # 5.1 K/mcL (1.6-8.9); Platelet Count 181 K/mcL (140-400); Red Blood Count 3.36 M/mcL (3.82-4.97); Red Cell Distribution Width 12.7 % (11.5-14.5)
[2018-03-29 05:19] LABS: BUN/Creatinine Ratio 13 (6-26); Blood Urea Nitrogen 9 mg/dL (8-23); Calcium 8.7 mg/dL (8.6-10.3); Carbon Dioxide 28 mEq/L (23-29); Chloride 105 mEq/L (98-107); Glucose 210 mg/dL (70-105); Osmolality,Calculated 293 (280-300); Potassium 3.8 mEq/L (3.5-5.1); Sodium 139 mEq/L (136-145); eGFR For Non-African Americans > 60 (> 60)
[2018-03-29] MEDS: Pregabalin 75 MG CAPSULE PO SCH (07:52)
[2018-03-29] MEDS: Insulin LISPRO 300 UNITS/3 ML VIAL SQ SCH ×3 (07:53→16:52)
--- NOTE | 2018-03-29 11:15 | Internal Med Progress Note ---
Hospitalist Progress Note - Encounter Date of Encounter: 03/29/18 Time of Encounter: 11:13 - Subjective Interval History: Complain of pain but but better with oxycodone. Not able to ambulate. Physiotherapist on board and recommended for SNF. Review the lab. Denies fever or chills nausea vomiting headache dizziness abdominal pain diarrhea. - Exam Vitals: Temp Pulse Resp BP Pulse Ox 98.2 F 62 14 110/70 97 03/29/18 10:46 03/29/18 10:46 03/29/18 10:46 03/29/18 10:46 03/29/18 10:46 Exam: PHYSICAL EXAMINATION: GENERAL APPEARANCE: The patient is alert, oriented and in no acute distress. HEENT: PERRLA EOMI NECK: Supple HEART: Regular rate and rhythm. LUNGS: Bilateral wheezing heard. History of asthma not on DuoNeb at present ABDOMEN: Soft, nontender, nondistended positive bowel sounds EXTREMITIES: left foot toes pink and warm. NEUROLOGICAL: Gross intact. Not ambulating. - Assessment and Plan (1) Ankle fracture, left Current Visit: Yes Status: Acute Assessment and Plan: Status post fall and had left trimalleolar ankle fracture/dislocation. ORIF on 03/27 morning. Not tolerating physiotherapy well. second time worker on board and working for the placement possibly Monday as today tense giving holiday. Continue oxycodone for better pain control and will make further adjustment in doses as if needed. Continue PT OT. Live Am[employer] Inspector's on board. (2) ESAU (acute kidney injury) Current Visit: Yes Status: Resolved Assessment and Plan: Resolved. Avoid nephrotoxic drugs (3) Near syncope Current Visit: Yes Status: Acute Assessment and Plan: Not symptomatic at this time. She had TTE in October which showed EF 65%, mild LVDD, mod pulm valve regurgitation troponin was normal on serial sets. blood glucose level was normal. EKG was free of acute ST-T changes. likely etiology is dehydration, ESAU resolved. (4) DVT prophylaxis Current Visit: Yes Status: Acute Assessment and Plan: Xarelto oral for 14 days (5) IDDM (insulin dependent diabetes mellitus) Current Visit: Yes Status: Chronic Assessment and Plan: Accu-Chek and continue SSI . Diabetic diet. - Time Spent with Patient Total time spent is greater than 50% in coordination of care (as documented) at patient's floor/unit and/or counseling patient: less than 15 minutes Plan of Care Discussed with: case management Internal Medicine: Result - Labs CBC & Chem 7: 03/29/18 04:46 03/29/18 04:46 Labs: Short CBC 03/29/18 Range/Units 04:46 WBC 7.6 (4.3-11.1) K/mcL Hgb 10.1 L (11.5-15.4) g/dL Hct 31.6 L (35.3-44.9) % Plt Count 181 (140-400) K/mcL Neutrophils # 5.1 (1.6-8.9) K/mcL BMP 03/29/18 04:46 Sodium 139 Potassium 3.8 Chloride 105 Carbon Dioxide 28 BUN 9 Creatinine 0.72 Glucose 210 H Calcium 8.7 - ABG Interpretation ABG results: PT/INR, D-dimer PT 11.5 Seconds (9.4-12.1) 03/25/18 23:00 Consult Discharge Plan - Plan Additional Instructions: Follow up outpatient with Dr. Lomeli 1 week after d/c. Please call and make a ppointment prior to D/C. Referrals: Erick Lomeli DPM [Partnered Physician] - Shaji Vick DO [Primary Care Provider] - (1) Ankle fracture, left Qualifiers: Encounter type: subsequent encounter Fracture type: closed
[2018-03-29] MEDS ORDERED: *HR* Rivaroxaban 10 MG TABLET PO SCH (17:00)
[2018-03-29] MEDS: *HR* OxyCODONE/APAP 5/325 TABLET PO PRN (20:39)
[2018-03-29] MEDS: Insulin DETEMIR 100 UNIT/ML X5UNITS SQ SCH (20:40)
[2018-03-29] MEDS ORDERED: traZODone 50 MG TABLET PO SCH (21:00)
[2018-03-30] MEDS: Pregabalin 75 MG CAPSULE PO SCH (09:07)
[2018-03-30] MEDS: *HR* OxyCODONE/APAP 5/325 TABLET PO PRN (09:08)
[2018-03-30] MEDS: Insulin LISPRO 300 UNITS/3 ML VIAL SQ SCH ×2 (09:10→12:26)
--- NOTE | 2018-03-30 11:15 | Discharge Summary ---
- NOTES TO OUTPATIENT PROVIDER Notes to Outpatient Provider: Follow-up with orthopedic in one week. Continue DVT prophylaxis Xarelto for 14 days. Home health care with PT OT. Follow with primary care physician in 3-5 days Orders not resulted at time of discharge: Pending orders 03/25/18 23:00 EKG [ECG 12 lead ECG] [ECG] Stat 03/26/18 22:47 US anesthesia pain block [US] Stat 03/27/18 XR ankle complete min 3V LT [XR] Routine Date of Encounter: 03/30/18 Time of Encounter: 11:13 - Discharge Diagnosis (1) Ankle fracture, left Priority: Primary Status: Acute Assessment and Plan: Status post fall and had left trimalleolar ankle fracture/dislocation. ORIF on 03/27 morning. PT OT on board and recommended for inpatient rehabilitation but patient is refusing therefore consulted social media marketing manager and decided to discharge patient home with home health care physiotherapy. Patient has good family support. Percocet 5/325 one tablet by mouth every 4 hours when necessary for pain management and further needs to be followed by the PCP. Patient already has appointment with specialty sales representative in 1 week, recommended DVT prophylaxis by Xarelto 10 mg orally for 14 days. Qualifiers: Encounter type: subsequent encounter Fracture type: closed Qualified Code(s): S82.892D - Other fracture of left lower leg, subsequent encounter for closed fracture with routine healing (2) ESAU (acute kidney injury) Priority: Primary Status: Resolved Assessment and Plan: Resolved. Avoid nephrotoxic drugs (3) Near syncope Priority: Primary Status: Acute Assessment and Plan: Not symptomatic at this time. She had TTE in October which showed EF 65%, mild LVDD, mod pulm valve regurgitation troponin was normal on serial sets. blood glucose level was normal. EKG was free of acute ST-T changes. likely etiology is dehydration, ESAU resolved. (4) DVT prophylaxis Priority: Primary Status: Acute Assessment and Plan: Xarelto oral for 14 days Hospital course: Ms. Ferro is a 77 year old female got admitted for left ankle fracture after mechanical fall. Fisher Mussel was consulted and who did perform open reduction and internal fixation surgery. Patient has been recovering well post operatively. Physiotherapist recommended for inpatient rehabilitation but patient declined and has been adamant to go home therefore social media marketing manager arrange for home health care with physiotherapy. Patient needs to follow with PCP and also specialty sales representative as as mentioned. Please see details in diagnosis section of the discharge summary. At the time of discharge her pain is optimally controlled on current dose of Percocet, tolerating a regular diet with no acute distress. Discharge discussed with: patient, nurse, social work, case management - Time Spent with Patient Total time spent providing and/or coordinating discharge services: Greater than 30 minutes - Discharge Medications Home Medications: Pregabalin [Lyrica] 75 mg PO DAILY 03/23/15 [History] Allopurinol [Zyloprim 100 MG] 100 mg PO DAILY 11/25/16 [History] Metoprolol [Lopressor] 50 mg PO BID 11/25/16 [History] Omeprazole [PriLOSEC] 20 mg PO BIDAC 11/25/16 [History] Oxycodone HCl/Acetaminophen [Percocet 5-325 mg Tablet] 1 tab PO Q6H PRN 11/25/16 [History] Venlafaxine [Effexor] 75 mg PO DAILY 11/25/16 [History] Simvastatin [Zocor] 40 mg PO HS tab 12/01/16 [Rx] Insulin ASPART [NovoLOG] 0 unit SQ TIDWM PRN 10/20/17 [History] Insulin Glargine,Hum.rec.anlog [Basaglar Kwikpen U-100] 50 unit SQ BID 10/20/17 [History] Albuterol Sulfate [Proair Hfa] 2 puff IH Q4H PRN 03/27/18 [History] Colestipol HCl [Colestid] 1 gm PO BID 03/27/18 [History] Donepezil HCl [Aricept] 10 mg PO HS 03/27/18 [History] Furosemide [Lasix] 40 mg PO DAILY 03/27/18 [History] Olmesartan Medoxomil [Benicar] 5 mg PO DAILY 03/27/18 [History] Potassium Chloride 40 meq PO BID 03/27/18 [History] Sertraline [Zoloft] 150 mg PO DAILY 03/27/18 [History] traZODone [TraZODone] 150 mg PO HS 03/27/18 [History] OxyCODONE/APAP 5/325 [Percocet 5/325 MG] 1 each PO Q4HR PRN 3 Days #15 tablet 03/30/18 [Rx] Rivaroxaban [Xarelto] 10 mg PO 1700 #14 tablet 03/30/18 [Rx] Allergies/Adverse Reactions: Allergy/AdvReac Type Severity Reaction Status Date / Time lisinopril Allergy Gastrointestinal Verified 10/19/17 19:38 Upset Date of admission: 03/28/18 18:25 Primary care physician: Shaji Vick DO Consults: 03/26/18 00:47 Consult to Podiatry [CONS] Stat Consulting Provider: [facility] Reason for Consult: ankle fracture/dislocation/ Call Completed: Yes 03/26/18 04:31 Consult to Pastoral Services [CONS] Routine Comment: 03/26/18 13:30 Consult to Physical Therapy [CONS] Routine Comment: Evaluate, develop and implement POC Reason for Consult: discharge planning Does patient have active BEDREST order?: No Is patient medically & hemodynamically stable?: Yes Patient assessed for mobility or mobilized this visit?: Yes OT [Consult to Occupational Therapy] [CONS] Routine Comment: Evaluate, develop and implement POC Reason for Consult: discharge planning Does patient have active BEDREST order?: No Is patient medically & hemodynamically stable?: Yes Patient assessed for mobility or mobilized this visit?: Yes 03/27/18 01:31 Consult to Physical Therapy [CONS] Routine Comment: Evaluate, develop and implement POC Reason for Consult: non-weight bearing left lower extremity Does patient have active BEDREST order?: No Is patient medically & hemodynamically stable?: Yes 03/27/18 01:32 Consult to Occupational Therapy [CONS] Routine Comment: Evaluate, develop and implement POC Reason for Consult: discharge planning Does patient have active BEDREST order?: No Is patient medically & hemodynamically stable?: Yes - Constitutional Vitals: Temp Pulse Resp BP Pulse Ox 98.5 F 69 16 106/58 93 03/30/18 07:22 03/30/18 07:22 03/30/18 07:22 03/30/18 07:22 03/30/18 07:22 General appearance: Present: cooperative, A&O X 3, pleasant, answers questions appropriately Exam: General appearance: No acute distress, A&O X 3 Head exam: Atraumatic Eye exam: EOMI, PERRLA ENT exam: Moist oral mucosa Neck nontender, supple Respiratory exam: Clear to auscultation bilaterally Cardiovascular exam: Regular rate and rhythm, no systolic murmur Abdominal exam: Soft, nontender, nondistended, positive bowel sounds Extremities exam: Left ankle surgery, tender, moving all toes Neurological exam: CN II-XII intact, no focal deficits. No facial droop. Normal speech. - Patient Status Disposition: Home Health Service Condition: Fair Overall status at discharge: patient is not back to baseline - Discharge Instructions Follow Up With: Erick Lomeli DPM [Partnered Physician] - Shaji Vick DO [Primary Care Provider] - Additional Instructions: Follow up outpatient with Dr. Lomeli 1 week after d/c. Please call and make appointment prior to D/C. - Diet and Activity Activity: as per physical therapy Diet: advance to your usual diet
[2018-03-30 12:25] VITALS: BP 113/67
== END 2018-03-30 15:19 | disposition home health service (06) | DRG 493 ==
LOC: 3NENU 22:44 → EMEROOARM 22:44 → 3NENU 03-26 03:43 → 3ANU 03-26 15:57
PROVIDERS: ADMIT Internal Medicine; ATTEND Internal Medicine

== ENCOUNTER 2019-01-05 19:14 | Observation (INO) ==
[2019-01-05] MEDS ORDERED: Isovue-370 500 ML BOTTLE IVP ONE (19:45)
--- NOTE | 2019-01-05 20:27 | Emergency Department Note ---
Disposition Clinical Impression: Chest pain, Diverticulosis, Chronic abdominal pain Disposition: Admitted As Inpatient Condition: Fair Referrals: Shaji Vick DO [Primary Care Provider] - Forms: ED Satisfaction Letter Time of Disposition: 23:18 General Adult HPI - General Chief complaint: ED Chest Pain Stated complaint: Chest pain Time Seen by Provider: 01/05/19 19:28 Source: EMS Mode of arrival: EMS Limitations: no limitations Nursing Notes Reviewed: Yes Vital Signs Reviewed: Yes - History of Present Illness Pain Scale: 5 - Related Data Home Medications Medication Instructions Recorded Confirmed Pregabalin [Lyrica] 75 mg PO DAILY 03/23/15 03/27/18 Allopurinol [Zyloprim 100 MG] 100 mg PO DAILY 11/25/16 03/27/18 Metoprolol [Lopressor] 50 mg PO BID 11/25/16 03/27/18 Omeprazole [PriLOSEC] 20 mg PO BIDAC 11/25/16 03/27/18 Oxycodone HCl/Acetaminophen 1 tab PO Q6H PRN 11/25/16 03/27/18 [Percocet 5-325 mg Tablet] Venlafaxine [Effexor] 75 mg PO DAILY 11/25/16 03/28/18 Insulin ASPART [NovoLOG] 0 unit SQ TIDWM PRN 10/20/17 03/27/18 Insulin Glargine,Hum.rec.anlog 50 unit SQ BID 10/20/17 03/27/18 [Basaglar Kwikpen U-100] Albuterol Sulfate [Proair Hfa] 2 puff IH Q4H PRN 03/27/18 03/27/18 Colestipol HCl [Colestid] 1 gm PO BID 03/27/18 03/27/18 Donepezil HCl [Aricept] 10 mg PO HS 03/27/18 03/27/18 Furosemide [Lasix] 40 mg PO DAILY 03/27/18 03/27/18 Olmesartan Medoxomil [Benicar] 5 mg PO DAILY 03/27/18 03/27/18 Potassium Chloride 40 meq PO BID 03/27/18 03/27/18 Sertraline [Zoloft] 150 mg PO DAILY 03/27/18 03/27/18 traZODone [TraZODone] 150 mg PO HS 03/27/18 03/27/18 Previous Rx's Medication Instructions Recorded Simvastatin [Zocor] 40 mg PO HS tab 12/01/16 Rivaroxaban [Xarelto] 10 mg PO 1700 #14 tablet 03/30/18 Potassium Chloride 20 meq PO DAILY #5 tab.er.prt 10/30/18 Allergies Allergy/AdvReac Type Severity Reaction Status Date / Time lisinopril Allergy Gastrointestinal Verified 10/19/17 19:38 Upset Past Medical History - Past Medical History Medical history: Reports: asthma, CHF, coronary artery disease, diabetes, hyperlipidemia, hypertension, myocardial infarction, thyroid disease Surgical history: Reports: cholecystectomy, colectomy, other Psychiatric history: Reports: no psych history [employer]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 - Social History Smoking Status: Never smoker Smokeless Tobacco Status: No Alcohol use: Reports: none Drug use: Reports: none Physical Exam - General Limitations: no limitations General appearance: alert Course Vital Signs Temperature 98.8 F 01/05/19 19:21 Pulse Rate 56 01/05/19 19:21 Respiratory Rate 12 01/05/19 19:21 Blood Pressure 150/76 01/05/19 19:21 O2 Sat by Pulse Oximetry 98 01/05/19 19:21 Temperature 98.8 F 01/05/19 19:21 Pulse Rate 56 01/05/19 19:21 Respiratory Rate 12 01/05/19 19:21 Blood Pressure 150/76 01/05/19 19:21 O2 Sat by Pulse Oximetry 98 01/05/19 22:36 Oxygen Delivery Oxygen Delivery Room Air Medical Decision Making - Lab Data Result diagrams: 01/05/19 20:18 01/05/19 20:18 Lab Results 01/05/19 01/05/19 01/05/19 Range/Units 20:18 20:18 20:18 WBC (4.3-11.1) K/mcL RBC (3.82-4.97) M/mcL Hgb (11.5-15.4) g/dL Hct (35.3-44.9) % MCV (83.0-100.0) fL MCH (28.0-33.3) pg MCHC (31.6-35.5) g/dL RDW (11.5-14.5) % Plt Count (140-400) K/mcL MPV (9.4-12.4) fL Immature Gran % (0-4) % Seg Neutrophils % % Lymphocytes % % Monocytes % % Eosinophils % % Basophils % % Neutrophils # (1.6-8.9) K/mcL Lymphocytes # (0.6-4.6) K/mcL Monocytes # (0.0-1.3) K/mcL Eosinophils # (0.0-0.6) K/mcL Basophils # (0.0-0.2) K/mcL PT 11.7 (9.4-12.1) Seconds INR 1.0 APTT 31.7 (26.0-36.0) Seconds Sodium (136-145) mEq/L Potassium (3.5-5.1) mEq/L Chloride (98-107) mEq/L Carbon Dioxide (23-29) mEq/L BUN (8-23) mg/dL Creatinine (0.60-1.20) mg/dL Est GFR ( Amer) (> 60) Est GFR (Non-Af Amer) (> 60) BUN/Creatinine Ratio (6-26) Glucose (70-105) mg/dL Calculated Osmolality (280-300) Lactic Acid 1.2 (0.5-2.2) mmol/L Calcium (8.6-10.3) mg/dL Total Bilirubin 0.2 L (0.3-1.0) mg/dL Direct Bilirubin 0.0 (0.0-0.2) mg/dL Indirect Bilirubin 0.2 (0.0-1.2) mg/dL AST 13 (13-39) Units/L ALT 7 (7-52) Units/L Alkaline Phosphatase 79 (34-104) Units/L Troponin I (< 0.04) ng/mL B-Natriuretic Peptide (Less than 100) pg/mL Serum Total Protein 6.1 L (6.4-8.9) g/dL Albumin 3.5 (3.5-5.7) g/dL Globulin 2.6 (2.4-3.5) g/dL Albumin/Globulin Ratio 1.3 (1.1-2.2) Lipase 30 (11-82) Units/L Urine Color (Yellow) Urine Clarity (Clear) Urine pH (5.0-8.0) pH Units Ur Specific Purchase (1.010-1.025) Urine Protein (Neg-Trace) mg/dL Urine Glucose (UA) (Normal) mg/dL Urine Ketones (Negative) mg/dL Urine Blood (Negative) Urine Nitrite (Negative) Urine Bilirubin (Negative) Urine Urobilinogen (Normal) mg/dL Ur Leukocyte Esterase (Negative) Urine Microscopic RBC (0-3) per hpf Urine Microscopic WBC (0-3) per hpf Ur Squamous Epith Cells (None-Few) per lpf Urine Bacteria (None-Few) per hpf Hyaline Casts (None-Few) per lpf Ur Culture Indicated? (NO) 01/05/19 01/05/19 01/05/19 Range/Units 20:18 20:18 20:18 WBC 6.8 (4.3-11.1) K/mcL RBC 3.89 (3.82-4.97) M/mcL Hgb 11.1 L D (11.5-15.4) g/dL Hct 34.1 L (35.3-44.9) % MCV 87.7 (83.0-100.0) fL MCH 28.5 (28.0-33.3) pg MCHC 32.6 (31.6-35.5) g/dL RDW 13.9 (11.5-14.5) % Plt Count 196 (140-400) K/mcL MPV 9.4 (9.4-12.4) fL Immature Gran % 0.3 (0-4) % Seg Neutrophils % 61.9 % Lymphocytes % 23.4 % Monocytes % 12.0 % Eosinophils % 2.4 % Basophils % 0.0 % Neutrophils # 4.2 (1.6-8.9) K/mcL Lymphocytes # 1.6 (0.6-4.6) K/mcL Monocytes # 0.8 (0.0-1.3) K/mcL Eosinophils # 0.2 (0.0-0.6) K/mcL Basophils # 0.0 (0.0-0.2) K/mcL PT (9.4-12.1) Seconds INR APTT (26.0-36.0) Seconds Sodium 140 (136-145) mEq/L Potassium 3.9 (3.5-5.1) mEq/L Chloride 111 H (98-107) mEq/L Carbon Dioxide 22 L (23-29) mEq/L BUN 15 (8-23) mg/dL Creatinine 0.91 (0.60-1.20) mg/dL Est GFR ( Amer) > 60 (> 60) Est GFR (Non-Af Amer) > 60 (> 60) BUN/Creatinine Ratio 16 (6-26) Glucose 149 H (70-105) mg/dL Calculated Osmolality 294 (280-300) Lactic Acid (0.5-2.2) mmol/L Calcium 8.9 (8.6-10.3) mg/dL Total Bilirubin (0.3-1.0) mg/dL Direct Bilirubin (0.0-0.2) mg/dL Indirect Bilirubin (0.0-1.2) mg/dL AST (13-39) Units/L ALT (7-52) Units/L Alkaline Phosphatase (34-104) Units/L Troponin I < 0.03 (< 0.04) ng/mL B-Natriuretic Peptide 145 H (Less than 100) pg/mL Serum Total Protein (6.4-8.9) g/dL Albumin (3.5-5.7) g/dL Globulin (2.4-3.5) g/dL Albumin/Globulin Ratio (1.1-2.2) Lipase (11-82) Units/L Urine Color (Yellow) Urine Clarity (Clear) Urine pH (5.0-8.0) pH Units Ur Specific Purchase (1.010-1.025) Urine Protein (Neg-Trace) mg/dL Urine Glucose (UA) (Normal) mg/dL Urine Ketones (Negative) mg/dL Urine Blood (Negative) Urine Nitrite (Negative) Urine Bilirubin (Negative) Urine Urobilinogen (Normal) mg/dL Ur Leukocyte Esterase (Negative) Urine Microscopic RBC (0-3) per hpf Urine Microscopic WBC (0-3) per hpf Ur Squamous Epith Cells (None-Few) per lpf Urine Bacteria (None-Few) per hpf Hyaline Casts (None-Few) per lpf Ur Culture Indicated? (NO) 01/05/19 Range/Units 20:25 WBC (4.3-11.1) K/mcL RBC (3.82-4.97) M/mcL Hgb (11.5-15.4) g/dL Hct (35.3-44.9) % MCV (83.0-100.0) fL MCH (28.0-33.3) pg MCHC (31.6-35.5) g/dL RDW (11.5-14.5) % Plt Count (140-400) K/mcL MPV (9.4-12.4) fL Immature Gran % (0-4) % Seg Neutrophils % % Lymphocytes % % Monocytes % % Eosinophils % % Basophils % % Neutrophils # (1.6-8.9) K/mcL Lymphocytes # (0.6-4.6) K/mcL Monocytes # (0.0-1.3) K/mcL Eosinophils # (0.0-0.6) K/mcL Basophils # (0.0-0.2) K/mcL PT (9.4-12.1) Seconds INR APTT (26.0-36.0) Seconds Sodium (136-145) mEq/L Potassium (3.5-5.1) mEq/L Chloride (98-107) mEq/L Carbon Dioxide (23-29) mEq/L BUN (8-23) mg/dL Creatinine (0.60-1.20) mg/dL Est GFR ( Amer) (> 60) Est GFR (Non-Af Amer) (> 60) BUN/Creatinine Ratio (6-26) Glucose (70-105) mg/dL Calculated Osmolality (280-300) Lactic Acid (0.5-2.2) mmol/L Calcium (8.6-10.3) mg/dL Total Bilirubin (0.3-1.0) mg/dL Direct Bilirubin (0.0-0.2) mg/dL Indirect Bilirubin (0.0-1.2) mg/dL AST (13-39) Units/L ALT (7-52) Units/L Alkaline Phosphatase (34-104) Units/L Troponin I (< 0.04) ng/mL B-Natriuretic Peptide (Less than 100) pg/mL Serum Total Protein (6.4-8.9) g/dL Albumin (3.5-5.7) g/dL Globulin (2.4-3.5) g/dL Albumin/Globulin Ratio (1.1-2.2) Lipase (11-82) Units/L Urine Color Yellow (Yellow) Urine Clarity Clear (Clear) Urine pH 5.5 (5.0-8.0) pH Units Ur Specific Purchase 1.019 (1.010-1.025) Urine Protein Negative (Neg-Trace) mg/dL Urine Glucose (UA) Normal (Normal) mg/dL Urine Ketones Negative (Negative) mg/dL Urine Blood Negative (Negative) Urine Nitrite Negative (Negative) Urine Bilirubin Negative (Negative) Urine Urobilinogen Normal (Normal) mg/dL Ur Leukocyte Esterase Moderate H (Negative) Urine Microscopic RBC 0-3 (0-3) per hpf Urine Microscopic WBC 5-15 H (0-3) per hpf Ur Squamous Epith Cells Many H (None-Few) per lpf Urine Bacteria None Seen (None-Few) per hpf Hyaline Casts None Seen (None-Few) per lpf Ur Culture Indicated? YES A (NO) Attestation Statement - Attestation Attestation: I have seen this patient with the resident physician, I have personally evaluated this patient. I had reviewed the chart and document dictation by the resident physician and aM in agreement with the information documented by the resident physician. Please see documentation by the resident physician for complete chart including past medical history, family medical history, review of systems, current history and physical and laboratory and imaging studies. I was present for all procedures, provided direct supervision for all procedures, was present for the entirety of all procedures and provided direct guidance during the procedures. Please see documentation by the resident physician for any procedures performed. I have reviewed all interpretations of EKGs, and reviewed all EKGs performed on patient's as well. I have also reviewed reports of imaging as provided by radiology. Patient presents emergency Department with chief complaint of abdominal pain and chest pain. She has had progressive abdominal pain over last 1 week, states that it feels like when she had diverticulitis in the past. She denies diarrhea states she has had formed stools but is going more often. She denies black or bloody stool. She has a little bit of nausea no vomiting no diarrhea. She denies urinary symptoms. She also reports that for "a while now which she cannot quantify" she has been having increasing episodes of chest pain the pain is not constant but comes and goes is not specifically associated with exertion she states is in the center of her chest feels a tightness and heaviness in the center of her chest she states that it had not specifically been radiating but today felt pain in her left side of her neck and jaw and into her left arm with some associated shortness of breath it is typically associated with shortness of breath. She states that she called the squad just to be checked out and they recommended that she come to the ER. She denies diaphoresis she denies dizziness she does report a history of multiple cardiac issues but states that she does not have stents in her heart. She denies any fevers chills cough or sputum production. She denies any palpitations. She denies specific exertional symptoms. She denies pain into her back tearing or ripping sensation or num bness or weakness into her extremities no recent travels or immobilization. EKG was normal sinus rhythm with no evidence of acute ischemic dysrhythmia or hyperkalemia. On exam she is alert oriented 3 nontoxic in appearance and in no acute distress cranial nerves are intact. Heart is regular 2/6 systolic murmur no rubs no gallops. Lungs are clear bilaterally. Chest is nontender. The abdomen is soft nondistended but diffusely tender to palpation slightly greater on the left than on the right, no palpable or pulsatile masses. Equal pulses in all 4 extremities. Trace lower from edema without any evidence of DVT without significant peripheral edema. Skin is warm dry without rash or petechiae neurologic exam is nonfocal. Workup for both intra-abdominal process as well as intrathoracic process was initiated. Patient had received nitroglycerin and aspirin prior to arrival CT abdomen pelvis showed no acute injury, processes interpreted by radiology. Chest x-ray showed possible small area of pneumonitis, patient has no fever no chills no cough no sputum production, no symptoms of pneumonitis at this time, we will not treat with antibiotics. Basic laboratory studies were all within acceptable limits. EKG showed no acute abdomen modality. Patient was admitted to the hospital for further evaluation and management of chest pain
[2019-01-05 20:35] LABS: Eosinophils # 0.2 K/mcL (0.0-0.6); Eosinophils % 2.4 %; Hematocrit 34.1 % (35.3-44.9); Hemoglobin 11.1 g/dL (11.5-15.4); Immature Granulocytes % 0.3 % (0-4); Lymphocytes # 1.6 K/mcL (0.6-4.6); Lymphocytes % 23.4 %; Mean Corpuscular HGB Conc 32.6 g/dL (31.6-35.5); Mean Corpuscular Hemoglobin 28.5 pg (28.0-33.3); Mean Corpuscular Volume 87.7 fL (83.0-100.0); Mean Platelet Volume 9.4 fL (9.4-12.4); Monocytes # 0.8 K/mcL (0.0-1.3); Neutrophils # 4.2 K/mcL (1.6-8.9); Platelet Count 196 K/mcL (140-400); Red Blood Count 3.89 M/mcL (3.82-4.97); Red Cell Distribution Width 13.9 % (11.5-14.5); Segmented Neutrophils % 61.9 %; White Blood Count 6.8 K/mcL (4.3-11.1)
[2019-01-05 20:42] LABS: Prothrombin Time 11.7 Seconds (9.4-12.1)
[2019-01-05 20:45] LABS: Activated Partial Thrombo Time 31.7 Seconds (26.0-36.0)
[2019-01-05 20:53] LABS: Albumin 3.5 g/dL (3.5-5.7); Albumin/Globulin Ratio 1.3 (1.1-2.2); Bilirubin,Indirect 0.2 mg/dL (0.0-1.2); Bilirubin,Total 0.2 mg/dL (0.3-1.0); Globulin 2.6 g/dL (2.4-3.5); Total Protein 6.1 g/dL (6.4-8.9)
[2019-01-05 20:55] LABS: BUN/Creatinine Ratio 16 (6-26); Blood Urea Nitrogen 15 mg/dL (8-23); Calcium 8.9 mg/dL (8.6-10.3); Carbon Dioxide 22 mEq/L (23-29); Chloride 111 mEq/L (98-107); Glucose 149 mg/dL (70-105); Osmolality,Calculated 294 (280-300); Potassium 3.9 mEq/L (3.5-5.1); Sodium 140 mEq/L (136-145); Troponin I < 0.03 ng/mL (< 0.04); eGFR For African Americans > 60 (> 60); eGFR For Non-African Americans > 60 (> 60)
[2019-01-05 21:00] LABS: Bilirubin,Urine Negative (Negative); Blood,Urine Negative (Negative); Clarity,Urine Clear (Clear); Color,Urine Yellow (Yellow); Glucose,Urine (UA) Normal (Normal); Ketones,Urine Negative (Negative); Leukocyte Esterase,Urine Moderate (Negative); Nitrite,Urine Negative (Negative); PH,Urine 5.5 pH Units (5.0-8.0); Protein,Urine Negative (Neg-Trace); Specific Gravity,Urine 1.019 (1.010-1.025); Urobilinogen,Urine Normal (Normal)
--- NOTE | 2019-01-05 21:02 | Emergency Department Note ---
Disposition Clinical Impression: Chronic abdominal pain Chest pain Qualifiers: Chest pain type: unspecified Qualified Code(s): R07.9 - Chest pain, unspecified Diverticulosis Qualifiers: Diverticulosis site: diverticulosis of large intestine Diverticulosis bleeding: diverticulosis without bleeding Qualified Code(s): K57.30 - Diverticulosis of large intestine without perforation or abscess without bleeding Disposition: Admitted As Inpatient Condition: Fair Referrals: Shaji Vick DO [Primary Care Provider] - Forms: ED Satisfaction Letter Time of Disposition: 23:44 Chest Pain HPI - General Chief Complaint: ED Chest Pain Stated Complaint: Chest pain Time Seen by Provider: 01/05/19 19:28 Source: EMS Mode of arrival: EMS Limitations: no limitations Vital Signs Reviewed: Yes Nursing Notes Reviewed: Yes - History of Present Illness HPI Narrative: Patient is a 78-year-old female who is presenting with chest pain and abdominal pain. Patient presents with history of CAD, states that she has history of NC without intervention required, hypertension, hyperlipidemia. Patient also has known history of asthma and congestive heart failure. Patient states for the past few days she has been having intermittent episodes of chest pressure in the middle of her chest that does radiate into the jaw, she states however at 1630 this evening, the pain has been constant and worse than usual, this occurs at rest as well as with exertion, does not seem to worsen with exertion. She does have associated dyspnea. No lightheaded or dizziness, nausea or vomiting. No diaphoresis. She also states for the past week she has been having left-sided abdominal pain, she states at times she will become nauseous with this without vomiting. She has had looser stools without hematochezia or melena. She does have history of diverticulitis in the past. She feels as though she has had a recurrence of her diverticulitis as this feels similar. Severity scale (1-10): 5 - Related Data Home Medications Medication Instructions Recorded Confirmed Pregabalin [Lyrica] 75 mg PO DAILY 03/23/15 03/27/18 Allopurinol [Zyloprim 100 MG] 100 mg PO DAILY 11/25/16 03/27/18 Metoprolol [Lopressor] 50 mg PO BID 11/25/16 03/27/18 Omeprazole [PriLOSEC] 20 mg PO BIDAC 11/25/16 03/27/18 Oxycodone HCl/Acetaminophen 1 tab PO Q6H PRN 11/25/16 03/27/18 [Percocet 5-325 mg Tablet] Venlafaxine [Effexor] 75 mg PO DAILY 11/25/16 03/28/18 Insulin ASPART [NovoLOG] 0 unit SQ TIDWM PRN 10/20/17 03/27/18 Insulin Glargine,Hum.rec.anlog 50 unit SQ BID 10/20/17 03/27/18 [Basaglar Kwikpen U-100] Albuterol Sulfate [Proair Hfa] 2 puff IH Q4H PRN 03/27/18 03/27/18 Colestipol HCl [Colestid] 1 gm PO BID 03/27/18 03/27/18 Donepezil HCl [Aricept] 10 mg PO HS 03/27/18 03/27/18 Furosemide [Lasix] 40 mg PO DAILY 03/27/18 03/27/18 Olmesartan Medoxomil [Benicar] 5 mg PO DAILY 03/27/18 03/27/18 Potassium Chloride 40 meq PO BID 03/27/18 03/27/18 Sertraline [Zoloft] 150 mg PO DAILY 03/27/18 03/27/18 traZODone [TraZODone] 150 mg PO HS 03/27/18 03/27/18 Previous Rx's Medication Instructions Recorded Simvastatin [Zocor] 40 mg PO HS tab 12/01/16 Rivaroxaban [Xarelto] 10 mg PO 1700 #14 tablet 03/30/18 Potassium Chloride 20 meq PO DAILY #5 tab.er.prt 10/30/18 Allergies Allergy/AdvReac Type Severity Reaction Status Date / Time lisinopril Allergy Gastrointestinal Verified 10/19/17 19:38 Upset All systems ED: reviewed and negative except as stated. Review of Systems: As Per HPI Constitutional: Denies: fever, chills ENT ED: Denies: congestion Cardiovascular: Reports: chest pain, dyspnea on exertion. Denies: palpitations, syncope Respiratory: Reports: dyspnea. Denies: cough, wheezes, sputum production Gastrointestinal: Reports: abdominal pain, nausea, diarrhea. Denies: vomiting, hematemesis, melena, hematochezia Genitourinary: Denies: dysuria Musculoskeletal: Denies: back pain Integumentary: Denies: rash Neurological: Denies: headache, weakness, confusion Endocrine: Denies: fatigue Chest Pain PMH - Past Medical History Medical history: Reports: asthma, CHF, coronary artery disease, diabetes, hyperlipidemia, hypertension, myocardial infarction, thyroid disease Surgical history: Reports: cholecystectomy, colectomy, other Psychiatric history: Reports: no psych history [employer]END[employer] history: Reports: no [employer] history - Social History Smoking Status: Never smoker Alcohol use: Reports: none Drug use: Reports: none Physical Exam - General Limitations: no limitations General appearance: alert - Head Head exam: atraumatic, normocephalic, normal inspection - Eye Eye exam: Present: normal appearance, PERRL, EOMI - ENT ENT exam: normal exam, normal oropharynx, mucous membranes moist - Neck Neck exam: Present: normal inspection, full ROM, trachea midline - Chest Chest inspection: Present: normal inspection, symmetric chest wall rise - Respiratory Respiratory exam: Present: normal lung sounds bilaterally - Cardiovascular Cardiovascular exam: Present: regular rate, normal rhythm, normal heart sounds - Abdominal Exam Abdominal exam: Present: soft, tenderness (Patient palpation to the left lateral abdomen, extending up into the mid epigastric region, no guarding or rebound). Absent: distention, guarding, rebound, rigidity - Extremities Exam Extremities exam: Present: normal inspection, full ROM. Absent: tenderness, pedal edema - Expanded Lower Extremity Exam Neurovascular/Tendon exam: Absent: motor deficit, sensory deficit, tendon deficit - Back Exam Back exam: Present: normal inspection, full ROM. Absent: tenderness - Neurological Exam Neurological exam: Present: alert, oriented X3 - Psychiatric Psychiatric exam: Present: normal affect, normal mood - Skin Skin exam: Present: warm, dry, intact, normal color Course Vital Signs Temperature 98.8 F 01/05/19 19:21 Pulse Rate 56 01/05/19 19:21 Respiratory Rate 12 01/05/19 19:21 Blood Pressure 150/76 01/05/19 19:21 O2 Sat by Pulse Oximetry 98 01/05/19 19:21 Temperature 98.8 F 01/05/19 19:21 Pulse Rate 56 01/05/19 19:21 Respiratory Rate 12 01/05/19 19:21 Blood Pressure 150/76 01/05/19 19:21 O2 Sat by Pulse Oximetry 98 01/05/19 22:36 Oxygen Delivery Oxygen Delivery Room Air Chest Pain - MDM Narrative Medical decision making narrative: Patient is a 78 year old female presented with chest pain and abdominal pain. Patient with known history of hypertension, hyperlipidemia, CAD without stenting or further intervention. Patient presenting with acute chest pain for the past few days worse today and constant. Prior to arrival EMS and the patient total of 3 aspirin as well as 1 nitroglycerin which the patient pain down from a 6 down to a 2 or 3. She currently has no chest pain on my evaluation. Vital signs otherwise within normal limits. EKG shows no acute ischemic changes. Patient also complaining of some left-sided abdominal pain with history of diverticulitis. CBC, BMP, hepatic, lipase as well as CT of the abdomen and pelvis and chest x- ray are performed. CBC, BMP, hepatic and lipase are all within normal limits. Troponin is within normal limits. CT of the abdomen and pelvis shows no acute intra-abdominal or pelvic etiology. No sign of diverticulitis. At this point in time, patient will be admitted for ACS rule out. No further workup at this point in time for intra-abdominal etiology. Patient agrees with disposition of admission at this point. Patient's daughter is also at bedside. - Medical Records Medical records reviewed: Yes I reviewed the patient's medical records. - Lab Data Lab results reviewed: Yes I reviewed the patient's lab results. Result diagrams: 01/05/19 20:18 01/05/19 20:18 Lab Results 01/05/19 01/05/19 01/05/19 Range/Units 20:18 20:18 20:18 WBC (4.3-11.1) K/mcL RBC (3.82-4.97) M/mcL Hgb (11.5-15.4) g/dL Hct (35.3-44.9) % MCV (83.0-100.0) fL MCH (28.0-33.3) pg MCHC (31.6-35.5) g/dL RDW (11.5-14.5) % Plt Count (140-400) K/mcL MPV (9.4-12.4) fL Immature Gran % (0-4) % Seg Neutrophils % % Lymphocytes % % Monocytes % % Eosinophils % % Basophils % % Neutrophils # (1.6-8.9) K/mcL Lymphocytes # (0.6-4.6) K/mcL Monocytes # (0.0-1.3) K/mcL Eosinophils # (0.0-0.6) K/mcL Basophils # (0.0-0.2) K/mcL PT 11.7 (9.4-12.1) Seconds INR 1.0 APTT 31.7 (26.0-36.0) Seconds Sodium (136-145) mEq/L Potassium (3.5-5.1) mEq/L Chloride (98-107) mEq/L Carbon Dioxide (23-29) mEq/L BUN (8-23) mg/dL Creatinine (0.60-1.20) mg/dL Est GFR ( Amer) (> 60) Est GFR (Non-Af Amer) (> 60) BUN/Creatinine Ratio (6-26) Glucose (70-105) mg/dL Calculated Osmolality (280-300) Lactic Acid 1.2 (0.5-2.2) mmol/L Calcium (8.6-10.3) mg/dL Total Bilirubin 0.2 L (0.3-1.0) mg/dL Direct Bilirubin 0.0 (0.0-0.2) mg/dL Indirect Bilirubin 0.2 (0.0-1.2) mg/dL AST 13 (13-39) Units/L ALT 7 (7-52) Units/L Alkaline Phosphatase 79 (34-104) Units/L Troponin I (< 0.04) ng/mL B-Natriuretic Peptide (Less than 100) pg/mL Serum Total Protein 6.1 L (6.4-8.9) g/dL Albumin 3.5 (3.5-5.7) g/dL Globulin 2.6 (2.4-3.5) g/dL Albumin/Globulin Ratio 1.3 (1.1-2.2) Lipase 30 (11-82) Units/L Urine Color (Yellow) Urine Clarity (Clear) Urine pH (5.0-8.0) pH Units Ur Specific [place] (1.010-1.025) Urine Protein (Neg-Trace) mg/dL Urine Glucose (UA) (Normal) mg/dL Urine Ketones (Negative) mg/dL Urine Blood (Negative) Urine Nitrite (Negative) Urine Bilirubin (Negative) Urine Urobilinogen (Normal) mg/dL Ur Leukocyte Esterase (Negative) Urine Microscopic RBC (0-3) per hpf Urine Microscopic WBC (0-3) per hpf Ur Squamous Epith Cells (None-Few) per lpf Urine Bacteria (None-Few) per hpf Hyaline Casts (None-Few) per lpf Ur Culture Indicated? (NO) 01/05/19 01/05/19 01/05/19 Range/Units 20:18 20:18 20:18 WBC 6.8 (4.3-11.1) K/mcL RBC 3.89 (3.82-4.97) M/mcL Hgb 11.1 L D (11.5-15.4) g/dL Hct 34.1 L (35.3-44.9) % MCV 87.7 (83.0-100.0) fL MCH 28.5 (28.0-33.3) pg MCHC 32.6 (31.6-35.5) g/dL RDW 13.9 (11.5-14.5) % Plt Count 196 (140-400) K/mcL MPV 9.4 (9.4-12.4) fL Immature Gran % 0.3 (0-4) % Seg Neutrophils % 61.9 % Lymphocytes % 23.4 % Monocytes % 12.0 % Eosinophils % 2.4 % Basophils % 0.0 % Neutrophils # 4.2 (1.6-8.9) K/mcL Lymphocytes # 1.6 (0.6-4.6) K/mcL Monocytes # 0.8 (0.0-1.3) K/mcL Eosinophils # 0.2 (0.0-0.6) K/mcL Basophils # 0.0 (0.0-0.2) K/mcL PT (9.4-12.1) Seconds INR APTT (26.0-36.0) Seconds Sodium 140 (136-145) mEq/L Potassium 3.9 (3.5-5.1) mEq/L Chloride 111 H (98-107) mEq/L Carbon Dioxide 22 L (23-29) mEq/L BUN 15 (8-23) mg/dL Creatinine 0.91 (0.60-1.20) mg/dL Est GFR ( Amer) > 60 (> 60) Est GFR (Non-Af Amer) > 60 (> 60) BUN/Creatinine Ratio 16 (6-26) Glucose 149 H (70-105) mg/dL Calculated Osmolality 294 (280-300) Lactic Acid (0.5-2.2) mmol/L Calcium 8.9 (8.6-10.3) mg/dL Total Bilirubin (0.3-1.0) mg/dL Direct Bilirubin (0.0-0.2) mg/dL Indirect Bilirubin (0.0-1.2) mg/dL AST (13-39) Units/L ALT (7-52) Units/L Alkaline Phosphatase (34-104) Units/L Troponin I < 0.03 (< 0.04) ng/mL B-Natriuretic Peptide 145 H (Less than 100) pg/mL Serum Total Protein (6.4-8.9) g/dL Albumin (3.5-5.7) g/dL Globulin (2.4-3.5) g/dL Albumin/Globulin Ratio (1.1-2.2) Lipase (11-82) Units/L Urine Color (Yellow) Urine Clarity (Clear) Urine pH (5.0-8.0) pH Units Ur Specific [place] (1.010-1.025) Urine Protein (Neg-Trace) mg/dL Urine Glucose (UA) (Normal) mg/dL Urine Ketones (Negative) mg/dL Urine Blood (Negative) Urine Nitrite (Negative) Urine Bilirubin (Negative) Urine Urobilinogen (Normal) mg/dL Ur Leukocyte Esterase (Negative) Urine Microscopic RBC (0-3) per hpf Urine Microscopic WBC (0-3) per hpf Ur Squamous Epith Cells (None-Few) per lpf Urine Bacteria (None-Few) per hpf Hyaline Casts (None-Few) per lpf Ur Culture Indicated? (NO) 01/05/19 Range/Units 20:25 WBC (4.3-11.1) K/mcL RBC (3.82-4.97) M/mcL Hgb (11.5-15.4) g/dL Hct (35.3-44.9) % MCV (83.0-100.0) fL MCH (28.0-33.3) pg MCHC (31.6-35.5) g/dL RDW (11.5-14.5) % Plt Count (140-400) K/mcL MPV (9.4-12.4) fL Immature Gran % (0-4) % Seg Neutrophils % % Lymphocytes % % Monocytes % % Eosinophils % % Basophils % % Neutrophils # (1.6-8.9) K/mcL Lymphocytes # (0.6-4.6) K/mcL Monocytes # (0.0-1.3) K/mcL Eosinophils # (0.0-0.6) K/mcL Basophils # (0.0-0.2) K/mcL PT (9.4-12.1) Seconds INR APTT (26.0-36.0) Seconds Sodium (136-145) mEq/L Potassium (3.5-5.1) mEq/L Chloride (98-107) mEq/L Carbon Dioxide (23-29) mEq/L BUN (8-23) mg/dL Creatinine (0.60-1.20) mg/dL Est GFR ( Amer) (> 60) Est GFR (Non-Af Amer) (> 60) BUN/Creatinine Ratio (6-26) Glucose (70-105) mg/dL Calculated Osmolality (280-300) Lactic Acid (0.5-2.2) mmol/L Calcium (8.6-10.3) mg/dL Total Bilirubin (0.3-1.0) mg/dL Direct Bilirubin (0.0-0.2) mg/dL Indirect Bilirubin (0.0-1.2) mg/dL AST (13-39) Units/L ALT (7-52) Units/L Alkaline Phosphatase (34-104) Units/L Troponin I (< 0.04) ng/mL B-Natriuretic Peptide (Less than 100) pg/mL Serum Total Protein (6.4-8.9) g/dL Albumin (3.5-5.7) g/dL Globulin (2.4-3.5) g/dL Albumin/Globulin Ratio (1.1-2.2) Lipase (11-82) Units/L Urine Color Yellow (Yellow) Urine Clarity Clear (Clear) Urine pH 5.5 (5.0-8.0) pH Units Ur Specific [place] 1.019 (1.010-1.025) Urine Protein Negative (Neg-Trace) mg/dL Urine Glucose (UA) Normal (Normal) mg/dL Urine Ketones Negative (Negative) mg/dL Urine Blood Negative (Negative) Urine Nitrite Negative (Negative) Urine Bilirubin Negative (Negative) Urine Urobilinogen Normal (Normal) mg/dL Ur Leukocyte Esterase Moderate H (Negative) Urine Microscopic RBC 0-3 (0-3) per hpf Urine Microscopic WBC 5-15 H (0-3) per hpf Ur Squamous Epith Cells Many H (None-Few) per lpf Urine Bacteria None Seen (None-Few) per hpf Hyaline Casts None Seen (None-Few) per lpf Ur Culture Indicated? YES A (NO) - Radiology Data Radiology results reviewed: Yes I reviewed the patient's radiology results. Abdomen/Pelvis CT 01/05/19 19:45 IMPRESSION: No acute abnormality identified. D/ / Chris Perdomo MD / Chris Perdomo MD Interpreting Provider: Chris Perdomo MD Chest X-Ray 01/05/19 19:45 IMPRESSION: Pulmonary findings may reflect congestive heart failure. Focal left basilar pneumonitis is a consideration as well. Calcific atherosclerotic disease aorta. D/ / French Randhawa / French Randhawa Interpreting Provider: French Randhawa - EKG Data EKG attestation: Yes I reviewed and interpreted this EKG. EKG results narrative: EKG performed at 1923 with ventricular rate of 57, regular rhythm, normal axis, no ST segment elevation, depression or T-wave changes. Heart Score - Score History: Moderately Suspicious EKG: Non Specific repolarisation Disturbance Age: Greater than 65 Risk Factors: Equal/Greater than 3 risk factor or history of atherosclerotic disease Troponin: Less than normal limit HEART Score Total: 6 S.B.A.R. - S.B.A.R. Situation: Demographics, MOA Background: Presenting Complaint, Relevant PMH, Meds, & Allergies Assessment: Vital Signs, Course and respsone to treatment, Exam Concerns, Patient/Family Expectation, Pertinant Lab Results, Outstanding Labs Recommendation: Barrier(s) to disposition, Recommendation based on pending studies, treatments, or consults S.B.A.R. Report Given to: Dr. Kenan Gracia Repor Time: 23:46
[2019-01-05 21:05] LABS: Bacteria,Urine None Seen per hpf (None-Few); Hyaline Casts,Urine None Seen per lpf (None-Few); RBC,Urine 0-3 per hpf (0-3); Squamous Epithelial Cell,Urine Many per lpf (None-Few)
[2019-01-06] MEDS ORDERED: Naloxone 0.4 MG/ML INJ IVP PRN (05:00)
[2019-01-06] MEDS ORDERED: 0.9 % Sodium Chloride 1,000 ML IVC SCH (05:00)
[2019-01-06 05:27] LABS: Hematocrit 34.9 % (35.3-44.9); Hemoglobin 11.1 g/dL (11.5-15.4); Mean Corpuscular HGB Conc 31.8 g/dL (31.6-35.5); Mean Corpuscular Hemoglobin 28.2 pg (28.0-33.3); Mean Corpuscular Volume 88.8 fL (83.0-100.0); Mean Platelet Volume 9.2 fL (9.4-12.4); Platelet Count 179 K/mcL (140-400); Red Blood Count 3.93 M/mcL (3.82-4.97); Red Cell Distribution Width 13.7 % (11.5-14.5); White Blood Count 6.7 K/mcL (4.3-11.1)
[2019-01-06] MEDS ORDERED: Regadenoson 0.4 MG/5 ML SYRINGE IVP ONE (06:57)
--- NOTE | 2019-01-06 08:07 | Internal Med History&Physical ---
Date of Encounter: 01/06/19 Time of Encounter: 05:00 Internal Medicine - H&P: HPI Chief complaint: Chest pain History of present illness: Ms. Ferro is a 78 year old female with a past medical history of asthma, CHF, coronary artery disease, diabetes, hyperlipidemia, hypertension, myocardial infarction, thyroid disease who presented to the ED with complaints of chest and abdominal pain. Chest pain described as substernal with radiation to the left arm and jaw lasting approximately 2 hours and occurring intermittently over the past 2 days with no recognizable precipitating factors. Reports associated shortness of breath and nausea. States chest pain similar to previous presentation of SD. Vital signs otherwise within normal limits. EKG shows no acute ischemic changes. Patient also complaining of some left-sided abdominal pain with history of diverticulitis. Troponin is within normal limits. CT of the abdomen and pelvis shows no acute intra-abdominal or pelvic etiology. No sign of diverticulitis. Prior to arrival EMS and the patient total of 3 aspirin as well as 1 nitroglycerin which the patient pain down from a 6 down to a 2 or 3. She currently has no chest pain on my evaluation. Admitted for further evaluation and ACS rule out. Past Med Surg Social Fam HX - Past Medical History Medical history: asthma, CHF, coronary artery disease, diabetes, hyperlipidemia, hypertension, myocardial infarction, thyroid disease Additional medical history: DDD Psychiatric history: no psych history - Past Surgical History Surgical History: cholecystectomy, colectomy, other Additional surgical history: Tubal, cyst removed from back. part of colon taken out - Social History Smoking Status: Never smoker Smokeless Tobacco Status: No Alcohol use: none Drug use: none - Family History Mother Adopted: No Family Member Ethnicity: Non- Living Status: Hx Family Cardiac Disorders: Yes Hx Family Respiratory Disorders: No Hx Family Cancer: Yes Hx Family GI Disorders: No Hx Family Endocrine Disorder: No Hx Family Neuromuscular Disorders: No Hx Family Neurologic Disorders: No Hx Family HEENT Disorders: No Hx Family Autoimmune Disorders: No Father Living Status: Hx Family Cardiac Disorders: Yes (SD) Internal Medicine - H&P: Meds Pregabalin [Lyrica] 75 mg PO DAILY 03/23/15 [History] Allopurinol [Zyloprim 100 MG] 100 mg PO DAILY 11/25/16 [History] Omeprazole [PriLOSEC] 20 mg PO BIDAC 11/25/16 [History] Oxycodone HCl/Acetaminophen [Percocet 5-325 mg Tablet] 1 tab PO Q8H PRN 11/25/16 [History] Simvastatin [Zocor] 40 mg PO HS tab 12/01/16 [Rx] Insulin ASPART [NovoLOG] 0 unit SQ TIDWM PRN 10/20/17 [History] Insulin Glargine,Hum.rec.anlog [Basaglar Kwikpen U-100] 50 unit SQ BID 10/20/17 [History] Albuterol Sulfate [Proair Hfa] 2 puff IH Q4H PRN 03/27/18 [History] Colestipol HCl [Colestid] 1 gm PO BID 03/27/18 [History] Donepezil HCl [Aricept] 10 mg PO HS 03/27/18 [History] Furosemide [Lasix] 40 mg PO DAILY 03/27/18 [History] Olmesartan Medoxomil [Benicar] 5 mg PO DAILY 03/27/18 [History] Sertraline [Zoloft] 150 mg PO DAILY 03/27/18 [History] traZODone [TraZODone] 150 mg PO HS 03/27/18 [History] Potassium Chloride 20 meq PO DAILY #5 tab.er.prt 10/30/18 [Rx] Calcium Carbonate/Vitamin D3 [Oyster Shell 500Mg-Vit D3 5Mcg] 1 tab PO DAILY 01/06/19 [History] Dicyclomine Hcl [Bentyl] 20 mg PO TID PRN 01/06/19 [History] Gabapentin [Neurontin] 100 mg PO TID 01/06/19 [History] Levothyroxine [Synthroid] 125 mcg PO 0630 01/06/19 [History] Metoprolol [Lopressor] 25 mg PO BID 01/06/19 [History] Allergy/AdvReac Type Severity Reaction Status Date / Time lisinopril Allergy Gastrointestinal Verified 10/19/17 19:38 Upset All Systems PM: A 10-system review of systems was performed and is negative for pertinent findings except as documented above in the HPI. - Constitutional Constitutional: no chills, no fever(s), no night sweats - EENT Eyes: no change in vision, no discharge, no pain, no photophobia Ears: no ear discharge, no ear pain, no tinnitus Nose, mouth and throat: no dysphagia, no nasal discharge, no neck pain, no sore throat - Cardiovascular Cardiovascular ROS IM: no chest pain, no diaphoresis, no dyspnea, no lightheadedness, no palpitations, no syncope - Respiratory Respiratory: no cough, no dyspnea, no wheezing, no excessive phlegm production - Gastrointestinal Gastrointestinal: no abdominal pain, no diarrhea, no hematemesis, no hematochezia, no melena, no nausea, no vomiting - Genitourinary Genitourinary: no change in urinary stream, no dysuria, no flank pain, no hematuria - Musculoskeletal Musculoskeletal ROS IM: no numbness, no tingling - Integumentary Integumentary IM: no rash, no unusual bruising - Neurological Neurological ROS: no confusion, no convulsions, no focal weakness, no numbness, no tingling, no tremor(s) - Hematologic/Lymphatic Hematologic/Lymphatic: no easy bruising - Constitutional Vitals: Temp Pulse Resp BP Pulse Ox 98.4 F 58 16 161/72 95 01/06/19 06:46 01/06/19 06:46 01/06/19 06:46 01/06/19 06:46 01/06/19 06:46 Exam: General: Alert and oriented 3 Skin:Normal color, no rash, no lesions. HEENT:EOM, pupils equal, round and reactive. Cardiovascular:Normal S1 & S2, no rubs, murmurs or gallops. No JVD. Pulse regular. Lungs:Normal breath sounds, no wheezes or crackles. Abdomen:Soft, non-tender, no rigidity. Extremities:No deformity, no edema or tenderness, no joint swelling or clubbing. Neurological:Normal cognition and motor skills. Pulses:Carotid and radial pulses normal +2. Rest of the physical exam is non contributory Internal Med - H&P Results - Labs CBC & Chem 7: 01/06/19 05:18 01/05/19 20:18 Labs: Short CBC 01/05/19 01/06/19 Range/Units 20:18 05:18 WBC 6.8 6.7 (4.3-11.1) K/mcL Hgb 11.1 L D 11.1 L (11.5-15.4) g/dL Hct 34.1 L 34.9 L (35.3-44.9) % Plt Count 196 179 (140-400) K/mcL Neutrophils # 4.2 (1.6-8.9) K/mcL BMP 01/05/19 20:18 Sodium 140 Potassium 3.9 Chloride 111 H Carbon Dioxide 22 L BUN 15 Creatinine 0.91 Glucose 149 H Calcium 8.9 Cardiac Enzymes 01/05/19 01/06/19 Range/Units 20:18 05:18 Troponin I < 0.03 < 0.03 (< 0.04) ng/mL Liver Function 01/05/19 Range/Units 20:18 Total Bilirubin 0.2 L (0.3-1.0) mg/dL Direct Bilirubin 0.0 (0.0-0.2) mg/dL AST 13 (13-39) Units/L ALT 7 (7-52) Units/L Alkaline Phosphatase 79 (34-104) Units/L Albumin 3.5 (3.5-5.7) g/dL Urine 01/05/19 Range/Units 20:25 Urine Color Yellow (Yellow) Urine Clarity Clear (Clear) Urine pH 5.5 (5.0-8.0) pH Units Ur Specific [place] 1.019 (1.010-1.025) Urine Protein Negative (Neg-Trace) mg/dL Urine Glucose (UA) Normal (Normal) mg/dL - Impressions ITS Impressions Abdomen/Pelvis CT 01/05/19 19:45 IMPRESSION: No acute abnormality identified. D/ / Chris Perdomo MD / Chris Perdomo MD Interpreting Provider: Chris Perdomo MD Chest X-Ray 01/05/19 19:45 IMPRESSION: Pulmonary findings may reflect congestive heart failure. Focal left basilar pneumonitis is a consideration as well. Calcific atherosclerotic disease aorta. D/ / French Randhawa / French Randhawa Interpreting Provider: French Randhawa - Assessment and Plan (1) Chest pain Status: Acute Assessment and plan: Patient presenting with substernal chest pain with radiation to the neck and left arm similar presentation to prior history of SD. Past medical history of coronary artery disease without stenting. -Echo in 2018 showing an EF of 60-65% with mild left ventricular diastolic dysfunction. -Nuclear stress test in 2016 negative for ischemia. Plan: -Telemetry -Trend troponin -Echocardiogram -Stress testing if troponins remain negative -Consider Cardiology consult based on findings Qualifiers: Chest pain type: unspecified Qualified Code(s): R07.9 - Chest pain, unspecified (2) Abdominal pain Status: Acute Assessment and plan: No evidence of acute abdominal abnormality -Monitor -Pain control as needed Qualifiers: Abdominal location: left lower quadrant Qualified Code(s): R10.32 - Left lower quadrant pain (3) Diabetes mellitus type 2 in obese Status: Chronic Assessment and plan: -Accu-Cheks -Blood glucose checks every 6 hours with sliding scale (4) DVT prophylaxis Status: Acute - Time Spent With Patient Total time spent is greater than 50% in coordination of care (as documented) at patient's floor/unit and/or counseling patient:
[2019-01-06] MEDS ORDERED: Dextrose Gel 15 GM/37.5 ML TUBE PO PRN ×2 (08:15)
[2019-01-06] MEDS ORDERED: *HR* Dextrose 50 % in Water (Syg) 50 ML SYRINGE IVP PRN (08:15)
[2019-01-06] MEDS ORDERED: D5% in Water 1,000 ML IVC PRN (08:15)
--- NOTE | 2019-01-06 08:39 | Event Note ---
Date of Encounter: 01/06/19
[2019-01-06] MEDS ORDERED: Insulin LISPRO 300 UNITS/3 ML VIAL SQ SCH (12:00)
[2019-01-06] MEDS ORDERED: *HR* OxyCODONE/APAP 5/325 TABLET PO PRN (12:25)
[2019-01-06] MEDS ORDERED: Pregabalin 75 MG CAPSULE PO SCH (12:30)
[2019-01-06 14:59] VITALS: BP 154/75
--- NOTE | 2019-01-06 15:47 | Discharge Summary ---
Date of Encounter: 01/06/19 Time of Encounter: 15:45 - Discharge Diagnosis (1) Chest pain Priority: Primary Status: Acute Assessment and Plan: 78 year old female with a past medical history of asthma, CHF, coronary artery disease, diabetes, hyperlipidemia, hypertension, myocardial infarction, thyroid disease who presented to the ED with complaints of chest and abdominal pain. Chest pain described as substernal with radiation to the left arm and jaw lasting approximately 2 hours and occurring intermittently over the past 2 days with no recognizable precipitating factors. Reports associated shortness of breath and nausea. States chest pain similar to previous presentation of MD. Vital signs otherwise within normal limits. EKG shows no acute ischemic changes. Patient also complaining of some left-sided abdominal pain with history of diverticulitis. Troponin is within normal limits. CT of the abdomen and pelvis shows no acute intra-abdominal or pelvic etiology. She was assessed with chest pain r/o acute coronary syndrome. She had a nuclear stress test done showing no acute evidence of ischemia. She was discharged in a stable condition Qualifiers: Chest pain type: unspecified Qualified Code(s): R07.9 - Chest pain, unspecified (2) Diabetes mellitus type 2 in obese Priority: Primary Status: Chronic (3) Abdominal pain Priority: Primary Status: Acute Qualifiers: Abdominal location: left lower quadrant Qualified Code(s): R10.32 - Left lower quadrant pain (4) DVT prophylaxis Priority: Primary Status: Acute Hospital course: Ms. Ferro is a 78 year old female - Time Spent with Patient Total time spent providing and/or coordinating discharge services: - Discharge Medications Prescriptions: Continued Pregabalin [Lyrica] 75 mg PO DAILY Allopurinol [Zyloprim 100 MG] 100 mg PO DAILY Oxycodone HCl/Acetaminophen [Percocet 5-325 mg Tablet] 1 tab PO Q8H PRN PRN Reason: Pain Omeprazole [PriLOSEC] 20 mg PO BIDAC Simvastatin [Zocor] 40 mg PO HS tab Insulin Glargine,Hum.rec.anlog [Basaglar Kwikpen U-100] 50 unit SQ BID Insulin ASPART [NovoLOG] 0 unit SQ TIDWM PRN PRN Reason: SLIDING SCALE Olmesartan Medoxomil [Benicar] 5 mg PO DAILY Sertraline [Zoloft] 150 mg PO DAILY Colestipol HCl [Colestid] 1 gm PO BID Furosemide [Lasix] 40 mg PO DAILY Donepezil HCl [Aricept] 10 mg PO HS traZODone [TraZODone] 150 mg PO HS Albuterol Sulfate [Proair Hfa] 2 puff IH Q4H PRN PRN Reason: Shortness Of Breath Potassium Chloride 20 meq PO DAILY #5 tab.er.prt Calcium Carbonate/Vitamin D3 [Oyster Shell 500Mg-Vit D3 5Mcg] 1 tab PO DAILY Dicyclomine Hcl [Bentyl] 20 mg PO TID PRN PRN Reason: Abdominal Pain Gabapentin [Neurontin] 100 mg PO TID Levothyroxine [Synthroid] 125 mcg PO 0630 Metoprolol [Lopressor] 25 mg PO BID Home Medications: Pregabalin [Lyrica] 75 mg PO DAILY 03/23/15 [History] Allopurinol [Zyloprim 100 MG] 100 mg PO DAILY 11/25/16 [History] Omeprazole [PriLOSEC] 20 mg PO BIDAC 11/25/16 [History] Oxycodone HCl/Acetaminophen [Percocet 5-325 mg Tablet] 1 tab PO Q8H PRN 11/25/16 [History] Simvastatin [Zocor] 40 mg PO HS tab 12/01/16 [Rx] Insulin ASPART [NovoLOG] 0 unit SQ TIDWM PRN 10/20/17 [History] Insulin Glargine,Hum.rec.anlog [Basaglar Kwikpen U-100] 50 unit SQ BID 10/20/17 [History] Albuterol Sulfate [Proair Hfa] 2 puff IH Q4H PRN 03/27/18 [History] Colestipol HCl [Colestid] 1 gm PO BID 03/27/18 [History] Donepezil HCl [Aricept] 10 mg PO HS 03/27/18 [History] Furosemide [Lasix] 40 mg PO DAILY 03/27/18 [History] Olmesartan Medoxomil [Benicar] 5 mg PO DAILY 03/27/18 [History] Sertraline [Zoloft] 150 mg PO DAILY 03/27/18 [History] traZODone [TraZODone] 150 mg PO HS 03/27/18 [History] Potassium Chloride 20 meq PO DAILY #5 tab.er.prt 06/25/19 [Rx] Calcium Carbonate/Vitamin D3 [Oyster Shell 500Mg-Vit D3 5Mcg] 1 tab PO DAILY 01/06/19 [History] Dicyclomine Hcl [Bentyl] 20 mg PO TID PRN 01/06/19 [History] Gabapentin [Neurontin] 100 mg PO TID 01/06/19 [History] Levothyroxine [Synthroid] 125 mcg PO 0630 01/06/19 [History] Metoprolol [Lopressor] 25 mg PO BID 01/06/19 [History] Allergies/Adverse Reactions: Allergy/AdvReac Type Severity Reaction Status Date / Time lisinopril Allergy Gastrointestinal Verified 10/19/17 19:38 Upset Date of admission: 01/06/19 00:01 Primary care physician: Shaji Vick DO Consults: 01/06/19 01:36 Consult to Assisted Living Care Manager [CONS] Routine Reason for SW Consult: discharge planning, lives home with her son who is moving out soon, high fall risk, daughter wants to see about her moving into an Assisted Living facility. - Constitutional Vitals: Temp Pulse Resp BP Pulse Ox 98.0 F 60 16 154/75 94 01/06/19 14:52 01/06/19 14:52 01/06/19 14:52 01/06/19 14:52 01/06/19 14:52 Exam: General: Alert and oriented 3 Skin:Normal color, no rash, no lesions. HEENT:EOM, pupils equal, round and reactive. Cardiovascular:Normal S1 & S2, no rubs, murmurs or gallops. No JVD. Pulse regul ar. Lungs:Normal breath sounds, no wheezes or crackles. Abdomen:Soft, non-tender, no rigidity. Extremities:No deformity, no edema or tenderness, no joint swelling or clubbing. Neurological:Normal cognition and motor skills. Pulses:Carotid and radial pulses normal +2. Rest of the physical exam is non contributory - Patient Status Disposition: Home, Self-Care Condition: Good - Discharge Instructions Follow Up With: Shaji Vick DO [Primary Care Provider] -
--- NOTE | 2019-01-07 22:48 | Electrocardiograph Report ---
[address] [address] Test Date: 2019-01-05 Pat Name: Radha Ferro Department: [id number] Room: 3B13 Gender: F Caddie Supervisor: : [id number] Requested By: Magalie Valladares Order Number: [id number] Reading MD: Char Vickers Measurements Intervals [place] Rate: 57 P: 35 DC: 166 QRS: 19 QRSD: 98 T: 44 QT: 463 QTc: 451 Interpretive Statements Sinus rhythm Electronically Signed On 01-07-2019 22:46:52 EDT by Char Vickers
== END 2019-01-06 17:05 | disposition home or self-care (01) ==
LOC: EMEROOARM 19:14 → 3BNU 19:14
PROVIDERS: ADMIT Internal Medicine; ATTEND Student in an Organized Health Care Education/Training Program

== ENCOUNTER 2019-01-17 10:57 | Inpatient (IN) ==
[2019-01-17] MEDS ORDERED: CeFAZolin Syr 2,000MG/20 ML 2,000 MG/20 ML SYRINGE IVPB ONE (11:35)
[2019-01-17] MEDS: Ringers Solution, Lactated 1,000 ML IVC SCH ×2 (11:48→17:48)
--- NOTE | 2019-01-17 12:11 | Anesthesia Evaluation PreOp ---
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: Denies Any Significant HX Other Medical History: Renal (CKD), Diabetes Type II (insulin dependent), Thyroid (hypo) Anesthesia History: No Prior Anesthetic Complications, Past Anesthesia : No Alcohol Use: none Drug use: none Medications and Allergies Pregabalin [Lyrica] 75 mg PO DAILY 03/23/15 [History] Allopurinol [Zyloprim 100 MG] 100 mg PO DAILY 11/25/16 [History] Omeprazole [PriLOSEC] 20 mg PO BIDAC 11/25/16 [History] Oxycodone HCl/Acetaminophen [Percocet 5-325 mg Tablet] 1 tab PO Q8H PRN 11/25/16 [History] Simvastatin [Zocor] 40 mg PO HS tab 12/01/16 [Rx] Insulin ASPART [NovoLOG] 0 unit SQ TIDWM PRN 10/20/17 [History] Insulin Glargine,Hum.rec.anlog [Basaglar Kwikpen U-100] 50 unit SQ BID 10/20/17 [History] Albuterol Sulfate [Proair Hfa] 2 puff IH Q4H PRN 03/27/18 [History] Colestipol HCl [Colestid] 1 gm PO BID 03/27/18 [History] Donepezil HCl [Aricept] 10 mg PO HS 03/27/18 [History] Furosemide [Lasix] 40 mg PO DAILY 03/27/18 [History] Olmesartan Medoxomil [Benicar] 5 mg PO DAILY 03/27/18 [History] Sertraline [Zoloft] 150 mg PO DAILY 03/27/18 [History] traZODone [TraZODone] 150 mg PO HS 03/27/18 [History] Potassium Chloride 20 meq PO DAILY #5 tab.er.prt 10/30/18 [Rx] Calcium Carbonate/Vitamin D3 [Oyster Shell 500Mg-Vit D3 5Mcg] 1 tab PO DAILY 01/06/19 [History] Dicyclomine Hcl [Bentyl] 20 mg PO TID PRN 01/06/19 [History] Gabapentin [Neurontin] 100 mg PO TID 01/06/19 [History] Levothyroxine [Synthroid] 125 mcg PO 0630 01/06/19 [History] Metoprolol [Lopressor] 25 mg PO BID 01/06/19 [History] Allergy/AdvReac Type Severity Reaction Status Date / Time lisinopril Allergy Gastrointestinal Verified 10/19/17 19:38 Upset - Meds/Allergy Pre-op Review Medications Reviewed: Yes Allergies Reviewed: Yes Beta Blockers on Current Med List: Yes (metoprolol) If Beta Blockers taken, Date/Time (Last Dose taken): 0600 Anesthesia Results - Labs Laboratory Tests 01/05/19 01/06/19 20:18 05:18 WBC 6.7 Hgb 11.1 L Hct 34.9 L Plt Count 179 Sodium 140 Potassium 3.9 Chloride 111 H Carbon Dioxide 22 L BUN 15 Creatinine 0.91 Est GFR (Non-Af Amer) > 60 - Imaging EKG: report reviewed Additional studies: 10/2017 echocardiogram Impressions: LVEF 60-65%. Mild left ventricular diastolic dysfunction. Normal right ventricular structure and function. Mild-moderate pulmonic regurgitation. No pulmonary hypertension. 01/2019 stress Impression: Pharmacologic stress ECG is negative for ischemia at level of heart rate achieved. Gated EF > 70%. Small sized, moderate intensity, fixed apical inferior and apex perfusion defect suggestive of artifact. Perfusion imaging was negative for ischemia. PFT 01/2019 INTERPRETATION: Adequate for Interpretation Spirometry shows mild airway restrictive disease. FEV1 is reversible that suggest reactive airway disease/asthma and clinical correlation is needed. Post-bronchodilator FEV1 is 1.34 L, 83%. MVV is decreased. Lung Volumes are normal. Diffusion Capacity is normal. Flow Volume Loop: Restrictive. Anesthesia Exam Vital Signs/O2 Sat/Glucose, Most Recent Temp Pulse Resp BP Pulse Ox 98.2 F 57 18 114/60 96 01/17/19 11:26 01/17/19 11:26 01/17/19 11:26 01/17/19 11:26 01/17/19 11:26 Blood Glucose* 147 Weight: 68 kg NPO (# of Hours): > 8 hr - HEENT Pupil (Motor): Pupils equal Mallampati: II Teeth: Edentulous Oral Opening: Greater than 3 - HELPER ELECTRICAL LOC: Oriented - Cardiac Rhythm: Regular Murmur: None - Pulmonary Breath Sounds: bilateral Clear Respiratory Effort: Symmetrical Anesthesia Assess/Plan ASA Score: 3 Level of consciousness: Cooperative, Oriented Anesthetic Plan: General Monitoring Plan: Standard Monitors Recovery Plan: PACU
[2019-01-17] MEDS ORDERED: *HR* Labetalol 20 MG/4 ML SYRINGE IVP PRN (12:30)
[2019-01-17] MEDS ORDERED: *HR* Promethazine 25 MG/ML VIAL IVP PRN (12:30)
[2019-01-17] MEDS ORDERED: Ondansetron 4 MG/2 ML VIAL IVP ONE (12:30)
[2019-01-17] MEDS ORDERED: Acetaminophen IV 1,000 MG/100 ML INFUS..BTL IVPB ONE (12:30)
[2019-01-17] MEDS ORDERED: *HR* OxyCODONE Immed Rel 5 MG TABLET PO PRN (12:30)
[2019-01-17] MEDS ORDERED: Famotidine 20 MG/2 ML VIAL IVP ONE (12:30)
[2019-01-17] MEDS ORDERED: Gabapentin 300 MG CAPSULE PO ONE (12:30)
[2019-01-17] MEDS ORDERED: Albuterol 2.5 MG/3 ML NEBULIZER IH ONE (12:30)
[2019-01-17] MEDS ORDERED: *HR* FentaNYL (PF) 100 MCG/2 ML VIAL ONE (13:49)
[2019-01-17] MEDS ORDERED: *HR* Propofol 200 MG/20 ML VIAL IVP ONE (13:49)
[2019-01-17] MEDS ORDERED: Ondansetron 4 MG/2 ML VIAL ONE (13:50)
[2019-01-17] MEDS ORDERED: *HR* Rocuronium Bromide 50 MG/5 ML VIAL ONE (13:50)
[2019-01-17] MEDS ORDERED: Dexamethasone 4 MG/ML VIAL ONE (13:50)
[2019-01-17] MEDS ORDERED: *HR* Succinylcholine 200 MG/10 ML VIAL IVP ONE (13:50)
[2019-01-17] MEDS ORDERED: Lidocaine -MPF 2% 2 ML VIAL ONE (13:50)
--- NOTE | 2019-01-17 15:15 | History & Physical Report ---
Date of Encounter: 01/17/19 Time of Encounter: 15:14 24 Hour HP Update - Instructions Instructions: If the History and Physical is less than 30 days old and was completed prior to A.M. admission and or procedure and has NOT been updated on calendar day of procedure please complete this update prior to performing procedure. - Update Patient reports changes in Medical Condition: No Changes in examination, assessment, or condition: No Changes in Medication: No Preop tests/diagnostics Reviewed: Yes Pre-Op MRSA Screen: Negative Surgery Remains Indicated: Yes Consent for Planned Operative Procedure(s) Verified: Yes - Pre-Operative Checklist Preoperative Checklist Indicated: Yes Prophylactic Antibiotic Ordered: Yes Home Medications Include Beta Cate: Yes Beta Cate Taken Today (Day of Surgery): Yes Beta Cate Taken Yesterday (Day Prior to Surgery): Yes Is VTE Prophylaxis Indicated?: Yes
[2019-01-17] MEDS ORDERED: Ipratropium/Albuterol Neb 3 ML ONE (17:02)
--- NOTE | 2019-01-17 17:06 | Operative Note ---
Date of procedure: 01/17/19 Pre-op diagnosis: right lung mass Post-op diagnosis: other (c34.31) Procedure: staging bronchoscopy, dx vats, right thoracotomy wedge resection right lower lobe Anesthesia: GETA Local Anesthetics: 0.5% Sensorcaine HCL SubQ (cc) Surgeon: Henrique Boothe Was there an escrow assistant present: No Estimated blood loss (cc): 25 Specimen: wedge right lower lobe Condition: stable Disposition: PACU Procedure in Detail: Patient was brought to the operating room and placed on the operating table in the supine position. After undergoing general anesthesia with sequential compressive devices on bilateral lower extremities and perioperative antibiotics on board staging bronchoscopy for this new right lower lobe lung cancer did not demonstrate any endoluminal masses or extrinsic compression of the tracheobronchial tree. Patient was placed on the operating room table in the left lateral decubitus position with care to pad all pressure points. Thoracoscopy incisions were made however due to the patient's obesity despite reverse Trendelenburg positioning and creating a pneumo thorax he could not easily manipulate instruments to perform the thoracoscopy. Thoracotomy incision was made and a generous wedge resection was obtained of the right lower lobe in this mass that was in the transition between the lower third and the middle third of the right lower lobe. Intraoperative frozen section demonstrated adenocarcinoma. Chest tube was placed through one of the thoracoscopy ports secured into place with a #2 Ethibond suture. Intercostal space was closed with #1 Vicryl the musculature and dermis was closed with 0 Vicryl the skin was closed with a 4-0 Monocryl subcuticular stitch with dressings consisting of Steri-Strips and gauze patient was extubated taken to the recovery room.
[2019-01-17] MEDS: *HR* HYDROmorphone (PF) 1 MG/ML SYRINGE IVP PRN ×4 (17:16→17:39)
--- NOTE | 2019-01-17 17:59 | Anesthesia Evaluation Post Op ---
Date of Encounter: 01/17/19 Time of Encounter: 17:59 - Discharge PostOp Status: Transfer Patient to floor (Patient's vital signs have been reviewed. Patient is stable postoperatively and has adequately recovered from anesthesia. Patient is determined to have stable airway patency and respiratory function including respiratory rate and oxygen saturation. Patient has a stable heart rate, blood pressure and adequate hydration. Patients mental status is acceptable. Patients temperature is appropriate. Pain and nausea are adequately controlled)
[2019-01-17] MEDS ORDERED: Ondansetron 4 MG/2 ML VIAL IVP PRN (19:00)
[2019-01-17] MEDS ORDERED: Naloxone 0.4 MG/ML INJ IVP PRN (19:00)
[2019-01-17] MEDS ORDERED: 0.9 % Sodium Chloride 1,000 ML IVC SCH (19:00)
[2019-01-17] MEDS: Pregabalin 75 MG CAPSULE PO SCH (19:56)
[2019-01-17] MEDS: (Colestipol Hcl [Colestid] 1 GM) PO SCH (19:57)
[2019-01-17] MEDS: Gabapentin 300 MG CAPSULE PO SCH (19:57)
[2019-01-17] MEDS: Famotidine 20 MG TABLET PO SCH (19:57)
[2019-01-17] MEDS: Sennosides/Docusate Sodium TABLET PO SCH (19:57)
[2019-01-17] MEDS: Insulin DETEMIR 100 UNIT/ML X5UNITS SQ SCH (20:09)
[2019-01-17] MEDS: Ipratropium/Albuterol Neb 3 ML IH SCH (20:19)
[2019-01-17] MEDS: *HR* Heparin 5,000 UNIT/ML VIAL SQ SCH (20:24)
[2019-01-18] MEDS: Ipratropium/Albuterol Neb 3 ML IH SCH ×7 (00:04→23:16)
[2019-01-18 02:11] LABS: Hematocrit 42.7 % (35.3-44.9); Hemoglobin 13.4 g/dL (11.5-15.4); Mean Corpuscular HGB Conc 31.4 g/dL (31.6-35.5); Mean Corpuscular Hemoglobin 28.7 pg (28.0-33.3); Mean Corpuscular Volume 91.4 fL (83.0-100.0); Mean Platelet Volume 9.3 fL (9.4-12.4); Platelet Count 233 K/mcL (140-400); Red Blood Count 4.67 M/mcL (3.82-4.97); Red Cell Distribution Width 13.6 % (11.5-14.5); White Blood Count 17.7 K/mcL (4.3-11.1)
[2019-01-18 02:30] LABS: % Iron Saturation 6 % (15-50); BUN/Creatinine Ratio 20 (6-26); Blood Urea Nitrogen 21 mg/dL (8-23); Calcium 9.3 mg/dL (8.6-10.3); Carbon Dioxide 24 mEq/L (23-29); Chloride 106 mEq/L (98-107); Glucose 201 mg/dL (70-105); Iron 21 mcg/dL (50-170); Magnesium 1.9 mg/dL (1.6-2.6); Osmolality,Calculated 299 (280-300); Potassium 4.6 mEq/L (3.5-5.1); Sodium 140 mEq/L (136-145); Transferrin 271 mg/dL (203-362); eGFR For African Americans > 60 (> 60); eGFR For Non-African Americans 50 (> 60)
[2019-01-18] MEDS: *HR* Heparin 5,000 UNIT/ML VIAL SQ SCH ×3 (04:11→21:44)
[2019-01-18] MEDS: *HR* HYDROcodone/Acet 5/325 mg TABLET PO PRN ×4 (04:12→20:07)
[2019-01-18] MEDS: Sennosides/Docusate Sodium TABLET PO SCH ×2 (08:04→20:12)
[2019-01-18] MEDS: Gabapentin 300 MG CAPSULE PO SCH ×3 (08:04→20:07)
[2019-01-18] MEDS: Famotidine 20 MG TABLET PO SCH ×2 (08:04→20:07)
[2019-01-18] MEDS: Insulin DETEMIR 100 UNIT/ML X5UNITS SQ SCH ×2 (08:14→20:12)
[2019-01-18] MEDS ORDERED: Iron Sucrose Complex 400 MG in 0.9 % Sodium Chloride 250 ML IVPB ONE (08:17)
--- NOTE | 2019-01-18 08:30 | Cardiothoracic Progress Note ---
Date of Encounter: 01/18/19 Time of Encounter: 08:28 - Assessment and plan (1) Malignant neoplasm of lower lobe, right bronchus or lung Current Visit: Yes Status: Acute The assessment and plan as outlined above was discussed with the patient and/or family members who expressed understanding and agreement. All questions were answered. continue chest tube to drainage replace mg (2) Hypertension Current Visit: No Status: Chronic The assessment and plan as outlined above was discussed with the patient and/or family members who expressed understanding and agreement. All questions were answered. stable with current medications Qualifiers: (3) Diabetes mellitus Current Visit: No Status: Chronic The assessment and plan as outlined above was discussed with the patient and/or family members who expressed understanding and agreement. All questions were answered. 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 All questions were answered. Qualifiers: Major depression recurrence: recurrent Active/Remission status: in partial remission Qualified Code(s): F33.41 - Major depressive disorder, recurrent, in partial remission (5) Iron deficiency anemia Current Visit: Yes Status: Acute The assessment and plan as outlined above was discussed with the patient and/or family members who expressed understanding and agreement. All questions were answered. give iv iron Qualifiers: Iron deficiency anemia type: inadequate dietary iron intake Qualified Code(s): D50.8 - Other iron deficiency anemias - Subjective Interval history: pain at incision Vital Signs, Last 4 Hours Temp Pulse Resp BP Pulse Ox 01/18/19 07:34 97.6 F 72 20 149/63 95 Oxgyen Flow Rate Oxygen Flow Rate (LPM) 2 Weight 01/16/19 01/17/19 01/18/19 23:59 23:59 23:59 Weight 68.039 kg 77.6 kg - Physical Examination General: Conversant, Well developed HEENT: Atraumatic, Normocephaly Cardiac: Reg Rate and Rhythm Incision: No signs of infection Chest tubes: Minimal drainage Lungs: Other (midline rhonchi ) Neuro: Alert and responsive, No focal deficits noted, Cranial nerves intact, Sensory nerves intact Abdomen: Soft, Non-tender Extremities: No Edema - Labs 01/18/19 01:39 01/18/19 01:39 Lab Results, Last 24 hours 01/18/19 01/18/19 01:39 01:39 WBC 17.7 H Hgb 13.4 Hct 42.7 Plt Count 233 Sodium 140 Potassium 4.6 Chloride 106 Carbon Dioxide 24 BUN 21 Creatinine 1.06 Glucose 201 H Calcium 9.3 Magnesium 1.9 - Imaging Chest Xray: image reviewed Consult Discharge Plan - Plan Referrals: Henrique Boothe MD [Partnered Physician] - Shaji Vick DO [Partnered Physician] -
[2019-01-18] MEDS: 0.9 % Sodium Chloride 1,000 ML IVC SCH (08:41)
[2019-01-18] MEDS: (Colestipol Hcl [Colestid] 1 GM) PO SCH ×2 (09:10→20:10)
[2019-01-18] MEDS: *HR* HYDROmorphone (PF) 1 MG/ML SYRINGE IVP PRN ×2 (10:54→19:08)
[2019-01-18] MEDS: Pregabalin 75 MG CAPSULE PO SCH (17:14)
[2019-01-19] MEDS: *HR* HYDROmorphone (PF) 1 MG/ML SYRINGE IVP PRN ×2 (02:40→06:51)
[2019-01-19] MEDS: *HR* HYDROcodone/Acet 5/325 mg TABLET PO PRN ×2 (02:40→06:51)
[2019-01-19] MEDS: Ipratropium/Albuterol Neb 3 ML IH SCH ×5 (03:46→19:41)
[2019-01-19] MEDS: 0.9 % Sodium Chloride 1,000 ML IVC SCH ×2 (06:00→20:45)
[2019-01-19] MEDS: *HR* Heparin 5,000 UNIT/ML VIAL SQ SCH ×3 (06:52→19:42)
[2019-01-19] MEDS: Insulin DETEMIR 100 UNIT/ML X5UNITS SQ SCH (09:29)
[2019-01-19] MEDS: (Colestipol Hcl [Colestid] 1 GM) PO SCH ×2 (09:30→19:41)
[2019-01-19] MEDS: Gabapentin 300 MG CAPSULE PO SCH (09:30)
--- NOTE | 2019-01-19 09:39 | Cardiothoracic Progress Note ---
Date of Encounter: 01/19/19 Time of Encounter: 09:26 - Assessment and plan (1) Malignant neoplasm of lower lobe, right bronchus or lung Current Visit: Yes Status: Acute The assessment and plan as outlined above was discussed with the patient and/or family members who expressed understanding and agreement. All questions were answered. continue chest tube to drainage clamp chest tube at midnight. encourage i/s and order percussion labs in am. daughter at [facility], updated regarding type of surgery, type of cancer, and current care. (2) Hypertension Current Visit: No Status: Chronic The assessment and plan as outlined above was discussed with the patient and/or family members who expressed understanding and agreement. All questions were answered. stable with current medications Qualifiers: (3) Diabetes mellitus Current Visit: No Status: Chronic The assessment and plan as outlined above was discussed with the patient and/or family members who expressed understanding and agreement. All questions were answered. no changes in current diet or medicatioins Qualifiers: Diabetes mellitus group home insulin use: with group home use Diabetes m ellitus complication status: with hypoglycemia (4) Major depressive disorder Current Visit: No Status: Acute The assessment and plan as outlined above was discussed with the patient and/or family members who expressed understanding and agreement. All questions were answered. Qualifiers: Major depression recurrence: recurrent Active/Remission status: in partial remission Qualified Code(s): F33.41 - Major depressive disorder, recurrent, in partial remission (5) Iron deficiency anemia Current Visit: Yes Status: Acute The assessment and plan as outlined above was discussed with the patient and/or family members who expressed understanding and agreement. All questions were answered. give iv iron Qualifiers: Iron deficiency anemia type: inadequate dietary iron intake Qualified Code(s): D50.8 - Other iron deficiency anemias - Subjective Interval history: pain at incision Vital Signs, Last 4 Hours Temp Pulse Resp BP Pulse Ox 01/19/19 07:48 19 92 01/19/19 07:16 99.3 F 126 18 107/60 93 Oxgyen Flow Rate Oxygen Flow Rate (LPM) 6 Clinical Data, last 8 Hours Output, Urine Amount 300 Weight 01/17/19 01/18/19 01/19/19 23:59 23:59 23:59 Weight 68.039 kg 77.6 kg - Physical Examination General: Conversant, No Apparent Distress, Other (somnulent) HEENT: Atraumatic, Normocephaly Neck: No JVD Cardiac: Reg Rate and Rhythm, Normal S1 and S2 Incision: No signs of infection, Dry/intact dressing Chest tubes: Minimal drainage Lungs: Other (cta but poor effort and decreased at the right base ) Neuro: Alert and responsive Abdomen: Soft, Non-tender, Other (reducible incisional hernia ) Extremities: No Clubbing, No Edema - Labs 01/18/19 01:39 01/18/19 01:39 - Imaging Chest Xray: image reviewed Consult Discharge Plan - Plan Referrals: Henrique Boothe MD [Partnered Physician] - Shaji Vick DO [Partnered Physician] - 01/30/19 1:30 pm
[2019-01-19 10:34] LABS: Hematocrit 34.7 % (35.3-44.9); Mean Corpuscular HGB Conc 31.4 g/dL (31.6-35.5); Mean Corpuscular Hemoglobin 28.7 pg (28.0-33.3); Mean Corpuscular Volume 91.3 fL (83.0-100.0); Mean Platelet Volume 9.4 fL (9.4-12.4); Platelet Count 223 K/mcL (140-400); Red Cell Distribution Width 14.5 % (11.5-14.5); White Blood Count 13.7 K/mcL (4.3-11.1)
[2019-01-19 10:35] LABS: Hemoglobin 10.9 g/dL (11.5-15.4)
[2019-01-19 10:52] LABS: Calcium 9.1 mg/dL (8.6-10.3); Potassium 4.3 mEq/L (3.5-5.1)
[2019-01-19] MEDS: Acetylcysteine 10% 2 ML INHSOL IH SCH ×3 (11:51→19:41)
[2019-01-19] MEDS ORDERED: D5% in Water 1,000 ML IVC PRN (11:52)
[2019-01-19] MEDS ORDERED: Dextrose Gel 15 GM/37.5 ML TUBE PO PRN ×2 (11:52)
[2019-01-19] MEDS: *HR* Dextrose 50 % in Water (Syg) 50 ML SYRINGE IVP PRN ×3 (12:04→23:29)
[2019-01-19] MEDS: Sennosides/Docusate Sodium TABLET PO SCH (12:07)
[2019-01-19] MEDS: Famotidine 20 MG TABLET PO SCH (12:07)
[2019-01-19] MEDS ORDERED: Furosemide 40 MG/4 ML VIAL IVP STA (13:25)
[2019-01-19 13:36] LABS: ABG Base Excess 1 mEq/L (-2 to 3); ABG HCO3 30 mEq/L (21-27); ABG Oxygen Saturation 94 % (95-98); ABG PCO2 68 mmHg (35-45); ABG PH 7.25 pH Units (7.32-7.45); ABG PO2 84 mmHg (85-104); ABG TCO2 32 mEq/L (20-26)
[2019-01-19] MEDS ORDERED: *HR* Midazolam HCl 5 MG/5 ML VIAL IVP ONE (13:52)
[2019-01-19] MEDS ORDERED: *HR* Midazolam HCl 2 MG/2 ML VIAL IVP ONE (13:56)
[2019-01-19] MEDS: FentaNYL (PF) 1,000 MCG in 0.9 % Sodium Chloride 80 ML IVC SCH (14:00)
--- NOTE | 2019-01-19 14:00 | Procedure Note ---
<Lucas Cabrera - Last Filed: 01/19/19 13:57> Date of procedure: 01/19/19 Pre-op diagnosis: Acute Respiratory Failure Post-op diagnosis: same Procedure: A time-out was completed verifying correct patient, procedure, site, positioning, and special equipment if applicable. The patient was placed in a flat position. Sedation was obtained with Etomidate 20mg. The patient was easily ventilated using an ambu bag. The MAC 3 BLADE was used and inserted into the oropharynx at which time there was a Grade 1 view of the vocal cords. A 7.5- yoruba endotracheal tube was inserted and visualized going through the vocal cords. The stylette was removed. Colorimetric change was visualized on the CO2 meter. Breath sounds were heard in both lung ferreira equally. The endotracheal tube was placed at 20 cm, measured at the teeth. Dr. Conway was present for the entire procedure. A chest x-ray was ordered to assess for pneumothorax and verify endotrachealtube placement. The patient tolerated the procedure well and there were no complications. Anesthesia: IV sedation Surgeon: Lucas Cabrera Was there an stylist assistant present: No Estimated blood loss (cc): 0 Specimen: none Pathology: none sent Condition: critical Disposition: ICU <Jessica Conway - Last Filed: 01/19/19 19:01> Procedure: I was present during the entire procedure and assisted in critical portions of the procedure.
--- NOTE | 2019-01-19 14:04 | Pulmonology Consult Note ---
<Lucas Cabrera N - Last Filed: 01/19/19 14:47> Date of Encounter: 01/19/19 Time of Encounter: 14:02 Assessment and Plan (1) Acute respiratory failure with hypoxia and hypercarbia Current Visit: Yes Status: Acute Rapid response was called to the patient's room due to patient in acute respiratory distress Patient found to be breathing very heavily and upon placement of BiPAP began to have periods of apnea Decision was made for patient to be intubated and patient was brought to the ICU. Successful intubation performed in ICU and patient was started on the ventilator ABG prior to intubation: PH 7.25, PCO2 68, PO2 84, HCO3 30, O2 saturation of 94%. -Ventilator set at tidal volume of 400, respiratory rate 16, FiO2 60%, PEEP of 5 -Ventilator bundle initiated -Patient given 40 mg IV Lasix, repeat dose at 19:00 (2) Malignant neoplasm of lower lobe, right bronchus or lung Current Visit: Yes Status: Acute Patient had a right lower lobe thoracotomy wedge resection on 01/17 -Post op day 2 -Dr. Boothe informed of pts condition (3) Diabetes mellitus Current Visit: No Status: Chronic Patient on insulin at home. -Nothing by mouth -Sliding-scale insulin -Every 6 hour Accu-Cheks Qualifiers: Diabetes mellitus type: type 2 Diabetes mellitus long term care administrator insulin use: with long term care administrator use Diabetes mellitus complication status: with kidney complications Diabetes mellitus complication detail: with chronic kidney disease Chronic kidney disease stage: stage 3 (moderate) Qualified Code(s): E11.22 - Type 2 diabetes mellitus with diabetic chronic kidney disease; N18.3 - Chronic kidney disease, stage 3 (moderate); Z79.4 - longterm (current) use of insulin (4) Hypertension Current Visit: No Status: Chronic BP Currently stable On losartan 12.5 and metoprolol titrate 25 mg twice a day -hydralazine q6h PRN while intubated Qualifiers: Hypertension type: essential hypertension Qualified Code(s): I10 - Essential (primary) hypertension (5) Iron deficiency anemia Current Visit: Yes Status: Acute Current H&H of 10.9 and 34.7 -Continue to monitor Qualifiers: Iron deficiency anemia type: inadequate dietary iron intake Qualified Code(s): D50.8 - Other iron deficiency anemias (6) DVT prophylaxis Current Visit: No Status: Acute Heparin SubQ History of Present Illness Consult date: 01/19/19 Past Med Surg Social Fam HX - Past Medical History Medical history: asthma, CHF, coronary artery disease, diabetes, hyperlipidemia, hypertension, myocardial infarction, thyroid disease Additional medical history: DDD Psychiatric history: no psych history - Past Surgical History Surgical History: colectomy, other Additional surgical history: Tubal, cyst removed from back. - Social History Smoking Status: Never smoker Smokeless Tobacco Status: No Alcohol use: none Drug use: none - Family History Mother Adopted: No Family Member Ethnicity: Non- Living Status: Hx Family Cardiac Disorders: Yes Hx Family Respiratory Disorders: No Hx Family Cancer: Yes Hx Family GI Disorders: No Hx Family Endocrine Disorder: No Hx Family Neuromuscular Disorders: No Hx Family Neurologic Disorders: No Hx Family HEENT Disorders: No Hx Family Autoimmune Disorders: No Father Living Status: Hx Family Cardiac Disorders: Yes (OR) Medications and Allergies Pregabalin [Lyrica] 75 mg PO QPM 03/23/15 [History] Allopurinol [Zyloprim 100 MG] 100 mg PO DAILY 11/25/16 [History] Omeprazole [PriLOSEC] 20 mg PO BIDAC 11/25/16 [History] Oxycodone HCl/Acetaminophen [Percocet 5-325 mg Tablet] 1 tab PO Q8H PRN 11/25/16 [History] Simvastatin [Zocor] 40 mg PO HS tab 12/01/16 [Rx] Insulin ASPART [NovoLOG] 0 unit SQ TIDWM PRN 10/20/17 [History] Insulin Glargine,Hum.rec.anlog [Basaglar Kwikpen U-100] 50 unit SQ BID 10/20/17 [History] Albuterol Sulfate [Proair Hfa] 2 puff IH Q4H PRN 03/27/18 [History] Colestipol HCl [Colestid] 1 gm PO BID 03/27/18 [History] Donepezil HCl [Aricept] 10 mg PO HS 03/27/18 [History] Furosemide [Lasix] 40 mg PO DAILY 03/27/18 [History] Olmesartan Medoxomil [Benicar] 5 mg PO DAILY 03/27/18 [History] Sertraline [Zoloft] 150 mg PO DAILY 03/27/18 [History] Potassium Chloride 20 meq PO DAILY #5 tab.er.prt 10/30/18 [Rx] Calcium Carbonate/Vitamin D3 [Oyster Shell 500Mg-Vit D3 5Mcg] 1 tab PO DAILY 01/06/19 [History] Dicyclomine Hcl [Bentyl] 20 mg PO TID PRN 01/06/19 [History] Gabapentin [Neurontin] 100 mg PO TID 01/06/19 [History] Levothyroxine [Synthroid] 125 mcg PO 0630 01/06/19 [History] Metoprolol [Lopressor] 25 mg PO BID 01/06/19 [History] Trazodone HCl 150 mg PO HS 01/17/19 [History] Allergy/AdvReac Type Severity Reaction Status Date / Time lisinopril Allergy Gastrointestinal Verified 10/19/17 19:38 Upset ROS unobtainable: due to endotracheal tube All Systems: The remainder of the systems were reviewed and are negative Physical Examination Vital Signs: Vital Signs, Last 4 Hours Temp Pulse Resp BP Pulse Ox 01/19/19 11:52 22 96 01/19/19 11:44 100.3 F H 119 18 118/56 96 General appearance: other (Patient in extreme respiratory distress and unable to communicate) Eyes: nonicteric ENT: oropharynx moist Neck: no lymphadenopathy, no JVD Effort: very labored Auscultation: bilateral: diminished breath sounds Cardiovascular: other (Sinus Tachycardia) Gastrointestinal: normoactive bowel sounds, soft, non-tender Integumentary: other (Chest tube in place) Extremities: no edema, pulses normal Musculoskeletal: no deformities unable to assess due to mental status Results - Laboratory Findings CBC and BMP: 01/19/19 10:06 01/19/19 10:06 ABG ABG pH 7.25 pH Units (7.32-7.45) L 01/19/19 13:30 ABG pCO2 68 mmHg (35-45) H 01/19/19 13:30 ABG pO2 84 mmHg (85-104) L 01/19/19 13:30 ABG O2 Saturation 94 % (95-98) L 01/19/19 13:30 Abnormal lab findings: Abnormal lab results WBC 13.7 K/mcL (4.3-11.1) H 01/19/19 10:06 RBC 3.80 M/mcL (3.82-4.97) L 01/19/19 10:06 Hgb 10.9 g/dL (11.5-15.4) L D 01/19/19 10:06 Hct 34.7 % (35.3-44.9) L 01/19/19 10:06 MCHC 31.4 g/dL (31.6-35.5) L 01/19/19 10:06 MPV 9.3 fL (9.4-12.4) L 01/18/19 01:39 ABG pH 7.25 pH Units (7.32-7.45) L 01/19/19 13:30 ABG pCO2 68 mmHg (35-45) H 01/19/19 13:30 ABG pO2 84 mmHg (85-104) L 01/19/19 13:30 ABG HCO3 30 mEq/L (21-27) H 01/19/19 13:30 ABG Total CO2 32 mEq/L (20-26) H 01/19/19 13:30 ABG O2 Saturation 94 % (95-98) L 01/19/19 13:30 BUN 25 mg/dL (8-23) H 01/19/19 10:06 Est GFR ( Amer) 59 (> 60) L 01/19/19 10:06 Est GFR (Non-Af Amer) 48 (> 60) L 01/19/19 10:06 Glucose 61 mg/dL (70-105) L 01/19/19 10:06 POC Glucose 206 mg/dL (70-99) H 01/18/19 19:28 Iron 21 mcg/dL (50-170) L 01/18/19 01:39 % Saturation 6 % (15-50) L 01/18/19 01:39 - Clinical Findings Intake & Output: Intake & Output 01/18/19 01/19/19 01/19/19 23:59 07:59 15:59 Intake Total 1000 / 1000 0 / 1000 Output Total 50 / 95 300 / 300 0 / 300 Balance -50 / 345 700 / 700 0 / 700 Consult Discharge Plan - Plan Referrals: Henrique Boothe MD [Partnered Physician] - Shaji Vick DO [Partnered Physician] - 01/30/19 1:30 pm <Jessica Conway S - Last Filed: 01/19/19 19:55> Date of Encounter: 01/19/19 All Systems: The remainder of the systems were reviewed and are negative Physical Examination Vital Signs: Vital Signs, Last 4 Hours Temp Pulse Resp BP Pulse Ox 01/19/19 18:00 94 16 93/51 98 01/19/19 17:25 16 98/54 99 01/19/19 17:00 96 16 98/54 99 01/19/19 16:18 100.2 F H 01/19/19 16:00 96 16 99/53 99 Ventilator Settings Ventilator Settings: Ventilator Settings, Last 8 Hours Ventilator Tidal Volume 400 Setting Ventilator Tidal Volume 400 Setting Ventilator Tidal Volume 400 Setting Ventilator Tidal Volume 400 Setting Ventilator Tidal Volume 400 Setting Ventilator Tidal Volume 400 Setting Ventilator Tidal Volume 400 Setting Ventilator Tidal Volume 400 Setting Ventilator Tidal Volume 400 Setting Ventilator Respiratory Rate 16 Setting Ventilator Respiratory Rate 16 Setting Ventilator Respiratory Rate 16 Setting Ventilator Respiratory Rate 16 Setting Ventilator Respiratory Rate 18 Setting Ventilator Respiratory Rate 16 Setting Ventilator Respiratory Rate 16 Setting Ventilator Respiratory Rate 16 Setting Ventilator Respiratory Rate 18 Setting Actual Respiratory Rate 16 Actual Respiratory Rate 16 Actual Respiratory Rate 16 Actual Respiratory Rate 16 Actual Respiratory Rate 16 Actual Respiratory Rate 16 Actual Respiratory Rate 16 Actual Respiratory Rate 18 Positive End Expiratory 5 Pressure Positive End Expiratory 5 Pressure Positive End Expiratory 5 Pressure Positive End Expiratory 5 Pressure Positive End Expiratory 5 Pressure Positive End Expiratory 5 Pressure Positive End Expiratory 5 Pressure Positive End Expiratory 5 Pressure Positive End Expiratory 5 Pressure Peak Inspiratory Airway 24 Pressure Peak Inspiratory Airway 22 Pressure Peak Inspiratory Airway 24 Pressure Peak Inspiratory Airway 25 Pressure Peak Inspiratory Airway 24 Pressure Peak Inspiratory Airway 25 Pressure Peak Inspiratory Airway 26 Pressure Peak Inspiratory Airway 26 Pressure Results - Laboratory Findings CBC and BMP: 01/19/19 10:06 01/19/19 10:06 ABG ABG pH 7.42 pH Units (7.32-7.45) D 01/19/19 15:55 ABG pCO2 47 mmHg (35-45) H D 01/19/19 15:55 ABG pO2 104 mmHg (85-104) 01/19/19 15:55 ABG O2 Saturation 98 % (95-98) 01/19/19 15:55 Abnormal lab findings: Abnormal lab results WBC 13.7 K/mcL (4.3-11.1) H 01/19/19 10:06 RBC 3.80 M/mcL (3.82-4.97) L 01/19/19 10:06 Hgb 10.9 g/dL (11.5-15.4) L D 01/19/19 10:06 Hct 34.7 % (35.3-44.9) L 01/19/19 10:06 MCHC 31.4 g/dL (31.6-35.5) L 01/19/19 10:06 MPV 9.3 fL (9.4-12.4) L 01/18/19 01:39 ABG pH 7.25 pH Units (7.32-7.45) L 01/19/19 13:30 ABG pCO2 47 mmHg (35-45) H D 01/19/19 15:55 ABG pO2 84 mmHg (85-104) L 01/19/19 13:30 ABG HCO3 30 mEq/L (21-27) H 01/19/19 15:55 ABG Total CO2 32 mEq/L (20-26) H 01/19/19 15:55 ABG O2 Saturation 94 % (95-98) L 01/19/19 13:30 ABG Base Excess 5 mEq/L (-2 to 3) H 01/19/19 15:55 BUN 25 mg/dL (8-23) H 01/19/19 10:06 Est GFR ( Amer) 59 (> 60) L 01/19/19 10:06 Est GFR (Non-Af Amer) 48 (> 60) L 01/19/19 10:06 Glucose 61 mg/dL (70-105) L 01/19/19 10:06 POC Glucose 206 mg/dL (70-99) H 01/18/19 19:28 Iron 21 mcg/dL (50-170) L 01/18/19 01:39 % Saturation 6 % (15-50) L 01/18/19 01:39 - Clinical Findings Intake & Output: Intake & Output 01/19/19 01/19/19 01/19/19 07:59 15:59 23:59 Intake Total 1000 / 1022 1021 Output Total 1959 Balance 700 / -938 5 / -938 -1643 / -938 - Attending Attestation I saw and evaluated this patient and my medical decision-making was reviewed with the Resident Physician. I agree with the documented findings, disposition and treatment plan as described except to the extent set forth below. We independently had [id number] contact with the patient I spent 50 minutes of Critical Care time with this patient. It involved decision making of high complexity to assess, manipulate, and support vital organ system failure and/or to prevent further life threatening deterioration of the patient's condition. The time involved in the performance of separately reportable procedures was not counted toward critical care time. Patient seen and examined at bedside Labs, radiology, chart personally reviewed. Management was reviewed during multidisciplinary critical care rounds. SALES ESTIMATOR: Patient before intubation is lethargic but answering questions by yes or no Cannot complete the sentences patient is in severe respiratory distress. Patient was induced with etomidate and Versed maintenance was done with Versed and fentanyl. Pulm: Patient had right-sided adenocarcinoma of lung had a wedge resection supported by chest tube patient had slow worsening of V/Q mismatch that the acute hypoxic and hypercarbic respiratory failure patient needing mechanical ventilation could not salvage with noninvasive ventilation as as I saw the ben etienne so late in the trajectory of the disease. Patient PFT shows some mild restrictive airway disease no evidence of COPD. Patient has acceptable oxygenation and ventilation will do low tidal volume strategy and i adjusted the minute ventilation accordingly. Cards: Patient is hemodynamically stable patient has a previous history of diastolic heart failure looks like the current presentation of acute hypoxic hypercarbic respiratory failure most likely due to worsening pulmonary edema will trend the troponins get an EKG and check an echo. FEN-GI: To advance diet as tolerated. Renal: Labs and output were reviewed ID: Patient has some low-grade fever to get blood and sputum culture to start on broad-spectrum antibiotics Heme/Onc: Labs and output were reviewed Endo: Glucose Monitored Integ/MSK: Skin Care per routine ICU Nursing Protocol to prevent ulcers. Lines: All lines examined without evidence of infection : Dispo: Critically ill CODE: Full Code
[2019-01-19] MEDS ORDERED: Artificial Tears SOLN 15 ML BOTTLE BOTH EYES PRN (14:09)
--- NOTE | 2019-01-19 14:18 | Event Note ---
Date of Encounter: 01/19/19 Time of Encounter: 13:23 I responded to a rapid response call on this patient on 2N3. Upon my arrival, patient was somnolent, tachypneic, hypoxemic, and exhibited extreme work of breathing. Dr. Conway was present at bedside as well. We attempted placing her on BiPAP and diuresing her for concerns of acute flash pulmonary edema on clinical exam. Despite BiPap and Lasix, she was having periods of apnea and her level of consciousness was declining. We therefore decided to move her to the ICU and proceed with intubation for fear of impending respiratory arrest. Upon arrival to the ICU, she was stabilized and ventilated by bag mask ventilation. She was then intubated successfully by Dr. Cabrera in the presence of Dr. Conway (please see separately dictated procedure). Once an airway was secured, we confirmed placement by auscultation and chest x-ray. After above, I contacted Dr. Boothe and discussed the case with him. I informed him of her status and that we had a secured an airway and will continue to ventilate her mechanically for now. We will try to gingerly diurese her and keep her on bronchodilators in hopes of improving her ventilation and oxygenation. I discussed with family and updated them as well.
[2019-01-19] MEDS: Insulin LISPRO 300 UNITS/3 ML VIAL SQ SCH ×3 (14:39→23:30)
[2019-01-19] MEDS: Artificial Tears SOLN 15 ML BOTTLE BOTH EYES SCH ×3 (14:50→23:30)
[2019-01-19] MEDS ORDERED: Gabapentin 100 MG CAPSULE PO SCH (15:00)
[2019-01-19 16:01] LABS: ABG Base Excess 5 mEq/L (-2 to 3); ABG HCO3 30 mEq/L (21-27); ABG Oxygen Saturation 98 % (95-98); ABG PCO2 47 mmHg (35-45); ABG PH 7.42 pH Units (7.32-7.45); ABG PO2 104 mmHg (85-104); ABG TCO2 32 mEq/L (20-26); Blood Gas Modality AF; Blood Gas PEEP 5 cm H2O; Blood Gas VT 400 cc
[2019-01-19] MEDS: Pantoprazole 40 MG VIAL IVP SCH (17:36)
[2019-01-19] MEDS ORDERED: 0.9 % Sodium Chloride 500 ML IV ONE (18:31)
[2019-01-19] MEDS: Piperacillin/Tazobactam 3.375 GM in 0.9 % Sodium Chloride Mini Bag 100 ML IVPB SCH (19:25)
[2019-01-19] MEDS: Chlorhexidine Rinse 15 ML MOUTHWASH MM SCH (19:40)
[2019-01-20] MEDS: Acetylcysteine 10% 2 ML INHSOL IH SCH ×8 (00:02→23:10)
[2019-01-20] MEDS: Ipratropium/Albuterol Neb 3 ML IH SCH ×7 (00:02→23:09)
[2019-01-20] MEDS: 0.9 % Sodium Chloride 1,000 ML IVC SCH ×2 (03:15→16:07)
[2019-01-20] MEDS: Artificial Tears SOLN 15 ML BOTTLE BOTH EYES SCH ×6 (03:32→23:39)
[2019-01-20 04:04] LABS: Eosinophils % 0.3 %; Hematocrit 31.8 % (35.3-44.9); Immature Granulocytes % 0.5 % (0-4); Lymphocytes # 1.1 K/mcL (0.6-4.6); Lymphocytes % 8.8 %; Mean Corpuscular HGB Conc 31.4 g/dL (31.6-35.5); Mean Corpuscular Hemoglobin 28.8 pg (28.0-33.3); Mean Corpuscular Volume 91.6 fL (83.0-100.0); Mean Platelet Volume 9.2 fL (9.4-12.4); Monocytes # 1.4 K/mcL (0.0-1.3); Monocytes % 11.4 %; Neutrophils # 9.4 K/mcL (1.6-8.9); Platelet Count 180 K/mcL (140-400); Red Blood Count 3.47 M/mcL (3.82-4.97); Red Cell Distribution Width 14.5 % (11.5-14.5); White Blood Count 11.9 K/mcL (4.3-11.1)
[2019-01-20 04:24] LABS: Alanine Aminotransferase 19 Units/L (7-52); Albumin 3.1 g/dL (3.5-5.7); Albumin/Globulin Ratio 1.2 (1.1-2.2); Alkaline Phosphatase 93 Units/L (34-104); Aspartate Amino Transferase 48 Units/L (13-39); BUN/Creatinine Ratio 24 (6-26); Bilirubin,Total 0.7 mg/dL (0.3-1.0); Blood Urea Nitrogen 22 mg/dL (8-23); Calcium 8.4 mg/dL (8.6-10.3); Carbon Dioxide 24 mEq/L (23-29); Chloride 110 mEq/L (98-107); Globulin 2.5 g/dL (2.4-3.5); Glucose 133 mg/dL (70-105); Osmolality,Calculated 303 (280-300); Potassium 3.5 mEq/L (3.5-5.1); Sodium 144 mEq/L (136-145); Total Protein 5.6 g/dL (6.4-8.9); eGFR For African Americans > 60 (> 60); eGFR For Non-African Americans 59 (> 60)
[2019-01-20 04:51] LABS: ABG Base Excess 4 mEq/L (-2 to 3); ABG HCO3 30 mEq/L (21-27); ABG Oxygen Saturation 90 % (95-98); ABG PCO2 48 mmHg (35-45); ABG PO2 60 mmHg (85-104); ABG TCO2 31 mEq/L (20-26); Blood Gas PEEP 5 cm H2O; Blood Gas VT 400 cc
[2019-01-20] MEDS: FentaNYL (PF) 1,000 MCG in 0.9 % Sodium Chloride 80 ML IVC SCH ×2 (05:00→23:40)
[2019-01-20] MEDS: Insulin LISPRO 300 UNITS/3 ML VIAL SQ SCH ×6 (05:58→23:40)
[2019-01-20] MEDS: Piperacillin/Tazobactam 3.375 GM in 0.9 % Sodium Chloride Mini Bag 100 ML IVPB SCH ×2 (06:23→17:55)
[2019-01-20] MEDS: *HR* Heparin 5,000 UNIT/ML VIAL SQ SCH ×3 (06:24→21:23)
[2019-01-20] MEDS: Pantoprazole 40 MG VIAL IVP SCH ×2 (06:24→17:56)
--- NOTE | 2019-01-20 06:57 | Pulmonology Progress Note ---
<Lucas Cabrera N - Last Filed: 01/20/19 12:50> Date of Encounter: 01/20/19 Time of Encounter: 06:47 Assessment and Plan (1) Acute respiratory failure with hypoxia and hypercarbia Current Visit: Yes Status: Acute Rapid response was called to the patient's room due to patient in acute respiratory distress Patient found to be breathing very heavily and upon placement of BiPAP began to have periods of apnea Decision was made for patient to be intubated and patient was brought to the ICU. Successful intubation performed in ICU and patient was started on the ventilator ABG prior to intubation: PH 7.25, PCO2 68, PO2 84, HCO3 30, O2 saturation of 94%. -Ventilator set at tidal volume of 400, respiratory rate 16, FiO2 50%, PEEP of 5 -ABG in morning of pH 7.40, PCO2 48, PO2 60, HCO3 30, O2 saturation 90% -I&Os of -1388 on 01/19 -Attempted to wean patient from vent today, but pt was not reaching optimal vt. Will reassess tomorrow. -CXR shows improved aeration of the right lung with persistence of underlying atelectasis (2) Malignant neoplasm of lower lobe, right bronchus or lung Current Visit: Yes Status: Acute Patient had a right lower lobe thoracotomy wedge resection on 01/17 -Post op day 3 -Dr. Boothe informed of pts condition (3) Diabetes mellitus Current Visit: No Status: Chronic Patient on insulin at home. -Nothing by mouth -Sliding-scale insulin -Every 4 hour Accu-Cheks Qualifiers: Diabetes mellitus type: type 2 Diabetes mellitus ferry terminal agent insulin use: with jail use Diabetes mellitus complication status: with kidney complications Diabetes mellitus complication detail: with chronic kidney disease Chronic kidney disease stage: stage 3 (moderate) Qualified Code(s): E11.22 - Type 2 diabetes mellitus with diabetic chronic kidney disease; N18.3 - Chronic kidney disease, stage 3 (moderate); Z79.4 - senior care (current) use of insulin (4) Hypertension Current Visit: No Status: Chronic BP Currently stable On losartan 12.5 and metoprolol titrate 25 mg twice a day at home -hydralazine q6h PRN while intubated Qualifiers: Hypertension type: essential hypertension Qualified Code(s): I10 - Essential (primary) hypertension (5) Iron deficiency anemia Current Visit: Yes Status: Acute Current H&H of 10.0 and 31.8 -Continue to monitor Qualifiers: Iron deficiency anemia type: inadequate dietary iron intake Qualified Code(s): D50.8 - Other iron deficiency anemias (6) DVT prophylaxis Current Visit: No Status: Acute Heparin subcutaneous Objective PUL Vital signs: Last Vital Signs Temp 99.6 F 01/20/19 03:00 Pulse 85 01/20/19 06:00 Resp 16 01/20/19 06:14 BP 107/49 01/20/19 06:14 Pulse Ox 98 01/20/19 06:14 Ventilator Settings Ventilator Settings: Ventilator Settings, Last 8 Hours Ventilator Tidal Volume 400 Setting Ventilator Tidal Volume 400 Setting Ventilator Tidal Volume 400 Setting Ventilator Tidal Volume 400 Setting Ventilator Tidal Volume 400 Setting Ventilator Tidal Volume 400 Setting Ventilator Tidal Volume 400 Setting Ventilator Tidal Volume 400 Setting Ventilator Tidal Volume 400 Setting Ventilator Tidal Volume 400 Setting Ventilator Tidal Volume 400 Setting Ventilator Tidal Volume 400 Setting Ventilator Respiratory Rate 16 Setting Ventilator Respiratory Rate 16 Setting Ventilator Respiratory Rate 16 Setting Ventilator Respiratory Rate 16 Setting Ventilator Respiratory Rate 16 Setting Ventilator Respiratory Rate 16 Setting Ventilator Respiratory Rate 16 Setting Ventilator Respiratory Rate 16 Setting Ventilator Respiratory Rate 16 Setting Ventilator Respiratory Rate 16 Setting Ventilator Respiratory Rate 16 Setting Ventilator Respiratory Rate 16 Setting Actual Respiratory Rate 16 Actual Respiratory Rate 16 Actual Respiratory Rate 16 Actual Respiratory Rate 16 Actual Respiratory Rate 16 Actual Respiratory Rate 16 Actual Respiratory Rate 16 Actual Respiratory Rate 16 Actual Respiratory Rate 16 Actual Respiratory Rate 16 Actual Respiratory Rate 16 Positive End Expiratory 5 Pressure Positive End Expiratory 5 Pressure Positive End Expiratory 5 Pressure Positive End Expiratory 5 Pressure Positive End Expiratory 5 Pressure Positive End Expiratory 5 Pressure Positive End Expiratory 5 Pressure Positive End Expiratory 5 Pressure Positive End Expiratory 5 Pressure Positive End Expiratory 5 Pressure Positive End Expiratory 5 Pressure Positive End Expiratory 5 Pressure Peak Inspiratory Airway 23 Pressure Peak Inspiratory Airway 21 Pressure Peak Inspiratory Airway 23 Pressure Peak Inspiratory Airway 23 Pressure Peak Inspiratory Airway 23 Pressure Peak Inspiratory Airway 23 Pressure Peak Inspiratory Airway 23 Pressure Peak Inspiratory Airway 23 Pressure Peak Inspiratory Airway 23 Pressure Peak Inspiratory Airway 23 Pressure Peak Inspiratory Airway 24 Pressure Results - Laboratory Findings CBC and BMP: 01/20/19 03:45 01/20/19 03:45 ABG ABG pH 7.40 pH Units (7.32-7.45) 01/20/19 04:47 ABG pCO2 48 mmHg (35-45) H 01/20/19 04:47 ABG pO2 60 mmHg (85-104) L 01/20/19 04:47 ABG O2 Saturation 90 % (95-98) L 01/20/19 04:47 Abnormal lab findings: Abnormal lab results WBC 11.9 K/mcL (4.3-11.1) H 01/20/19 03:45 RBC 3.47 M/mcL (3.82-4.97) L 01/20/19 03:45 Hgb 10.0 g/dL (11.5-15.4) L 01/20/19 03:45 Hct 31.8 % (35.3-44.9) L 01/20/19 03:45 MCHC 31.4 g/dL (31.6-35.5) L 01/20/19 03:45 MPV 9.2 fL (9.4-12.4) L 01/20/19 03:45 Neutrophils # 9.4 K/mcL (1.6-8.9) H 01/20/19 03:45 Monocytes # 1.4 K/mcL (0.0-1.3) H 01/20/19 03:45 ABG pH 7.25 pH Units (7.32-7.45) L 01/19/19 13:30 ABG pCO2 48 mmHg (35-45) H 01/20/19 04:47 ABG pO2 60 mmHg (85-104) L 01/20/19 04:47 ABG HCO3 30 mEq/L (21-27) H 01/20/19 04:47 ABG Total CO2 31 mEq/L (20-26) H 01/20/19 04:47 ABG O2 Saturation 90 % (95-98) L 01/20/19 04:47 ABG Base Excess 4 mEq/L (-2 to 3) H 01/20/19 04:47 Chloride 110 mEq/L (98-107) H 01/20/19 03:45 BUN 25 mg/dL (8-23) H 01/19/19 10:06 Est GFR ( Amer) 59 (> 60) L 01/19/19 10:06 Est GFR (Non-Af Amer) 59 (> 60) L 01/20/19 03:45 Glucose 133 mg/dL (70-105) H 01/20/19 03:45 POC Glucose 113 mg/dL (70-99) H 01/20/19 00:05 Calculated Osmolality 303 (280-300) H 01/20/19 03:45 Calcium 8.4 mg/dL (8.6-10.3) L 01/20/19 03:45 Iron 21 mcg/dL (50-170) L 01/18/19 01:39 % Saturation 6 % (15-50) L 01/18/19 01:39 AST 48 Units/L (13-39) H 01/20/19 03:45 Serum Total Protein 5.6 g/dL (6.4-8.9) L 01/20/19 03:45 Albumin 3.1 g/dL (3.5-5.7) L 01/20/19 03:45 - Microbiology Findings Microbiology Findings: Microbiology, Last 48 Hours 01/19/19 18:15 Sputum Culture - Preliminary Sputum 01/19/19 19:15 Blood Culture - Preliminary Peripheral Venipuncture Culture is incubating and being continuously monitored for growth. Final report to follow. 01/19/19 19:15 Blood Culture - Preliminary Peripheral Venipuncture Culture is incubating and being continuously monitored for growth. Final report to follow. - Clinical Findings Intake & Output: Intake & Output 01/19/19 01/19/19 01/20/19 15:59 23:59 07:59 Intake Total 5 / 1122 117 / 1122 1078 / 1078 Output Total 0 / 2510 2210 / 2510 160 / 160 Balance 5 / -1388 -2093 / -1388 918 / 918 Weight 71.2 kg Consult Discharge Plan - Plan Referrals: Henrique Boothe MD [Partnered Physician] - Shaji Vick DO [Partnered Physician] - 01/30/19 1:30 pm <Jessica Conway - Last Filed: 01/20/19 16:04> Date of Encounter: 01/20/19 Objective PUL Vital signs: Last Vital Signs Temp 98.8 F 01/20/19 11:49 Pulse 82 01/20/19 14:00 Resp 16 01/20/19 15:39 BP 168/64 01/20/19 15:39 Pulse Ox 94 01/20/19 15:39 Ventilator Settings Ventilator Settings: Ventilator Settings, Last 8 Hours Ventilator Tidal Volume 400 Setting Ventilator Tidal Volume 400 Setting Ventilator Tidal Volume 400 Setting Ventilator Tidal Volume 400 Setting Ventilator Tidal Volume 400 Setting Ventilator Tidal Volume 400 Setting Ventilator Respiratory Rate 16 Setting Ventilator Respiratory Rate 16 Setting Ventilator Respiratory Rate 16 Setting Ventilator Respiratory Rate 16 Setting Ventilator Respiratory Rate 16 Setting Ventilator Respiratory Rate 16 Setting Actual Respiratory Rate 16 Actual Respiratory Rate 18 Actual Respiratory Rate 16 Actual Respiratory Rate 17 Actual Respiratory Rate 27 Actual Respiratory Rate 20 Actual Respiratory Rate 28 Actual Respiratory Rate 20 Actual Respiratory Rate 16 Actual Respiratory Rate 16 Positive End Expiratory 5 Pressure Positive End Expiratory 5 Pressure Positive End Expiratory 5 Pressure Positive End Expiratory 5 Pressure Positive End Expiratory 5 Pressure Positive End Expiratory 5 Pressure Positive End Expiratory 5 Pressure Positive End Expiratory 5 Pressure Positive End Expiratory 5 Pressure Positive End Expiratory 5 Pressure Peak Inspiratory Airway 20 Pressure Peak Inspiratory Airway 21 Pressure Peak Inspiratory Airway 22 Pressure Peak Inspiratory Airway 22 Pressure Peak Inspiratory Airway 16 Pressure Peak Inspiratory Airway 11 Pressure Peak Inspiratory Airway 16 Pressure Peak Inspiratory Airway 10 Pressure Peak Inspiratory Airway 22 Pressure Peak Inspiratory Airway 21 Pressure Results - Laboratory Findings CBC and BMP: 01/20/19 03:45 01/20/19 03:45 ABG ABG pH 7.40 pH Units (7.32-7.45) 01/20/19 04:47 ABG pCO2 48 mmHg (35-45) H 01/20/19 04:47 ABG pO2 60 mmHg (85-104) L 01/20/19 04:47 ABG O2 Saturation 90 % (95-98) L 01/20/19 04:47 Abnormal lab findings: Abnormal lab results WBC 11.9 K/mcL (4.3-11.1) H 01/20/19 03:45 RBC 3.47 M/mcL (3.82-4.97) L 01/20/19 03:45 Hgb 10.0 g/dL (11.5-15.4) L 01/20/19 03:45 Hct 31.8 % (35.3-44.9) L 01/20/19 03:45 MCHC 31.4 g/dL (31.6-35.5) L 01/20/19 03:45 MPV 9.2 fL (9.4-12.4) L 01/20/19 03:45 Neutrophils # 9.4 K/mcL (1.6-8.9) H 01/20/19 03:45 Monocytes # 1.4 K/mcL (0.0-1.3) H 01/20/19 03:45 ABG pH 7.25 pH Units (7.32-7.45) L 01/19/19 13:30 ABG pCO2 48 mmHg (35-45) H 01/20/19 04:47 ABG pO2 60 mmHg (85-104) L 01/20/19 04:47 ABG HCO3 30 mEq/L (21-27) H 01/20/19 04:47 ABG Total CO2 31 mEq/L (20-26) H 01/20/19 04:47 ABG O2 Saturation 90 % (95-98) L 01/20/19 04:47 ABG Base Excess 4 mEq/L (-2 to 3) H 01/20/19 04:47 Chloride 110 mEq/L (98-107) H 01/20/19 03:45 BUN 25 mg/dL (8-23) H 01/19/19 10:06 Est GFR ( Amer) 59 (> 60) L 01/19/19 10:06 Est GFR (Non-Af Amer) 59 (> 60) L 01/20/19 03:45 Glucose 133 mg/dL (70-105) H 01/20/19 03:45 POC Glucose 113 mg/dL (70-99) H 01/20/19 00:05 Calculated Osmolality 303 (280-300) H 01/20/19 03:45 Calcium 8.4 mg/dL (8.6-10.3) L 01/20/19 03:45 Iron 21 mcg/dL (50-170) L 01/18/19 01:39 % Saturation 6 % (15-50) L 01/18/19 01:39 AST 48 Units/L (13-39) H 01/20/19 03:45 Serum Total Protein 5.6 g/dL (6.4-8.9) L 01/20/19 03:45 Albumin 3.1 g/dL (3.5-5.7) L 01/20/19 03:45 - Microbiology Findings Microbiology Findings: Microbiology, Last 48 Hours 01/19/19 18:15 Sputum Culture - Preliminary Sputum 01/19/19 19:15 Blood Culture - Preliminary Peripheral Venipuncture Culture is incubating and being continuously monitored for growth. Final report to follow. 01/19/19 19:15 Blood Culture - Preliminary Peripheral Venipuncture Culture is incubating and being continuously monitored for growth. Final report to follow. - Clinical Findings Intake & Output: Intake & Output 01/20/19 01/20/19 01/20/19 07:59 15:59 23:59 Intake Total 1155.6 / 2577.6 1422 / 2577.6 Output Total 160 / 430 270 / 430 Balance 995.6 / 2147.6 1152 / 2147.6 - Attending Attestation - Attending Attestation I saw and evaluated this patient and my medical decision-making was reviewed with the Resident Physician. I agree with the documented findings, disposition and treatment plan as described except to the extent set forth below. We independently had [id number] contact with the patient I spent 40 minutes of Critical Care time with this patient. It involved decision making of high complexity to assess, manipulate, and support vital organ system failure and/or to prevent further life threatening deterioration of the patient's condition. The time involved in the performance of separately reportable procedures was not counted toward critical care time. Patient seen and examined at bedside Labs, radiology, chart personally reviewed. Management was reviewed during multidisciplinary critical care rounds. KNOBBER: Patient is alert following commands and answering yes and no questions Pulm: Patient had right-sided adenocarcinoma of lung had a wedge resection supported by chest tube patient had slow worsening of V/Q mismatch that the acute hypoxic and hypercarbic respiratory failure patient needing mechanical ventilation could not salvage with noninvasive ventilation as as I saw the patient so late in the trajectory of the disease. Patient PFT shows some mild restrictive airway disease no evidence of COPD. Patient has acceptable oxygenation and ventilation will do low tidal volume strategy and i adjusted the minute ventilation accordingly. 01/20 issues and spontaneous. Trial with 5 pressure support patient respiratory rate was around 28-29 and tidal volumes around 252-280 with pressure support of 10 cm of water the respiratory rate came down to around 23 to volume and tone 370 we will give 1 more day before extubating her chest x-ray looks a lot stable recruitment of the right the middle lobe and the upper lobe patient had a wedge resection of the right lower lobe. Cards: Patient is hemodynamically stable patient has a previous history of marya stolic heart failure looks like the current presentation of acute hypoxic hypercarbic respiratory failure most likely due to worsening pulmonary edema will trend the troponins get an EKG and check an echo. 01/20 patient is hemodynamically stable pending echo. FEN-GI: To advance diet as tolerated. Renal: Labs and output were reviewed ID: Patient has some low-grade fever to get blood and sputum culture to start on broad-spectrum antibiotics not much secretions from the endotracheal tube. Heme/Onc: Labs and output were reviewed Endo: Glucose Monitored Integ/MSK: Skin Care per routine ICU Nursing Protocol to prevent ulcers. Lines: All lines examined without evidence of infection : Dispo: Critically ill CODE: Full Code
[2019-01-20] MEDS ORDERED: Potassium Chloride 40 MEQ, Lidocaine 1% 2 ML in 0.9 % Sodium Chloride 500 ML IVPB ONE (08:16)
--- NOTE | 2019-01-20 08:16 | Cardiothoracic Progress Note ---
Date of Encounter: 01/20/19 Time of Encounter: 08:14 - Assessment and plan (1) Malignant neoplasm of lower lobe, right bronchus or lung Current Visit: Yes Status: Acute The assessment and plan as outlined above was discussed with the patient and/or family members who expressed understanding and agreement. All questions were answered. clamp chest tube tonight (2) Hypertension Current Visit: No Status: Chronic The assessment and plan as outlined above was discussed with the patient and/or family members who expressed understanding and agreement. All questions were answered. stable with current medications Qualifiers: Hypertension type: essential hypertension Qualified Code(s): I10 - Essential (primary) hypertension (3) Diabetes mellitus Current Visit: No Status: Chronic The assessment and plan as outlined above was discussed with the patient and/or family members who expressed understanding and agreement. All questions were answered. no changes in current diet or medicatioins Qualifiers: Diabetes mellitus terminal gauger insulin use: with mcfp use Diabetes mellitus complication status: with hypoglycemia (4) Major depressive disorder Current Visit: No Status: Chronic The assessment and plan as outlined above was discussed with the patient and/or family members who expressed understanding and agreement. All questions were answered. 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 All questions were answered. hypoxia from mucus plug resolved. updated family at bedside regarding xray and orders yesterday because patient would not participate in care with coughing and deep breathing. discussed weaning vent with icu team. - Subjective Interval history: pain at incision Vital Signs, Last 4 Hours Pulse Resp BP Pulse Ox 01/20/19 07:58 16 155/62 100 01/20/19 07:00 85 16 155/62 100 01/20/19 06:14 16 107/49 98 01/20/19 06:00 85 16 107/49 98 01/20/19 05:00 92 16 108/44 98 Oxgyen Flow Rate Oxygen Flow Rate (LPM) 13 Clinical Data, last 8 Hours Output, Chest Tube Drainage 10 Amount [Right Mid-Axillary Chest #1] Output, Chest Tube Drainage 0 Amount [Right Mid-Axillary Chest #1] Weight 01/18/19 01/19/19 01/20/19 23:59 23:59 23:59 Weight 77.6 kg 71.2 kg - Physical Examination General: Other (opens eyes. intubated ) HEENT: Atraumatic, Normocephaly, Trachea midline Neck: No JVD Cardiac: Reg Rate and Rhythm, Normal S1 and S2 Incision: No signs of infection, Dry/intact dressing Chest tubes: Minimal drainage Lungs: Normal Breath Sounds Neuro: Alert and responsive, No focal deficits noted, Cranial nerves intact, Motor nerves intact, Other (moving all extremities to command ) Abdomen: Soft, Non-tender Extremities: No Clubbing, No Edema, Normal Pulses - Labs 01/20/19 03:45 01/20/19 03:45 Lab Results, Last 24 hours 01/19/19 01/19/19 01/19/19 10:06 10:06 19:15 WBC 13.7 H Hgb 10.9 L D Hct 34.7 L Plt Count 223 Sodium 140 Potassium 4.3 Chloride 107 Carbon Dioxide 28 BUN 25 H Creatinine 1.10 Glucose 61 L Calcium 9.1 Magnesium Total Bilirubin AST ALT Alkaline Phosphatase Troponin I < 0.03 B-Natriuretic Peptide 01/20/19 01/20/19 01/20/19 00:37 03:45 03:45 WBC 11.9 H Hgb 10.0 L Hct 31.8 L Plt Count 180 Sodium 144 Potassium 3.5 Chloride 110 H Carbon Dioxide 24 BUN 22 Creatinine 0.93 Glucose 133 H Calcium 8.4 L Magnesium 2.0 Total Bilirubin 0.7 AST 48 H ALT 19 Alkaline Phosphatase 93 Troponin I < 0.03 B-Natriuretic Peptide 01/20/19 01/20/19 03:45 06:57 WBC Hgb Hct Plt Count Sodium Potassium Chloride Carbon Dioxide BUN Creatinine Glucose Calcium Magnesium Total Bilirubin AST ALT Alkaline Phosphatase Troponin I < 0.03 B-Natriuretic Peptide 40 - Imaging Chest Xray: image reviewed Consult Discharge Plan - Plan Referrals: Henrique Boothe MD [Partnered Physician] - Shaji Vick DO [Partnered Physician] - 01/30/19 1:30 pm
[2019-01-20] MEDS: (Colestipol Hcl [Colestid] 1 GM) PO SCH ×2 (08:28→21:39)
[2019-01-20] MEDS: Chlorhexidine Rinse 15 ML MOUTHWASH MM SCH ×2 (08:33→21:23)
[2019-01-20] MEDS: methylPREDNISolone 125 MG/2 ML VIAL IVP SCH ×2 (12:57→17:56)
--- NOTE | 2019-01-20 14:09 | Internal Med Progress Note ---
Hospitalist Progress Note - Encounter Date of Encounter: 01/20/19 Time of Encounter: 09:00 - Subjective Interval History: I saw and examined patient independently this morning. I discussed the case with Dr. Boothe and Dr. Conway. Patient doing better today but did not tolerate CPAP trials too long. As discussed with team, will continue mechanical ventilation today and try to minimize sedation and attempt to wean off vent tomorrow. CXR shows improved aeration. ECHO pending. - Exam Vitals: Temp Pulse Resp BP Pulse Ox 98.8 F 83 17 156/58 98 01/20/19 11:49 01/20/19 13:00 01/20/19 13:00 01/20/19 13:00 01/20/19 13:00 Exam: General: intubated, sedated minimally; responds appropriately HEENT: ETT/NG tube in place Chest: Coarse rhonchi; few wheezes, no crackles, improved aeration; RRR Abdomen: soft, NT, ND, + BS Ext: no calf pain, full ROM, no edema Skin: warm and dry - Assessment and Plan (1) Acute respiratory failure with hypoxia and hypercarbia Current Visit: Yes Status: Acute Assessment and Plan: 1. Vent wean/CPAP trials per Dr. Conway and DR. Boothe. 2. Will order ECHO today and try to decrease sedation for plans of possible extubation tomorrow. 3. Continued vent support for now as above. (2) Hypertension Current Visit: Yes Status: Chronic Assessment and Plan: 1. Continue home meds as appropriate and adjust as necessary. 2. Hydralazine PRN for uncontrolled HTN. (3) Type 2 diabetes mellitus Current Visit: Yes Status: Chronic Assessment and Plan: 1. SSI ordered. 2. Monitor glucose and adjust dosing as needed. 3. May need increased dosing and/or basal dosing with steroids use today. 4. Patient had a few episodes of hypoglycemia; basal insulin held for now. (4) DVT prophylaxis Current Visit: Yes Status: Acute Assessment and Plan: 1. Heparin SQ. - Time Spent with Patient Total time spent is greater than 50% in coordination of care (as documented) at patient's floor/unit and/or counseling patient: 25 - 35 minutes Plan of Care Discussed with: other (MDR team, Dr. Boothe and Dr. Jesudoss) Internal Medicine: Result - Labs CBC & Chem 7: 01/20/19 03:45 01/20/19 03:45 Labs: Short CBC 01/20/19 Range/Units 03:45 WBC 11.9 H (4.3-11.1) K/mcL Hgb 10.0 L (11.5-15.4) g/dL Hct 31.8 L (35.3-44.9) % Plt Count 180 (140-400) K/mcL Neutrophils # 9.4 H (1.6-8.9) K/mcL BMP 01/20/19 03:45 Sodium 144 Potassium 3.5 Chloride 110 H Carbon Dioxide 24 BUN 22 Creatinine 0.93 Glucose 133 H Calcium 8.4 L Cardiac Enzymes 01/19/19 01/20/19 01/20/19 Range/Units 19: 00:37 06:57 Troponin I < 0.03 < 0.03 < 0.03 (< 0.04) ng/mL Liver Function 01/20/19 Range/Units 03:45 Total Bilirubin 0.7 (0.3-1.0) mg/dL AST 48 H (13-39) Units/L ALT 19 (7-52) Units/L Alkaline Phosphatase 93 (34-104) Units/L Albumin 3.1 L (3.5-5.7) g/dL - ABG Interpretation ABG results: ABG ABG pH 7.40 pH Units (7.32-7.45) 01/20/19 04:47 ABG pCO2 48 mmHg (35-45) H 01/20/19 04:47 ABG pO2 60 mmHg (85-104) L 01/20/19 04:47 ABG O2 Saturation 90 % (95-98) L 01/20/19 04:47 - Impressions Impressions Chest X-Ray 01/19/19 11:11 IMPRESSION: Stable chest. D/ / 01/19/2019 11:30:57 Lucas Mckinney MD / toi Interpreting Provider: Lucas Mckinnye MD Chest X-Ray 01/19/19 14:11 IMPRESSION: Right basilar opacity which is slightly decreased. Endotracheal tube and NG tube are new. No significant change otherwise. D/ / Tiffany Estrella MD / Tiffany Estrella MD Interpreting Provider: Tiffany Estrella MD Chest X-Ray 01/20/19 05:22 IMPRESSION: 1. Apparent advancement of the endotracheal tube potentially due to differences in patient neck positioning. 2. Improved aeration of the right lung base with persistence of underlying atelectasis and/or pneumonia. 3. Unchanged left basilar atelectasis or pneumonia. D/ / Federico Browne MD / Federico Browne MD Interpreting Provider: Federico Browne MD Consult Discharge Plan - Plan Referrals: Henrique Boothe MD [Partnered Physician] - Shaji Vick DO [Partnered Physician] - 01/30/19 1:30 pm (2) Hypertension Qualifiers: Hypertension type: essential hypertension Qualified Code(s): I10 - Essential (primary) hypertension (3) Type 2 diabetes mellitus Qualifiers: Diabetes mellitus termite exterminator helper insulin use: with intermediate use Diabetes mellitus complication status: without complication Qualified Code(s): E11.9 - Type 2 d iabetes mellitus without complications; Z79.4 - buttermaker continuous churn (current) use of insulin
[2019-01-20] MEDS: Ringers Solution, Lactated 1,000 ML IVC SCH (16:15)
[2019-01-20] MEDS: Dexmedetomidine HCl 400 MCG/100 ML MLS IVC SCH (16:15)
[2019-01-20] MEDS ORDERED: Furosemide 40 MG/4 ML VIAL IVP ONE (19:00)
[2019-01-20] MEDS: Sennosides/Docusate Sodium TABLET PO SCH (21:23)
[2019-01-21] MEDS: Ipratropium/Albuterol Neb 3 ML IH SCH ×5 (03:43→19:39)
[2019-01-21] MEDS: Acetylcysteine 10% 2 ML INHSOL IH SCH ×5 (03:43→19:40)
[2019-01-21 03:58] LABS: Hematocrit 32.1 % (35.3-44.9); Hemoglobin 10.3 g/dL (11.5-15.4); Mean Corpuscular HGB Conc 32.1 g/dL (31.6-35.5); Mean Corpuscular Hemoglobin 28.5 pg (28.0-33.3); Mean Corpuscular Volume 88.9 fL (83.0-100.0); Mean Platelet Volume 9.2 fL (9.4-12.4); Platelet Count 190 K/mcL (140-400); Red Blood Count 3.61 M/mcL (3.82-4.97); Red Cell Distribution Width 13.9 % (11.5-14.5); White Blood Count 9.6 K/mcL (4.3-11.1)
[2019-01-21 04:19] LABS: BUN/Creatinine Ratio 24 (6-26); Blood Urea Nitrogen 18 mg/dL (8-23); Calcium 8.4 mg/dL (8.6-10.3); Carbon Dioxide 24 mEq/L (23-29); Chloride 107 mEq/L (98-107); Glucose 240 mg/dL (70-105); Magnesium 1.9 mg/dL (1.6-2.6); Osmolality,Calculated 298 (280-300); Potassium 3.5 mEq/L (3.5-5.1); Sodium 139 mEq/L (136-145); eGFR For African Americans > 60 (> 60); eGFR For Non-African Americans > 60 (> 60)
[2019-01-21] MEDS: Insulin LISPRO 300 UNITS/3 ML VIAL SQ SCH ×4 (05:03→16:42)
[2019-01-21] MEDS: Artificial Tears SOLN 15 ML BOTTLE BOTH EYES SCH ×3 (05:03→19:29)
[2019-01-21] MEDS: 0.9 % Sodium Chloride 1,000 ML IVC SCH ×2 (05:15→05:41)
[2019-01-21] MEDS: Dexmedetomidine HCl 400 MCG/100 ML MLS IVC SCH (05:16)
[2019-01-21] MEDS: Piperacillin/Tazobactam 3.375 GM in 0.9 % Sodium Chloride Mini Bag 100 ML IVPB SCH ×3 (05:17→20:44)
[2019-01-21] MEDS: Pantoprazole 40 MG VIAL IVP SCH (05:18)
[2019-01-21] MEDS: *HR* Heparin 5,000 UNIT/ML VIAL SQ SCH ×3 (05:18→20:44)
[2019-01-21] MEDS: methylPREDNISolone 125 MG/2 ML VIAL IVP SCH ×2 (05:18→18:06)
[2019-01-21] MEDS: Ringers Solution, Lactated 1,000 ML IVC SCH (05:41)
[2019-01-21 05:42] LABS: ABG Base Excess 2 mEq/L (-2 to 3); ABG HCO3 26 mEq/L (21-27); ABG Oxygen Saturation 97 % (95-98); ABG PCO2 38 mmHg (35-45); ABG PH 7.45 pH Units (7.32-7.45); ABG PO2 84 mmHg (85-104); ABG TCO2 27 mEq/L (20-26); Blood Gas Modality AF; Blood Gas PEEP 5 cm H2O; Blood Gas VT 400 cc
--- NOTE | 2019-01-21 06:46 | Pulmonology Progress Note ---
<NakulMarty W - Last Filed: 01/21/19 09:45> Date of Encounter: 01/21/19 Objective PUL Vital signs: Last Vital Signs Temp 98.4 F 01/21/19 07:38 Pulse 105 01/21/19 09:00 Resp 28 01/21/19 09:00 BP 133/53 01/21/19 09:00 Pulse Ox 91 01/21/19 09:00 Ventilator Settings Ventilator Settings: Ventilator Settings, Last 8 Hours Ventilator Tidal Volume 400 Setting Ventilator Tidal Volume 400 Setting Ventilator Tidal Volume 400 Setting Ventilator Tidal Volume 400 Setting Ventilator Tidal Volume 400 Setting Ventilator Tidal Volume 400 Setting Ventilator Respiratory Rate 16 Setting Ventilator Respiratory Rate 16 Setting Ventilator Respiratory Rate 16 Setting Ventilator Respiratory Rate 16 Setting Ventilator Respiratory Rate 16 Setting Ventilator Respiratory Rate 16 Setting Actual Respiratory Rate 20 Actual Respiratory Rate 16 Actual Respiratory Rate 17 Actual Respiratory Rate 17 Actual Respiratory Rate 16 Positive End Expiratory 5 Pressure Positive End Expiratory 5 Pressure Positive End Expiratory 5 Pressure Positive End Expiratory 5 Pressure Positive End Expiratory 5 Pressure Positive End Expiratory 5 Pressure Peak Inspiratory Airway 13 Pressure Peak Inspiratory Airway 16 Pressure Peak Inspiratory Airway 17 Pressure Peak Inspiratory Airway 15 Pressure Peak Inspiratory Airway 16 Pressure Results - Laboratory Findings CBC and BMP: 01/21/19 03:44 01/21/19 03:44 ABG ABG pH 7.45 pH Units (7.32-7.45) 01/21/19 05:39 ABG pCO2 38 mmHg (35-45) 01/21/19 05:39 ABG pO2 84 mmHg (85-104) L 01/21/19 05:39 ABG O2 Saturation 97 % (95-98) 01/21/19 05:39 Abnormal lab findings: Abnormal lab results WBC 11.9 K/mcL (4.3-11.1) H 01/20/19 03:45 RBC 3.61 M/mcL (3.82-4.97) L 01/21/19 03:44 Hgb 10.3 g/dL (11.5-15.4) L 01/21/19 03:44 Hct 32.1 % (35.3-44.9) L 01/21/19 03:44 MCHC 31.4 g/dL (31.6-35.5) L 01/20/19 03:45 MPV 9.2 fL (9.4-12.4) L 01/21/19 03:44 Neutrophils # 9.4 K/mcL (1.6-8.9) H 01/20/19 03:45 Monocytes # 1.4 K/mcL (0.0-1.3) H 01/20/19 03:45 ABG pH 7.25 pH Units (7.32-7.45) L 01/19/19 13:30 ABG pCO2 48 mmHg (35-45) H 01/20/19 04:47 ABG pO2 84 mmHg (85-104) L 01/21/19 05:39 ABG HCO3 30 mEq/L (21-27) H 01/20/19 04:47 ABG Total CO2 27 mEq/L (20-26) H 01/21/19 05:39 ABG O2 Saturation 90 % (95-98) L 01/20/19 04:47 ABG Base Excess 4 mEq/L (-2 to 3) H 01/20/19 04:47 Chloride 110 mEq/L (98-107) H 01/20/19 03:45 BUN 25 mg/dL (8-23) H 01/19/19 10:06 Est GFR ( Amer) 59 (> 60) L 01/19/19 10:06 Est GFR (Non-Af Amer) 59 (> 60) L 01/20/19 03:45 Glucose 240 mg/dL (70-105) H 01/21/19 03:44 POC Glucose 264 mg/dL (70-99) H 01/20/19 23:13 Calculated Osmolality 303 (280-300) H 01/20/19 03:45 Calcium 8.4 mg/dL (8.6-10.3) L 01/21/19 03:44 Iron 21 mcg/dL (50-170) L 01/18/19 01:39 % Saturation 6 % (15-50) L 01/18/19 01:39 AST 48 Units/L (13-39) H 01/20/19 03:45 Serum Total Protein 5.6 g/dL (6.4-8.9) L 01/20/19 03:45 Albumin 3.1 g/dL (3.5-5.7) L 01/20/19 03:45 - Microbiology Findings Microbiology Findings: Microbiology, Last 48 Hours 01/19/19 18:15 Sputum Culture - Preliminary Sputum Staphylococcus aureus 01/19/19 19:15 Blood Culture - Preliminary Peripheral Venipuncture Culture is incubating and being continuously monitored for growth. Final report to follow. 01/19/19 19:15 Blood Culture - Preliminary Peripheral Venipuncture Culture is incubating and being continuously monitored for growth. Final report to follow. - Clinical Findings Intake & Output: Intake & Output 01/20/19 01/21/19 01/21/19 23:59 07:59 15:59 Intake Total 441 / 3018.6 1176.2 / 1176.2 Output Total 830 / 1260 400 / 400 Balance -389 / 1758.6 776.2 / 776.2 Weight 76.8 kg Consult Discharge Plan - Plan Referrals: Henrique Boothe MD [Partnered Physician] - Shaji Vick DO [Partnered Physician] - 01/30/19 1:30 pm - Attending Attestation I examined this patient and my medical decision-making was reviewed with the Resident Physician. I agree with the documented findings, disposition and treatment plan as described except to the extent set forth below. We independently had [id number] contact with the patient Patient seen and examined at bedside Labs, radiology, chart personally reviewed. Impression/Recs: -Acute hypoxic hypercapnic respiratory failure. Multifactorial including postoperative state as well as pneumonia successfully liberated from the vent and is doing well wean nasal cannula O2 and encourage a chest physiotherapy as well as out of bed to chair and physical therapy consultation -MRSA pneumonia - recommend 8-10 days of antibiotics will continue vancomycin for now. No evidence of bacteremia Status post wedge resection for non-small cell lung cancer -History of CHF. We will stop IV fluids restart home beta abdoul and continue diuresis goal net negative 500mL-1 L -Goals of care discussion. Patient expresses desire not to be reintubated under any circumstances including risk of this was May known in the presence of her daughter Luci as well as the household appliances service technician Lucas Cabrera CODE STATUS will be changed appropriately. Recommend continue monitoring in ICU if clinically continues to improve can move out later today or tomorrow. <Lucas Cabrera N - Last Filed: 01/21/19 11:55> Date of Encounter: 01/21/19 Time of Encounter: 06:46 Assessment and Plan (1) Acute respiratory failure with hypoxia and hypercarbia Current Visit: Yes Status: Acute Rapid response was called to the patient's room due to patient in acute respiratory distress Patient found to be breathing very heavily and upon placement of BiPAP began to have periods of apnea Decision was made for patient to be intubated and patient was brought to the ICU. Successful intubation performed in ICU and patient was started on the ventilator ABG prior to intubation: PH 7.25, PCO2 68, PO2 84, HCO3 30, O2 saturation of 94%. -Patient extubated currently on oxygen mask with good O2 saturations above 90% -Sputum cultures came back positive for MRSA pneumonia patient will need longer course of antibiotics and continue vancomycin -Monitor patient's pain and work to prevent polypharmacy (2) Malignant neoplasm of lower lobe, right bronchus or lung Current Visit: Yes Status: Acute Patient had a right lower lobe thoracotomy wedge resection on 01/17 -Post op day 4 -Chest tube clamped 01/21 -Dr. Boothe informed of pts condition (3) Diabetes mellitus Current Visit: No Status: Chronic Patient on insulin at home. -Nothing by mouth -Sliding-scale insulin -Every 4 hour Accu-Cheks Qualifiers: Diabetes mellitus type: type 2 Diabetes mellitus prison insulin use: with prison use Diabetes mellitus complication status: with kidney complications Diabetes mellitus complication detail: with chronic kidney disease Chronic kidney disease stage: stage 3 (moderate) Qualified Code(s): E11.22 - Type 2 diabetes mellitus with diabetic chronic kidney disease; N18.3 - Chronic kidney disease, stage 3 (moderate); Z79.4 - supervisor intermediates (current) use of insulin (4) Hypertension Current Visit: No Status: Chronic BP Currently stable On losartan 12.5 and metoprolol titrate 25 mg twice a day at home -hydralazine q6h PRN while intubated Qualifiers: Hypertension type: essential hypertension Qualified Code(s): I10 - Essential (primary) hypertension (5) Iron deficiency anemia Current Visit: Yes Status: Acute Current H&H of 10.0 and 31.8 -Continue to monitor Qualifiers: Iron deficiency anemia type: inadequate dietary iron intake Qualified Code(s): D50.8 - Other iron deficiency anemias (6) DVT prophylaxis Current Visit: No Status: Acute Heparin subcutaneous Subjective Interval history: The patient states she is breathing much better today. Patient is adamant that she does not want to be reintubated. Patient has stated this in front of both a son and daughter as well as the nurse. Patient denies chest pain, nausea, vomi ting, abdominal pain, fever, or chills. Objective PUL Vital signs: Last Vital Signs Temp 97.7 F 01/21/19 04:30 Pulse 128 01/21/19 06:08 Resp 26 01/21/19 06:08 BP 152/91 01/21/19 06:08 Pulse Ox 94 01/21/19 06:08 General appearance: no acute distress Eyes: nonicteric ENT: oropharynx dry Neck: supple, no JVD Effort: normal Cardiovascular: other (Sinus tachycardia) Gastrointestinal: normoactive bowel sounds, soft, non-tender, non-distended Integumentary: normal Extremities: no cyanosis, no edema, pulses normal Musculoskeletal: no deformities normal mental status, non-focal exam mood appropriate, affect normal Ventilator Settings Ventilator Settings: Ventilator Settings, Last 8 Hours Ventilator Tidal Volume 400 Setting Ventilator Tidal Volume 400 Setting Ventilator Tidal Volume 400 Setting Ventilator Tidal Volume 400 Setting Ventilator Tidal Volume 400 Setting Ventilator Tidal Volume 400 Setting Ventilator Tidal Volume 400 Setting Ventilator Tidal Volume 400 Setting Ventilator Tidal Volume 400 Setting Ventilator Tidal Volume 400 Setting Ventilator Tidal Volume 400 Setting Ventilator Respiratory Rate 16 Setting Ventilator Respiratory Rate 16 Setting Ventilator Respiratory Rate 16 Setting Ventilator Respiratory Rate 16 Setting Ventilator Respiratory Rate 16 Setting Ventilator Respiratory Rate 16 Setting Ventilator Respiratory Rate 16 Setting Ventilator Respiratory Rate 16 Setting Ventilator Respiratory Rate 16 Setting Ventilator Respiratory Rate 16 Setting Ventilator Respiratory Rate 16 Setting Actual Respiratory Rate 20 Actual Respiratory Rate 16 Actual Respiratory Rate 17 Actual Respiratory Rate 17 Actual Respiratory Rate 16 Actual Respiratory Rate 20 Actual Respiratory Rate 16 Actual Respiratory Rate 16 Actual Respiratory Rate 16 Actual Respiratory Rate 16 Positive End Expiratory 5 Pressure Positive End Expiratory 5 Pressure Positive End Expiratory 5 Pressure Positive End Expiratory 5 Pressure Positive End Expiratory 5 Pressure Positive End Expiratory 5 Pressure Positive End Expiratory 5 Pressure Positive End Expiratory 5 Pressure Positive End Expiratory 5 Pressure Positive End Expiratory 5 Pressure Positive End Expiratory 5 Pressure Peak Inspiratory Airway 13 Pressure Peak Inspiratory Airway 16 Pressure Peak Inspiratory Airway 17 Pressure Peak Inspiratory Airway 15 Pressure Peak Inspiratory Airway 16 Pressure Peak Inspiratory Airway 17 Pressure Peak Inspiratory Airway 22 Pressure Peak Inspiratory Airway 19 Pressure Peak Inspiratory Airway 19 Pressure Peak Inspiratory Airway 19 Pressure Results - Laboratory Findings CBC and BMP: 01/21/19 03:44 01/21/19 03:44 ABG ABG pH 7.45 pH Units (7.32-7.45) 01/21/19 05:39 ABG pCO2 38 mmHg (35-45) 01/21/19 05:39 ABG pO2 84 mmHg (85-104) L 01/21/19 05:39 ABG O2 Saturation 97 % (95-98) 01/21/19 05:39 Abnormal lab findings: Abnormal lab results WBC 11.9 K/mcL (4.3-11.1) H 01/20/19 03:45 RBC 3.61 M/mcL (3.82-4.97) L 01/21/19 03:44 Hgb 10.3 g/dL (11.5-15.4) L 01/21/19 03:44 Hct 32.1 % (35.3-44.9) L 01/21/19 03:44 MCHC 31.4 g/dL (31.6-35.5) L 01/20/19 03:45 MPV 9.2 fL (9.4-12.4) L 01/21/19 03:44 Neutrophils # 9.4 K/mcL (1.6-8.9) H 01/20/19 03:45 Monocytes # 1.4 K/mcL (0.0-1.3) H 01/20/19 03:45 ABG pH 7.25 pH Units (7.32-7.45) L 01/19/19 13:30 ABG pCO2 48 mmHg (35-45) H 01/20/19 04:47 ABG pO2 84 mmHg (85-104) L 01/21/19 05:39 ABG HCO3 30 mEq/L (21-27) H 01/20/19 04:47 ABG Total CO2 27 mEq/L (20-26) H 01/21/19 05:39 ABG O2 Saturation 90 % (95-98) L 01/20/19 04:47 ABG Base Excess 4 mEq/L (-2 to 3) H 01/20/19 04:47 Chloride 110 mEq/L (98-107) H 01/20/19 03:45 BUN 25 mg/dL (8-23) H 01/19/19 10:06 Est GFR ( Amer) 59 (> 60) L 01/19/19 10:06 Est GFR (Non-Af Amer) 59 (> 60) L 01/20/19 03:45 Glucose 240 mg/dL (70-105) H 01/21/19 03:44 POC Glucose 264 mg/dL (70-99) H 01/20/19 23:13 Calculated Osmolality 303 (280-300) H 01/20/19 03:45 Calcium 8.4 mg/dL (8.6-10.3) L 01/21/19 03:44 Iron 21 mcg/dL (50-170) L 01/18/19 01:39 % Saturation 6 % (15-50) L 01/18/19 01:39 AST 48 Units/L (13-39) H 01/20/19 03:45 Serum Total Protein 5.6 g/dL (6.4-8.9) L 01/20/19 03:45 Albumin 3.1 g/dL (3.5-5.7) L 01/20/19 03:45 - Microbiology Findings Microbiology Findings: Microbiology, Last 48 Hours 01/19/19 18:15 Sputum Culture - Preliminary Sputum Staphylococcus aureus 01/19/19 19:15 Blood Culture - Preliminary Peripheral Venipuncture Culture is incubating and being continuously monitored for growth. Final report to follow. 01/19/19 19:15 Blood Culture - Preliminary Peripheral Venipuncture Culture is incubating and being continuously monitored for growth. Final report to follow. - Clinical Findings Intake & Output: Intake & Output 01/20/19 01/20/19 01/21/19 15:59 23:59 07:59 Intake Total 1422 / 3018.6 441 / 3018.6 1170.2 / 1170.2 Output Total 270 / 1260 830 / 1260 300 / 300 Balance 1152 / 1758.6 -389 / 1758.6 870.2 / 870.2 Weight 76.8 kg
[2019-01-21] MEDS ORDERED: *HR* Etomidate 20 MG/10 ML AMPUL IVP ONE (08:21)
[2019-01-21] MEDS ORDERED: *HR* LORazepam 2 MG/ML VIAL IVP ONE (08:21)
[2019-01-21] MEDS: Chlorhexidine Rinse 15 ML MOUTHWASH MM SCH (09:49)
[2019-01-21] MEDS: (Colestipol Hcl [Colestid] 1 GM) PO SCH ×2 (09:50→20:55)
[2019-01-21] MEDS: Sennosides/Docusate Sodium TABLET PO SCH ×2 (09:50→20:44)
[2019-01-21] MEDS: Insulin DETEMIR 100 UNIT/ML X5UNITS SQ SCH ×2 (11:44→20:55)
[2019-01-21] MEDS ORDERED: Albuterol 2.5 MG/3 ML NEBULIZER IH PRN (13:06)
--- NOTE | 2019-01-21 14:12 | Cardiothoracic Progress Note ---
Date of Encounter: 01/21/19 Time of Encounter: 14:10 - Assessment and plan (1) Malignant neoplasm of lower lobe, right bronchus or lung Current Visit: Yes Status: Acute The assessment and plan as outlined above was discussed with the patient and/or family members who expressed understanding and agreement. All questions were answered. chest tube removed rounded with nurses and ccm. (2) Hypertension Current Visit: No Status: Chronic The assessment and plan as outlined above was discussed with the patient and/or family members who expressed understanding and agreement. All questions were answered. stable with current medications Qualifiers: Hypertension type: essential hypertension Qualified Code(s): I10 - Essenti al (primary) hypertension (3) Diabetes mellitus Current Visit: No Status: Chronic The assessment and plan as outlined above was discussed with the patient and/or family members who expressed understanding and agreement. All questions were answered. no changes in current diet or medicatioins Qualifiers: Diabetes mellitus miniature set constructor insulin use: with miniature set constructor use Diabetes mellitus complication status: with hypoglycemia (4) Major depressive disorder Current Visit: No Status: Chronic The assessment and plan as outlined above was discussed with the patient and/or family members who expressed understanding and agreement. All questions were answered. 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 All questions were answered. hypoxia from mucus plug resolved. updated family at bedside continue resp tx and percussion every 4 hours. - Subjective Interval history: pain at incision Vital Signs, Last 4 Hours Temp Pulse Resp BP Pulse Ox 01/21/19 13:25 20 93 01/21/19 12:35 98 19 147/57 94 01/21/19 11:52 98.7 F 01/21/19 11:34 98 22 159/61 94 01/21/19 10:30 111 24 178/69 93 Oxgyen Flow Rate Oxygen Flow Rate (LPM) 7 Clinical Data, last 8 Hours Output, Chest Tube Drainage 100 Amount [Right Mid-Axillary Chest #1] Output, Chest Tube Drainage 0 Amount [Right Mid-Axillary Chest #1] Output, Chest Tube Drainage 0 Amount [Right Mid-Axillary Chest #1] Weight 01/19/19 01/20/19 01/21/19 23:59 23:59 23:59 Weight 71.2 kg 76.8 kg - Physical Examination General: Conversant, No Apparent Distress HEENT: Atraumatic, Normocephaly Cardiac: Reg Rate and Rhythm, Normal S1 and S2 Incision: No signs of infection, Dry/intact dressing, Open to air Chest tubes: Minimal drainage Lungs: Other (mild rhonchi) Neuro: Alert and responsive, No focal deficits noted, Cranial nerves intact, Motor nerves intact - Labs 01/21/19 03:44 01/21/19 03:44 Lab Results, Last 24 hours 01/21/19 01/21/19 03:44 03:44 WBC 9.6 Hgb 10.3 L Hct 32.1 L Plt Count 190 Sodium 139 Potassium 3.5 Chloride 107 Carbon Dioxide 24 BUN 18 Creatinine 0.74 Glucose 240 H Calcium 8.4 L Magnesium 1.9 - Imaging Chest Xray: image reviewed Consult Discharge Plan - Plan Referrals: Henrique Boothe MD [Partnered Physician] - Shaji Vick DO [Partnered Physician] - 01/30/19 1:30 pm
--- NOTE | 2019-01-21 15:20 | Internal Med Progress Note ---
Hospitalist Progress Note - Encounter Date of Encounter: 01/21/19 Time of Encounter: 08:00 - Subjective Interval History: I saw patient this morning independently and discussed the case in collaboration with Dr. Acosta and Dr. Boothe. Patient self extubated this morning and, other than some initial somnolence, has done well. She will need ongoing pulmonary toilet. Blood pressure has been stable to elevated slightly. Glucose has been elevated and we will start some basal insulin. We will exercise caution given her periods of hypoglycemia noted a few days ago. We are therefore starting a lower basal dose. - Exam Vitals: Temp Pulse Resp BP Pulse Ox 98.7 F 104 22 155/65 94 01/21/19 11:52 01/21/19 14:00 01/21/19 14:00 01/21/19 14:00 01/21/19 14:00 Exam: General: mildly wheezy and coughing; NAD HEENT: dry mucosa, neck supple Chest; Coarse wheezing throughout, good air movement; RRR Abdomen: Soft, NT; ND; + BS Ext: no calf pain, full ROM Neuro: alert now; somnolent earlier; no focal deficits Skin: warm and dry - Assessment and Plan (1) Acute respiratory failure with hypoxia and hypercarbia Current Visit: Yes Status: Acute Assessment and Plan: 1. Patient self extubated today. 2. Continue pulmonary toilet, incentive spirometry. 3. Wean oxygen as able. 4. Discussed with Dr. Boothe as well. 5. Continue antibiotics and follow cultures. (2) Hypertension Current Visit: Yes Status: Chronic Assessment and Plan: 1. Continue home meds as appropriate. 2. Monitor BP and adjust meds as necessary. (3) Type 2 diabetes mellitus Current Visit: Yes Status: Chronic Assessment and Plan: 1. Start basal insulin with Levemir (low dose) and titrate up to home dosing as patient oral intake improves and glucose levels rise. 2. SSI. 3. Monitor for hypoglycemia. (4) DVT prophylaxis Current Visit: Yes Status: Acute Assessment and Plan: 1. Heparin SQ. - Time Spent with Patient Total time spent is greater than 50% in coordination of care (as documented) at patient's floor/unit and/or counseling patient: Plan of Care Discussed with: other (MDR team, Dr. Mota and Dr. Boothe) Internal Medicine: Result - Labs CBC & Chem 7: 01/21/19 03:44 01/21/19 03:44 Labs: Short CBC 01/21/19 Range/Units 03:44 WBC 9.6 (4.3-11.1) K/mcL Hgb 10.3 L (11.5-15.4) g/dL Hct 32.1 L (35.3-44.9) % Plt Count 190 (140-400) K/mcL BMP 01/21/19 03:44 Sodium 139 Potassium 3.5 Chloride 107 Carbon Dioxide 24 BUN 18 Creatinine 0.74 Glucose 240 H Calcium 8.4 L - ABG Interpretation ABG results: ABG ABG pH 7.45 pH Units (7.32-7.45) 01/21/19 05:39 ABG pCO2 38 mmHg (35-45) 01/21/19 05:39 ABG pO2 84 mmHg (85-104) L 01/21/19 05:39 ABG O2 Saturation 97 % (95-98) 01/21/19 05:39 - Impressions Impressions Echocardiogram 01/20/19 17:07 Impressions: LVEF 65-70%. Mild left ventricular diastolic dysfunction. Normal right ventricular structure and function. Mild pulmonic regurgitation. Unable to estimate RVSP due to lack of TR jet. Left Ventricular Wall Motion: Rest Echo Findings All wall segments showed normal motion. Findings: Study Quality * Technically adequate exam. ECG Findings * Normal sinus rhythm. Left Ventricle * LVEF 65-70%. * Normal LV chamber size, wall thickness and systolic function. * Mild left ventricular diastolic dysfunction. Right Ventricle * Normal right ventricular structure and function. Left Atrium * Normal left atrial size. Right Atrium * Normal right atrial size. Interatrial Septum * Interatrial septum not well evaluated. Aortic Valve * Trileaflet aortic valve with normal function. * No aortic stenosis. * No aortic regurgitation. Mitral Valve * Normal mitral valve structure. * No mitral stenosis. * Trace mitral regurgitation. Tricuspid Valve * Normal tricuspid valve structure. * No tricuspid stenosis. * Trace tricuspid regurgitation. * Unable to estimate RVSP due to lack of TR jet. * Estimated RA pressure is 15 mmHg. Pulmonic Valve * Pulmonic valve is not well visualized. * No pulmonic stenosis. * Mild pulmonic regurgitation. Aorta * Normally sized aortic root. Pericardium * The pericardium appears normal. IVC * The IVC is dilated. * < 50% respiratory change. Chest X-Ray 01/21/19 07:48 IMPRESSION: 1. Stable interstitial and mild pulmonary opacities. Stable normal lung volume. 2. Stable right hemithorax chest tube with mild stable pneumothorax. D/ / 01/21/2019 07:52:46 Leighton Resendez MD / [email or web address] Interpreting Provider: Leighton Resendez MD Chest X-Ray 01/21/19 07:56 IMPRESSION: Right chest tube is in normal position. Small apical pneumothorax. Mild bibasilar atelectasis. D/ / Javier Dolan MD / Javier Dolan MD Interpreting Provider: Javier Dolan MD Consult Discharge Plan - Plan Referrals: Henrique Boothe MD [Partnered Physician] - Shaji Vick DO [Partnered Physician] - 01/30/19 1:30 pm (2) Hypertension Qualifiers: Hypertension type: essential hypertension Qualified Code(s): I10 - Essential (primary) hypertension (3) Type 2 diabetes mellitus Qualifiers: Diabetes mellitus intermediate manager insulin use: with assisted use Diabetes mellitus complication status: without complication Qualified Code(s): E11.9 - Type 2 diabetes mellitus without complications; Z79.4 - intermediate manager (current) use of insulin
[2019-01-21] MEDS: Budesonide/Formoterol 160/4.5 1 PUFF INH IH SCH (19:40)
[2019-01-21] MEDS ORDERED: Insulin LISPRO 300 UNITS/3 ML VIAL SQ SCH (21:00)
[2019-01-21] MEDS ORDERED: traZODone 50 MG TABLET PO SCH (21:00)
[2019-01-22] MEDS: Ipratropium/Albuterol Neb 3 ML IH SCH ×6 (00:17→19:59)
[2019-01-22] MEDS: Acetylcysteine 10% 2 ML INHSOL IH SCH ×6 (00:17→19:59)
[2019-01-22] MEDS ORDERED: *HR* HYDROcodone/Acet 5/325 mg TABLET PO ONE (04:58)
[2019-01-22] MEDS: methylPREDNISolone 125 MG/2 ML VIAL IVP SCH (05:00)
[2019-01-22] MEDS: Piperacillin/Tazobactam 3.375 GM in 0.9 % Sodium Chloride Mini Bag 100 ML IVPB SCH ×3 (05:00→20:59)
[2019-01-22] MEDS: *HR* Heparin 5,000 UNIT/ML VIAL SQ SCH ×3 (05:00→21:10)
[2019-01-22] MEDS: *HR* HYDROcodone/Acet 5/325 mg TABLET PO PRN (05:08)
[2019-01-22 05:43] LABS: Hematocrit 33.8 % (35.3-44.9); Hemoglobin 10.9 g/dL (11.5-15.4); Mean Corpuscular HGB Conc 32.2 g/dL (31.6-35.5); Mean Corpuscular Hemoglobin 28.5 pg (28.0-33.3); Mean Corpuscular Volume 88.3 fL (83.0-100.0); Mean Platelet Volume 9.1 fL (9.4-12.4); Platelet Count 277 K/mcL (140-400); Red Blood Count 3.83 M/mcL (3.82-4.97); Red Cell Distribution Width 14.6 % (11.5-14.5); White Blood Count 20.3 K/mcL (4.3-11.1)
[2019-01-22 06:01] LABS: BUN/Creatinine Ratio 28 (6-26); Blood Urea Nitrogen 23 mg/dL (8-23); Calcium 8.6 mg/dL (8.6-10.3); Carbon Dioxide 23 mEq/L (23-29); Chloride 110 mEq/L (98-107); Glucose 157 mg/dL (70-105); Magnesium 1.8 mg/dL (1.6-2.6); Osmolality,Calculated 305 (280-300); Potassium 3.6 mEq/L (3.5-5.1); Sodium 144 mEq/L (136-145); eGFR For African Americans > 60 (> 60); eGFR For Non-African Americans > 60 (> 60)
[2019-01-22] MEDS: Budesonide/Formoterol 160/4.5 1 PUFF INH IH SCH ×2 (07:30→19:59)
--- NOTE | 2019-01-22 07:44 | Pulmonology Progress Note ---
<Lucas Cabrera N - Last Filed: 01/22/19 07:39> Date of Encounter: 01/22/19 Time of Encounter: 07:39 Assessment and Plan (1) Acute respiratory failure with hypoxia and hypercarbia Current Visit: Yes Status: Acute Rapid response was called to the patient's room due to patient in acute respiratory distress Patient found to be breathing very heavily and upon placement of BiPAP began to have periods of apnea Decision was made for patient to be intubated and patient was brought to the ICU. Successful intubation performed in ICU and patient was started on the ventilator ABG prior to intubation: PH 7.25, PCO2 68, PO2 84, HCO3 30, O2 saturation of 94%. -WBC elevated today at 20.2, but clinically improved. Pt on Solumedrol 60 mg IV -Patient continues to require oxymask with O2 saturations above 90% -Sputum cultures came back positive for MRSA pneumonia patient will need longer course of antibiotics and continue vancomycin -Patient may be able to be moved to the floor today -Chest tube removed on 01/21/19 (2) Malignant neoplasm of lower lobe, right bronchus or lung Current Visit: Yes Status: Acute Patient had a right lower lobe thoracotomy wedge resection on 01/17 -Post op day 4 -Chest tube clamped 01/21 -Dr. Boothe informed of pts condition (3) Diabetes mellitus Current Visit: No Status: Chronic Patient on insulin at home. -On clear liquid diet -Sliding scale insulin ordered -15 units of Levemir twice a day -Most recent BG of 157 Qualifiers: Diabetes mellitus type: type 2 Diabetes mellitus skilled nursing insulin use: with skilled nursing use Diabetes mellitus complication status: with kidney complications Diabetes mellitus complication detail: with chronic kidney disease Chronic kidney disease stage: stage 3 (moderate) Qualified Code(s): E11.22 - Type 2 diabetes mellitus with diabetic chronic kidney disease; N18.3 - Chronic kidney disease, stage 3 (moderate); Z79.4 - halfway (current) use of insulin (4) Hypertension Current Visit: No Status: Chronic BP Currently stable On losartan 12.5 and metoprolol titrate 25 mg twice a day at home -Restart home medications Qualifiers: Hypertension type: essential hypertension Qualified Code(s): I10 - Essential (primary) hypertension (5) Iron deficiency anemia Current Visit: Yes Status: Acute Current H&H of 10.0 and 33.8 -Restart home and supplementation -Continue to monitor Qualifiers: Iron deficiency anemia type: inadequate dietary iron intake Qualified Code(s): D50.8 - Other iron deficiency anemias (6) DVT prophylaxis Current Visit: No Status: Acute Heparin subcutaneous Subjective Interval history: Patient states that she is feeling much better today. Patient was not able to eat much yesterday due to shortness of breath. Patient states that she is going to try to eat today. She is also having a cough with sputum but does not know the color. Patient denies nausea, vomiting, abdominal pain, chest pain, or fever. Objective PUL Vital signs: Last Vital Signs Temp 98.4 F 01/22/19 06:51 Pulse 92 01/22/19 06:00 Resp 18 01/22/19 07:31 BP 133/53 01/22/19 06:00 Pulse Ox 98 01/22/19 07:31 General appearance: no acute distress Effort: normal (Patient with much improvement in extremes of tarry wheezing and respiratory status) Cardiovascular: regular rate and rhythm Gastrointestinal: soft, non-tender, non-distended Integumentary: normal Extremities: pink and warm, pulses normal Musculoskeletal: no deformities normal mental status, non-focal exam mood appropriate, affect normal Results - Laboratory Findings CBC and BMP: 01/22/19 05:01 01/22/19 05:01 ABG ABG pH 7.45 pH Units (7.32-7.45) 01/21/19 05:39 ABG pCO2 38 mmHg (35-45) 01/21/19 05:39 ABG pO2 84 mmHg (85-104) L 01/21/19 05:39 ABG O2 Saturation 97 % (95-98) 01/21/19 05:39 Abnormal lab findings: Abnormal lab results WBC 20.3 K/mcL (4.3-11.1) H D 01/22/19 05:01 RBC 3.61 M/mcL (3.82-4.97) L 01/21/19 03:44 Hgb 10.9 g/dL (11.5-15.4) L 01/22/19 05:01 Hct 33.8 % (35.3-44.9) L 01/22/19 05:01 MCHC 31.4 g/dL (31.6-35.5) L 01/20/19 03:45 RDW 14.6 % (11.5-14.5) H 01/22/19 05:01 MPV 9.1 fL (9.4-12.4) L 01/22/19 05:01 Neutrophils # 9.4 K/mcL (1.6-8.9) H 01/20/19 03:45 Monocytes # 1.4 K/mcL (0.0-1.3) H 01/20/19 03:45 ABG pH 7.25 pH Units (7.32-7.45) L 01/19/19 13:30 ABG pCO2 48 mmHg (35-45) H 01/20/19 04:47 ABG pO2 84 mmHg (85-104) L 01/21/19 05:39 ABG HCO3 30 mEq/L (21-27) H 01/20/19 04:47 ABG Total CO2 27 mEq/L (20-26) H 01/21/19 05:39 ABG O2 Saturation 90 % (95-98) L 01/20/19 04:47 ABG Base Excess 4 mEq/L (-2 to 3) H 01/20/19 04:47 Chloride 110 mEq/L (98-107) H 01/22/19 05:01 BUN 25 mg/dL (8-23) H 01/19/19 10:06 Est GFR ( Amer) 59 (> 60) L 01/19/19 10:06 Est GFR (Non-Af Amer) 59 (> 60) L 01/20/19 03:45 BUN/Creatinine Ratio 28 (6-26) H 01/22/19 05:01 Glucose 157 mg/dL (70-105) H 01/22/19 05:01 POC Glucose 204 mg/dL (70-99) H 01/21/19 11:08 Calculated Osmolality 305 (280-300) H 01/22/19 05:01 Calcium 8.4 mg/dL (8.6-10.3) L 01/21/19 03:44 Iron 21 mcg/dL (50-170) L 01/18/19 01:39 % Saturation 6 % (15-50) L 01/18/19 01:39 AST 48 Units/L (13-39) H 01/20/19 03:45 Serum Total Protein 5.6 g/dL (6.4-8.9) L 01/20/19 03:45 Albumin 3.1 g/dL (3.5-5.7) L 01/20/19 03:45 - Microbiology Findings Microbiology Findings: Microbiology, Last 48 Hours 01/19/19 18:15 Sputum Culture - Preliminary Sputum Staphylococcus aureus - Clinical Findings Intake & Output: Intake & Output 01/21/19 01/21/19 01/22/19 15:59 23:59 07:59 Intake Total 132 / 2658.2 1350 / 2658.2 Output Total 500 / 1100 200 / 1100 100 / 100 Balance -368 / 1558.2 1150 / 1558.2 -100 / -100 Weight 74.8 kg Consult Discharge Plan - Plan Referrals: Henrique Boothe MD [Partnered Physician] - Shaji Vick DO [Partnered Physician] - 01/30/19 1:30 pm <Marty Mota - Last Filed: 01/22/19 11:12> Date of Encounter: 01/22/19 Objective PUL Vital signs: Last Vital Signs Temp 98.4 F 01/22/19 06:51 Pulse 102 01/22/19 08:00 Resp 18 01/22/19 07:31 BP 167/75 01/22/19 07:00 Pulse Ox 98 01/22/19 07:31 Results - Laboratory Findings CBC and BMP: 01/22/19 05:01 01/22/19 05:01 ABG ABG pH 7.45 pH Units (7.32-7.45) 01/21/19 05:39 ABG pCO2 38 mmHg (35-45) 01/21/19 05:39 ABG pO2 84 mmHg (85-104) L 01/21/19 05:39 ABG O2 Saturation 97 % (95-98) 01/21/19 05:39 Abnormal lab findings: Abnormal lab results WBC 20.3 K/mcL (4.3-11.1) H D 01/22/19 05:01 RBC 3.61 M/mcL (3.82-4.97) L 01/21/19 03:44 Hgb 10.9 g/dL (11.5-15.4) L 01/22/19 05:01 Hct 33.8 % (35.3-44.9) L 01/22/19 05:01 MCHC 31.4 g/dL (31.6-35.5) L 01/20/19 03:45 RDW 14.6 % (11.5-14.5) H 01/22/19 05:01 MPV 9.1 fL (9.4-12.4) L 01/22/19 05:01 Neutrophils # 9.4 K/mcL (1.6-8.9) H 01/20/19 03:45 Monocytes # 1.4 K/mcL (0.0-1.3) H 01/20/19 03:45 ABG pH 7.25 pH Units (7.32-7.45) L 01/19/19 13:30 ABG pCO2 48 mmHg (35-45) H 01/20/19 04:47 ABG pO2 84 mmHg (85-104) L 01/21/19 05:39 ABG HCO3 30 mEq/L (21-27) H 01/20/19 04:47 ABG Total CO2 27 mEq/L (20-26) H 01/21/19 05:39 ABG O2 Saturation 90 % (95-98) L 01/20/19 04:47 ABG Base Excess 4 mEq/L (-2 to 3) H 01/20/19 04:47 Chloride 110 mEq/L (98-107) H 01/22/19 05:01 BUN 25 mg/dL (8-23) H 01/19/19 10:06 Est GFR ( Amer) 59 (> 60) L 01/19/19 10:06 Est GFR (Non-Af Amer) 59 (> 60) L 01/20/19 03:45 BUN/Creatinine Ratio 28 (6-26) H 01/22/19 05:01 Glucose 157 mg/dL (70-105) H 01/22/19 05:01 POC Glucose 204 mg/dL (70-99) H 01/21/19 11:08 Calculated Osmolality 305 (280-300) H 01/22/19 05:01 Calcium 8.4 mg/dL (8.6-10.3) L 01/21/19 03:44 Iron 21 mcg/dL (50-170) L 01/18/19 01:39 % Saturation 6 % (15-50) L 01/18/19 01:39 AST 48 Units/L (13-39) H 01/20/19 03:45 Serum Total Protein 5.6 g/dL (6.4-8.9) L 01/20/19 03:45 Albumin 3.1 g/dL (3.5-5.7) L 01/20/19 03:45 - Microbiology Findings Microbiology Findings: Microbiology, Last 48 Hours 01/19/19 18:15 Sputum Culture - Final Sputum Methicillin Resistant S.aureus - Clinical Findings Intake & Output: Intake & Output 01/21/19 01/22/19 01/22/19 23:59 07:59 15:59 Intake Total 1350 / 2658.2 100 / 100 Output Total 200 / 1100 100 / 100 Balance 1150 / 1558.2 -100 / 0 100 / 0 Weight 74.8 kg - Attending Attestation I examined this patient and my medical decision-making was reviewed with the R narda Physician. I agree with the documented findings, disposition and treatment plan as described except to the extent set forth below. We independently had [id number] contact with the patient Patient seen and examined at bedside Labs, radiology, chart personally reviewed. Impression/Recs: #Acute hypoxic hypercapnic respiratory failure #Staphylococcus pneumonia #Acute on chronic heart failure with preserved ejection fraction #Non-small cell lung cancer status post resection Mrs. Ferro continues to improved. She will benefit from continued antibiotic therapy bronchopulmonary hygiene including physical therapy and out of bed to chair along with incentive spirometry. She will also benefit from continued diuresis and blood pressure/heart rate control for her underlying heart failure. I suspect she will need continued diuretic over the next 24-48 hours by IV which can be transitioned to by mouth. From my standpoint she is stable for transition out of the ICU. Pulmonary will sign off please do not hesitate to call me with any questions or concerns
--- NOTE | 2019-01-22 08:02 | Cardiothoracic Progress Note ---
Date of Encounter: 01/22/19 Time of Encounter: 08:01 - Assessment and plan (1) Malignant neoplasm of lower lobe, right bronchus or lung Current Visit: Yes Status: Acute The assessment and plan as outlined above was discussed with the patient and/or family members who expressed understanding and agreement. All questions were answered. tx to floor (2) Hypertension Current Visit: No Status: Chronic The assessment and plan as outlined above was discussed with the patient and/or family members who expressed understanding and agreement. All questions were answered. stable with current medications Qualifiers: Hypertension type: essential hypertension Qualified Code(s): I10 - Essential (primary) hypertension (3) Diabetes mellitus Current Visit: No Status: Chronic The assessment and plan as outlined above was discussed with the patient and/or family members who expressed understanding and agreement. All questions were answered. start solid foods Qualifiers: Diabetes mellitus longterm insulin use: with longterm use Diabetes mellitus complication status: with hypoglycemia (4) Major depressive disorder Current Visit: No Status: Chronic The assessment and plan as outlined above was discussed with the patient and/or family members who expressed understanding and agreement. All questions were answered. 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 All questions were answered. hypoxia from mucus plug resolved. continue resp tx and percussion every 4 hours. wean steroids - Subjective Interval history: pain at incision Vital Signs, Last 4 Hours Temp Pulse Resp BP Pulse Ox 01/22/19 07:31 18 98 01/22/19 07:00 103 30 167/75 97 01/22/19 06:51 98.4 F 01/22/19 06:00 92 31 133/53 99 01/22/19 05:00 86 23 141/80 97 01/22/19 04:12 15 95 Oxgyen Flow Rate Oxygen Flow Rate (LPM) 6 Weight 01/20/19 01/21/19 01/22/19 23:59 23:59 23:59 Weight 76.8 kg 74.8 kg - Physical Examination General: Conversant, No Apparent Distress, Well developed, Well nourished HEENT: Atraumatic, Normocephaly Cardiac: Reg Rate and Rhythm, Normal S1 and S2 Incision: No signs of infection, Dry/intact dressing Lungs: Other (minimal wheezing and rhonchi) Neuro: Alert and responsive, No focal deficits noted, Cranial nerves intact Abdomen: Soft - Labs 01/22/19 05:01 01/22/19 05:01 Lab Results, Last 24 hours 01/22/19 01/22/19 05:01 05:01 WBC 20.3 H D Hgb 10.9 L Hct 33.8 L Plt Count 277 Sodium 144 Potassium 3.6 Chloride 110 H Carbon Dioxide 23 BUN 23 Creatinine 0.81 Glucose 157 H Calcium 8.6 Magnesium 1.8 - Imaging Chest Xray: image reviewed Consult Discharge Plan - Plan Referrals: Henrique Boothe MD [Partnered Physician] - Shaji Vick DO [Partnered Physician] - 01/30/19 1:30 pm
[2019-01-22] MEDS: Sennosides/Docusate Sodium TABLET PO SCH ×2 (08:17→21:09)
[2019-01-22] MEDS ORDERED: predniSONE 20 MG TABLET PO ONE (08:58)
[2019-01-22] MEDS: Insulin LISPRO 300 UNITS/3 ML VIAL SQ SCH ×3 (09:01→21:07)
[2019-01-22] MEDS: (Colestipol Hcl [Colestid] 1 GM) PO SCH ×2 (09:02→21:15)
[2019-01-22] MEDS: Insulin DETEMIR 100 UNIT/ML X5UNITS SQ SCH ×2 (09:06→21:09)
[2019-01-22] MEDS ORDERED: Furosemide 20 MG TABLET PO ONE (10:40)
[2019-01-22] MEDS ORDERED: traMADol 50 MG TABLET PO PRN (11:00)
[2019-01-22] MEDS ORDERED: D5% in Water 1,000 ML IVC PRN (17:03)
[2019-01-22] MEDS ORDERED: Albuterol 2.5 MG/3 ML NEBULIZER IH PRN (17:03)
[2019-01-22] MEDS ORDERED: Naloxone 0.4 MG/ML INJ IVP PRN (17:03)
[2019-01-22] MEDS ORDERED: *HR* Dextrose 50 % in Water (Syg) 50 ML SYRINGE IVP PRN (17:03)
[2019-01-22] MEDS ORDERED: Ondansetron 4 MG/2 ML VIAL IVP PRN (17:03)
[2019-01-22] MEDS ORDERED: Dextrose Gel 15 GM/37.5 ML TUBE PO PRN ×2 (17:03)
[2019-01-22] MEDS ORDERED: MethylPREDNISolone 40 MG/ML VIAL IVP SCH (18:00)
[2019-01-22] MEDS: traMADol 50 MG TABLET PO PRN (19:00)
--- NOTE | 2019-01-22 20:02 | Internal Med Progress Note ---
Hospitalist Progress Note - Encounter Date of Encounter: 01/22/19 Time of Encounter: 09:20 - Subjective Interval History: Patient doing better with mild SOB. Patient transferring to per Dr. Boothe. Discussed w MDR team. Will wean steroids. Will need to minimize sedating meds as she is sensitive to them and may develop respiratory compromise. - Exam Vitals: Temp Pulse Resp BP Pulse Ox 98.5 F 88 21 139/91 95 01/22/19 19:12 01/22/19 19:12 01/22/19 19:12 01/22/19 19:12 01/22/19 19:12 Exam: General: NAD, awake, alert, interactive HEENT: No icterus, neck supple Chest: Coarse wheezing and rhonchi, good air exchange, RRR Abdomen: soft, NT, + BS Ext: no calf pain, full ROM Skin: warm and dry - Assessment and Plan (1) Acute respiratory failure with hypoxia and hypercarbia Current Visit: Yes Status: Acute Assessment and Plan: 1. S/P extubation yesterday. 2. Wean oxygen and steroids. 3. Aerosols PRN. 4. Continue antibiotics and follow cultures. 5. Will sign off as Dr. Boothe is primary attending -- discussed with Dr. Boothe. (2) Hypertension Current Visit: Yes Status: Chronic Assessment and Plan: 1. Monitor BP and adjust meds as necessary. (3) Type 2 diabetes mellitus Current Visit: Yes Status: Chronic Assessment and Plan: 1. SSI while in hospital. 2. Adjust insulin dosing as prednisone is tapered off. (4) DVT prophylaxis Current Visit: Yes Status: Acute Assessment and Plan: 1. Heparin SQ. - Time Spent with Patient Total time spent is greater than 50% in coordination of care (as documented) at patient's floor/unit and/or counseling patient: Plan of Care Discussed with: other (Shama, MDR team, Dr. Boothe) Internal Medicine: Result - Labs CBC & Chem 7: 01/22/19 05:01 01/22/19 05:01 Labs: Short CBC 01/22/19 Range/Units 05:01 WBC 20.3 H D (4.3-11.1) K/mcL Hgb 10.9 L (11.5-15.4) g/dL Hct 33.8 L (35.3-44.9) % Plt Count 277 (140-400) K/mcL BMP 01/22/19 05:01 Sodium 144 Potassium 3.6 Chloride 110 H Carbon Dioxide 23 BUN 23 Creatinine 0.81 Glucose 157 H Calcium 8.6 - ABG Interpretation ABG results: ABG ABG pH 7.45 pH Units (7.32-7.45) 01/21/19 05:39 ABG pCO2 38 mmHg (35-45) 01/21/19 05:39 ABG pO2 84 mmHg (85-104) L 01/21/19 05:39 ABG O2 Saturation 97 % (95-98) 01/21/19 05:39 - Impressions Impressions Chest X-Ray 01/22/19 08:07 IMPRESSION: 1. Interval right hemithorax chest tube removal with no pneumothorax. 2. Stable interstitial opacities with new progressive multifocal left lung consolidation. D/ / 01/22/2019 08:45:11 Leighton Resendez MD / [facility] Interpreting Provider: Leighton Resendez MD Consult Discharge Plan - Plan Referrals: Henrique Boothe MD [Partnered Physician] - Shaji Vick DO [Partnered Physician] - 01/30/19 1:30 pm (2) Hypertension Qualifiers: Hypertension type: essential hypertension Qualified Code(s): I10 - Essential (primary) hypertension (3) Type 2 diabetes mellitus Qualifiers: Diabetes mellitus terminal system operator insulin use: with terminal system operator use Diabetes mellitus complication status: without complication Qualified Code(s): E11.9 - Type 2 diabetes mellitus without complications; Z79.4 - meterman (current) use of insulin
[2019-01-22] MEDS: traZODone 50 MG TABLET PO SCH (21:10)
[2019-01-23] MEDS: Acetylcysteine 10% 2 ML INHSOL IH SCH ×6 (00:05→20:01)
[2019-01-23] MEDS: Ipratropium/Albuterol Neb 3 ML IH SCH ×6 (00:05→20:00)
[2019-01-23] MEDS: Piperacillin/Tazobactam 3.375 GM in 0.9 % Sodium Chloride Mini Bag 100 ML IVPB SCH ×3 (04:42→20:48)
[2019-01-23 05:13] LABS: Hematocrit 33.1 % (35.3-44.9); Hemoglobin 10.6 g/dL (11.5-15.4); Mean Corpuscular Hemoglobin 28.4 pg (28.0-33.3); Mean Corpuscular Volume 88.7 fL (83.0-100.0); Mean Platelet Volume 9.4 fL (9.4-12.4); Platelet Count 270 K/mcL (140-400); Red Blood Count 3.73 M/mcL (3.82-4.97); Red Cell Distribution Width 14.7 % (11.5-14.5); White Blood Count 19.1 K/mcL (4.3-11.1)
[2019-01-23 05:24] LABS: BUN/Creatinine Ratio 32 (6-26); Blood Urea Nitrogen 24 mg/dL (8-23); Calcium 8.6 mg/dL (8.6-10.3); Carbon Dioxide 27 mEq/L (23-29); Chloride 108 mEq/L (98-107); Glucose 116 mg/dL (70-105); Magnesium 1.9 mg/dL (1.6-2.6); Osmolality,Calculated 301 (280-300); Potassium 3.4 mEq/L (3.5-5.1); Sodium 143 mEq/L (136-145); eGFR For African Americans > 60 (> 60); eGFR For Non-African Americans > 60 (> 60)
[2019-01-23] MEDS: *HR* Heparin 5,000 UNIT/ML VIAL SQ SCH ×3 (06:31→20:46)
[2019-01-23] MEDS: traMADol 50 MG TABLET PO PRN ×2 (06:34→15:44)
[2019-01-23] MEDS: Budesonide/Formoterol 160/4.5 1 PUFF INH IH SCH ×2 (07:26→20:01)
[2019-01-23] MEDS: Insulin LISPRO 300 UNITS/3 ML VIAL SQ SCH ×4 (07:58→20:47)
[2019-01-23] MEDS: Sennosides/Docusate Sodium TABLET PO SCH ×2 (08:11→20:45)
[2019-01-23] MEDS: Insulin DETEMIR 100 UNIT/ML X5UNITS SQ SCH ×2 (08:12→20:46)
[2019-01-23] MEDS: (Colestipol Hcl [Colestid] 1 GM) PO SCH ×2 (08:12→20:49)
[2019-01-23] MEDS ORDERED: Potassium Chloride 40 MEQ, Lidocaine 1% 2 ML in 0.9 % Sodium Chloride 500 ML IVPB ONE (08:45)
--- NOTE | 2019-01-23 08:48 | Cardiothoracic Progress Note ---
Date of Encounter: 01/23/19 Time of Encounter: 08:44 - Assessment and plan (1) Malignant neoplasm of lower lobe, right bronchus or lung Current Visit: Yes Status: Acute The assessment and plan as outlined above was discussed with the patient and/or family members who expressed understanding and agreement. All questions were answered. discussed rehab with patient and she agrees that a fall at home would be bad. (2) Hypertension Current Visit: No Status: Chronic The assessment and plan as outlined above was discussed with the patient and/or family members who expressed understanding and agreement. All questions were answered. stable with current medications Qualifiers: Hypertension type: essential hypertension Qualified Code(s): I10 - Essential (primary) hypertension (3) Diabetes mellitus Current Visit: No Status: Chronic The assessment and plan as outlined above was discussed with the patient and/or family members who expressed understanding and agreement. All questions were answered. start solid foods Qualifiers: Diabetes mellitus group home insulin use: with ocean transportation intermediary use Diabetes shivani litus complication status: with hypoglycemia (4) Major depressive disorder Current Visit: No Status: Chronic The assessment and plan as outlined above was discussed with the patient and/or family members who expressed understanding and agreement. All questions were answered. 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 All questions were answered. resolved. stop steroids. continue respiratory treatments. - Subjective Interval history: pain at incision Vital Signs, Last 4 Hours Temp Pulse Resp BP Pulse Ox 01/23/19 07:36 98.2 F 71 18 165/69 100 01/23/19 07:25 20 93 Oxgyen Flow Rate Oxygen Flow Rate (LPM) 4 Clinical Data, last 8 Hours Output, Urine Amount 280 Weight 01/21/19 01/22/19 01/23/19 23:59 23:59 23:59 Weight 76.8 kg 74.8 kg 76.3 kg - Physical Examination General: Conversant, No Apparent Distress, Well developed HEENT: Atraumatic, Normocephaly Cardiac: Reg Rate and Rhythm, Normal S1 and S2 Incision: No signs of infection, Dry/intact dressing Lungs: Normal Breath Sounds Neuro: Alert and responsive, No focal deficits noted, Cranial nerves intact, Motor nerves intact - Labs 01/23/19 04:45 01/23/19 04:45 Lab Results, Last 24 hours 01/23/19 01/23/19 04:45 04:45 WBC 19.1 H Hgb 10.6 L Hct 33.1 L Plt Count 270 Sodium 143 Potassium 3.4 L Chloride 108 H Carbon Dioxide 27 BUN 24 H Creatinine 0.76 Glucose 116 H Calcium 8.6 Magnesium 1.9 - Imaging Chest Xray: image reviewed Consult Discharge Plan - Plan Referrals: Henrique Boothe MD [Partnered Physician] - Shaji Vick DO [Partnered Physician] - 01/30/19 1:30 pm
[2019-01-23] MEDS ORDERED: predniSONE 20 MG TABLET PO ONE ×2 (09:00)
[2019-01-23] MEDS: traZODone 50 MG TABLET PO SCH (20:45)
[2019-01-24] MEDS: Ipratropium/Albuterol Neb 3 ML IH SCH ×7 (00:02→23:47)
[2019-01-24] MEDS: Acetylcysteine 10% 2 ML INHSOL IH SCH ×7 (00:03→23:47)
[2019-01-24] MEDS: Piperacillin/Tazobactam 3.375 GM in 0.9 % Sodium Chloride Mini Bag 100 ML IVPB SCH ×3 (04:35→22:10)
[2019-01-24] MEDS: *HR* Heparin 5,000 UNIT/ML VIAL SQ SCH ×3 (06:34→22:24)
[2019-01-24] MEDS: traMADol 50 MG TABLET PO PRN (06:34)
[2019-01-24] MEDS: Insulin LISPRO 300 UNITS/3 ML VIAL SQ SCH ×4 (08:06→22:10)
[2019-01-24] MEDS: Budesonide/Formoterol 160/4.5 1 PUFF INH IH SCH ×2 (08:10→20:08)
[2019-01-24] MEDS: Sennosides/Docusate Sodium TABLET PO SCH ×2 (08:37→22:08)
[2019-01-24] MEDS: (Colestipol Hcl [Colestid] 1 GM) PO SCH ×2 (08:38→22:09)
[2019-01-24] MEDS ORDERED: predniSONE 10 MG TABLET PO ONE ×2 (09:00)
[2019-01-24] MEDS: Insulin DETEMIR 100 UNIT/ML X5UNITS SQ SCH ×2 (10:03→22:10)
[2019-01-24 10:51] LABS: Hematocrit 37.3 % (35.3-44.9); Mean Corpuscular HGB Conc 32.2 g/dL (31.6-35.5); Mean Corpuscular Hemoglobin 28.9 pg (28.0-33.3); Mean Corpuscular Volume 89.9 fL (83.0-100.0); Mean Platelet Volume 8.9 fL (9.4-12.4); Platelet Count 291 K/mcL (140-400); Red Blood Count 4.15 M/mcL (3.82-4.97); White Blood Count 19.8 K/mcL (4.3-11.1)
[2019-01-24 11:10] LABS: BUN/Creatinine Ratio 21 (6-26); Blood Urea Nitrogen 22 mg/dL (8-23); Carbon Dioxide 28 mEq/L (23-29); Chloride 108 mEq/L (98-107); Glucose 103 mg/dL (70-105); Osmolality,Calculated 302 (280-300); Sodium 144 mEq/L (136-145); eGFR For African Americans > 60 (> 60); eGFR For Non-African Americans 52 (> 60)
--- NOTE | 2019-01-24 11:44 | Cardiothoracic Progress Note ---
Date of Encounter: 01/24/19 Time of Encounter: 11:41 - Assessment and plan (1) Malignant neoplasm of lower lobe, right bronchus or lung Current Visit: Yes Status: Acute The assessment and plan as outlined above was discussed with the patient and/or family members who expressed understanding and agreement. All questions were answered. left message with daughter (2) Hypertension Current Visit: No Status: Chronic The assessment and plan as outlined above was discussed with the patient and/or family members who expressed understanding and agreement. All questions were answered. stable with current medications Qualifiers: Hypertension type: essential hypertension Qualified Code(s): I10 - Essential (primary) hypertension (3) Diabetes mellitus Current Visit: No Status: Chronic The assessment and plan as outlined above was discussed with the patient and/or family members who expressed understanding and agreement. All questions were answered. randy diet Qualifiers: Diabetes mellitus usp insulin use: with usp use Diabetes mellitus complication status: with hypoglycemia (4) Major depressive disorder Current Visit: No Status: Chronic The assessment and plan as outlined above was discussed with the patient and/or family members who expressed understanding and agreement. All questions were answered. 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 All questions were answered. consult ID given the mucus plug has MRSA continue respiratory treatments. - Subjective Interval history: pain at incision Vital Signs, Last 4 Hours Temp Pulse Resp BP Pulse Ox 01/24/19 11:06 97.9 F 64 18 163/67 93 01/24/19 08:14 16 93 01/24/19 08:02 89 Oxgyen Flow Rate Oxygen Flow Rate (LPM) 5 Clinical Data, last 8 Hours Output, Urine Amount 300 Weight 01/22/19 01/23/19 01/24/19 23:59 23:59 23:59 Weight 74.8 kg 76.3 kg - Physical Examination General: Conversant, No Apparent Distress, Well developed, Well nourished Cardiac: Reg Rate and Rhythm Incision: No signs of infection, Dry/intact dressing Lungs: Normal Breath Sounds Neuro: Alert and responsive, No focal deficits noted, Cranial nerves intact, Motor nerves intact - Labs 01/24/19 10:35 01/24/19 10:35 Lab Results, Last 24 hours 01/24/19 01/24/19 10:35 10:35 WBC 19.8 H Hgb 12.0 Hct 37.3 Plt Count 291 Sodium 144 Potassium 4.0 Chloride 108 H Carbon Dioxide 28 BUN 22 Creatinine 1.04 Glucose 103 Calcium 9.0 - Imaging Chest Xray: image reviewed Consult Discharge Plan - Plan Referrals: Henrique Boothe MD [Partnered Physician] - Shaji Vick DO [Partnered Physician] - 01/30/19 1:30 pm
--- NOTE | 2019-01-24 12:27 | Infectious Disease Consult ---
Infectious Disease-Consult - Encounter Date/Time Date of Encounter: 01/24/19 Time of Encounter: 12:24 - Data of Consult Patient: new to practice Reason for consult: MRSA in the sputum Consult date: 01/24/19 Requesting Physician: Henrique Boothe MD Primary Care Provider: PCP NONE - HPI HPI: Ms. Ferro is a 78-year-old female with a past medical history of CAD, diabetes, hypertension, CHF, and recent diagnosis of right lung invasive mucinous adenocarcinoma. The patient was admitted to the hospital 01/17/19 for operative intervention for her lung cancer. We are consulted 01/24/19 for further workup and treatment recommendations for MRSA in the sputum. Briefly, the patient is 78-year-old female with past medical history as stated above. Patient was admitted to the hospital after she underwent a staging bronchoscopy, diagnostic VATS, right thoracotomy with wedge resection right upper lobe 01/17/[address] Boothe. Postop, the patient did well until 01/19/19 when she became hypoxic, febrile, tachycardic, hypotensive. She was emergently intubated and taken to the intensive care unit. A large mucous plug obstructing her airway. Culture was positive for MRSA. Blood cultures were obtained 2 sets and were negative. The patient self extubated 01/21/19 and since then has been doing well. She was started on IV steroids and then transition to oral prednisone. She did develop leukocytosis likely secondary to the steroids. Chest x-ray 01/23/19 shows bilateral interstitial opacities and left lung airspace opacity. Today, the patient's white blood cell count is 19,000. No differential was checked. Her vital signs are stable. She has been afebrile. Currently, she is on Zosyn (day 6) and vancomycin (day 5). We have been asked to evaluate and make further recommendations. My exam today, the patient states that overall she feels okay. She denies fevers, chills, or rigors. Denies any headache or neck pain. Reports some shortness of breath with exertion. Reports pain at the surgical site. Reports are moist cough productive of brown sputum. Denies nausea, vomiting, or constipation. Reports 2 loose stools so far today. Denies abdominal pain or urinary complaints. Denies oral thrush or skin rashes. States her appetite is okay. She lives at home. She is planning on going to her daughter's when she was discharged from rehabilitation. She denies tobacco, alcohol, or illicit drug use. Denies chronic infectious diseases. Denies any recent travel outside the [facility]. - ROS Review of Systems: All systems reviewed and no additional remarkable complaints except as stated. - Results CBC & Chem 7: 01/24/19 10:35 01/24/19 10:35 - Exam Vitals: Temp Pulse Resp BP Pulse Ox 97.9 F 64 18 163/67 96 01/24/19 11:06 01/24/19 11:06 01/24/19 12:01 01/24/19 12:01 01/24/19 12:01 Exam: Head: Atraumatic, normal inspection, normocephalic. Eye: EOMI, PERRLA, no scleral icterus noted. ENT: Mucous membranes moist. No odontogenic infection noted. Neck: Normal inspection, no meningismus. Respiratory: Clear to auscultation, diminished right base. No rales, respiratory distress, rhonchi, or wheezes noted. Vertical site noted to the right posterior lateral chest wall with dressing clean, dry, and intact. Small amount shadowed drainage noted. Tenderness noted with palpation. No crepitus or erythema noted. Cardiovascular: Regular rate and rhythm, S1 and S2 audible. No murmurs, rubs, or gallops. GI: Soft, nondistended, normal bowel sounds. Extremities:No joint swelling, pedal edema, or tenderness noted. Back: Normal inspection. No vertebral tenderness noted. Neurological: Alert, oriented 3, no focal deficits. Psychiatric: normal affect, normal mood. Skin: Dry, intact, warm. Normal color. No rashes. Pregabalin [Lyrica] 75 mg PO QPM 03/23/15 [History] Allopurinol [Zyloprim 100 MG] 100 mg PO DAILY 11/25/16 [History] Omeprazole [PriLOSEC] 20 mg PO BIDAC 11/25/16 [History] Oxycodone HCl/Acetaminophen [Percocet 5-325 mg Tablet] 1 tab PO Q8H PRN 11/25/16 [History] Simvastatin [Zocor] 40 mg PO HS tab 12/01/16 [Rx] Insulin ASPART [NovoLOG] 0 unit SQ TIDWM PRN 10/20/17 [History] Insulin Glargine,Hum.rec.anlog [Basaglar Kwikpen U-100] 50 unit SQ BID 10/20/17 [History] Albuterol Sulfate [Proair Hfa] 2 puff IH Q4H PRN 03/27/18 [History] Colestipol HCl [Colestid] 1 gm PO BID 03/27/18 [History] Donepezil HCl [Aricept] 10 mg PO HS 03/27/18 [History] Furosemide [Lasix] 40 mg PO DAILY 03/27/18 [History] Olmesartan Medoxomil [Benicar] 5 mg PO DAILY 03/27/18 [History] Sertraline [Zoloft] 150 mg PO DAILY 03/27/18 [History] Potassium Chloride 20 meq PO DAILY #5 tab.er.prt 10/30/18 [Rx] Calcium Carbonate/Vitamin D3 [Oyster Shell 500Mg-Vit D3 5Mcg] 1 tab PO DAILY 01/06/19 [History] Dicyclomine Hcl [Bentyl] 20 mg PO TID PRN 01/06/19 [History] Gabapentin [Neurontin] 100 mg PO TID 01/06/19 [History] Levothyroxine [Synthroid] 125 mcg PO 0630 01/06/19 [History] Metoprolol [Lopressor] 25 mg PO BID 01/06/19 [History] Trazodone HCl 150 mg PO HS 01/17/19 [History] Allergy/AdvReac Type Severity Reaction Status Date / Time lisinopril Allergy Gastrointestinal Verified 10/19/17 19:38 Upset - Assessment and Plan (1) Sepsis, unspecified organism Current Visit: No Status: Acute The patient developed 3 sepsis criteria with hypotension on 01/19/19. Likely secondary to pneumonia. Improved. Continues to have leukocytosis, but likely secondary to steroids. Tachycardia and fevers resolved. Blood cultures drawn 01/19/19 are negative 2 sets. Qualifiers: Sepsis type: sepsis due to unspecified organism Severe sepsis acute organ dysfunction type: acute respiratory failure Acute respiratory failure type: with hypoxia Severe sepsis shock status: without septic shock SNOMED Code(s): 65543474 (2) Pneumonia Current Visit: Yes Status: Acute Causative organism: MRSA. Developed mucous plug postop. Intubated 01/19/19. Extubated 01/21/19. Chest x-ray 01/23/19 shows bilateral interstitial opacities in the left lung airspace opacity. Consider aspiration given the events leading up to intubation. Currently on vancomycin and Zosyn. Qualifiers: Pneumonia type: due to methicillin-resistant Staphylococcus aureus (MRSA) Laterality: unspecified laterality Lung location: unspecified part of lung Qualified Code(s): J15.212 - Pneumonia due to Methicillin resistant Staphylococcus aureus SNOMED Code(s): 804744473 (3) Acute respiratory failure with hypoxia and hypercarbia Current Visit: Yes Status: Acute Secondary to pneumonia and postop mucous plugging. Intubated 01/19/19. Extubated 01/21/19. Resolved. SNOMED Code(s): 798829164 (4) Malignant neoplasm of lower lobe, right bronchus or lung Current Visit: Yes Status: Acute Status post staging bronchoscopy, diagnostic VATS, right thoracotomy with wedge resection right lower lobe 01/17/[address] Boothe. Pathology positive for invasive mucinous adenocarcinoma. SNOMED Code(s): 217670392 (5) Hyperlipidemia Current Visit: No Status: Chronic Qualifiers: Hyperlipidemia type: pure hypercholesterolemia Qualified Code(s): E78.00 - Pure hypercholesterolemia, unspecified; E78.0 - Pure hypercholesterolemia SNOMED Code(s): 89231387 (6) Hypothyroidism Current Visit: No Status: Chronic Qualifiers: Hypothyroidism type: unspecified Qualified Code(s): E03.9 - Hypothyroidism, unspecified SNOMED Code(s): 77373902 (7) Hypertension Current Visit: No Status: Chronic Qualifiers: Hypertension type: essential hypertension Qualified Code(s): I10 - Essential (primary) hypertension SNOMED Code(s): 52232311 (8) Diabetes mellitus Current Visit: No Status: Chronic Qualifiers: Diabetes mellitus type: type 2 Diabetes mellitus ocean transportation intermediary insulin use: with ocean transportation intermediary use Diabetes mellitus complication status: with kidney complications Diabetes mellitus complication detail: with chronic kidney disease Chronic kidney disease stage: stage 3 (moderate) Qualified Code(s): E11.22 - Type 2 diabetes mellitus with diabetic chronic kidney disease; N18.3 - Chronic kidney disease, stage 3 (moderate); Z79.4 - termite treater helper (current) use of insulin SNOMED Code(s): 46907871 (9) Chronic kidney disease, stage III (moderate) Current Visit: No Status: Chronic SNOMED Code(s): 873150455 (10) MDD (major depressive disorder), recurrent, severe, with psychosis Current Visit: No Status: Chronic SNOMED Code(s): 182685598 (11) CAD (coronary artery disease) Current Visit: No Status: Chronic Qualifiers: Coronary Disease-Associated Artery/Lesion type: [place] artery [place] vs. transplanted heart: [place] heart Associated angina: without angina Qualified Code(s): I25.10 - Atherosclerotic heart disease of [place] coronary artery without angina pectoris SNOMED Code(s): 55306226 - Recommendations Recommendations: Post-op care per the CTS team. Continue Vancomycin IV. Pharmacy to dose. Goal trough ~15. Continue Zosyn 3.375 grams IV Q8H. Duration of treatment depends on the clinical picture. Can likely transition to PO when ready for discharge. Monitor renal function and for drug toxicity and dose-adjust antibiotics. Contact and droplet precautions per hospital policy. Past Med Surg Social Fam HX - Past Medical History Attestation: Yes The following information was validated with the patient. Source: patient, old records reviewed, nursing notes reviewed Medical history: asthma, CHF, coronary artery disease, diabetes, hyperlipidemia, hypertension, myocardial infarction, thyroid disease Additional medical history: DDD Psychiatric history: no psych history - Past Surgical History Surgical History: colectomy, other Additional surgical history: Tubal, cyst removed from back. - Social History Smoking Status: Never smoker Smokeless Tobacco Status: No Alcohol use: none Drug use: none Occupational status: retired Current living situation: Home, With Family Activity Level: Uses cane/walker Recent Out of Country Travel Within the Last 8 Weeks: No Exposure or Possible Exposure to Illness During Travel: No - Family History Mother Adopted: No Family Member Ethnicity: Non- Living Status: Hx Family Cardiac Disorders: Yes Hx Family Respiratory Disorders: No Hx Family Cancer: Yes Hx Family GI Disorders: No Hx Family Endocrine Disorder: No Hx Family Neuromuscular Disorders: No Hx Family Neurologic Disorders: No Hx Family HEENT Disorders: No Hx Family Autoimmune Disorders: No Father Living Status: Hx Family Cardiac Disorders: Yes ([place]) Consult Discharge Plan - Plan Referrals: Henrique Boothe MD [Partnered Physician] - Shaji Vick DO [Partnered Physician] - 01/30/19 1:30 pm - Attending Attestation I have personally performed a face to face evaluation on this patient. I have reviewed and agree with the care plan. This is an addendum to original report dictated by Guerita Taylor CNP. Please refer to Guerita's note for full detail. Agree with above history of present illness, review of system and physical exam findings. Assessment and plan: 1.Sepsis 2.Pneumonia causative organism MRSA is also concern for aspiration status post intubation from 3.Acute respiratory failure resolved 4.Malignant neoplasm of lower lobe status post VATS, right thoracotomy with wedge resection. Pathology positive for invasive mucinous adenocarcinoma 5.Diabetes mellitus type 2 6.Chronic kidney disease 7.Major depressive disorder Recommendations: At this point agree with the current antibiotics including vancomycin/Zosyn. Goal vancomycin trough around 1015 Duration of treatment depends on the clinical picture but patient clearly seems to be doing much better and I will consider oral antibiotics on discharge once patient is ready for discharge. Monitor labs and for drug toxicity
[2019-01-24] MEDS: traZODone 50 MG TABLET PO SCH (22:09)
[2019-01-25 02:42] LABS: Hematocrit 31.9 % (35.3-44.9); Mean Corpuscular HGB Conc 31.7 g/dL (31.6-35.5); Mean Corpuscular Hemoglobin 29.3 pg (28.0-33.3); Mean Corpuscular Volume 92.5 fL (83.0-100.0); Mean Platelet Volume 9.4 fL (9.4-12.4); Platelet Count 243 K/mcL (140-400); Red Blood Count 3.45 M/mcL (3.82-4.97); Red Cell Distribution Width 14.8 % (11.5-14.5); White Blood Count 16.8 K/mcL (4.3-11.1)
[2019-01-25 02:43] LABS: Hemoglobin 10.1 g/dL (11.5-15.4)
[2019-01-25 03:01] LABS: BUN/Creatinine Ratio 19 (6-26); Blood Urea Nitrogen 20 mg/dL (8-23); Calcium 8.6 mg/dL (8.6-10.3); Carbon Dioxide 28 mEq/L (23-29); Chloride 107 mEq/L (98-107); Glucose 85 mg/dL (70-105); Osmolality,Calculated 296 (280-300); Potassium 3.9 mEq/L (3.5-5.1); Sodium 142 mEq/L (136-145); eGFR For African Americans > 60 (> 60); eGFR For Non-African Americans 50 (> 60)
[2019-01-25] MEDS: Ipratropium/Albuterol Neb 3 ML IH SCH ×3 (03:50→11:32)
[2019-01-25] MEDS: Acetylcysteine 10% 2 ML INHSOL IH SCH ×2 (03:50→07:35)
[2019-01-25] MEDS: Piperacillin/Tazobactam 3.375 GM in 0.9 % Sodium Chloride Mini Bag 100 ML IVPB SCH (06:13)
[2019-01-25] MEDS: *HR* Heparin 5,000 UNIT/ML VIAL SQ SCH (06:14)
[2019-01-25] MEDS: Budesonide/Formoterol 160/4.5 1 PUFF INH IH SCH (07:35)
[2019-01-25] MEDS: Insulin LISPRO 300 UNITS/3 ML VIAL SQ SCH (09:06)
[2019-01-25] MEDS: Sennosides/Docusate Sodium TABLET PO SCH (09:07)
[2019-01-25] MEDS: Insulin DETEMIR 100 UNIT/ML X5UNITS SQ SCH (09:08)
[2019-01-25] MEDS: (Colestipol Hcl [Colestid] 1 GM) PO SCH (09:08)
--- NOTE | 2019-01-25 10:08 | Physician Discharge Referral ---
ExtendedCare Referral Info Transfer To: rehab Provider in Charge: radec Provider in Charge after Transfer: PCP Institutional Level of Care: Skilled - Diagnosis (1) Malignant neoplasm of lower lobe, right bronchus or lung Priority: Primary Status: Acute (2) Hypertension Priority: Secondary Status: Chronic (3) Diabetes mellitus Priority: Secondary Status: Chronic (4) Major depressive disorder Priority: Secondary Status: Chronic (5) Multiple tracheobronchial mucus plugs Priority: Primary Status: Acute Prognosis: Good Aware of Diagnosis: Patient, Family Aware of Prognosis: Patient, Family - Transfer Medications Home Medications: Pregabalin [Lyrica] 75 mg PO QPM 03/23/15 [History] Allopurinol [Zyloprim 100 MG] 100 mg PO DAILY 11/25/16 [History] Omeprazole [PriLOSEC] 20 mg PO BIDAC 11/25/16 [History] Oxycodone HCl/Acetaminophen [Percocet 5-325 mg Tablet] 1 tab PO Q8H PRN 11/25/16 [History] Simvastatin [Zocor] 40 mg PO HS tab 12/01/16 [Rx] Insulin ASPART [NovoLOG] 0 unit SQ TIDWM PRN 10/20/17 [History] Insulin Glargine,Hum.rec.anlog [Basaglar Kwikpen U-100] 50 unit SQ BID 10/20/17 [History] Albuterol Sulfate [Proair Hfa] 2 puff IH Q4H PRN 03/27/18 [History] Colestipol HCl [Colestid] 1 gm PO BID 03/27/18 [History] Donepezil HCl [Aricept] 10 mg PO HS 03/27/18 [History] Furosemide [Lasix] 40 mg PO DAILY 03/27/18 [History] Olmesartan Medoxomil [Benicar] 5 mg PO DAILY 03/27/18 [History] Sertraline [Zoloft] 150 mg PO DAILY 03/27/18 [History] Potassium Chloride 20 meq PO DAILY #5 tab.er.prt 10/30/18 [Rx] Calcium Carbonate/Vitamin D3 [Oyster Shell 500Mg-Vit D3 5Mcg] 1 tab PO DAILY 01/06/19 [History] Dicyclomine Hcl [Bentyl] 20 mg PO TID PRN 01/06/19 [History] Gabapentin [Neurontin] 100 mg PO TID 01/06/19 [History] Levothyroxine [Synthroid] 125 mcg PO 0630 01/06/19 [History] Metoprolol [Lopressor] 25 mg PO BID 01/06/19 [History] Trazodone HCl 150 mg PO HS 01/17/19 [History] Sulfamethoxazole/Trimeth DS [Bactrim Ds] 1 each PO BID tablet 01/25/19 [Rx] Allergies/Adverse Reactions: Allergy/AdvReac Type Severity Reaction Status Date / Time lisinopril Allergy Gastrointestinal Verified 10/19/17 19:38 Upset - Respiratory Orders Smoking Cessation: Smoking cessation has been advised. For more information, call the [employer] Tobacco Quit Line at 5-005-QKDTNOW. - Advance Directives Code Status: DNR-Arrest/Don't Intubate - Mobility Orders Ambulate - Rehabiliation Orders Rehab Potential: Good Rehab Orders: ROM Exercises, Evaluation for Physical Therapy CERTIFICATION: I certify that the transfer of the above named patient to an Extended Care Facility is necessary for the continuing treatment of the diagnosis listed. The above information is true and accurate reflection of patient's current condition. Confidential - Redisclosure prohibited without a patient's written consent.
--- NOTE | 2019-01-25 10:17 | Discharge Summary ---
Orders not resulted at time of discharge: Pending orders 01/24/19 11:15 Urinalysis Reflex Cult & Micro [URIN] Routine Date of Encounter: 01/25/19 Time of Encounter: 10:15 - Discharge Diagnosis (1) Malignant neoplasm of lower lobe, right bronchus or lung Priority: Primary Status: Acute Comments: resolved. no chemo or radiation (2) Hypertension Priority: Secondary Status: Chronic Comments: stable Qualifiers: Hypertension type: essential hypertension Qualified Code(s): I10 - Essential (primary) hypertension (3) Diabetes mellitus Priority: Secondary Status: Chronic Qualifiers: Diabetes mellitus terminal operations manager insulin use: with snf use Diabetes mellitus complication status: with hypoglycemia Diabetes mellitus complication detail: without coma Qualified Code(s): E11.649 - Type 2 diabetes mellitus with hypoglycemia without coma; Z79.4 - terminal operations manager (current) use of insulin (4) Major depressive disorder Priority: Secondary Status: Chronic Comments: stable Qualifiers: Major depression recurrence: recurrent Active/Remission status: in partial remission Qualified Code(s): F33.41 - Major depressive disorder, recurrent, in partial remission (5) Multiple tracheobronchial mucus plugs Priority: Primary Status: Acute Comments: resolved - Hospital Course Hospital course: Ms. Ferro is a 78 year old female - Time Spent with Patient Total time spent providing and/or coordinating discharge services: - Discharge Medications Prescriptions: New Sulfamethoxazole/Trimeth DS [Bactrim Ds] 1 each PO BID tablet No Action Pregabalin [Lyrica] 75 mg PO QPM Allopurinol [Zyloprim 100 MG] 100 mg PO DAILY Oxycodone HCl/Acetaminophen [Percocet 5-325 mg Tablet] 1 tab PO Q8H PRN PRN Reason: Pain Omeprazole [PriLOSEC] 20 mg PO BIDAC Simvastatin [Zocor] 40 mg PO HS tab Insulin Glargine,Hum.rec.anlog [Basaglar Kwikpen U-100] 50 unit SQ BID Insulin ASPART [NovoLOG] 0 unit SQ TIDWM PRN PRN Reason: SLIDING SCALE Olmesartan Medoxomil [Benicar] 5 mg PO DAILY Sertraline [Zoloft] 150 mg PO DAILY Colestipol HCl [Colestid] 1 gm PO BID Furosemide [Lasix] 40 mg PO DAILY Donepezil HCl [Aricept] 10 mg PO HS Albuterol Sulfate [Proair Hfa] 2 puff IH Q4H PRN PRN Reason: Shortness Of Breath Potassium Chloride 20 meq PO DAILY #5 tab.er.prt Calcium Carbonate/Vitamin D3 [Oyster Shell 500Mg-Vit D3 5Mcg] 1 tab PO DAILY Dicyclomine Hcl [Bentyl] 20 mg PO TID PRN PRN Reason: Abdominal Pain Gabapentin [Neurontin] 100 mg PO TID Levothyroxine [Synthroid] 125 mcg PO 0630 Metoprolol [Lopressor] 25 mg PO BID Trazodone HCl 150 mg PO HS Home Medications: Pregabalin [Lyrica] 75 mg PO QPM 03/23/15 [History] Allopurinol [Zyloprim 100 MG] 100 mg PO DAILY 11/25/16 [History] Omeprazole [PriLOSEC] 20 mg PO BIDAC 11/25/16 [History] Oxycodone HCl/Acetaminophen [Percocet 5-325 mg Tablet] 1 tab PO Q8H PRN 11/25/16 [History] Simvastatin [Zocor] 40 mg PO HS tab 12/01/16 [Rx] Insulin ASPART [NovoLOG] 0 unit SQ TIDWM PRN 10/20/17 [History] Insulin Glargine,Hum.rec.anlog [Basaglar Kwikpen U-100] 50 unit SQ BID 10/20/17 [History] Albuterol Sulfate [Proair Hfa] 2 puff IH Q4H PRN 03/27/18 [History] Colestipol HCl [Colestid] 1 gm PO BID 03/27/18 [History] Donepezil HCl [Aricept] 10 mg PO HS 03/27/18 [History] Furosemide [Lasix] 40 mg PO DAILY 03/27/18 [History] Olmesartan Medoxomil [Benicar] 5 mg PO DAILY 03/27/18 [History] Sertraline [Zoloft] 150 mg PO DAILY 03/27/18 [History] Potassium Chloride 20 meq PO DAILY #5 tab.er.prt 10/30/18 [Rx] Calcium Carbonate/Vitamin D3 [Oyster Shell 500Mg-Vit D3 5Mcg] 1 tab PO DAILY 01/06/19 [History] Dicyclomine Hcl [Bentyl] 20 mg PO TID PRN 01/06/19 [History] Gabapentin [Neurontin] 100 mg PO TID 01/06/19 [History] Levothyroxine [Synthroid] 125 mcg PO 0630 01/06/19 [History] Metoprolol [Lopressor] 25 mg PO BID 01/06/19 [History] Trazodone HCl 150 mg PO HS 01/17/19 [History] Sulfamethoxazole/Trimeth DS [Bactrim Ds] 1 each PO BID tablet 01/25/19 [Rx] Allergies/Adverse Reactions: Allergy/AdvReac Type Severity Reaction Status Date / Time lisinopril Allergy Gastrointestinal Verified 10/19/17 19:38 Upset Date of admission: 01/17/19 19:02 Primary care physician: PCP NONE Consults: 01/19/19 13:57 Consult to Pulmonology [CONS] Routine Consulting Provider: [facility] [place] Reason for Consult: vent management assistance Time Notified: 13:58 Call Completed: Yes 01/21/19 10:12 Consult to Physical Therapy [CONS] Routine Comment: Evaluate, develop and implement POC Reason for Consult: Post-wedge resection Does patient have active BEDREST order?: Yes Is patient medically & hemodynamically stable?: Yes Patient assessed for mobility or mobilized this visit?: Yes OT [Consult to Occupational Therapy] [CONS] Routine Comment: Evaluate, develop and implement POC Reason for Consult: post-wedge resection Does patient have active BEDREST order?: Yes Is patient medically & hemodynamically stable?: Yes Patient assessed for mobility or mobilized this visit?: Yes 01/21/19 15:21 Consult to [facility] [place] [CONS] Routine Reason for SW Consult: discharge planning. daughter is glaze supervisor at home. 01/24/19 11:40 Consult to Infectious Diseases [CONS] Routine Consulting Provider: Infectious Disease [place] Reason for Consult: mrsa in sputum. po versus iv therapy for discharge to subacute Call Completed: No Procedure(s) Performed: bronchoscopy, right thoracotomy wedge resection Discharging clinician: Henrique Boothe Anticipated date of discharge: 01/25/19 Physical Examination Vital Signs, Last 4 Hours Temp Pulse Resp BP Pulse Ox 01/25/19 07:47 97.9 F 66 18 144/62 97 01/25/19 07:35 16 94 01/25/19 07:31 60 General: Conversant, No Apparent Distress, Well developed, Well nourished, Other (weak) Neck: No JVD Cardiac: Reg Rate and Rhythm, Normal S1 and S2 Lungs: Normal Breath Sounds Neuro: Alert and responsive, No focal deficits noted Vascular: Normal capillary refill Abdomen: Soft, Non-tender, Other (bm this am ) Extremities: No Edema - Patient Status Disposition: Transfer Inpatient Rehab Fac Condition: Good Functional capacity at discharge: uses cane/walker Overall status at discharge: patient is progressing back to baseline - Discharge Instructions Follow Up With: Henrique Boothe MD [Partnered Physician] - Shaji Vick DO [Partnered Physician] - 01/30/19 1:30 pm - Diet and Activity Activity: as per physical therapy Diet: diabetic diet
[2019-01-25 11:05] VITALS: BP 163/69
--- NOTE | 2019-01-25 11:13 | Infectious Disease Progress No ---
ID Progress Note Date of Encounter: 01/25/19 Time of Encounter: 10:30 - Subjective Subjective: Patient seen and examined. No acute events noted overnight. Patient states overall she feels okay. Denies fevers, chills, rigors. Denies chest pain. Reports some soreness at the surgical site. Reports shortness of breath with exertion and a cough productive of brown sputum. Denies nausea, vomiting, or constipation. States her stools are a little bit loose, but are not really watery. Denies abdominal pain or urinary complaints. States her appetite is good. Denies oral thrush or skin rashes. - Objective CBC & Chem 7: 01/25/19 02:18 01/25/19 02:18 - Exam Vitals: Temp Pulse Resp BP Pulse Ox 97.9 F 69 18 163/69 95 01/25/19 11:03 01/25/19 11:03 01/25/19 11:03 01/25/19 11:03 01/25/19 11:03 Exam: Head: Atraumatic, normal inspection, normocephalic. Eye: EOMI, PERRLA, no scleral icterus noted. ENT: Mucous membranes moist. No odontogenic infection noted. Neck: Normal inspection, no meningismus. Respiratory: Clear to auscultation, diminished right base. No rales, respiratory distress, rhonchi, or wheezes noted. Surgical site noted to the right posterior lateral chest wall open to air. Small amount shadowed drainage noted. Tenderness noted with palpation. No crepitus or erythema noted. Ecchymosis noted. Cardiovascular: Regular rate and rhythm, S1 and S2 audible. No murmurs, rubs, or gallops. GI: Soft, nondistended, normal bowel sounds. Nontender. Extremities:No joint swelling, pedal edema, or tenderness noted. Neurological: Alert, oriented 3, no focal deficits. Psychiatric: normal affect, normal mood. Skin: Dry, intact, warm. Normal color. No rashes. - Assessment and Plan (1) Sepsis, unspecified organism Current Visit: No Status: Acute The patient developed 3 sepsis criteria with hypotension on 01/19/19. Likely secondary to pneumonia. Improved. WBC improved. Tachycardia and fevers resolved. Blood cultures drawn 01/19/19 are negative 2 sets. Qualifiers: Sepsis type: sepsis due to unspecified organism Severe sepsis acute organ dysfunction type: acute respiratory failure Acute respiratory failure type: with hypoxia Severe sepsis shock status: without septic shock SNOMED Code(s): 54539104 (2) Pneumonia Current Visit: Yes Status: Acute Causative organism: MRSA. Also concern for aspiration. Developed mucous plug postop. Intubated 01/19/19. Extubated 01/21/19. Chest x-ray 01/23/19 shows bilateral interstitial opacities in the left lung airspace opacity. Consider aspiration given the events leading up to intubation. Currently on vancomycin and Zosyn. Qualifiers: Pneumonia type: due to methicillin-resistant Staphylococcus aureus (MRSA) Laterality: unspecified laterality Lung location: unspecified part of lung Qualified Code(s): J15.212 - Pneumonia due to Methicillin resistant Staphylococcus aureus SNOMED Code(s): 561957377 (3) Acute respiratory failure with hypoxia and hypercarbia Current Visit: Yes Status: Acute Secondary to pneumonia and postop mucous plugging. Intubated 01/19/19. Extubated 01/21/19. Resolved. SNOMED Code(s): 884993569 (4) Malignant neoplasm of lower lobe, right bronchus or lung Current Visit: Yes Status: Acute Status post staging bronchoscopy, diagnostic VATS, right thoracotomy with wedge resection right lower lobe 01/17/[address] Boothe. Pathology positive for invasive mucinous adenocarcinoma. SNOMED Code(s): 463737943 (5) Hyperlipidemia Current Visit: No Status: Chronic Qualifiers: Hyperlipidemia type: pure hypercholesterolemia Qualified Code(s): E78.00 - Pure hypercholesterolemia, unspecified; E78.0 - Pure hypercholesterolemia SNOMED Code(s): 05099618 (6) Hypothyroidism Current Visit: No Status: Chronic Qualifiers: Hypothyroidism type: unspecified Qualified Code(s): E03.9 - Hypothyroidism, unspecified SNOMED Code(s): 63176327 (7) Hypertension Current Visit: No Status: Chronic Qualifiers: Hypertension type: essential hypertension Qualified Code(s): I10 - Essential (primary) hypertension SNOMED Code(s): 04015162 (8) Diabetes mellitus Current Visit: No Status: Chronic Qualifiers: Diabetes mellitus type: type 2 Diabetes mellitus jail insulin use: with jail use Diabetes mellitus complication status: with kidney complications Diabetes mellitus complication detail: with chronic kidney disease Chronic kidney disease stage: stage 3 (moderate) Qualified Code(s): E11.22 - Type 2 diabetes mellitus with diabetic chronic kidney disease; N18.3 - Chronic kidney disease, stage 3 (moderate); Z79.4 - long-term (current) use of insulin SNOMED Code(s): 51990742 (9) Chronic kidney disease, stage III (moderate) Current Visit: No Status: Chronic SNOMED Code(s): 038613471 (10) MDD (major depressive disorder), recurrent, severe, with psychosis Current Visit: No Status: Chronic SNOMED Code(s): 490934964 (11) CAD (coronary artery disease) Current Visit: No Status: Chronic Qualifiers: Coronary Disease-Associated Artery/Lesion type: [place] artery [place] vs. transplanted heart: [place] heart Associated angina: without angina Qualified Code(s): I25.10 - Atherosclerotic heart disease of [place] coronary artery with out angina pectoris SNOMED Code(s): 15123662 - Recommendations Recommendations: Post-op care per the CTS team. Continue Vancomycin IV. Pharmacy to dose. Goal trough ~15. Continue Zosyn 3.375 grams IV Q8H. Duration of treatment depends on the clinical picture. Can likely transition to PO when ready for discharge. Recommend Bactrim DS 1 tab PO BID and Augmentin 875mg PO BID. Recommend treating for a total of 14 days. Monitor renal function and for drug toxicity and dose-adjust antibiotics. Contact and droplet precautions per hospital policy. Consult Discharge Plan - Plan Instructions: Sulfamethoxazole/Trimethoprim (By mouth), Thoracotomy (DC) Additional Instructions: Please go to Out Patient testing on 2018 around 0820M to get an x-ray done before you go see Dr. Boothe. The office is sending the order over to out patient testing at the [facility]. Please go in at the [facility]. Referrals: Henrique Boothe MD [Partnered Physician] - 02/25/19 9:20 am Shaji Vick DO [Partnered Physician] - (Patient is going to rehab. no PCP appointment needed)
[2019-01-25] MEDS ORDERED: Aminoglycoside Consult 1 EACH MC ONE (11:36)
[2019-01-25] MEDS ORDERED: Sulfamethoxazole/Trimeth DS 1 EACH TABLET PO SCH (21:00)
== END 2019-01-25 11:37 | DRG 163 ==
LOC: SAMDAY 10:57 → 2NNU 19:02 → ICNU 01-19 13:44 → 2NNU 01-22 17:51
PROVIDERS: ADMIT Thoracic Surgery (Cardiothoracic Vascular Surgery); ATTEND Thoracic Surgery (Cardiothoracic Vascular Surgery)

== ENCOUNTER 2020-04-24 09:28 | Inpatient (IN) ==
[2020-04-24] MEDS ORDERED: Isovue-370 500 ML BOTTLE IVP ONE (09:36)
[2020-04-24 09:57] LABS: Hematocrit 39.3 % (35.3-44.9); Hemoglobin 12.6 g/dL (11.5-15.4); Mean Corpuscular HGB Conc 32.1 g/dL (31.6-35.5); Mean Corpuscular Hemoglobin 28.8 pg (28.0-33.3); Mean Corpuscular Volume 89.9 fL (83.0-100.0); Platelet Count 197 K/mcL (140-400); Red Blood Count 4.37 M/mcL (3.82-4.97); Red Cell Distribution Width 12.8 % (11.5-14.5); White Blood Count 9.8 K/mcL (4.3-11.1)
[2020-04-24 10:05] LABS: INR 1.1; Prothrombin Time 12.2 Seconds (9.4-12.1)
[2020-04-24 10:08] LABS: Activated Partial Thrombo Time 28.3 Seconds (26.0-36.0)
[2020-04-24 10:15] LABS: BUN/Creatinine Ratio 15 (6-26); Blood Urea Nitrogen 29 mg/dL (8-23); Calcium 9.6 mg/dL (8.6-10.3); Carbon Dioxide 27 mEq/L (23-29); Chloride 99 mEq/L (98-107); Glucose 329 mg/dL (70-105); Osmolality,Calculated 297 (280-300); Potassium 4.7 mEq/L (3.5-5.1); Sodium 134 mEq/L (136-145); eGFR For African Americans 30 (> 60); eGFR For Non-African Americans 24 (> 60)
[2020-04-24 10:16] LABS: Troponin I < 0.03 ng/mL (< 0.04)
[2020-04-24] MEDS ORDERED: Aspirin 81 MG TAB.CHEW PO STA (10:26)
[2020-04-24] MEDS ORDERED: *HR* Heparin 5,000 UNIT/ML VIAL IVP PRN ×2 (11:28)
[2020-04-24] MEDS ORDERED: *HR* Heparin 5,000 UNIT/ML VIAL IVP ONE (11:28)
[2020-04-24] MEDS: Heparin 25,000UNIT/250ML 1/2NS 25,000 UNIT/250 ML IV.SOLN IVC SCH (12:00)
[2020-04-24] MEDS ORDERED: Naloxone 0.4 MG/ML INJ IVP PRN (12:21)
[2020-04-24 12:22] LABS: Hematocrit 37.5 % (35.3-44.9); Hemoglobin 12.4 g/dL (11.5-15.4); Mean Corpuscular HGB Conc 33.1 g/dL (31.6-35.5); Mean Corpuscular Hemoglobin 29.6 pg (28.0-33.3); Mean Corpuscular Volume 89.5 fL (83.0-100.0); Mean Platelet Volume 10.2 fL (9.4-12.4); Platelet Count 197 K/mcL (140-400); Red Blood Count 4.19 M/mcL (3.82-4.97); Red Cell Distribution Width 12.9 % (11.5-14.5); White Blood Count 9.8 K/mcL (4.3-11.1)
[2020-04-24] MEDS ORDERED: Perflutren Lipid Microsphere 1.3 ML in 0.9 % Sodium Chloride 8.7 ML IVP PRN (12:22)
[2020-04-24] MEDS ORDERED: Dextrose Gel 15 GM/37.5 ML TUBE PO PRN ×2 (12:24)
[2020-04-24] MEDS ORDERED: *HR* Dextrose 50 % in Water (Vial) 50 ML VIAL IVP PRN (12:24)
[2020-04-24] MEDS ORDERED: D5% in Water 1,000 ML IVC PRN (12:24)
[2020-04-24 12:25] LABS: Prothrombin Time 11.7 Seconds (9.4-12.1)
[2020-04-24 12:27] LABS: Heparin anti-factor XA UFH < 0.04 IU/mL (0.30-0.70)
[2020-04-24] MEDS ORDERED: Ipratropium/Albuterol Neb 3 ML IH PRN (12:28)
[2020-04-24 13:49] LABS: Bilirubin,Urine Negative (Negative); Blood,Urine Trace (Negative); Clarity,Urine Clear (Clear); Color,Urine Colorless (Yellow); Glucose,Urine (UA) >=1000 mg/dL (Normal); Ketones,Urine Negative (Negative); Leukocyte Esterase,Urine Negative (Negative); Nitrite,Urine Negative (Negative); Protein,Urine Negative (Neg-Trace); RBC,Urine 0-3 per hpf (0-3); Specific Gravity,Urine 1.023 (1.010-1.025); Squamous Epithelial Cell,Urine Few per hpf (None-Few); Urobilinogen,Urine Normal (Normal); WBC,Urine 0-3 per hpf (0-3)
[2020-04-24] MEDS: Insulin LISPRO 300 UNITS/3 ML VIAL SUBQ SCH ×3 (17:07→20:10)
[2020-04-24] MEDS: 0.9 % Sodium Chloride 1,000 ML IVC SCH ×2 (17:08→17:33)
[2020-04-25 01:11] LABS: Basophils % 0.1 %; Eosinophils # 0.2 K/mcL (0.0-0.6); Eosinophils % 2.8 %; Hematocrit 34.6 % (35.3-44.9); Hemoglobin 11.3 g/dL (11.5-15.4); Immature Granulocytes % 0.5 % (0-4); Lymphocytes # 1.8 K/mcL (0.6-4.6); Lymphocytes % 21.5 %; Mean Corpuscular HGB Conc 32.7 g/dL (31.6-35.5); Mean Corpuscular Hemoglobin 29.6 pg (28.0-33.3); Mean Corpuscular Volume 90.6 fL (83.0-100.0); Mean Platelet Volume 9.9 fL (9.4-12.4); Monocytes % 11.8 %; Neutrophils # 5.3 K/mcL (1.6-8.9); Platelet Count 174 K/mcL (140-400); Red Blood Count 3.82 M/mcL (3.82-4.97); Red Cell Distribution Width 12.9 % (11.5-14.5); Segmented Neutrophils % 63.3 %; White Blood Count 8.3 K/mcL (4.3-11.1)
[2020-04-25 01:28] LABS: Calcium 9.1 mg/dL (8.6-10.3); Magnesium 1.9 mg/dL (1.6-2.6); Phosphorous 3.2 mg/dL (2.7-4.5); Potassium 4.3 mEq/L (3.5-5.1)
[2020-04-25] MEDS: Aspirin 81 MG TAB.CHEW PO SCH (07:42)
[2020-04-25] MEDS: Insulin LISPRO 300 UNITS/3 ML VIAL SUBQ SCH ×4 (07:43→21:07)
[2020-04-25 07:59] LABS: Estimated Average Glucose 263 mg/dl; Hemoglobin A1C 10.8 %
[2020-04-25] MEDS ORDERED: *HR* OxyCODONE/APAP 5/325 TABLET PO PRN (11:02)
[2020-04-25] MEDS: 0.9 % Sodium Chloride 1,000 ML IVC SCH (11:23)
[2020-04-25] MEDS: Heparin 25,000UNIT/250ML 1/2NS 25,000 UNIT/250 ML IV.SOLN IVC SCH (12:29)
[2020-04-25] MEDS: traZODone 50 MG TABLET PO SCH (21:12)
[2020-04-26] MEDS: 0.9 % Sodium Chloride 1,000 ML IVC SCH ×2 (01:20→15:10)
[2020-04-26 01:53] LABS: Basophils % 0.3 %; Eosinophils # 0.2 K/mcL (0.0-0.6); Eosinophils % 2.8 %; Hematocrit 35.4 % (35.3-44.9); Hemoglobin 11.1 g/dL (11.5-15.4); Immature Granulocytes % 0.6 % (0-4); Lymphocytes # 1.9 K/mcL (0.6-4.6); Lymphocytes % 25.8 %; Mean Corpuscular HGB Conc 31.4 g/dL (31.6-35.5); Mean Corpuscular Hemoglobin 28.8 pg (28.0-33.3); Mean Corpuscular Volume 91.9 fL (83.0-100.0); Mean Platelet Volume 10.2 fL (9.4-12.4); Monocytes # 0.8 K/mcL (0.0-1.3); Monocytes % 10.3 %; Neutrophils # 4.4 K/mcL (1.6-8.9); Platelet Count 200 K/mcL (140-400); Red Blood Count 3.85 M/mcL (3.82-4.97); Segmented Neutrophils % 60.2 %; White Blood Count 7.3 K/mcL (4.3-11.1)
[2020-04-26 02:13] LABS: BUN/Creatinine Ratio 16 (6-26); Blood Urea Nitrogen 15 mg/dL (8-23); Calcium 9.2 mg/dL (8.6-10.3); Carbon Dioxide 24 mEq/L (23-29); Chloride 104 mEq/L (98-107); Glucose 158 mg/dL (70-105); Osmolality,Calculated 292 (280-300); Potassium 3.7 mEq/L (3.5-5.1); Sodium 139 mEq/L (136-145); eGFR For African Americans > 60 (> 60); eGFR For Non-African Americans 59 (> 60)
[2020-04-26] MEDS: Aspirin 81 MG TAB.CHEW PO SCH (08:21)
[2020-04-26] MEDS: Cholecalciferol (D-3) 1,000 UNIT (25MCG) TABLET PO SCH (08:21)
[2020-04-26] MEDS: Cyanocobalamin (B-12) 1,000 MCG TABLET PO SCH (08:23)
[2020-04-26] MEDS: Insulin LISPRO 300 UNITS/3 ML VIAL SUBQ SCH ×4 (08:25→21:05)
[2020-04-26] MEDS: Heparin 25,000UNIT/250ML 1/2NS 25,000 UNIT/250 ML IV.SOLN IVC SCH (16:55)
[2020-04-26] MEDS: traZODone 50 MG TABLET PO SCH (20:22)
[2020-04-27 05:18] LABS: Hematocrit 34.4 % (35.3-44.9); Hemoglobin 10.8 g/dL (11.5-15.4); Mean Corpuscular HGB Conc 31.4 g/dL (31.6-35.5); Mean Corpuscular Hemoglobin 28.6 pg (28.0-33.3); Mean Corpuscular Volume 91.2 fL (83.0-100.0); Mean Platelet Volume 9.7 fL (9.4-12.4); Platelet Count 189 K/mcL (140-400); Red Blood Count 3.77 M/mcL (3.82-4.97); White Blood Count 6.7 K/mcL (4.3-11.1)
[2020-04-27] MEDS: 0.9 % Sodium Chloride 1,000 ML IVC SCH (05:28)
[2020-04-27] MEDS: Cholecalciferol (D-3) 1,000 UNIT (25MCG) TABLET PO SCH (07:57)
[2020-04-27] MEDS: Cyanocobalamin (B-12) 1,000 MCG TABLET PO SCH (07:58)
[2020-04-27] MEDS: Insulin LISPRO 300 UNITS/3 ML VIAL SUBQ SCH ×2 (07:59→12:46)
[2020-04-27] MEDS: Aspirin 81 MG TAB.CHEW PO SCH (07:59)
[2020-04-27] MEDS ORDERED: Furosemide 40 MG TABLET PO SCH (09:00)
[2020-04-27] MEDS ORDERED: Apixaban 5 MG TABLET PO SCH (11:00)
[2020-04-27 12:43] VITALS: BP 164/81
== END 2020-04-27 14:17 | disposition home health service (06) ==
LOC: EMEROOARM 09:28 → 3BNU 09:28
PROVIDERS: ADMIT Student in an Organized Health Care Education/Training Program; ATTEND Student in an Organized Health Care Education/Training Program

== ENCOUNTER 2020-11-04 21:43 | Inpatient (IN) ==
[2020-11-05 01:16] LABS: Basophils % 0.1 %; Eosinophils # 0.2 K/mcL (0.0-0.6); Eosinophils % 2.5 %; Hematocrit 32.5 % (35.3-44.9); Hemoglobin 10.5 g/dL (11.5-15.4); Immature Granulocytes % 0.7 % (0-4); Lymphocytes # 1.8 K/mcL (0.6-4.6); Lymphocytes % 25.5 %; Mean Corpuscular HGB Conc 32.3 g/dL (31.6-35.5); Mean Corpuscular Hemoglobin 29.8 pg (28.0-33.3); Mean Corpuscular Volume 92.3 fL (83.0-100.0); Mean Platelet Volume 9.5 fL (9.4-12.4); Monocytes # 0.8 K/mcL (0.0-1.3); Monocytes % 10.8 %; Neutrophils # 4.3 K/mcL (1.6-8.9); Platelet Count 162 K/mcL (140-400); Red Blood Count 3.52 M/mcL (3.82-4.97); Red Cell Distribution Width 13.1 % (11.5-14.5); Segmented Neutrophils % 60.4 %; White Blood Count 7.1 K/mcL (4.3-11.1)
[2020-11-05 01:35] LABS: Calcium 8.7 mg/dL (8.6-10.3); Potassium 4.8 mEq/L (3.5-5.1)
[2020-11-05] MEDS ORDERED: 0.9 % Sodium Chloride 1,000 ML IVC ONE ×2 (01:49→08:25)
[2020-11-05] MEDS ORDERED: Isovue-370 500 ML BOTTLE IVP ONE (01:50)
[2020-11-05 04:33] LABS: VBG HCO3 23 mEq/L (21-27); VBG PCO2 45 mmHg (41-51); VBG PH 7.33 pH Units (7.32-7.42); VBG PO2 73 mmHg (25-50)
[2020-11-05 05:39] LABS: Bilirubin,Urine Negative (Negative); Blood,Urine Negative (Negative); Clarity,Urine Clear (Clear); Color,Urine Colorless (Yellow); Glucose,Urine (UA) >=1000 mg/dL (Normal); Ketones,Urine Negative (Negative); Leukocyte Esterase,Urine Small (Negative); Nitrite,Urine Negative (Negative); Protein,Urine Negative (Neg-Trace); RBC,Urine 0-3 per hpf (0-3); Specific Gravity,Urine > 1.030 (1.010-1.025); Squamous Epithelial Cell,Urine Few per hpf (None-Few); Urobilinogen,Urine Normal (Normal)
[2020-11-05] MEDS ORDERED: Ondansetron ODT 4 MG TAB.RAPDIS SL PRN (10:57)
[2020-11-05] MEDS ORDERED: Acetaminophen 325 MG TABLET PO PRN (10:57)
[2020-11-05] MEDS ORDERED: D5% in Water 1,000 ML IVC PRN (10:59)
[2020-11-05] MEDS ORDERED: *HR* Dextrose 50 % in Water (Vial) 50 ML VIAL IVP PRN (10:59)
[2020-11-05] MEDS ORDERED: Dextrose Gel 15 GM/37.5 ML TUBE PO PRN ×2 (10:59)
[2020-11-05] MEDS ORDERED: Ringers Solution, Lactated 1,000 ML IVC ONE (11:03)
[2020-11-05] MEDS: Insulin DETEMIR 100 UNIT/ML X5UNITS SUBQ SCH ×2 (12:09→22:04)
[2020-11-05] MEDS: Insulin LISPRO 300 UNITS/3 ML VIAL SUBQ SCH ×3 (12:10→22:03)
[2020-11-05] MEDS ORDERED: tiZANidine 4 MG TABLET PO PRN (16:19)
[2020-11-05 17:21] LABS: Estimated Average Glucose 226 mg/dl; Hemoglobin A1C 9.5 %
[2020-11-05] MEDS: traZODone 50 MG TABLET PO SCH (22:04)
[2020-11-06 08:06] LABS: Hematocrit 33.9 % (35.3-44.9); Hemoglobin 11.1 g/dL (11.5-15.4); Mean Corpuscular HGB Conc 32.7 g/dL (31.6-35.5); Mean Corpuscular Hemoglobin 29.8 pg (28.0-33.3); Mean Corpuscular Volume 91.1 fL (83.0-100.0); Mean Platelet Volume 9.6 fL (9.4-12.4); Platelet Count 182 K/mcL (140-400); Red Blood Count 3.72 M/mcL (3.82-4.97); Red Cell Distribution Width 13.1 % (11.5-14.5)
[2020-11-06] MEDS: Insulin LISPRO 300 UNITS/3 ML VIAL SUBQ SCH ×4 (08:24→21:11)
[2020-11-06] MEDS: Insulin DETEMIR 100 UNIT/ML X5UNITS SUBQ SCH (08:24)
[2020-11-06] MEDS: Pregabalin 75 MG CAPSULE PO SCH (08:44)
[2020-11-06] MEDS: allopurinoL 100 MG TABLET PO SCH (08:44)
[2020-11-06] MEDS ORDERED: Fluconazole 150 MG TABLET PO SCH (09:00)
[2020-11-06 09:12] LABS: BUN/Creatinine Ratio 15 (6-26); Blood Urea Nitrogen 14 mg/dL (8-23); Calcium 8.9 mg/dL (8.6-10.3); Carbon Dioxide 24 mEq/L (23-29); Chloride 111 mEq/L (98-107); Glucose 45 mg/dL (70-105); Osmolality,Calculated 300 (280-300); Potassium 3.3 mEq/L (3.5-5.1); Sodium 146 mEq/L (136-145); eGFR For African Americans > 60 (> 60); eGFR For Non-African Americans 58 (> 60)
[2020-11-06 15:34] LABS: BUN/Creatinine Ratio 14 (6-26); Blood Urea Nitrogen 14 mg/dL (8-23); Calcium 9.3 mg/dL (8.6-10.3); Carbon Dioxide 24 mEq/L (23-29); Chloride 112 mEq/L (98-107); Glucose 96 mg/dL (70-105); Osmolality,Calculated 294 (280-300); Sodium 142 mEq/L (136-145); eGFR For African Americans > 60 (> 60); eGFR For Non-African Americans 52 (> 60)
[2020-11-06] MEDS: traZODone 50 MG TABLET PO SCH (21:02)
[2020-11-07 08:44] LABS: Basophils % 0.1 %; Eosinophils # 0.2 K/mcL (0.0-0.6); Eosinophils % 2.7 %; Hematocrit 31.4 % (35.3-44.9); Hemoglobin 10.3 g/dL (11.5-15.4); Immature Granulocytes % 0.7 % (0-4); Lymphocytes # 1.6 K/mcL (0.6-4.6); Lymphocytes % 24.4 %; Mean Corpuscular HGB Conc 32.8 g/dL (31.6-35.5); Mean Corpuscular Hemoglobin 30.5 pg (28.0-33.3); Mean Corpuscular Volume 92.9 fL (83.0-100.0); Mean Platelet Volume 10.1 fL (9.4-12.4); Monocytes # 0.8 K/mcL (0.0-1.3); Monocytes % 11.5 %; Neutrophils # 4.1 K/mcL (1.6-8.9); Platelet Count 155 K/mcL (140-400); Red Blood Count 3.38 M/mcL (3.82-4.97); Red Cell Distribution Width 13.3 % (11.5-14.5); Segmented Neutrophils % 60.6 %; White Blood Count 6.7 K/mcL (4.3-11.1)
[2020-11-07] MEDS: allopurinoL 100 MG TABLET PO SCH (08:53)
[2020-11-07] MEDS: Pregabalin 75 MG CAPSULE PO SCH (08:53)
[2020-11-07] MEDS: Insulin LISPRO 300 UNITS/3 ML VIAL SUBQ SCH ×2 (08:53→11:58)
[2020-11-07 09:07] LABS: BUN/Creatinine Ratio 18 (6-26); Blood Urea Nitrogen 19 mg/dL (8-23); Calcium 9.2 mg/dL (8.6-10.3); Carbon Dioxide 25 mEq/L (23-29); Chloride 108 mEq/L (98-107); Glucose 199 mg/dL (70-105); Osmolality,Calculated 302 (280-300); Potassium 4.2 mEq/L (3.5-5.1); Sodium 142 mEq/L (136-145); eGFR For African Americans > 60 (> 60); eGFR For Non-African Americans 52 (> 60)
[2020-11-07 11:32] VITALS: BP 117/62
== END 2020-11-07 16:28 | disposition home health service (06) | DRG 551 ==
LOC: 2ANU 21:43 → EMEROOARM 21:43 → 2ANU 11-05 09:49 → SUATTDRO 11-06 16:30
PROVIDERS: ADMIT Internal Medicine; ATTEND Family Medicine